=== PATIENT | female | born 1940 | race Caucasian/White ===

== ENCOUNTER 2019-12-22 11:55 | Outpatient (REF) | payer MEDICARE, SELFPAY ==
--- NOTE | 2019-12-22 | MM_ITS ---
EXAMINATION: MM SCREENING DIGITAL BREAST TOMOSYNTHESIS, BILATERAL CLINICAL INFORMATION: Screening. Asymptomatic. The lifetime risk of breast cancer based on the Tyrer-Cuzick Model is under 2%. COMPARISON: Mammography: 06/26/2018, 06/25/2017 TECHNIQUE: Digital breast tomosynthesis is performed in both the craniocaudal and mediolateral oblique views along with computer-aided detection (CAD). Synthesized 2D images are generated from the tomosynthesis. Additional right MLO view is provided. FINDINGS: There are scattered areas of fibroglandular density (ACR BI-RADS breast composition Category b). There is no developing density or interval mass or architectural abnormality. Parenchymal pattern is similar to prior studies. Again, there are numerous bilateral scattered punctate round calcifications in each breast. Some vascular calcifications are also again seen. No significant changes from prior studies. IMPRESSION: No significant changes from prior studies. ASSESSMENT: BI-RADS 2: Benign RECOMMENDATION: Routine annual mammography screening. This patient's information was entered into a reminder system with a target due date for their next mammogram.
== END 2019-12-22 11:56 | disposition home or self-care (01) ==
LOC: HO.MAMMO 11:55
PROVIDERS: PCP Internal Medicine; Visit Provider Internal Medicine
DX: Z12.31 Encounter for screening mammogram for malignant neoplasm of breast (principal)
CPT/HCPCS: 77063; 77067

== ENCOUNTER 2020-05-04 14:29 | Outpatient (REF) | payer MEDICARE, SELFPAY ==
--- NOTE | ~2020-05-04 | XR_ITS ---
EXAMINATION: XR HAND, RIGHT CLINICAL INFORMATION: Palmar fascial fibromatosis. COMPARISON: 12/29/2017 TECHNIQUE: PA, lateral, and oblique views of the right hand. FINDINGS: No acute fracture or dislocation. 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 Mild spurring at multiple interphalangeal joints of the fingers. Scapholunate distance is maintained. Ulnar negative variance. Soft tissue swelling around the wrist. No erosions. Small chronic-appearing calcification along the radial aspect of the 3rd metacarpal head. XR/XR hand RT min 3V IMPRESSION: No acute osseous abnormality. Mild arthritic changes as detailed above.
== END 2020-05-04 14:30 | disposition home or self-care (01) ==
LOC: HO.XRAY 14:29
PROVIDERS: PCP Internal Medicine; Visit Provider Internal Medicine
DX: M72.0 Palmar fascial fibromatosis [Dupuytren] (principal)
CPT/HCPCS: 73130

== ENCOUNTER 2020-08-02 09:05 | Outpatient (REF) | payer MEDICARE, SELFPAY ==
[2020-08-02 10:16] LABS: Hematocrit 45.2 % (37-47); Hemoglobin 14.5 g/dl (12.0-16.0); Mean Corpuscular HGB Conc 32.1 g/dl (31.0-35.0); Mean Corpuscular Hemoglobin 29.8 pg (27.0-33.0); Mean Platelet Volume 10.5 fL (9.4-12.3); Platelet Count 159 X10*3/uL (160-400); Red Blood Count 4.86 X10*6/uL (4.20-5.50); Red Cell Distribution Width 14.4 % (11.0-16.0); White Blood Count 6.4 X10*3/uL (4.8-10.8)
[2020-08-02 10:27] LABS: Anion Gap 11 (12-20); Blood Urea Nitrogen 27 mg/dL (9-16); Calcium 9.5 mg/dL (8.4-10.2); Carbon Dioxide 30 mmol/L (22-29); Chloride 106 mmol/L (96-108); Estimated Glomerular Filt Rate 28; Iron 48 mcg/dL (30-160); Percent Iron Saturation 19 % (15-50); Potassium 3.9 mmol/L (3.3-5.1); Sodium 143 mmol/L (135-145); Total Iron Binding Capacity 255 mcg/dL (228-428); Unsaturated Iron Binding 207 ug/dL; Uric Acid 9.7 mg/dL (2.4-5.7)
[2020-08-02 10:42] LABS: Estimated Average Glucose 140 mg/dL; Hemoglobin A1c % 6.5 %
[2020-08-02 10:50] LABS: Vitamin D 25-OH Total 43.7 ng/mL (>30)
[2020-08-02 14:54] LABS: Creatinine Urine 137.74 mg/dL; Protein/Creatinine Ratio, Ur 0.44 (<0.2); Total Protein Urine Random 60 mg/dL (<12)
[2020-08-04 13:32] LABS: Calcium (PTHI) 9.8 mg/dL (8.6-10.4); PTHI 135 pg/mL (14-64)
== END 2020-08-02 09:06 | disposition home or self-care (01) ==
LOC: HO.LAB 09:05
PROVIDERS: PCP Internal Medicine; Visit Provider Internal Medicine Nephrology
DX: N18.32 Chronic kidney disease, stage 3b (principal)
CPT/HCPCS: 36415; 80051; 82306; 82310; 82565; 83036; 83540; 83970; 84156; 84520; 84550; 85027

== ENCOUNTER 2020-08-24 14:10 | Emergency (ER) | payer MEDICARE, SELFPAY ==
--- NOTE | ~2020-08-24 | XR_ITS ---
EXAMINATION: XR CHEST CLINICAL INFORMATION: Epigastric pain COMPARISON: None TECHNIQUE: 2 views of the chest were obtained. FINDINGS: The lungs are well-expanded and clear of acute process. The heart size and pulmonary vascularity is normal. There is mild spondylosis dorsal spine. No lytic process seen. XR/XR chest 2V IMPRESSION: Unremarkable chest exam.
--- NOTE | 2020-08-24 14:34 | ECG_ITS ---
Test Reason : BODY ACHES Blood Pressure : / mmHG Vent. Rate : 064 BPM Atrial Rate : 064 BPM P-R Int : 168 ms QRS Dur : 100 ms QT Int : 450 ms P-R-T Axes : 052 -44 073 degrees QTc Int : 464 ms Normal sinus rhythm Left axis deviation Abnormal ECG When compared with ECG of 07-SEP-2019 12:59, QT has lengthened Referred By: Monica De La Cruz Electronically Signed By:BATSHEVA SWEET
--- NOTE | 2020-08-24 14:34 | ED.GENADULT ---
HPI - General Adult General Stated complaint: Body aches, nausea, weakness Time Seen by Provider: 08/24/20 14:16 Related Data Allergies Allergy/AdvReac Type Severity Reaction Status Date / Time No Known Allergies Allergy Unknown Unverified 11/27/19 17:30 Course Course Course Narrative: -This is a rapid medical exam. Patient here with body aches, nausea, vomiting, epigastric pain x 1 week with gen weakness. Will need labs, EKG, CXR, UA. Deferred additional HPI, ROS and PE to primary provider.
[2020-08-24 14:36] VITALS: BP 127/77; PULSE 57; RESP 18; TEMP 36.6; O2SAT 93; BMI 49.5
--- NOTE | 2020-08-24 17:21 | ED.GENADULT ---
HPI - General Adult General Chief complaint: General Medical Stated complaint: Body aches, nausea, weakness Time Seen by Provider: 08/24/20 14:16 Source: patient and family Mode of arrival: wheelchair Limitations: language barrier History of Present Illness HPI narrative: 79-year-old female with past medical history of asthma, COPD, diabetes, hypertension, hyperlipidemia, edema, and chronic pain presents with several days of weakness, abdominal pain, nausea, and poor p.o. intake. 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 She has not report any falls, fevers, chills, chest pain or pressure, palpitations, shortness of breath, dysuria, hematuria, constipation wounds, or any other concerning symptoms. Related Data Allergies Allergy/AdvReac Type Severity Reaction Status Date / Time No Known Allergies Allergy Unknown Unverified 11/27/19 17:30 Review of Systems Review of Systems: Constitutional: No Fever, No Chills ENT/Mouth: No sore throat, No Rhinorrhea, No Swallowing Difficulty Eyes: No Eye Pain, No Swelling, No Redness Cardiovascular: No Chest Pain, positive SOB, No Orthopnea, positive Edema Respiratory: No Cough, No Sputum, No Wheezing, positive dyspnea Gastrointestinal: Positive Nausea, No Vomiting, No Diarrhea, positive abdominal Pain, No Hematochezia, No Melena Genitourinary: No Dysuria, No Urinary Frequency, No Hematuria Musculoskeletal: No joint pain, positive Myalgias Skin: No Skin Lesions, No rash Neuro: No Weakness, No Numbness, No Dizziness, No Headache Psych: No Anxiety/Panic, No Depression Heme/Lymph: No Bruising, No Lymphadenopathy Endocrine: No Polyuria, No Polydipsia Yes all other systems are reviewed and are negative [facility] Past Medical History Attestation statement: The following information was validated with the patient. Source: old records reviewed Social History Social History Advance Directives: No Advance Directives Information Provided: No Physical Exam Vital Signs: Vital Signs: Last Vital Signs Temp 98.2 F 08/24/20 20:45 Pulse 74 08/24/20 20:45 Resp 16 08/24/20 20:45 BP 174/68 H 08/24/20 20:45 Pulse Ox 89 L 08/24/20 20:45 Body Mass Index 49.5 Appearance: Alert. Oriented X3. No acute distress. Eyes: Pupils equal, round and reactive to light. EOMI ENT: Pharynx normal. Dry mucous membranes Neck: Normal inspection. Neck supple. CVS: Normal heart rate and rhythm. Pulses normal. Respiratory: No respiratory distress. Breath sounds normal. Abdomen: Soft and nontender. Skin: Skin warm and dry. Normal skin color. Normal skin turgor. Extremities: Bilateral lower pitting edema Neuro: No motor deficit. No sensory deficit. Course Course Course Narrative: 79-year-old female with past medical history of asthma, COPD, chronic pain, diabetes, hypertension, hyperlipidemia, and edema presents with GI complaints. Lab values indicate elevated H&H of 16.5/49.4 elevated BUN of 28, creatinine of 1.75 which both are average for her. H&H is indicated of of dehydration, will resuscitate with 1 L of fluid. No white count, COVID test negative, urinalysis negative, chest x-ray negative, EKG normal. Plan of care is to discharge home with follow-up with primary care physician, encourage fluids, and to return if symptoms persist. Patient patient family verbalized understanding of and agrees plan of care discharge home. Medical Decision Making Lab Data Result diagrams: 08/24/20 17:52 08/24/20 17:52 Labs: Lab Results 08/24/20 08/24/20 08/24/20 Range/Units 17:52 17:52 17:52 WBC 7.7 (4.8-10.8) X10*3/uL RBC 5.56 H (4.20-5.50) X10*6/uL Hgb 16.5 H (12.0-16.0) g/dl Hct 49.9 H (37-47) % MCV 89.7 (80-98) fL MCH 29.7 (27.0-33.0) pg MCHC 33.1 (31.0-35.0) g/dl RDW 14.0 (11.0-16.0) % Plt Count 138 L (160-400) X10*3/uL MPV 9.9 (9.4-12.3) fL Immature Gran % (Auto) 0.1 (0.0-0.4) % Neut % (Auto) 71.4 (45-73) % Lymph % (Auto) 20.8 (20-40) % [place] % (Auto) 6.1 (2-11) % Eos % (Auto) 1.2 (0-4) % Baso % (Auto) 0.4 (0-2) % Lymph # (Auto) 1.6 (1.2-4.9) X10*3/uL [place] # (Auto) 0.5 (0.1-1.2) X10*3/uL Eos # (Auto) 0.1 (0.0-0.4) X10*3/uL Baso # (Auto) 0.0 (0.0-0.2) X10*3/uL Abs Immat Gran (auto) 0.01 (0.00-0.03) X10*3/uL Absolute Neuts (auto) 5.5 (2.0-8.3) X10*3/uL Absolute Nucleated RBC 0.000 (0.0-0.012) X10*3/uL Nucleated RBC % (auto) 0.0 (0.0-0.2) /100WBC Sodium 143 (135-145) mmol/L Potassium 3.9 (3.3-5.1) mmol/L Chloride 102 (96-108) mmol/L Carbon Dioxide 30 H (22-29) mmol/L Anion Gap 15 (12-20) BUN 28 H (9-16) mg/dL Creatinine 1.75 H (0.5-1.4) mg/dL Estim Creat Clear Calc 29.2 Estimated GFR 28 Random Glucose 117 H (60-115) mg/dL Calcium 10.4 H D (8.4-10.2) mg/dL Total Bilirubin 1.3 H (0.0-1.0) mg/dL Direct Bilirubin 0.5 (0.0-0.5) mg/dL AST 17 (5-31) U/L ALT 12 (0-31) U/L Alkaline Phosphatase 103 (39-117) U/L Troponin I High Sens (<3.5-17.0) ng/L B-Natriuretic Peptide (<100) pg/mL Total Protein 7.6 (6.5-8.0) g/dL Albumin 4.4 (3.5-5.0) g/dL Urine Color Urine Appearance Urine pH (5.0-8.0) Ur Specific [place] (1.005-1.025) Urine Protein (NEG-TRACE) MG/DL Urine Glucose (UA) (NEG) MG/DL Urine Ketones (NEG) MG/DL Urine Blood (NEG) Urine Nitrite (NEG) Ur Leukocyte Esterase (NEG) COVID-19 (MIRNA) Negative (Negative) COVID-19 Clin Com See Note 08/24/20 08/24/20 08/24/20 Range/Units 17:52 17:52 18:56 WBC (4.8-10.8) X10*3/uL RBC (4.20-5.50) X10*6/uL Hgb (12.0-16.0) g/dl Hct (37-47) % MCV (80-98) fL MCH (27.0-33.0) pg MCHC (31.0-35.0) g/dl RDW (11.0-16.0) % Plt Count (160-400) X10*3/uL MPV (9.4-12.3) fL Immature Gran % (Auto) (0.0-0.4) % Neut % (Auto) (45-73) % Lymph % (Auto) (20-40) % [place] % (Auto) (2-11) % Eos % (Auto) (0-4) % Baso % (Auto) (0-2) % Lymph # (Auto) (1.2-4.9) X10*3/uL [place] # (Auto) (0.1-1.2) X10*3/uL Eos # (Auto) (0.0-0.4) X10*3/uL Baso # (Auto) (0.0-0.2) X10*3/uL Abs Immat Gran (auto) (0.00-0.03) X10*3/uL Absolute Neuts (auto) (2.0-8.3) X10*3/uL Absolute Nucleated RBC (0.0-0.012) X10*3/uL Nucleated RBC % (auto) (0.0-0.2) /100WBC Sodium (135-145) mmol/L Potassium (3.3-5.1) mmol/L Chloride (96-108) mmol/L Carbon Dioxide (22-29) mmol/L Anion Gap (12-20) BUN (9-16) mg/dL Creatinine (0.5-1.4) mg/dL Estim Creat Clear Calc Estimated GFR Random Glucose (60-115) mg/dL Calcium (8.4-10.2) mg/dL Total Bilirubin (0.0-1.0) mg/dL Direct Bilirubin (0.0-0.5) mg/dL AST (5-31) U/L ALT (0-31) U/L Alkaline Phosphatase (39-117) U/L Troponin I High Sens 3.8 (<3.5-17.0) ng/L B-Natriuretic Peptide 26 (<100) pg/mL Total Protein (6.5-8.0) g/dL Albumin (3.5-5.0) g/dL Urine Color YELLOW Urine Appearance CLEAR Urine pH 6.5 (5.0-8.0) Ur Specific [place] 1.010 (1.005-1.025) Urine Protein TRACE (NEG-TRACE) MG/DL Urine Glucose (UA) NEG (NEG) MG/DL Urine Ketones NEG (NEG) MG/DL Urine Blood NEG (NEG) Urine Nitrite NEG (NEG) Ur Leukocyte Esterase NEG (NEG) COVID-19 (MIRNA) (Negative) COVID-19 Clin Com Imaging Data Chest x-ray: Attestation: I personally reviewed and interpreted this imaging study as follows: Radiologist's impression: EXAMINATION: XR CHEST CLINICAL INFORMATION: Epigastric pain COMPARISON: None TECHNIQUE: 2 views of the chest were obtained. FINDINGS: The lungs are well-expanded and clear of acute process. The heart size and pulmonary vascularity is normal. There is mild spondylosis dorsal spine. No lytic process seen. XR/XR chest 2V IMPRESSION: Unremarkable chest exam ECG Data Attestation: I personally reviewed and interpreted this ECG as follows: Interpretation: Vent. Rate : 064 BPM Atrial Rate : 064 BPM P-R Int : 168 ms QRS Dur : 100 ms QT Int : 450 ms P-R-T Axes : 052 -44 073 degrees QTc Int : 464 ms Normal sinus rhythm Left axis deviation Abnormal ECG When compared with ECG of 07-SEP-2019 12:59, QT has lengthened 24-AUG-2020 16:11:08 Discharge Plan Discharge Clinical Impression: Acute dehydration Patient Disposition: Home, Self-Care Instructions: Dehydration (ED) Additional Instructions: you were evaluated for multiple complaints. Lab values indicated dehydration. Gave you 1 L of fluid. please increase the amount of fluids. Follow-up with primary care physician this week. Thank you for choosing this emergency department for evaluation. Please follow-up with primary care physician as needed. Return to the emergency department for any new, concerning, or worsening symptoms. Interventions: ED Discharge Assessment Last Done: 08/24/20 22:13 Discharge Date/Time: 08/24/20 22:13
[2020-08-24 18:00] LABS: MANUAL DIFF FLAG NO
[2020-08-24 18:02] LABS: Basophils Percent Auto 0.4 % (0-2); Eosinophils Absolute Auto 0.1 X10*3/uL (0.0-0.4); Eosinophils Percent Auto 1.2 % (0-4); Hematocrit 49.9 % (37-47); Hemoglobin 16.5 g/dl (12.0-16.0); Imm Gran Abs Auto 0.01 X10*3/uL (0.00-0.03); Imm Gran Pct Auto 0.1 % (0.0-0.4); Lymphocytes Absolute Auto 1.6 X10*3/uL (1.2-4.9); Lymphocytes Percent Auto 20.8 % (20-40); Mean Corpuscular HGB Conc 33.1 g/dl (31.0-35.0); Mean Corpuscular Hemoglobin 29.7 pg (27.0-33.0); Mean Corpuscular Volume 89.7 fL (80-98); Mean Platelet Volume 9.9 fL (9.4-12.3); Monocytes Absolute Auto 0.5 X10*3/uL (0.1-1.2); Monocytes Percent Auto 6.1 % (2-11); Neutrophils Absolute Auto 5.5 X10*3/uL (2.0-8.3); Neutrophils Percent Auto 71.4 % (45-73); Platelet Count 138 X10*3/uL (160-400); Red Blood Count 5.56 X10*6/uL (4.20-5.50); White Blood Count 7.7 X10*3/uL (4.8-10.8)
[2020-08-24 18:21] LABS: COVID-19 Test Negative (Negative); IDNOW Serial# 9DD0AD1C
[2020-08-24 18:31] LABS: Alanine Aminotransferase 12 U/L (0-31); Albumin Level 4.4 g/dL (3.5-5.0); Alkaline Phosphatase 103 U/L (39-117); Anion Gap 15 (12-20); Aspartate Amino Transferase 17 U/L (5-31); Bilirubin Direct 0.5 mg/dL (0.0-0.5); Bilirubin Total 1.3 mg/dL (0.0-1.0); Blood Urea Nitrogen 28 mg/dL (9-16); Calcium 10.4 mg/dL (8.4-10.2); Carbon Dioxide 30 mmol/L (22-29); Chloride 102 mmol/L (96-108); Creatinine Clr Calc Pharmacy 29.2; Estimated Glomerular Filt Rate 28; Glucose Random 117 mg/dL (60-115); Potassium 3.9 mmol/L (3.3-5.1); Sodium 143 mmol/L (135-145); Total Protein 7.6 g/dL (6.5-8.0)
[2020-08-24 18:35] LABS: B Type Natriuretic Peptide 26 pg/mL (<100); Troponin-I High Sensitivity 3.8 ng/L (<3.5-17.0)
[2020-08-24 19:13] LABS: Glucose Urine UA NEG (NEG); Leukocyte Esterase Urine NEG (NEG); Nitrite Urine NEG (NEG); PH 6.5 (5.0-8.0); Urine Blood NEG (NEG); Urine Ketones NEG (NEG); Urine Protein TRACE MG/DL (NEG-TRACE)
[2020-08-24 19:16] LABS: Appearance Urine CLEAR; Color Urine YELLOW
[2020-08-24] MEDS: 0.9 % Sodium Chloride 1,000 ML 999 ML IVCONT (20:21)
[2020-08-24 20:45] VITALS: BP 174/68; PULSE 74; RESP 16; TEMP 36.8; O2SAT 89
== END 2020-08-24 22:13 | disposition home or self-care (01) ==
PROVIDERS: Nurse Practitioner Family; Emergency Provider Emergency Medicine; PCP Internal Medicine
DX: E86.0 Dehydration (principal); E11.9 Type 2 diabetes mellitus without complications; I10 Essential (primary) hypertension; J44.9 Chronic obstructive pulmonary disease, unspecified; Z20.822 Contact with and (suspected) exposure to COVID-19
CPT/HCPCS: 36415; 51701; 71046; 80048; 80076; 81003; 83880; 84484; 85025; 87635; 93005; 96360; 99284

== ENCOUNTER 2020-08-27 14:59 | Emergency (ER) | payer MEDICARE, SELFPAY ==
--- NOTE | ~2020-08-27 | US_ITS ---
EXAMINATION: US ABDOMEN LIMITED CLINICAL INFORMATION: Abdominal pain.. COMPARISON: None TECHNIQUE: Real-time imaging of the right upper quadrant abdominal viscera.: Doppler exam used. FINDINGS: PANCREAS: Pancreatic head and body are visualized are normal. The tail is obscured by bowel gas. LIVER: Normal. The liver is normal in size. The liver contour is normal. Parenchymal echogenicity is normal. No focal hepatic lesion. There is no intrahepatic biliary duct dilatation seen. GALLBLADDER: Multiple gallstones within the gallbladder. No gallbladder wall thickening or pericholecystic fluid. Positive ultrasound Guerra's sign. COMMON BILE DUCT: Normal in caliber measuring 0.4 cm in diameter. RIGHT KIDNEY: Normal. No hydronephrosis. No renal calculi or suspicious focal parenchymal lesions. There is a 1.9 cm and a 1.5 cm anechoic cyst at the upper pole of left kidney. No follow-up imaging is recommended for simple renal cyst. The kidney measures 9.9 cm in maximum dimension. FREE FLUID: None. US/US abdomen limited IMPRESSION: Cholelithiasis. No acute change of gallbladder wall or bile duct dilatation. Positive ultrasound Guerra's sign.
[2020-08-27 15:54] VITALS: BP 140/64; PULSE 62; RESP 18; TEMP 36.4; O2SAT 94; BMI 40.6
--- NOTE | 2020-08-27 17:34 | ED.ABDPAIN ---
HPI - Abdominal Pain General Chief Complaint: Abdominal Pain Stated Complaint: abd pain Time Seen by Provider: 08/27/20 17:31 Source: patient Mode of arrival: wheelchair Limitations: language barrier History of Present Illness HPI narrative: Patient was seen here on 08/24 complaining of body aches bilateral arm pain for last 2 months since she got the vaccine shot also complaining epigastric pain nausea with poor sleep denies any depression or anxiety normal bowel movements pain in abdomen get worse when she eats or drinks something patient does have gallstones in past MD elicited complaint: abdominal pain Pertinent past history: none Related Data Allergies Allergy/AdvReac Type Severity Reaction Status Date / Time No Known Allergies Allergy Unknown Unverified 11/27/19 17:30 Review of Systems Review of Systems Constitutional : No Weight loss, No Fever, No Chills ENT/Mouth : No sore throat, No Rhinorrhea Eyes: No Eye Pain, No Swelling Cardiovascular : No Chest Pain, no palpitations Respiratory : No Cough, No Sputum, no shortness of breath Gastrointestinal : + Nausea, No Vomiting, No Diarrhea, +abdominal Pain, no black stools Genitourinary : No Dysuria, No Urinary Frequency Musculoskeletal : No joint pain, No Myalgias, No Joint Swelling Skin : No Skin Lesions, No rash Neuro : + Weakness, No Numbness, No Dizziness, No Headache Psych : No Anxiety/Panic, No Depression Heme/Lymph: No Bruising, No Lymphadenopathy Endocrine : No Polyuria, No Polydipsia All other systems reviewed and are negative Physical Exam Vital Signs: Vital Signs: Last Vital Signs Temp 97.6 F 08/27/20 15:54 Pulse 65 08/27/20 18:46 Resp 18 08/27/20 18:46 BP 123/64 08/27/20 18:46 Pulse Ox 95 08/27/20 18:46 Body Mass Index 40.6 Appearance: Alert. Oriented X3. No acute distress. Eyes: PERRLA, No Nystagmus ENT: Pharynx normal. Oral Mucosa moist Neck: Normal inspection. Neck supple. CVS: Normal heart rate and rhythm. Pulses normal. Respiratory: No respiratory distress. Equal air entry bilateral, no wheezing/rales/rhonchi Abdomen: Soft mild epigastric tenderness. Bowel sounds are present, no mass palpable, no CVA tenderness Skin: Skin warm and dry. Normal skin color. Normal skin turgor. Extremities: No lower extremity edema. No calf tenderness Neuro: Oriented X 3. No motor deficit. No sensory deficit.No cerebellar signs , cranial nerves II-XII intact MDM - Abdominal Pain MDM Narrative Medical decision making narrative: Patient has chronic renal disease with gallstones with multiple complaints feeling better after IV fluids. Ultrasound showed gallstone no signs of cholecystitis Lab Data Attestation: I reviewed the patient's lab results. Result diagrams: 08/27/20 18:26 08/27/20 18:26 Labs: Lab Results 08/27/20 08/27/20 08/27/20 Range/Units 18:26 18:26 20:17 WBC 8.3 (4.8-10.8) X10*3/uL RBC 5.56 H (4.20-5.50) X10*6/uL Hgb 16.3 H (12.0-16.0) g/dl Hct 48.6 H (37-47) % MCV 87.4 (80-98) fL MCH 29.3 (27.0-33.0) pg MCHC 33.5 (31.0-35.0) g/dl RDW 13.8 (11.0-16.0) % Plt Count 156 L (160-400) X10*3/uL MPV 10.5 (9.4-12.3) fL Immature Gran % (Auto) 0.2 (0.0-0.4) % Neut % (Auto) 67.9 (45-73) % Lymph % (Auto) 23.0 (20-40) % [place] % (Auto) 6.8 (2-11) % Eos % (Auto) 1.5 (0-4) % Baso % (Auto) 0.6 (0-2) % Lymph # (Auto) 1.9 (1.2-4.9) X10*3/uL [place] # (Auto) 0.6 (0.1-1.2) X10*3/uL Eos # (Auto) 0.1 (0.0-0.4) X10*3/uL Baso # (Auto) 0.1 (0.0-0.2) X10*3/uL Abs Immat Gran (auto) 0.02 (0.00-0.03) X10*3/uL Absolute Neuts (auto) 5.6 (2.0-8.3) X10*3/uL Absolute Nucleated RBC 0.000 (0.0-0.012) X10*3/uL Nucleated RBC % (auto) 0.0 (0.0-0.2) /100WBC Sodium 138 (135-145) mmol/L Potassium 3.3 (3.3-5.1) mmol/L Chloride 97 (96-108) mmol/L Carbon Dioxide 27 (22-29) mmol/L Anion Gap 17 (12-20) BUN 28 H (9-16) mg/dL Creatinine 1.91 H (0.5-1.4) mg/dL Estim Creat Clear Calc 28.6 Estimated GFR 25 Random Glucose 126 H (60-115) mg/dL Calcium 10.3 H (8.4-10.2) mg/dL Total Bilirubin 1.3 H (0.0-1.0) mg/dL AST 14 (5-31) U/L ALT 10 (0-31) U/L Alkaline Phosphatase 107 (39-117) U/L Total Protein 7.6 (6.5-8.0) g/dL Albumin 4.4 (3.5-5.0) g/dL Urine Color YELLOW Urine Appearance CLEAR Urine pH 5.5 (5.0-8.0) Ur Specific [place] 1.015 (1.005-1.025) Urine Protein NEG (NEG-TRACE) MG/DL Urine Glucose (UA) NEG (NEG) MG/DL Urine Ketones NEG (NEG) MG/DL Urine Blood NEG (NEG) Urine Nitrite NEG (NEG) Ur Leukocyte Esterase NEG (NEG) Discharge Plan Discharge Clinical Impression: Asymptomatic gallstones, Chronic kidney failure Patient Disposition: Home, Self-Care Instructions: Gallstones (ED), Chronic Kidney Disease (ED) Additional Instructions: Drink plenty of fluids Follow with PCP Interventions: ED Discharge Assessment Last Done: 08/27/20 22:26 Discharge Date/Time: 08/27/20 22:27 Print Language: Macedonian [facility] Social History Social History Advance Directives: No Advance Directives Information Provided: No
[2020-08-27] MEDS: Omeprazole 40 MG CAPSULE.DR PO (18:09)
[2020-08-27] MEDS: traMADoL HCL 50 MG TABLET PO (18:09)
[2020-08-27] MEDS: Magnesium Hydrox/Alum Hydrox 30 ML ORAL.SUSP PO (18:09)
[2020-08-27 18:34] LABS: MANUAL DIFF FLAG NO
[2020-08-27 18:46] VITALS: BP 123/64; PULSE 65; RESP 18; O2SAT 95
[2020-08-27 18:50] LABS: Basophils Absolute Auto 0.1 X10*3/uL (0.0-0.2); Basophils Percent Auto 0.6 % (0-2); Eosinophils Absolute Auto 0.1 X10*3/uL (0.0-0.4); Eosinophils Percent Auto 1.5 % (0-4); Hematocrit 48.6 % (37-47); Hemoglobin 16.3 g/dl (12.0-16.0); Imm Gran Abs Auto 0.02 X10*3/uL (0.00-0.03); Imm Gran Pct Auto 0.2 % (0.0-0.4); Lymphocytes Absolute Auto 1.9 X10*3/uL (1.2-4.9); Mean Corpuscular HGB Conc 33.5 g/dl (31.0-35.0); Mean Corpuscular Hemoglobin 29.3 pg (27.0-33.0); Mean Corpuscular Volume 87.4 fL (80-98); Mean Platelet Volume 10.5 fL (9.4-12.3); Monocytes Absolute Auto 0.6 X10*3/uL (0.1-1.2); Monocytes Percent Auto 6.8 % (2-11); Neutrophils Absolute Auto 5.6 X10*3/uL (2.0-8.3); Neutrophils Percent Auto 67.9 % (45-73); Platelet Count 156 X10*3/uL (160-400); Red Blood Count 5.56 X10*6/uL (4.20-5.50); Red Cell Distribution Width 13.8 % (11.0-16.0); White Blood Count 8.3 X10*3/uL (4.8-10.8)
[2020-08-27 19:09] LABS: Alanine Aminotransferase 10 U/L (0-31); Albumin Level 4.4 g/dL (3.5-5.0); Alkaline Phosphatase 107 U/L (39-117); Anion Gap 17 (12-20); Aspartate Amino Transferase 14 U/L (5-31); Bilirubin Total 1.3 mg/dL (0.0-1.0); Blood Urea Nitrogen 28 mg/dL (9-16); Calcium 10.3 mg/dL (8.4-10.2); Carbon Dioxide 27 mmol/L (22-29); Chloride 97 mmol/L (96-108); Creatinine Clr Calc Pharmacy 28.6; Estimated Glomerular Filt Rate 25; Glucose Random 126 mg/dL (60-115); Potassium 3.3 mmol/L (3.3-5.1); Sodium 138 mmol/L (135-145); Total Protein 7.6 g/dL (6.5-8.0)
[2020-08-27 20:31] LABS: Glucose Urine UA NEG (NEG); Leukocyte Esterase Urine NEG (NEG); Nitrite Urine NEG (NEG); PH 5.5 (5.0-8.0); Specific Gravity - Urine 1.015 (1.005-1.025); Urine Blood NEG (NEG); Urine Ketones NEG (NEG); Urine Protein NEG (NEG-TRACE)
[2020-08-27 20:33] LABS: Appearance Urine CLEAR; Color Urine YELLOW
[2020-08-27] MEDS: 0.9 % Sodium Chloride 1,000 ML 999 ML IVCONT (20:36)
== END 2020-08-27 22:27 | disposition home or self-care (01) ==
PROVIDERS: Emergency Provider Internal Medicine; PCP Internal Medicine
DX: K80.20 Calculus of gallbladder without cholecystitis without obstruction (principal); N18.9 Chronic kidney disease, unspecified
CPT/HCPCS: 36415; 76705; 80053; 81003; 85025; 96360; 99284

== ENCOUNTER 2020-10-13 13:42 | Outpatient (REF) | payer MEDICARE, SELFPAY ==
--- NOTE | ~2020-10-13 | US_ITS ---
EXAMINATION: RIGHT UPPER EXTREMITY VENOUS ULTRASOUND CLINICAL INFORMATION: Pain COMPARISON: None TECHNIQUE: Grayscale and color imaging of the veins of the right upper extremity FINDINGS: Right internal jugular, subclavian, axillary, basilic and brachial veins are patent. The cephalic vein is patent. There is mild wall thickening and limited compression of a short segment of the cephalic vein questionable for changes of old superficial thrombophlebitis. US/US venous duplex UE RT IMPRESSION: No evidence of DVT. Mild wall thickening and decreased compression of the cephalic vein questionable for changes from old thrombus. The cephalic vein is patent. There is no evidence of acute superficial thrombophlebitis. EXAMINATION: Right shoulder x-ray CLINICAL INFORMATION: Pain COMPARISON: Previous chest x-ray August 2020 TECHNIQUE: 4 views of the right shoulder FINDINGS: Bone alignment is normal. No fracture or dislocation is seen. There is arthritis at the acromioclavicular and glenohumeral joints with joint space narrowing and osteophyte formation. The soft tissues are normal. There is a 0.6 x 2 cm density in the right upper lobe that appears unchanged. There is question of a fullness of the right pulmonary hilum. IMPRESSION: Arthritis. 0.6 x 2 cm abnormal parenchymal density in the right upper lung unchanged from previous chest x-ray and question fullness of the right pulmonary hilum. Findings could be better evaluated with chest CT scan if clinically indicated.
== END 2020-10-13 13:43 | disposition home or self-care (01) ==
LOC: HO.US 13:42
PROVIDERS: PCP Internal Medicine; Visit Provider Emergency Medicine
DX: M79.601 Pain in right arm (principal)
CPT/HCPCS: 73030; 93971

== ENCOUNTER → 2020-11-12 09:43 | Outpatient (BNVA) | payer MEDICARE, SELFPAY | PROVIDERS: PCP Internal Medicine; Visit Provider Physician Assistant | DX: M12.811 Other specific arthropathies, not elsewhere classified, right shoulder (principal) | CPT/HCPCS: 20610; 99202; J1020 ==

== ENCOUNTER 2020-11-25 08:14 | Outpatient (REF) | payer MEDICARE, SELFPAY ==
--- NOTE | ~2020-11-25 | XR_ITS ---
EXAMINATION: XR BOTH KNEES AP STANDING XR RIGHT KNEE, 2 VIEWS XR LEFT KNEE, 2 VIEWS CLINICAL INFORMATION: Right and left knee pain. COMPARISON: Right and left knee radiographs dated 09/17/2018. TECHNIQUE: Standing AP view of both knees and lateral and sunrise views of the right and left knee. FINDINGS: Right knee: Severe lateral compartment joint space narrowing with subchondral sclerosis and bony remodeling as well as subchondral cystic change. Medial and patellofemoral compartment joint space narrowing with marginal osteophytes. No fracture or dislocation. No significant joint effusion. Atherosclerotic calcifications. Left knee: Severe medial compartment joint space narrowing with subchondral sclerosis and mild bony remodeling. Tricompartmental marginal osteophytes. No fracture or dislocation. No significant joint effusion. Atherosclerotic calcifications. XR/XR knee standing BI IMPRESSION: Right knee: Tricompartmental osteoarthritis, most severe within the lateral compartment. Findings are slightly progressed. Left knee: Tricompartmental osteoarthritis, most severe within the medial compartment. Findings are slightly progressed.
--- NOTE | ~2020-11-25 | XR_ITS ---
EXAMINATION: XR BOTH KNEES AP STANDING XR RIGHT KNEE, 2 VIEWS XR LEFT KNEE, 2 VIEWS CLINICAL INFORMATION: Right and left knee pain. COMPARISON: Right and left knee radiographs dated 09/17/2018. TECHNIQUE: Standing AP view of both knees and lateral and sunrise views of the right and left knee. FINDINGS: Right knee: Severe lateral compartment joint space narrowing with subchondral sclerosis and bony remodeling as well as subchondral cystic change. Medial and patellofemoral compartment joint space narrowing with marginal osteophytes. No fracture or dislocation. No significant joint effusion. Atherosclerotic calcifications. Left knee: Severe medial compartment joint space narrowing with subchondral sclerosis and mild bony remodeling. Tricompartmental marginal osteophytes. No fracture or dislocation. No significant joint effusion. Atherosclerotic calcifications. XR/XR knee LT 2V IMPRESSION: Right knee: Tricompartmental osteoarthritis, most severe within the lateral compartment. Findings are slightly progressed. Left knee: Tricompartmental osteoarthritis, most severe within the medial compartment. Findings are slightly progressed.
--- NOTE | ~2020-11-25 | XR_ITS ---
EXAMINATION: XR BOTH KNEES AP STANDING XR RIGHT KNEE, 2 VIEWS XR LEFT KNEE, 2 VIEWS CLINICAL INFORMATION: Right and left knee pain. COMPARISON: Right and left knee radiographs dated 09/17/2018. TECHNIQUE: Standing AP view of both knees and lateral and sunrise views of the right and left knee. FINDINGS: Right knee: Severe lateral compartment joint space narrowing with subchondral sclerosis and bony remodeling as well as subchondral cystic change. Medial and patellofemoral compartment joint space narrowing with marginal osteophytes. No fracture or dislocation. No significant joint effusion. Atherosclerotic calcifications. Left knee: Severe medial compartment joint space narrowing with subchondral sclerosis and mild bony remodeling. Tricompartmental marginal osteophytes. No fracture or dislocation. No significant joint effusion. Atherosclerotic calcifications. XR/XR knee RT 2V IMPRESSION: Right knee: Tricompartmental osteoarthritis, most severe within the lateral compartment. Findings are slightly progressed. Left knee: Tricompartmental osteoarthritis, most severe within the medial compartment. Findings are slightly progressed.
== END 2020-11-25 08:15 | disposition home or self-care (01) ==
LOC: HO.HOSX 08:14
PROVIDERS: Visit Provider Physician Assistant
DX: M17.0 Bilateral primary osteoarthritis of knee (principal)
CPT/HCPCS: 20610; 73560; 73565; 99212; J1020

== ENCOUNTER → 2020-12-09 08:36 | Outpatient (BNVA) | payer MEDICARE, SELFPAY | PROVIDERS: PCP Internal Medicine; Visit Provider Physician Assistant | DX: M17.12 Unilateral primary osteoarthritis, left knee (principal) | CPT/HCPCS: 20610; 99212; J1020 ==

== ENCOUNTER 2020-12-29 10:44 | Outpatient (REF) | payer MEDICARE, SELFPAY ==
--- NOTE | ~2020-12-29 | MM_ITS ---
EXAMINATION: MM SCREENING DIGITAL BREAST TOMOSYNTHESIS, BILATERAL CLINICAL INFORMATION: Screening. Asymptomatic. The lifetime risk of breast cancer based on the Tyrer-Cuzick Model is 2%. COMPARISON: Mammography: 12/22/2019, 06/26/2018, 06/25/2017 TECHNIQUE: Digital breast tomosynthesis is performed in both the craniocaudal and mediolateral oblique views along with computer-aided detection (CAD). Synthesized 2D images are generated from the tomosynthesis. FINDINGS: There are scattered areas of fibroglandular density (ACR BI-RADS breast composition Category b). There are no significant masses, abnormal calcifications, or other abnormalities. There is no developing density or interval mass or architectural abnormality. Bilateral numerous scattered round punctate, mildly coarse benign calcifications, and vascular calcifications are again seen. The axilla and skin contours are unremarkable. No significant changes. MM/MM tomosynthesis screening BI IMPRESSION: No mammographic evidence of malignancy. ASSESSMENT: BI-RADS 2: Benign RECOMMENDATION: Routine annual mammography screening. This patient's information was entered into a reminder system with a target due date for their next mammogram.
== END 2020-12-29 10:45 | disposition home or self-care (01) ==
LOC: HO.MAMMO 10:44
PROVIDERS: Visit Provider Internal Medicine
DX: Z12.31 Encounter for screening mammogram for malignant neoplasm of breast (principal)
CPT/HCPCS: 77063; 77067

== ENCOUNTER 2021-01-21 09:52 | Outpatient (REF) | payer MEDICARE, SELFPAY ==
[2021-01-21 10:20] LABS: MANUAL DIFF FLAG NO
[2021-01-21 10:55] LABS: Basophils Percent Auto 0.6 % (0-2); Eosinophils Absolute Auto 0.2 X10*3/uL (0.0-0.4); Eosinophils Percent Auto 2.6 % (0-4); Hematocrit 42.9 % (37.0-47.0); Imm Gran Abs Auto 0.01 X10*3/uL (0.00-0.03); Imm Gran Pct Auto 0.1 % (0.0-0.4); Lymphocytes Absolute Auto 1.4 X10*3/uL (1.2-4.9); Lymphocytes Percent Auto 20.5 % (20-40); Mean Corpuscular HGB Conc 32.6 g/dl (31.0-35.0); Mean Corpuscular Hemoglobin 29.7 pg (27.0-33.0); Mean Corpuscular Volume 90.9 fL (80.0-98.0); Mean Platelet Volume 10.7 fL (9.4-12.3); Monocytes Absolute Auto 0.5 X10*3/uL (0.1-1.2); Monocytes Percent Auto 7.8 % (2-11); Neutrophils Absolute Auto 4.7 x10*3/uL (2.0-8.3); Neutrophils Percent Auto 68.4 % (45-73); Platelet Count 135 X10*3/uL (160-400); Red Blood Count 4.72 X10*6/uL (4.20-5.50); Red Cell Distribution Width 14.3 % (11.0-16.0); White Blood Count 6.9 X10*3/uL (4.8-10.8)
[2021-01-21 11:14] LABS: Estimated Average Glucose 134 mg/dL; Hemoglobin A1c % 6.3 %
[2021-01-21 11:24] LABS: Anion Gap 12 (12-20); Blood Urea Nitrogen 29 mg/dL (9-16); Calcium 9.6 mg/dL (8.4-10.2); Carbon Dioxide 31 mmol/L (22-29); Chloride 105 mmol/L (96-108); Estimated Glomerular Filt Rate 33; Iron 57 mcg/dL (30-160); Percent Iron Saturation 25 % (15-50); Sodium 144 mmol/L (135-145); Total Iron Binding Capacity 228 mcg/dL (228-428); Unsaturated Iron Binding 171 ug/dL
[2021-01-21 12:12] LABS: Creatinine Urine 98.61 mg/dL; Microalbum/Creatinine Ratio Ur 139.9 ug/mg cr; Total Protein Urine Random 31 mg/dL (<12)
[2021-01-24 12:01] LABS: Calcium (PTHI) 9.7 mg/dL (8.6-10.4); PTHI 145 pg/mL (14-64)
== END 2021-01-21 09:53 | disposition home or self-care (01) ==
LOC: HO.LAB 09:52
PROVIDERS: PCP Internal Medicine; Visit Provider Internal Medicine Nephrology
DX: N18.32 Chronic kidney disease, stage 3b (principal)
CPT/HCPCS: 36415; 80051; 82043; 82306; 82310; 82565; 83036; 83540; 83970; 84156; 84520; 85025

== ENCOUNTER 2021-01-27 11:01 | Outpatient (REF) | payer MEDICARE, SELFPAY ==
--- NOTE | ~2021-01-27 | MR_ITS ---
EXAMINATION: MR KNEE WITHOUT CONTRAST, RIGHT CLINICAL INFORMATION: Primary osteoarthritis of the left knee. COMPARISON: None TECHNIQUE: MRI of the knee without contrast was performed using routine sequences on a high-field scanner. FINDINGS: MENISCI: Medial Meniscus: There is free edge fraying at the lateral meniscus. Degenerative inner margin tear is suspected at the posterior horn, likely radial in orientation, sparing the peripheral two-thirds of the meniscal cross-section. Lateral Meniscus: There is extensive complex degenerative tearing of the lateral meniscus with extrusion of the body, a longitudinal tear of the posterior horn, and maceration of the anterior horn and body. LIGAMENTS: Cruciate: Intact Collateral: Intact EXTENSOR MECHANISM: Intact ARTICULAR CARTILAGE/BONE: Patellofemoral Compartment: There is [id number] nonuniform chondral thinning in the patella with foci of full-thickness chondral fissuring at the median ridge and medial facet as well as a small focus of subchondral cystic change at the medial facet. Moderate size marginal osteophytes. Additional mild/moderate articular cartilage loss is also present at the trochlea with full-thickness chondral fissuring at the medial trochlear facet and median ridge. Medial Compartment: There is high-grade articular cartilage loss at the anterior weightbearing surface of the medial femoral condyle over an area measuring 2.5 x 2.3 cm with central osteophytes and articular cortical irregularity. There is more mild nonuniform chondral thinning posterior to this. Mild nonuniform chondral thinning is present at the medial tibial plateau with full-thickness chondral fissures. Moderate size marginal osteophytes. Lateral Compartment: There is high-grade articular cartilage loss at the lateral femoral condyle and lateral tibial plateau weightbearing surfaces with articular cortical remodeling, subchondral sclerosis, and subchondral edema. Large marginal osteophytes. JOINT FLUID AND BURSAE: Small joint effusion. Trace Richards's cyst. MR/MR knee RT wo con IMPRESSION: 1. Severe lateral compartment osteoarthritis with degenerative maceration of the lateral meniscus, most notably at the extruded meniscal body. 2. Mild to moderate medial and patellofemoral compartment osteophytes. Degenerative inner margin tear at the posterior horn of the medial meniscus. 3. Small joint effusion and trace Richards's cyst.
== END 2021-01-27 11:02 | disposition home or self-care (01) ==
LOC: HO.MRI 11:01
PROVIDERS: Visit Provider Internal Medicine
DX: M16.11 Unilateral primary osteoarthritis, right hip (principal); M17.0 Bilateral primary osteoarthritis of knee
CPT/HCPCS: 73721

== ENCOUNTER 2021-02-17 13:55 | Emergency (ER) | payer MEDICARE, SELFPAY ==
--- NOTE | ~2021-02-17 | XR_ITS ---
EXAMINATION: XR CHEST CLINICAL INFORMATION: Cough. COMPARISON: Chest x-ray 08/24/2020 TECHNIQUE: Frontal view of the chest was obtained. FINDINGS: Lungs are clear. No pulmonary vascular congestion. There is no pleural effusion. The heart size is normal. The cardiac and mediastinal contours are normal. There are calcifications of the thoracic aorta. There are multilevel degenerative changes of dorsal spine. Degenerative change of glenohumeral joints bilateral. XR/XR chest 1V IMPRESSION: Unremarkable examination.
[2021-02-17 15:16] VITALS: BP 129/71; PULSE 75; RESP 16; TEMP 36.9; O2SAT 99; BMI 42.7
[2021-02-17 15:34] LABS: MANUAL DIFF FLAG NO
[2021-02-17 15:35] LABS: Basophils Percent Auto 0.3 % (0-2); Eosinophils Absolute Auto 0.1 X10*3/uL (0.0-0.4); Hematocrit 46.9 % (37.0-47.0); Hemoglobin 15.5 g/dl (12.0-16.0); Imm Gran Abs Auto 0.02 X10*3/uL (0.00-0.03); Imm Gran Pct Auto 0.2 % (0.0-0.4); Lymphocytes Absolute Auto 1.6 X10*3/uL (1.2-4.9); Lymphocytes Percent Auto 15.9 % (20-40); Mean Corpuscular Hemoglobin 29.3 pg (27.0-33.0); Mean Corpuscular Volume 88.7 fL (80.0-98.0); Mean Platelet Volume 10.3 fL (9.4-12.3); Monocytes Absolute Auto 0.9 X10*3/uL (0.1-1.2); Monocytes Percent Auto 8.4 % (2-11); Neutrophils Absolute Auto 7.7 x10*3/uL (2.0-8.3); Neutrophils Percent Auto 74.2 % (45-73); Platelet Count 171 X10*3/uL (160-400); Red Blood Count 5.29 X10*6/uL (4.20-5.50); White Blood Count 10.3 X10*3/uL (4.8-10.8)
[2021-02-17 15:50] LABS: Anion Gap 14 (12-20); Blood Urea Nitrogen 42 mg/dL (9-16); Calcium 10.5 mg/dL (8.4-10.2); Carbon Dioxide 35 mmol/L (22-29); Chloride 97 mmol/L (96-108); Creatinine Clr Calc Pharmacy 31.4; Estimated Glomerular Filt Rate 28; Glucose Random 132 mg/dL (60-115); Potassium 3.7 mmol/L (3.3-5.1); Sodium 142 mmol/L (135-145)
--- NOTE | 2021-02-17 19:35 | ED_ITS ---
HPI - General Adult General Chief complaint: General Medical Stated complaint: BODY ACHES Time Seen by Provider: 02/17/21 19:35 Source: patient and family Limitations: no limitations History of Present Illness HPI narrative: Patient complaining for few days of bodyache, cough, urinary frequency subjective fever no chills no significant shortness of breath. Patient been vaccinated against COVID no nausea no vomiting or diarrhea complaining of diffuse abdominal discomfort off and on Related Data Home Medications Medication Instructions Recorded Confirmed atorvastatin 20 mg tablet 20 mg PO DAILY 11/12/20 calcium carbonate [Antacid Calcium] PO 11/12/20 fluticasone propionate 110 1 puff INHALATION BID 11/12/20 mcg/actuation HFA aerosol inhaler (Flovent HFA) furosemide 80 mg tablet (Lasix) 80 mg PO DAILY 11/12/20 metolazone 2.5 mg tablet 5 mg PO DAILY 11/12/20 metoprolol tartrate 50 mg tablet 50 mg PO DAILY 11/12/20 (Lopressor) montelukast 10 mg tablet 10 mg PO DAILY 11/12/20 (Singulair) nifedipine 60 mg tablet,extended 60 mg PO DAILY 11/12/20 release 24 hr ondansetron HCl 4 mg tablet 4 mg PO Q8H 11/12/20 (Zofran) oxycodone-acetaminophen [Percocet] PO 11/12/20 potassium chloride 10 mEq 10 meq PO DAILY 11/12/20 tablet,extended release (Klor-Con) pregabalin 100 mg capsule (Lyrica) 100 mg PO DAILY 11/12/20 Previous Rx's Medication Instructions Recorded cefuroxime axetil 250 mg tablet 250 mg PO BID 7 Days #14 tab 02/17/21 Allergies Allergy/AdvReac Type Severity Reaction Status Date / Time No Known Allergies Allergy Unknown Verified 12/09/20 09:03 Review of Systems Review of Systems: Yes all other systems are reviewed and are negative PMFSH Past Medical History Medical History Chronic kidney disease COPD (chronic obstructive pulmonary disease) Diabetes Iron deficiency Social History Social History Patient Tobacco Use Status: Never used Tobacco Use of substances other than those prescribed or required for medical reasons: Yes Advance Directives: No Advance Directives Information Provided: Yes 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al status: disabled 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 Oriented X3. No acute distress. ENT: Pharynx normal. Oral Mucosa moist Neck: Normal inspection. Neck supple. Diffuse upper back muscular tenderness CVS: Normal heart rate and rhythm. Pulses normal. Respiratory: No respiratory distress. Equal air entry bilateral, no wheezing/rales/rhonchi Abdomen: Soft mild suprapubic discomfort no rebound tenderness or guarding Bowel sounds are present, no mass palpable, no CVA tenderness Skin: Skin warm and dry. Normal skin color. Normal skin turgor. Extremities: No lower extremity edema. No calf tenderness Neuro: Oriented X 3. Medical Decision Making MDM Narrative Medical decision making narrative: Patient with mild UTI with chronic abdominal pain chronic back pain on oxycodone prescriptions at home COVID negative workup showed only mild UTI will discharge patient home on Ceftin Lab Data Lab results reviewed: Yes I reviewed the patient's lab results. Result diagrams: 02/17/21 15:29 02/17/21 15:29 Labs: Lab Results 02/17/21 02/17/21 02/17/21 Range/Units 15:29 15:29 19:51 WBC 10.3 (4.8-10.8) X10*3/uL RBC 5.29 (4.20-5.50) X10*6/uL Hgb 15.5 (12.0-16.0) g/dl Hct 46.9 (37.0-47.0) % MCV 88.7 (80.0-98.0) fL MCH 29.3 (27.0-33.0) pg MCHC 33.0 (31.0-35.0) g/dl RDW 14.0 (11.0-16.0) % Plt Count 171 D (160-400) X10*3/uL MPV 10.3 (9.4-12.3) fL Immature Gran % (Auto) 0.2 (0.0-0.4) % Neut % (Auto) 74.2 H (45-73) % Lymph % (Auto) 15.9 L (20-40) % [place] % (Auto) 8.4 (2-11) % Eos % (Auto) 1.0 (0-4) % Baso % (Auto) 0.3 (0-2) % Lymph # (Auto) 1.6 (1.2-4.9) X10*3/uL [place] # (Auto) 0.9 (0.1-1.2) X10*3/uL Eos # (Auto) 0.1 (0.0-0.4) X10*3/uL Baso # (Auto) 0.0 (0.0-0.2) X10*3/uL Abs Immat Gran (auto) 0.02 (0.00-0.03) X10*3/uL Absolute Neuts (auto) 7.7 (2.0-8.3) x10*3/uL Absolute Nucleated RBC 0.000 (0.0-0.012) X10*3/uL Nucleated RBC % (auto) 0.0 (0.0-0.2) /100WBC Sodium 142 (135-145) mmol/L Potassium 3.7 (3.3-5.1) mmol/L Chloride 97 (96-108) mmol/L Carbon Dioxide 35 H (22-29) mmol/L Anion Gap 14 (12-20) BUN 42 H (9-16) mg/dL Creatinine 1.76 H (0.5-1.4) mg/dL Estim Creat Clear Calc 31.4 Estimated GFR 28 Random Glucose 132 H (60-115) mg/dL Calcium 10.5 H D (8.4-10.2) mg/dL Urine Color Urine Appearance Urine pH (5.0-8.0) Ur Specific [place] (1.005-1.025) Urine Protein (NEG-TRACE) MG/DL Urine Glucose (UA) (NEG) MG/DL Urine Ketones (NEG) MG/DL Urine Blood (NEG) Urine Nitrite (NEG) Ur Leukocyte Esterase (NEG) Urine RBC (0) /HPF Urine WBC (0-4) /HPF Ur Squamous Epith Cells /LPF Urine Bacteria /LPF Influenza Type A (PCR) NEGATIVE (Negative) Influenza Type B (PCR) NEGATIVE (Negative) RSV RNA Qual (PCR) NEGATIVE (Negative) SARS-CoV-2 RNA (RT-PCR) NEGATIVE (Negative) 02/17/21 Range/Units 20:40 WBC (4.8-10.8) X10*3/uL RBC (4.20-5.50) X10*6/uL Hgb (12.0-16.0) g/dl Hct (37.0-47.0) % MCV (80.0-98.0) fL MCH (27.0-33.0) pg MCHC (31.0-35.0) g/dl RDW (11.0-16.0) % Plt Count (160-400) X10*3/uL MPV (9.4-12.3) fL Immature Gran % (Auto) (0.0-0.4) % Neut % (Auto) (45-73) % Lymph % (Auto) (20-40) % [place] % (Auto) (2-11) % Eos % (Auto) (0-4) % Baso % (Auto) (0-2) % Lymph # (Auto) (1.2-4.9) X10*3/uL [place] # (Auto) (0.1-1.2) X10*3/uL Eos # (Auto) (0.0-0.4) X10*3/uL Baso # (Auto) (0.0-0.2) X10*3/uL Abs Immat Gran (auto) (0.00-0.03) X10*3/uL Absolute Neuts (auto) (2.0-8.3) x10*3/uL Absolute Nucleated RBC (0.0-0.012) X10*3/uL Nucleated RBC % (auto) (0.0-0.2) /100WBC Sodium (135-145) mmol/L Potassium (3.3-5.1) mmol/L Chloride (96-108) mmol/L Carbon Dioxide (22-29) mmol/L Anion Gap (12-20) BUN (9-16) mg/dL Creatinine (0.5-1.4) mg/dL Estim Creat Clear Calc Estimated GFR Random Glucose (60-115) mg/dL Calcium (8.4-10.2) mg/dL Urine Color YELLOW Urine Appearance CLEAR Urine pH 5.5 (5.0-8.0) Ur Specific [place] 1.010 (1.005-1.025) Urine Protein NEG (NEG-TRACE) MG/DL Urine Glucose (UA) NEG (NEG) MG/DL Urine Ketones NEG (NEG) MG/DL Urine Blood TRACE (NEG) Urine Nitrite NEG (NEG) Ur Leukocyte Esterase 2+ H (NEG) Urine RBC 1-4 (0) /HPF Urine WBC 15-29 H (0-4) /HPF Ur Squamous Epith Cells 1+ /LPF Urine Bacteria 3+ /LPF Influenza Type A (PCR) (Negative) Influenza Type B (PCR) (Negative) RSV RNA Qual (PCR) (Negative) SARS-CoV-2 RNA (RT-PCR) (Negative) Discharge Plan Discharge Clinical Impression: UTI (urinary tract infection) Qualifiers: Urinary tract infection type: acute cystitis Hematuria presence: without he maturia Qualified Code(s): N30.00 - Acute cystitis without hematuria Patient Disposition: Home, Self-Care Instructions: Urinary Tract Infection in Older Adults (ED) Additional Instructions: Drink plenty of fluids Take antibiotic as prescribed Take pain medication as prescribed Follow-up with PCP Prescriptions: New cefuroxime axetil 250 mg tablet 250 mg PO BID 7 Days Qty: 14 RF: 0
[2021-02-17 20:32] LABS: Influenza A PCR NEGATIVE (Negative); Influenza B PCR NEGATIVE (Negative); Resp Syncy Virus RNA Qual PCR NEGATIVE (Negative); SARS COV2 PCR INHOUSE NEGATIVE (Negative)
[2021-02-17 20:45] LABS: Appearance Urine CLEAR; Color Urine YELLOW; Glucose Urine UA NEG (NEG); Leukocyte Esterase Urine 2+ (NEG); Nitrite Urine NEG (NEG); PH 5.5 (5.0-8.0); UACC Culture Trigger YES; Urine Blood TRACE (NEG); Urine Ketones NEG (NEG); Urine Protein NEG (NEG-TRACE)
[2021-02-17 20:52] LABS: UACC CULT YES
[2021-02-17 20:53] LABS: Bacteria Urine 3+ /LPF; Squamous Epithelial Cell Urine 1+ /LPF
[2021-02-17] MEDS: traMADoL HCL 50 MG TABLET PO (21:11)
--- NOTE | 2021-02-17 21:13 | PC.NURSE ---
Medicated pt per mar, Pt denies any sob or chest pain.
[2021-02-17] MEDS: oxyCODONE HCl Immed Release 5 MG TABLET PO (21:32)
[2021-02-17 21:33] VITALS: RESP 20
--- NOTE | 2021-02-17 21:34 | PC.NURSE ---
Reviewed discharge instructions and medications at discharge. pt verbalized understanding.
== END 2021-02-17 21:35 | disposition home or self-care (01) ==
PROVIDERS: Emergency Medicine; Emergency Provider Internal Medicine; PCP Internal Medicine
DX: N30.00 Acute cystitis without hematuria (principal); Z20.822 Contact with and (suspected) exposure to COVID-19; M79.10 Myalgia, unspecified site
CPT/HCPCS: 0241U; 36415; 71045; 80048; 81001; 85025; 87086; 87088; 87186; 99284

== ENCOUNTER 2021-04-13 12:36 | Emergency (ER) | payer MEDICARE, SELFPAY ==
[2021-04-13 12:47] VITALS: BP 144/56; PULSE 78; RESP 16; TEMP 36.9; O2SAT 97; BMI 42.7
[2021-04-13 13:52] LABS: MANUAL DIFF FLAG NO
[2021-04-13 13:53] LABS: Basophils Percent Auto 0.2 % (0-2); Eosinophils Absolute Auto 0.2 X10*3/uL (0.0-0.4); Hematocrit 41.8 % (37.0-47.0); Hemoglobin 13.7 g/dl (12.0-16.0); Imm Gran Abs Auto 0.02 X10*3/uL (0.00-0.03); Imm Gran Pct Auto 0.2 % (0.0-0.4); Lymphocytes Absolute Auto 1.2 X10*3/uL (1.2-4.9); Lymphocytes Percent Auto 13.2 % (20-40); Mean Corpuscular HGB Conc 32.8 g/dl (31.0-35.0); Mean Corpuscular Hemoglobin 29.6 pg (27.0-33.0); Mean Corpuscular Volume 90.3 fL (80.0-98.0); Mean Platelet Volume 10.4 fL (9.4-12.3); Monocytes Absolute Auto 0.5 X10*3/uL (0.1-1.2); Monocytes Percent Auto 5.8 % (2-11); Neutrophils Absolute Auto 7.2 x10*3/uL (2.0-8.3); Neutrophils Percent Auto 78.6 % (45-73); Platelet Count 165 X10*3/uL (160-400); Red Blood Count 4.63 X10*6/uL (4.20-5.50); Red Cell Distribution Width 14.3 % (11.0-16.0); White Blood Count 9.1 X10*3/uL (4.8-10.8)
[2021-04-13 14:12] LABS: Alanine Aminotransferase 12 U/L (0-31); Albumin Level 3.7 g/dL (3.5-5.0); Alkaline Phosphatase 91 U/L (39-117); Anion Gap 13 (12-20); Aspartate Amino Transferase 11 U/L (5-31); Bilirubin Total 0.7 mg/dL (0.0-1.0); Blood Urea Nitrogen 39 mg/dL (9-16); Calcium 9.8 mg/dL (8.4-10.2); Carbon Dioxide 29 mmol/L (22-29); Chloride 103 mmol/L (96-108); Creatinine Clr Calc Pharmacy 31.2; Estimated Glomerular Filt Rate 27; Glucose Random 316 mg/dL (60-115); Potassium 3.9 mmol/L (3.3-5.1); Sodium 141 mmol/L (135-145); Total Protein 6.9 g/dL (6.5-8.0)
--- NOTE | 2021-04-13 16:27 | ED_ITS ---
HPI - General Adult General Chief complaint: Skin/Abscess/Foreign Body Stated complaint: leg infection Time Seen by Provider: 04/13/21 16:26 Source: patient Mode of arrival: ambulatory History of Present Illness HPI narrative: 80-year-old senegalese speaking female with past medical history of asthma, COPD on home O2 PRN, diabetes, hypertension, hyperlipidemia, edema, and chronic pain presents with left big toe pain, erythema, and swelling x4 days. Reports symptoms began after patient tried to lift toenail/fix ingrown toenail. Denies fever, chills, numbness/tingling, drainage from area Onset (ago): day(s) Related Data Home Medications Medication Instructions Recorded Confirmed atorvastatin 20 mg tablet 20 mg PO DAILY 11/12/20 calcium carbonate [Antacid PO 11/12/20 Calcium] fluticasone propionate 110 1 puff INHALATION BID 11/12/20 mcg/actuation HFA aerosol inhaler (Flovent HFA) furosemide 80 mg tablet (Lasix) 80 mg PO DAILY 11/12/20 metolazone 2.5 mg tablet 5 mg PO DAILY 11/12/20 metoprolol tartrate 50 mg tablet 50 mg PO DAILY 11/12/20 (Lopressor) montelukast 10 mg tablet 10 mg PO DAILY 11/12/20 (Singulair) nifedipine 60 mg tablet,extended 60 mg PO DAILY 11/12/20 release 24 hr ondansetron HCl 4 mg tablet 4 mg PO Q8H 11/12/20 (Zofran) oxycodone-acetaminophen [Percocet] PO 11/12/20 potassium chloride 10 mEq 10 meq PO DAILY 11/12/20 tablet,extended release (Klor-Con) pregabalin 100 mg capsule (Lyrica) 100 mg PO DAILY 11/12/20 Previous Rx's Medication Instructions Recorded cefuroxime axetil 250 mg tablet 250 mg PO BID 7 Days #14 tab 02/17/21 cephalexin 500 mg capsule 500 mg PO QID 7 Days #28 cap 04/13/21 doxycycline hyclate 100 mg tablet 100 mg PO BID 7 Days #14 tab 04/13/21 hydrocodone 5 mg-acetaminophen 325 1 tab PO Q8H PRN 3 Days #5 tab 04/13/21 mg tablet Allergies Allergy/AdvReac Type Severity Reaction Status Date / Time No Known Allergies Allergy Unknown Verified 12/09/20 09:03 Review of Systems Verdana 4l Review of Systems: Verdana 4d Verdana 4d Constitutional: No Fever, No Chills, No Fatigue, No Malaise ENT/Mouth:No Ear Pain, No Nasal Congestion, No Sinus Pain, No Hoarseness, No sore throat Eyes: No Eye Pain, No Discharge Cardiovascular: No Chest Pain, No SOB, No Edema, No PalpitationsPalpitations Respiratory: No Cough, No Dyspnea Gastrointestinal: No Nausea, No Vomiting, No Diarrhea, No Constipation, No Abdominal pain Genitourinary: No irregular bleeding, No Dysuria, No Hematuria, No Flank Pain Musculoskeletal: + joint pain, No Myalgias, + Joint Swelling Skin: + Skin Lesions, No rash Neuro: No Weakness, No Numbness, No Paresthesias Yes all other systems are reviewed and are negative [facility] Past Medical History Attestation statement: The following information was validated with the patient. 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 Physical Exam Verdana 4l Vital Signs: Verdana 4d Verdana 4d Vital Signs: Verdana 4d Verdana 4Bd Last Vital Signs Verdana 4d Drum Sander New 4d Drum Sander New 4d Temp 98.5 F 04/13/21 17:57 Drum Sander New 4d Pulse 76 04/13/21 17:56 Drum Sander New 4d Resp 16 04/13/21 17:56 BP 135/64 04/13/21 17:56 Pulse Ox 93 04/13/21 17:56 BMI result Body Mass Index 42.7 Const: General: cooperative, healthy appearing and no acute distress Orientation/consciousness: patient oriented x3 Limitations: no limitations HENMT: Head: Yes normal to inspection Ears: hearing grossly normal bilaterally General nose exam: Normal external nose present Face and sinus: Yes normal facial exam Eyes: General: appearance normal, both eyes and all related structures EOM: EOMs intact bilaterally Neck: Neck: Yes normal visual inspection Resp: Effort & Inspection: normal respiratory effort and no respiratory distress Auscultation: clear to auscultation bilaterally Cardio: Rate: regular rate Heart sounds: S1 normal heart sound present and S2 normal heart sound present Peripheral pulses: dorsalis pedis present Skin: Rashes: no rashes Wounds: no wounds Neuro: General: patient oriented x3 Gait exam (Neuro): Normal gait present Extrem: Other: Left great toe with noted swelling, erythema, +paronychia with tenderness to palpation, mild warmth, + fluctuance. No induration. No streaking. Course Course Course Narrative: -no leukocytosis. Renal function at baseline. 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 She was given 1st dose of Doxycycline and Keflex in the ED Procedures Abscess I/D Site: foot Side (if applicable): left Local Anesthetic: lidocaine 1% and other anesthetic (Digital block) Amount of anesthesia used (mL): 4.5 Technique: incised with blade Sent for culture/gram staining?: No Irrigation: No Packing used?: none Medical Decision Making MDM Narrative Medical decision making narrative: 80-year-old senegalese speaking female with past medical history of asthma, COPD on home O2 PRN, diabetes, hypertension, hyperlipidemia, edema, and chronic pain presents with left big toe pain, erythema, and swelling x4 days. On exam vital signs stable, and 80/nontoxic-appearing, physical exam as above consistent with paronychia with overlying cellulitis. Low concern for sepsis, osteo, gout, or septic joint/arthritis Plan: Labs, I&D Lab Data Result diagrams: 04/13/21 13:47 04/13/21 13:47 Labs: Lab Results 04/13/21 04/13/21 04/13/21 Range/Units 13:47 13:47 13:47 WBC 9.1 (4.8-10.8) X10*3/uL RBC 4.63 (4.20-5.50) X10*6/uL Hgb 13.7 (12.0-16.0) g/dl Hct 41.8 (37.0-47.0) % MCV 90.3 (80.0-98.0) fL MCH 29.6 (27.0-33.0) pg MCHC 32.8 (31.0-35.0) g/dl RDW 14.3 (11.0-16.0) % Plt Count 165 (160-400) X10*3/uL MPV 10.4 (9.4-12.3) fL Immature Gran % (Auto) 0.2 (0.0-0.4) % Neut % (Auto) 78.6 H (45-73) % Lymph % (Auto) 13.2 L (20-40) % [place] % (Auto) 5.8 (2-11) % Eos % (Auto) 2.0 (0-4) % Baso % (Auto) 0.2 (0-2) % Lymph # (Auto) 1.2 (1.2-4.9) X10*3/uL [place] # (Auto) 0.5 (0.1-1.2) X10*3/uL Eos # (Auto) 0.2 (0.0-0.4) X10*3/uL Baso # (Auto) 0.0 (0.0-0.2) X10*3/uL Abs Immat Gran (auto) 0.02 (0.00-0.03) X10*3/uL Absolute Neuts (auto) 7.2 (2.0-8.3) x10*3/uL Absolute Nucleated RBC 0.000 (0.0-0.012) X10*3/uL Nucleated RBC % (auto) 0.0 (0.0-0.2) /100WBC ESR 22 H (0-20) MM/HR Sodium 141 (135-145) mmol/L Potassium 3.9 (3.3-5.1) mmol/L Chloride 103 (96-108) mmol/L Carbon Dioxide 29 (22-29) mmol/L Anion Gap 13 (12-20) BUN 39 H (9-16) mg/dL Creatinine 1.77 H (0.5-1.4) mg/dL Estim Creat Clear Calc 31.2 Estimated GFR 27 POC Glucose (60-115) mg/dL Random Glucose 316 H (60-115) mg/dL Calcium 9.8 D (8.4-10.2) mg/dL Total Bilirubin 0.7 (0.0-1.0) mg/dL AST 11 (5-31) U/L ALT 12 (0-31) U/L Alkaline Phosphatase 91 (39-117) U/L C-Reactive Protein 1.78 H (< or = 0.50) mg/dL Total Protein 6.9 (6.5-8.0) g/dL Albumin 3.7 (3.5-5.0) g/dL 04/13/21 Range/Units 17:06 WBC (4.8-10.8) X10*3/uL RBC (4.20-5.50) X10*6/uL Hgb (12.0-16.0) g/dl Hct (37.0-47.0) % MCV (80.0-98.0) fL MCH (27.0-33.0) pg MCHC (31.0-35.0) g/dl RDW (11.0-16.0) % Plt Count (160-400) X10*3/uL MPV (9.4-12.3) fL Immature Gran % (Auto) (0.0-0.4) % Neut % (Auto) (45-73) % Lymph % (Auto) (20-40) % [place] % (Auto) (2-11) % Eos % (Auto) (0-4) % Baso % (Auto) (0-2) % Lymph # (Auto) (1.2-4.9) X10*3/uL [place] # (Auto) (0.1-1.2) X10*3/uL Eos # (Auto) (0.0-0.4) X10*3/uL Baso # (Auto) (0.0-0.2) X10*3/uL Abs Immat Gran (auto) (0.00-0.03) X10*3/uL Absolute Neuts (auto) (2.0-8.3) x10*3/uL Absolute Nucleated RBC (0.0-0.012) X10*3/uL Nucleated RBC % (auto) (0.0-0.2) /100WBC ESR (0-20) MM/HR Sodium (135-145) mmol/L Potassium (3.3-5.1) mmol/L Chloride (96-108) mmol/L Carbon Dioxide (22-29) mmol/L Anion Gap (12-20) BUN (9-16) mg/dL Creatinine (0.5-1.4) mg/dL Estim Creat Clear Calc Estimated GFR POC Glucose 144 H (60-115) mg/dL Random Glucose (60-115) mg/dL Calcium (8.4-10.2) mg/dL Total Bilirubin (0.0-1.0) mg/dL AST (5-31) U/L ALT (0-31) U/L Alkaline Phosphatase (39-117) U/L C-Reactive Protein (< or = 0.50) mg/dL Total Protein (6.5-8.0) g/dL Albumin (3.5-5.0) g/dL Discharge Plan Discharge Clinical Impression: Acute paronychia of toe, Cellulitis Patient Disposition: Home, Self-Care Instructions: Paronychia (ED), Cellulitis (ED) Additional Instructions: Your abscess was drained today in the emergency department. You also have overlying cellulitis. Keflex and doxycycline are antibiotics please take as prescribed. [place] is no be pain medication, take only when pain is severe for the next 3 days. Take Tylenol and Motrin at home as needed for pain. Be aware [place] 5 Tylenol next in do not exceed 4 g of Tylenol in 1 day. Practice warm soaks of her foot which will help draw out infection If infection worsens, toe becomes more red/swollen, you develop fever or continue drainage please return to the emergency department. you should be re- evaluated in 2 days [place] absceso fue drenado hoy en el departamento de emergencias. Tambi?n tiene celulitis suprayacente. Keflex y doxiciclina son antibi?ticos, t?melos seg?n lo prescrito. Prospect no es un medicamento para el dolor, t?ga solo cuando el dolor sea intenso christian los pr?ximos 3 d?as. [place] Tylenol y Motrin en casa seg?n sea necesario para el dolor. Tenga cuidado [place] 5 Tylenol pr?ximo en no exceder los 4 g de Tylenol en 1 d?a. Practique ba?os tibios de cowan pie que ayudar?n a eliminar la infecci?n. Si la infecci?n empeora, el dedo del pie se pone m?s elaine/hinchado, tiene fiebre o contin?a el drenaje, regrese al departamento de emergencias. debe ser reevaluado en 2 d?as Prescriptions: New cephalexin 500 mg capsule 500 mg PO QID 7 Days Qty: 28 0RF doxycycline hyclate 100 mg tablet 100 mg PO BID 7 Days Qty: 14 0RF hydrocodone-acetaminophen 5-325 mg tablet 1 tab PO Q8H PRN (Reason: pain, severe) 3 Days Qty: 5 0RF No Action cefuroxime axetil 250 mg tablet 250 mg PO BID 7 Days Qty: 14 0RF Referrals: Cecilia Hitchcock MD [Primary Care Provider] - 2 days Interventions: ED Discharge Assessment Last Done: 04/13/21 18:09 Discharge Date/Time: 04/13/21 18:10 Print Language: Kinyarwanda
[2021-04-13 16:56] LABS: C Reactive Protein 1.78 mg/dL (< or = 0.50)
[2021-04-13 17:04] VITALS: BP 139/57; PULSE 69; RESP 16; O2SAT 91
[2021-04-13 17:15] LABS: Glucose, Whole Blood 144 mg/dL (60-115)
[2021-04-13 17:37] LABS: Erythrocyte Sedimentation Rate 22 MM/HR (0-20)
[2021-04-13 17:56] VITALS: BP 135/64; PULSE 76; RESP 16; O2SAT 93
[2021-04-13] MEDS: cephALEXin 500 MG CAPSULE PO (17:56)
[2021-04-13 17:57] VITALS: TEMP 36.9
== END 2021-04-13 18:10 | disposition home or self-care (01) ==
PROVIDERS: Physician Assistant; Emergency Provider Emergency Medicine; PCP Internal Medicine
DX: L03.032 Cellulitis of left toe (principal); J44.9 Chronic obstructive pulmonary disease, unspecified; Z79.899 Other long term (current) drug therapy; Z99.81 Dependence on supplemental oxygen
CPT/HCPCS: 10060; 36415; 80053; 82947; 85025; 85652; 86140; 99284

== ENCOUNTER 2021-04-21 12:34 | Outpatient (REF) | payer MEDICARE, SELFPAY ==
--- NOTE | ~2021-04-21 | XR_ITS ---
EXAMINATION: XR FOOT, LEFT CLINICAL INFORMATION: Cellulitis of left toe. Ingrowing nail. COMPARISON: None TECHNIQUE: AP, lateral, and oblique views of the left foot. FINDINGS: There are large subchondral expansile lesions seen along either side of PIP joint great toe. This may represent severe degenerative osteoarthritic changes with moderate soft tissue swelling. Differential diagnosis includes gout or inflammatory arthritis. No fracture is seen. XR/XR foot LT min 3V IMPRESSION: Expansile cystic lesions along either side of PIP joint 1st digit with moderate soft tissue swelling, likely degenerative acute arthritis. Differential diagnosis includes gout or inflammatory arthritis. Osteomyelitis considered less likely.
== END 2021-04-21 12:35 | disposition home or self-care (01) ==
LOC: HO.XRAY 12:34
PROVIDERS: PCP Internal Medicine; Visit Provider Internal Medicine
DX: L03.032 Cellulitis of left toe (principal); L60.0 Ingrowing nail
CPT/HCPCS: 73630

== ENCOUNTER 2021-08-05 13:58 | Emergency (ER) | payer MEDICARE, SELFPAY ==
--- NOTE | ~2021-08-05 | XR_ITS ---
EXAMINATION: XR ELBOW, LEFT CLINICAL INFORMATION: Pain, swelling COMPARISON: None TECHNIQUE: AP, lateral, and oblique views of the left elbow. FINDINGS: Articular alignment across the elbow appears anatomic. There is moderate to severe joint space narrowing with associated spurring of the distal radius and proximal ulna. No acute fracture is seen. No appreciable effusion. Dorsal soft tissue swelling is noted. XR/XR elbow LT 2V IMPRESSION: Moderate to severe degenerative change and soft tissue swelling.
[2021-08-05 15:32] VITALS: BP 147/123; PULSE 61; RESP 16; TEMP 36.4; O2SAT 94; BMI 40.6
[2021-08-05 21:04] LABS: MANUAL DIFF FLAG NO
[2021-08-05 21:09] LABS: Basophils Percent Auto 0.3 % (0-2); Eosinophils Absolute Auto 0.3 X10*3/uL (0.0-0.4); Eosinophils Percent Auto 3.2 % (0-4); Hematocrit 42.5 % (37.0-47.0); Hemoglobin 13.7 g/dl (12.0-16.0); Imm Gran Abs Auto 0.02 X10*3/uL (0.00-0.03); Imm Gran Pct Auto 0.3 % (0.0-0.4); Lymphocytes Absolute Auto 1.5 X10*3/uL (1.2-4.9); Mean Corpuscular HGB Conc 32.2 g/dl (31.0-35.0); Mean Corpuscular Hemoglobin 28.8 pg (27.0-33.0); Mean Corpuscular Volume 89.5 fL (80.0-98.0); Mean Platelet Volume 10.1 fL (9.4-12.3); Monocytes Absolute Auto 0.5 X10*3/uL (0.1-1.2); Monocytes Percent Auto 6.4 % (2-11); Neutrophils Absolute Auto 5.6 x10*3/uL (2.0-8.3); Neutrophils Percent Auto 70.8 % (45-73); Platelet Count 178 X10*3/uL (160-400); Red Blood Count 4.75 X10*6/uL (4.20-5.50); Red Cell Distribution Width 14.1 % (11.0-16.0); White Blood Count 7.9 X10*3/uL (4.8-10.8)
[2021-08-05 21:19] LABS: Anion Gap 14 (12-20); Blood Urea Nitrogen 52 mg/dL (9-16); Calcium 9.8 mg/dL (8.4-10.2); Carbon Dioxide 29 mmol/L (22-29); Chloride 98 mmol/L (96-108); Creatinine Clr Calc Pharmacy 30.9; Estimated Glomerular Filt Rate 28; Glucose Random 173 mg/dL (60-115); Potassium 3.3 mmol/L (3.3-5.1); Sodium 138 mmol/L (135-145)
--- NOTE | 2021-08-05 21:55 | ED_ITS ---
HPI - General Adult General Chief complaint: General Medical Stated complaint: L elbow swollen Time Seen by Provider: 08/05/21 21:51 Source: patient and family History of Present Illness HPI narrative: 80-year-old female with history of diabetes, CHF, hypertension presents with worsening left elbow pain that she denies any recent trauma/falls and reports that the elbow has just become progressively more painful, warm, swollen. She denies any fevers or chills. Related Data Home Medications Medication Instructions Recorded Confirmed atorvastatin 20 mg tablet 20 mg PO DAILY 11/12/20 calcium carbonate [Antacid Calcium] PO 11/12/20 fluticasone propionate 110 1 puff INHALATION BID 11/12/20 mcg/actuation HFA aerosol inhaler (Flovent HFA) furosemide 80 mg tablet (Lasix) 80 mg PO DAILY 11/12/20 metolazone 2.5 mg tablet 5 mg PO DAILY 11/12/20 metoprolol tartrate 50 mg tablet 50 mg PO DAILY 11/12/20 (Lopressor) montelukast 10 mg tablet 10 mg PO DAILY 11/12/20 (Singulair) nifedipine 60 mg tablet,extended 60 mg PO DAILY 11/12/20 release 24 hr ondansetron HCl 4 mg tablet 4 mg PO Q8H 11/12/20 (Zofran) oxycodone-acetaminophen [Percocet] PO 11/12/20 potassium chloride 10 mEq 10 meq PO DAILY 11/12/20 tablet,extended release (Klor-Con) pregabalin 100 mg capsule (Lyrica) 100 mg PO DAILY 11/12/20 Previous Rx's Medication Instructions Recorded cefuroxime axetil 250 mg tablet 250 mg PO BID 7 Days #14 tab 02/17/21 cephalexin 500 mg capsule 500 mg PO QID 7 Days #28 cap 04/13/21 doxycycline hyclate 100 mg tablet 100 mg PO BID 7 Days #14 tab 04/13/21 hydrocodone 5 mg-acetaminophen 325 1 tab PO Q8H PRN 3 Days #5 tab 04/13/21 mg tablet cephalexin 500 mg capsule 500 mg PO Q12H 7 Days #14 cap 08/05/21 doxycycline hyclate 100 mg tablet 100 mg PO BID 7 Days #14 tab 08/05/21 Allergies Allergy/AdvReac Type Severity Reaction Status Date / Time No Known Allergies Allergy Unknown Verified 08/05/21 15:32 Review of Systems Review of Systems: Pertinent positives and negatives as stated in HPI and 10 point review of systems is otherwise negative. [facility] Past Medical History Source: nursing notes reviewed 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 Physical Exam ED Vital Signs: Vital Signs - 24 hr 08/05/21 15:32 Temperature 97.6 F Pulse Rate 61 Respiratory Rate 16 Blood Pressure 147/123 H Pulse Oximetry 94 BMI result Body Mass Index 40.6 VITAL SIGNS: Reviewed. GENERAL: Well developed, well nourished, in no acute distress. HEAD: Normocephalic/atraumatic EYES: PERRLA, EOMI EARS: Ext canals without abnormality OROPHARYNX: no oral lesions noted, posterior pharynx clear LUNGS: Normal breath sounds. No adventitious sounds or accessory muscle use. SpO2<94> on 2 L nasal cannula CARDIOVASCULAR: Regular rate and rhythm without noted murmurs, no JVD or lower extremity edema. ABDOMEN: Soft, non-tender, non-distended with bowel sounds MUSCULOSKELETAL: No tenderness, deformities, or effusions noted on gross inspection. EXTREMITIES: No cyanosis, clubbing or edema; LEFT ELBOW: Swollen, warm, obvious fluctuance no bony abnormalities noted SKIN: Inspection of the skin reveals no rashes NEUROLOGIC: Alert and oriented x 4. Course Course Course Narrative: 80-year-old female with history and clinical presentation consistent with abscess at left elbow, as she is diabetic she received initial antibiotics here in the emergency room and a successful incision and drainage was completed for likely infected bursitis with copious amounts of purulence material, patient handled procedure well and mild compression dressing was placed afterwards and she was discharged in stable condition after receiving combination analgesics and instructed to complete the entire course of antibiotics and follow-up with her primary care provider on Sunday morning. This information was also conveyed to patient's son who is at bedside. Procedures Abscess I/D Site: upper extremity Side (if applicable): left Local Anesthetic: lidocaine 1% Amount of anesthesia used (mL): 2 Technique: incised with blade Amount of fluid expressed (mL): 75 Sent for culture/gram staining?: No Irrigation: Yes Packing used?: none Medical Decision Making Lab Data Result diagrams: 08/05/21 21:00 08/05/21 21:00 Labs: Lab Results 08/05/21 08/05/21 Range/Units 21:00 21:00 WBC 7.9 (4.8-10.8) X10*3/uL RBC 4.75 (4.20-5.50) X10*6/uL Hgb 13.7 (12.0-16.0) g/dl Hct 42.5 (37.0-47.0) % MCV 89.5 (80.0-98.0) fL MCH 28.8 (27.0-33.0) pg MCHC 32.2 (31.0-35.0) g/dl RDW 14.1 (11.0-16.0) % Plt Count 178 (160-400) X10*3/uL MPV 10.1 (9.4-12.3) fL Immature Gran % (Auto) 0.3 (0.0-0.4) % Neut % (Auto) 70.8 (45-73) % Lymph % (Auto) 19.0 L (20-40) % [place] % (Auto) 6.4 (2-11) % Eos % (Auto) 3.2 (0-4) % Baso % (Auto) 0.3 (0-2) % Lymph # (Auto) 1.5 (1.2-4.9) X10*3/uL [place] # (Auto) 0.5 (0.1-1.2) X10*3/uL Eos # (Auto) 0.3 (0.0-0.4) X10*3/uL Baso # (Auto) 0.0 (0.0-0.2) X10*3/uL Abs Immat Gran (auto) 0.02 (0.00-0.03) X10*3/uL Absolute Neuts (auto) 5.6 (2.0-8.3) x10*3/uL Absolute Nucleated RBC 0.000 (0.0-0.012) X10*3/uL Nucleated RBC % (auto) 0.0 (0.0-0.2) /100WBC Sodium 138 (135-145) mmol/L Potassium 3.3 (3.3-5.1) mmol/L Chloride 98 (96-108) mmol/L Carbon Dioxide 29 (22-29) mmol/L Anion Gap 14 (12-20) BUN 52 H (9-16) mg/dL Creatinine 1.74 H (0.5-1.4) mg/dL Estim Creat Clear Calc 30.9 Estimated GFR 28 Random Glucose 173 H (60-115) mg/dL Calcium 9.8 (8.4-10.2) mg/dL Discharge Plan Discharge Clinical Impression: Bursitis due to bacterial infection, Abscess, Encounter for incision and drainage procedure Patient Disposition: Home, Self-Care Instructions: Elbow Bursitis (ED), Abscess (ED), Abscess Follow-up (ED), Abscess Incision and Drainage (DC), Incision and Drainage (ED) Additional Instructions: 1. Reanudar todos los medicamentos caseros seg?n lo prescrito. 2. Recomendar Tylenol/ibuprofeno de venta jadiel seg?n sea necesario para controlar el dolor. 3. Complete todo el ciclo de antibi?ticos seg?n lo indicado. 4. Puede usar el vendaje de compresi?n para ayudar a?n m?s a controlar el dolor. 5. Realice un seguimiento con el proveedor de atenci?n primaria el annemarie por la ma?cecilia para programar gil reevaluaci?n adicional para el manejo ambulatorio. Regrese a la mykel de emergencias si los s?ntomas empeoran. Prescriptions: New cephalexin 500 mg capsule 500 mg PO Q12H 7 Days Qty: 14 0RF doxycycline hyclate 100 mg tablet 100 mg PO BID 7 Days Qty: 14 0RF No Action cefuroxime axetil 250 mg tablet 250 mg PO BID 7 Days Qty: 14 0RF cephalexin 500 mg capsule 500 mg PO QID 7 Days Qty: 28 0RF doxycycline hyclate 100 mg tablet 100 mg PO BID 7 Days Qty: 14 0RF hydrocodone-acetaminophen 5-325 mg tablet 1 tab PO Q8H PRN (Reason: pain, severe) 3 Days Qty: 5 0RF Referrals: Cecilia Hitchcock MD [Primary Care Provider] - Print Language: Samoan
[2021-08-05] MEDS: cephALEXin 500 MG CAPSULE PO (22:37)
[2021-08-05] MEDS: Lidocaine HCl 2 % 20 ML VIAL 5 ML SUBCUT (22:47)
[2021-08-05] MEDS: Ibuprofen 400 MG TABLET PO (22:58)
[2021-08-05] MEDS: Acetaminophen 325 MG TABLET 975 MG PO (22:58)
== END 2021-08-06 00:10 | disposition home or self-care (01) ==
PROVIDERS: Emergency Provider Student in an Organized Health Care Education/Training Program; PCP Internal Medicine
DX: M71.022 Abscess of bursa, left elbow (principal); M25.522 Pain in left elbow; I11.0 Hypertensive heart disease with heart failure; I50.9 Heart failure, unspecified; E11.9 Type 2 diabetes mellitus without complications; Z79.02 Long term (current) use of antithrombotics/antiplatelets; Z79.899 Other long term (current) drug therapy
CPT/HCPCS: 23931; 36415; 73070; 80048; 85025; 99282; 99284

== ENCOUNTER 2021-09-24 12:24 | Emergency (ER) | payer MEDICARE, SELFPAY ==
[2021-09-24 13:16] VITALS: BP 120/68; PULSE 79; RESP 20; TEMP 36.6; O2SAT 95; BMI 40.9
[2021-09-24 15:00] LABS: Basophils Percent Auto 0.3 % (0-2); Eosinophils Absolute Auto 0.1 X10*3/uL (0.0-0.4); Imm Gran Abs Auto 0.02 X10*3/uL (0.00-0.03); Imm Gran Pct Auto 0.2 % (0.0-0.4); Lymphocytes Absolute Auto 1.5 X10*3/uL (1.2-4.9); Lymphocytes Percent Auto 16.5 % (20-40); MANUAL DIFF FLAG NO; Mean Corpuscular HGB Conc 33.3 g/dl (31.0-35.0); Mean Corpuscular Hemoglobin 28.6 pg (27.0-33.0); Mean Corpuscular Volume 85.7 fL (80.0-98.0); Mean Platelet Volume 10.1 fL (9.4-12.3); Monocytes Absolute Auto 0.6 X10*3/uL (0.1-1.2); Monocytes Percent Auto 6.4 % (2-11); Neutrophils Absolute Auto 6.7 x10*3/uL (2.0-8.3); Neutrophils Percent Auto 75.6 % (45-73); Platelet Count 205 X10*3/uL (160-400); Red Blood Count 5.25 X10*6/uL (4.20-5.50); Red Cell Distribution Width 14.2 % (11.0-16.0); White Blood Count 8.9 X10*3/uL (4.8-10.8)
[2021-09-24 15:19] LABS: COVID-19 Test Negative (Negative); IDNOW Serial# 16C4AD1C; Influenza A Negative (Negative); Influenza B2 Negative (Negative)
[2021-09-24 15:21] LABS: Anion Gap 17 (12-20); Blood Urea Nitrogen 36 mg/dL (9-16); Calcium 10.2 mg/dL (8.4-10.2); Carbon Dioxide 30 mmol/L (22-29); Chloride 96 mmol/L (96-108); Creatinine Clr Calc Pharmacy 29.4; Estimated Glomerular Filt Rate 27; Glucose Random 126 mg/dL (60-115); Potassium 3.6 mmol/L (3.3-5.1); Sodium 139 mmol/L (135-145)
== END 2021-09-24 23:37 | disposition left against medical advice (07) ==
PROVIDERS: Emergency Provider Emergency Medicine; PCP Internal Medicine
DX: R42 Dizziness and giddiness (principal); R11.0 Nausea; M79.10 Myalgia, unspecified site; Z20.822 Contact with and (suspected) exposure to COVID-19; E11.22 Type 2 diabetes mellitus with diabetic chronic kidney disease; N18.9 Chronic kidney disease, unspecified
CPT/HCPCS: 80048; 85025; 87502; 87635; 99281; 99283

== ENCOUNTER 2021-11-02 10:52 | Outpatient (REF) | payer MEDICARE, SELFPAY ==
--- NOTE | ~2021-11-02 | XR_ITS ---
EXAMINATION: XR SHOULDER, RIGHT CLINICAL INFORMATION: Pain COMPARISON: Previous shoulder x-rays most recent October 2020 and chest x-ray February 2021 TECHNIQUE: Three views of the right shoulder. FINDINGS: Bone alignment is normal. No fracture or dislocation is seen. The bones are osteopenic. There is arthritis at the glenohumeral and acromioclavicular joints. Soft tissues are unremarkable. There is question of fullness of the right pulmonary hilum and right upper lobe nodule. This is similar to previous exams. XR/XR shoulder RT min 2V IMPRESSION: Arthritis.
--- NOTE | ~2021-11-02 | US_ITS ---
EXAMINATION: US VENOUS WITH DOPPLER UPPER EXTREMITY, RIGHT CLINICAL INFORMATION: Pain and swelling COMPARISON: Previous exam October 2020 TECHNIQUE: Ultrasound of the upper extremity is performed using compression sonography and color and pulse Doppler flow with assessment of augmentation of flow. There is also imaging and Doppler assessment of the jugular and subclavian veins. Spectral analysis with color-flow imaging is performed. FINDINGS: Respiratory variation, normal compression, and augmented flow are noted throughout the upper extremity including right internal jugular, subclavian, axillary, brachial, basilic and cephalic veins and radial and ulnar veins in the forearm. There is no evidence of DVT. US/US venous duplex UE RT IMPRESSION: No DVT demonstrated in the right upper extremity
== END 2021-11-02 10:53 | disposition home or self-care (01) ==
LOC: HO.US 10:52
PROVIDERS: PCP Internal Medicine; Visit Provider Emergency Medicine
DX: M79.601 Pain in right arm (principal); M25.511 Pain in right shoulder
CPT/HCPCS: 73030; 93971

== ENCOUNTER 2021-11-23 16:07 | Outpatient (REF) | payer OTHER, SELFPAY ==
--- NOTE | ~2021-11-23 | XR_ITS ---
EXAMINATION: XR hand wrist RT CLINICAL INFORMATION: Reason for Exam M06.9 - Rheumatoid arthritis, unspecified COMPARISON: None. TECHNIQUE: Four views of the hand and wrist XR/XR hand wrist RT FINDINGS/IMPRESSION: * No acute fracture or dislocation. * Mild degenerative changes of the distal interphalangeal joints with minimal degenerative spurring. No cortical erosions to favor rheumatoid arthritis. * No soft tissue abnormality.
--- NOTE | ~2021-11-23 | XR_ITS ---
EXAMINATION: XR hand wrist LT CLINICAL INFORMATION: Reason for Exam M06.9 - Rheumatoid arthritis, unspecified COMPARISON: None. TECHNIQUE: AP, lateral, and oblique views of the left hand and wrist XR/XR hand wrist LT FINDINGS/IMPRESSION: * No acute fracture or dislocation. * Advanced degenerative changes of the first carpal metacarpal joint with complete loss of joint space. No appreciable cortical erosions to favor rheumatoid arthritis. * No soft tissue abnormality.
[2021-11-23 16:36] LABS: MANUAL DIFF FLAG NO
[2021-11-23 16:56] LABS: Basophils Percent Auto 0.6 % (0-2); Eosinophils Absolute Auto 0.2 X10*3/uL (0.0-0.4); Eosinophils Percent Auto 2.9 % (0-4); Hematocrit 42.5 % (37.0-47.0); Hemoglobin 13.9 g/dl (12.0-16.0); Imm Gran Abs Auto 0.02 X10*3/uL (0.00-0.03); Imm Gran Pct Auto 0.3 % (0.0-0.4); Lymphocytes Absolute Auto 1.4 X10*3/uL (1.2-4.9); Lymphocytes Percent Auto 21.7 % (20-40); Mean Corpuscular HGB Conc 32.7 g/dl (31.0-35.0); Mean Corpuscular Hemoglobin 29.5 pg (27.0-33.0); Mean Corpuscular Volume 90.2 fL (80.0-98.0); Mean Platelet Volume 10.9 fL (9.4-12.3); Monocytes Absolute Auto 0.5 X10*3/uL (0.1-1.2); Monocytes Percent Auto 7.5 % (2-11); Neutrophils Absolute Auto 4.4 x10*3/uL (2.0-8.3); Platelet Count 141 X10*3/uL (160-400); Red Blood Count 4.71 X10*6/uL (4.20-5.50); Red Cell Distribution Width 14.7 % (11.0-16.0); White Blood Count 6.5 X10*3/uL (4.8-10.8)
[2021-11-23 17:20] LABS: Alanine Aminotransferase 11 U/L (0-31); Alkaline Phosphatase 85 U/L (39-117); Anion Gap 16 (12-20); Aspartate Amino Transferase 13 U/L (5-31); Bilirubin Total 0.6 mg/dL (0.0-1.0); Blood Urea Nitrogen 38 mg/dL (9-16); C Reactive Protein 0.92 mg/dL (< or = 0.50); Carbon Dioxide 30 mmol/L (22-29); Chloride 104 mmol/L (96-108); Estimated Glomerular Filt Rate 30; Glucose Random 95 mg/dL (60-115); Potassium 3.5 mmol/L (3.3-5.1); Rheumatoid Factor < 15.0 IU/mL (<15.0); Sodium 146 mmol/L (135-145); Total Protein 7.2 g/dL (6.5-8.0); Uric Acid 10.9 mg/dL (2.4-5.7)
[2021-11-23 17:38] LABS: Erythrocyte Sedimentation Rate 14 MM/HR (0-20)
[2021-11-24 05:01] LABS: HBc Num1 4.03 S/CO (0.00-0.79); HIV AB/AG Nonreactive (Nonreactive); HIV Num 1 0.06 S/CO (0.00-0.99); Hepatitis B Surface Antigen Negative (Negative); ~Hepatitis B Surface Antibody REACTIVE (Nonreactive); ~Hepatitis C Antibody Nonreactive (Nonreactive)
[2021-11-24 05:39] LABS: HBc Num2 3.86 S/CO
[2021-11-24 05:40] LABS: HBc Num3 3.98 S/CO; Hepatitis B Core Antibody Reactive (Nonreactive)
[2021-11-25 07:38] LABS: ~Hepatitis A Antibody IgM Nonreactive (Nonreactive)
[2021-11-25 13:41] LABS: TS Negative Control Passed; TS Panel A 0; TS Panel B 0; TS Positive Control Passed; TSpotTB Negative (Negative)
[2021-11-25 14:52] LABS: IgA 279 mg/dL (70-320); IgG 1343 mg/dL (600-1540); IgM 82 mg/dL (50-300)
[2021-11-25 17:46] LABS: Cyclic Citrullinated Peptide <16 UNITS
[2021-11-25 21:02] LABS: Prot Elec - Albumin 3.8 g/dL (3.8-4.8); Prot Elec - Alpha1 0.4 g/dL (0.2-0.3); Prot Elec - Alpha2 0.8 g/dL (0.5-0.9); Prot Elec - Beta 1 0.4 g/dL (0.4-0.6); Prot Elec - Beta 2 0.4 g/dL (0.2-0.5); Prot Elec - Gamma 1.2 g/dL (0.8-1.7)
[2021-11-26 14:47] LABS: Anti Nuclear Antibody Screen NEGATIVE (NEGATIVE)
[2021-11-28 16:12] LABS: Vitamin D 25-OH, D2 <4 ng/mL; Vitamin D 25-OH, D3 47 ng/mL; Vitamin D 25-OH, Total 47 ng/mL (30-100)
== END 2021-11-23 16:08 | disposition home or self-care (01) ==
LOC: HO.XRAY 16:07
PROVIDERS: PCP Internal Medicine; Visit Provider Student in an Organized Health Care Education/Training Program
DX: Z13.21 Encounter for screening for nutritional disorder (principal); Z11.4 Encounter for screening for human immunodeficiency virus [HIV]; Z11.1 Encounter for screening for respiratory tuberculosis; Z11.7 Encounter for testing for latent tuberculosis infection; Z11.59 Encounter for screening for other viral diseases; M25.542 Pain in joints of left hand; M25.541 Pain in joints of right hand; M17.0 Bilateral primary osteoarthritis of knee; M06.9 Rheumatoid arthritis, unspecified
CPT/HCPCS: 36415; 73110; 73130; 80053; 82306; 82784; 84165; 84550; 85025; 85652; 86038; 86039; 86140; 86200; 86334; 86431; 86481; 86704; 86706; 86709; 86803; 87340; 87389; 99202

== ENCOUNTER → 2021-11-30 12:16 | Outpatient (BNVA) | payer OTHER, SELFPAY | PROVIDERS: PCP Internal Medicine; Visit Provider Physician Assistant | DX: M12.811 Other specific arthropathies, not elsewhere classified, right shoulder (principal) | CPT/HCPCS: 99212; J1020 ==

== ENCOUNTER → 2021-12-09 09:21 | Outpatient (BNVA) | payer OTHER, SELFPAY | PROVIDERS: PCP Internal Medicine; Visit Provider Physician Assistant | DX: M12.811 Other specific arthropathies, not elsewhere classified, right shoulder (principal) | CPT/HCPCS: 20610; 99212; J1020 ==

== ENCOUNTER → 2021-12-14 11:10 | Outpatient (BNVA) | payer OTHER, SELFPAY | PROVIDERS: PCP Internal Medicine; Visit Provider Student in an Organized Health Care Education/Training Program | DX: M1A.39X1 Chronic gout due to renal impairment, multiple sites, with tophus (tophi) (principal); M17.0 Bilateral primary osteoarthritis of knee; Z13.820 Encounter for screening for osteoporosis | CPT/HCPCS: 99212 ==

== ENCOUNTER 2022-01-05 11:39 | Outpatient (REF) | payer OTHER, SELFPAY ==
--- NOTE | ~2022-01-05 | MM_ITS ---
EXAMINATION: BONE DENSITOMETRY CLINICAL INDICATION: Osteoporosis. COMPARISON: Previous BD dated 02/27/2018 and baseline BD dated 01/15/2007. TECHNIQUE: Using a [employer] DXA System (software version: 13.1) manufactured by [employer], dual-energy x-ray absorptiometry was performed of the lumbar spine and left hip. The images are of good technical quality. Summary results are attached. FINDINGS: AP SPINE L1-L4: There are multilevel degenerative changes lumbar spine which may cause overestimation of the lumbar bone mineral density. Current: BMD 1.543 g/cm2, Z-score 3.7, T-score 3.0, normal, 3.3% increase from previous, 34.4% increase from baseline (<5% change is not significant). Prior: BMD 1.493 g/cm2. Baseline: BMD 1.148 g/cm2. LEFT FEMUR, NECK: Current: BMD 0.763 g/cm2, Z-score -0.4, T-score -2.0, osteopenia. Prior: BMD 0.719 g/cm2. Baseline: BMD 0.784 g/cm2. LEFT FEMUR, TOTAL: Current: BMD 0.992 g/cm2, Z-score 1.2, T-score -0.1, normal, 0.4% decrease from previous, 7.8% decrease from baseline (<5% change is not significant). Prior: BMD 0.996 g/cm2. Baseline: BMD 1.076 g/cm2. IDENTIFIED RISK FACTORS: Menopause. HISTORY OF FRACTURE: None listed. MEDICATIONS: Calcium, vitamin D. MM/XR DEXA axial skeleton IMPRESSION: 1. DIAGNOSIS: Osteopenia based on the lowest T-score value of -2.0 in the femoral neck applying World Health Organization criteria. 2. 10-YEAR FRACTURE RISK PREDICTION, FRAX: Major osteoporotic fracture (clinical spine, forearm, hip or shoulder) 8.4%. Hip fracture 2.4%. 3. Treatment Recommendations: NOF guidelines recommend consideration for treatment in postmenopausal women and men age 50 and older presenting with the following: -A hip or vertebral (clinical or morphometric) fracture. -T-score less than or equal to -2.5 at the femoral neck or spine after appropriate evaluation to exclude secondary causes. -Low bone mass at the hip or spine and a 10-year fracture probability by FRAX of greater than or equal to 3% for hip fracture or greater than or equal to 20% for major osteoporotic fracture based on the [place] adapted WHO algorithm. 4. Other Recommendations: All treatment decisions require clinical judgment and consideration of individual patient factors, including patient preferences, comorbidities, previous drug use, risk factors not captured in the FRAX model (e.g. frailty, falls, vitamin D deficiency, increased bone turnover, interval significant decline in bone density) and possible under or overestimation of fracture risk by FRAX. Additional medical evaluation for secondary cause of low bone mineral density may be appropriate. FUTURE SCAN RECOMMENDATION: People with diagnosed cases of osteoporosis or at high risk for fracture should have regular bone mineral density tests. For patients eligible for Medicare, routine testing is allowed once every 2 years. The testing frequency can be increased to one year for patients who have rapidly progressing disease, those who are receiving or discontinuing medical therapy to restore bone mass, or have additional risk factors.
== END 2022-01-05 11:40 | disposition home or self-care (01) ==
LOC: HO.MAMMO 11:39
PROVIDERS: Visit Provider Student in an Organized Health Care Education/Training Program
DX: Z13.820 Encounter for screening for osteoporosis (principal); M81.8 Other osteoporosis without current pathological fracture; Z78.0 Asymptomatic menopausal state
CPT/HCPCS: 77080

== ENCOUNTER 2022-01-13 09:14 | Outpatient (REF) | payer OTHER, SELFPAY ==
[2022-01-13 09:50] LABS: MANUAL DIFF FLAG NO
[2022-01-13 10:32] LABS: Basophils Percent Auto 0.5 % (0-2); Eosinophils Absolute Auto 0.1 X10*3/uL (0.0-0.4); Eosinophils Percent Auto 1.6 % (0-4); Hematocrit 42.2 % (37.0-47.0); Hemoglobin 13.7 g/dl (12.0-16.0); Imm Gran Abs Auto 0.02 X10*3/uL (0.00-0.03); Imm Gran Pct Auto 0.2 % (0.0-0.4); Lymphocytes Absolute Auto 1.8 X10*3/uL (1.2-4.9); Lymphocytes Percent Auto 21.2 % (20-40); Mean Corpuscular HGB Conc 32.5 g/dl (31.0-35.0); Mean Corpuscular Hemoglobin 29.5 pg (27.0-33.0); Mean Corpuscular Volume 90.9 fL (80.0-98.0); Mean Platelet Volume 10.9 fL (9.4-12.3); Monocytes Absolute Auto 0.6 X10*3/uL (0.1-1.2); Monocytes Percent Auto 7.4 % (2-11); Neutrophils Absolute Auto 5.7 x10*3/uL (2.0-8.3); Neutrophils Percent Auto 69.1 % (45-73); Platelet Count 154 X10*3/uL (160-400); Red Blood Count 4.64 X10*6/uL (4.20-5.50); Red Cell Distribution Width 14.8 % (11.0-16.0); White Blood Count 8.3 X10*3/uL (4.8-10.8)
[2022-01-13 10:40] LABS: Appearance Urine Clear; Color Urine Yellow; Glucose Urine UA Negative (Negative); Leukocyte Esterase Urine Small (1+) (Negative); Nitrite Urine Negative (Negative); UMIC TRIGGER UA YES; Urine Blood Negative (Negative); Urine Ketones Negative (Negative); Urine Protein Negative (Neg-Trace)
[2022-01-13 10:44] LABS: Estimated Average Glucose 128 mg/dL; Hemoglobin A1c % 6.1 %
[2022-01-13 10:47] LABS: Bacteria Urine 4+ (None Seen); Hyaline Casts Urine 0-2 /LPF (0-2); RBC Urine 0-2 /HPF (0-2); Squamous Epithelial Cell Urine 0-2 /HPF (0-2)
[2022-01-13 10:47] LABS: Estimated Average Glucose 128 mg/dL; Hemoglobin A1c % 6.1 %
[2022-01-13 11:11] LABS: Erythrocyte Sedimentation Rate 8 MM/HR (0-20)
[2022-01-13 11:20] LABS: Alanine Aminotransferase 10 U/L (0-31); Alkaline Phosphatase 73 U/L (39-117); Anion Gap 17 (12-20); Aspartate Amino Transferase 11 U/L (5-31); Bilirubin Total 0.9 mg/dL (0.0-1.0); Blood Urea Nitrogen 52 mg/dL (9-16); C Reactive Protein 0.52 mg/dL (< or = 0.50); Calcium 9.8 mg/dL (8.4-10.2); Carbon Dioxide 30 mmol/L (22-29); Chloride 100 mmol/L (96-108); Cholesterol 138 mg/dL; Estimated Glomerular Filt Rate 26; Glucose Random 98 mg/dL (60-115); HDL Cholesterol 47 mg/dL; LDL Cholesterol Calculated 72 mg/dl; Potassium 3.3 mmol/L (3.3-5.1); Sodium 144 mmol/L (135-145); Total Protein 6.6 g/dL (6.5-8.0); Triglycerides 95 mg/dL; Uric Acid 10.8 mg/dL (2.4-5.7)
[2022-01-13 11:24] LABS: Alanine Aminotransferase 11 U/L (0-31); Alkaline Phosphatase 73 U/L (39-117); Aspartate Amino Transferase 11 U/L (5-31); Bilirubin Direct 0.3 mg/dL (0.0-0.5); Bilirubin Total 0.8 mg/dL (0.0-1.0); Iron 70 mcg/dL (30-160); Percent Iron Saturation 28 % (15-50); Total Iron Binding Capacity 248 mcg/dL (228-428); Total Protein 6.7 g/dL (6.5-8.0); Unsaturated Iron Binding 178 ug/dL
[2022-01-13 11:26] LABS: Protein/Creatinine Ratio, Ur 0.17 (<0.2); Total Protein Urine Random 10 mg/dL (<12)
[2022-01-13 11:34] LABS: Vitamin D 25-OH Total 40.3 ng/mL (>30)
[2022-01-16 12:42] LABS: Calcium (PTHI) 9.6 mg/dL (8.6-10.4); PTHI 147 pg/mL (16-77)
== END 2022-01-13 09:15 | disposition home or self-care (01) ==
LOC: HO.LAB 09:14
PROVIDERS: Absent Provider Student in an Organized Health Care Education/Training Program; PCP Internal Medicine; Visit Provider Physician Assistant
DX: M10.9 Gout, unspecified (principal); E88.81 Metabolic syndrome and other insulin resistance; N18.32 Chronic kidney disease, stage 3b
CPT/HCPCS: 36415; 80053; 80061; 80076; 81001; 82248; 82306; 83036; 83540; 83970; 84156; 84550; 85025; 85652; 86140

== ENCOUNTER → 2022-01-25 10:59 | Outpatient (BNVA) | payer OTHER, SELFPAY | PROVIDERS: PCP Internal Medicine; Visit Provider Student in an Organized Health Care Education/Training Program | DX: Z13.820 Encounter for screening for osteoporosis (principal); M1A.39X1 Chronic gout due to renal impairment, multiple sites, with tophus (tophi); M17.0 Bilateral primary osteoarthritis of knee | CPT/HCPCS: 99212 ==

== ENCOUNTER 2022-01-28 08:18 | Outpatient (REF) | payer OTHER, SELFPAY ==
--- NOTE | ~2022-01-28 | MM_ITS ---
EXAMINATION: MM SCREENING DIGITAL BREAST TOMOSYNTHESIS, BILATERAL CLINICAL INFORMATION: Screening. Asymptomatic. Family history breast cancer, daughter. COMPARISON: Mammography: 12/29/2020, 12/22/2019, 06/26/2018 TECHNIQUE: Digital breast tomosynthesis is performed in both the craniocaudal and mediolateral oblique views along with computer-aided detection (CAD). Synthesized 2D images are generated from the tomosynthesis. FINDINGS: There are scattered areas of fibroglandular density (ACR BI-RADS breast composition Category b). Fibronodular parenchymal pattern is similar to prior studies. No developing density or interval mass or architectural abnormality. Again, there are scattered bilateral brainstem small and mildly coarse calcifications and vascular calcifications. No abnormal calcifications. The axilla and skin contours are unremarkable. No significant changes from prior studies. MM/MM tomosynthesis screening BI IMPRESSION: No mammographic evidence of malignancy. ASSESSMENT: BI-RADS 2: Benign RECOMMENDATION: Routine annual mammography screening. This patient's information was entered into a reminder system with a target due date for their next mammogram.
== END 2022-01-28 08:19 | disposition home or self-care (01) ==
LOC: HO.MAMMO 08:18
PROVIDERS: PCP Internal Medicine; Visit Provider Internal Medicine
DX: Z12.31 Encounter for screening mammogram for malignant neoplasm of breast (principal)
CPT/HCPCS: 77063; 77067

== ENCOUNTER 2022-03-24 09:51 | Outpatient (REF) | payer OTHER, SELFPAY ==
[2022-03-24 10:04] LABS: MANUAL DIFF FLAG NO
[2022-03-24 10:22] LABS: Basophils Percent Auto 0.4 % (0-2); Eosinophils Absolute Auto 0.2 X10*3/uL (0.0-0.4); Eosinophils Percent Auto 2.4 % (0-4); Hematocrit 42.4 % (37.0-47.0); Hemoglobin 13.4 g/dl (12.0-16.0); Imm Gran Abs Auto 0.02 X10*3/uL (0.00-0.03); Imm Gran Pct Auto 0.3 % (0.0-0.4); Lymphocytes Absolute Auto 1.1 X10*3/uL (1.2-4.9); Lymphocytes Percent Auto 14.5 % (20-40); Mean Corpuscular HGB Conc 31.6 g/dl (31.0-35.0); Mean Corpuscular Hemoglobin 29.8 pg (27.0-33.0); Mean Corpuscular Volume 94.4 fL (80.0-98.0); Mean Platelet Volume 10.2 fL (9.4-12.3); Monocytes Absolute Auto 0.5 X10*3/uL (0.1-1.2); Monocytes Percent Auto 6.5 % (2-11); Neutrophils Absolute Auto 5.6 x10*3/uL (2.0-8.3); Neutrophils Percent Auto 75.9 % (45-73); Platelet Count 164 X10*3/uL (160-400); Red Blood Count 4.49 X10*6/uL (4.20-5.50); White Blood Count 7.4 X10*3/uL (4.8-10.8)
[2022-03-24 11:03] LABS: Alanine Aminotransferase 12 U/L (0-31); Alkaline Phosphatase 81 U/L (39-117); Anion Gap 10 (12-20); Aspartate Amino Transferase 11 U/L (5-31); Bilirubin Total 0.7 mg/dL (0.0-1.0); Blood Urea Nitrogen 28 mg/dL (9-16); Calcium 9.6 mg/dL (8.4-10.2); Carbon Dioxide 29 mmol/L (22-29); Chloride 108 mmol/L (96-108); Estimated Glomerular Filt Rate 28; Glucose Random 89 mg/dL (60-115); Sodium 143 mmol/L (135-145); Total Protein 6.6 g/dL (6.5-8.0); Uric Acid 5.7 mg/dL (2.4-5.7)
== END 2022-03-24 09:52 | disposition home or self-care (01) ==
LOC: HO.LAB 09:51
PROVIDERS: PCP Internal Medicine; Visit Provider Student in an Organized Health Care Education/Training Program
DX: M10.9 Gout, unspecified (principal)
CPT/HCPCS: 36415; 80053; 84550; 85025

== ENCOUNTER 2022-06-22 18:20 | Inpatient (IN) | payer OTHER, SELFPAY ==
--- NOTE | ~2022-06-22 | CT_ITS ---
CT HEAD WITHOUT IV CONTRAST CT CERVICAL SPINE WITHOUT IV CONTRAST INDICATION: Fall. Altered mental status. COMPARISON: None available. TECHNIQUE: Multidetector CT acquisitions of the head and cervical spine were obtained without IV contrast. Multiplanar reformats were acquired and utilized for image interpretation. This CT examination was performed using dose optimization techniques as appropriate, variously including the following: *Automated exposure control *Adjustment of mA and/or kV according to patient size (this includes techniques or standardized protocols for targeted exams where dose is matched to indication/reason for exam; i.e. extremities or head) *Use of iterative reconstruction technique FINDINGS: HEAD: There is high-density streak artifact within the right posterior fossa. There is no intracranial hemorrhage, hydrocephalus, extra-axial surface collection, midline shift, or other herniation pattern. [place] to white matter differentiation is diffusely maintained without evidence of an evolved acute territorial infarct. The basilar cisterns are preserved. No significant soft tissue abnormality. No acute osseous abnormality. The paranasal sinuses and the mastoid air cells are well aerated. CERVICAL SPINE: Straightening of the cervical lordosis. Large bulky multilevel endplate osteophytes in keeping with diffuse idiopathic skeletal hyperostosis. No definite acute fractures are identified however assessment is limited by the degree of motion. Hypertrophic degenerative changes involving the atlantodental interval and the right atlantoaxial articulation. There is centrilobular emphysema throughout the imaged lungs. There is atherosclerotic calcification involving the carotid bifurcations bilaterally. CT/CT cervical spine wo IV con IMPRESSION: - No acute intracranial findings. - No definite acute fractures within the cervical spine however assessment is partially nondiagnostic due to significant motion artifact. There is advanced multilevel cervical spondylosis and there is diffuse idiopathic skeletal hyperostosis throughout the cervical spine. If there is high clinical suspicion for cervical spine injury, consider a repeat study as clinically indicated.
--- NOTE | ~2022-06-22 | XR_ITS ---
EXAMINATION: XR CHEST CLINICAL INFORMATION: Multiple falls COMPARISON: Chest radiograph 02/17/2021 TECHNIQUE: Frontal view of the chest was obtained. FINDINGS: Heart size upper limits of normal. There are some chronic reticulonodular densities seen in the lungs, unchanged from prior. No infiltrates, effusions or lung masses are seen. Appearances are unchanged when compared to 08/24/2020 study. Degenerative changes are again noted in both shoulders. XR/XR chest 1V IMPRESSION: No acute intrathoracic disease.
--- NOTE | 2022-06-22 18:27 | ECG_ITS ---
Test Reason : SOB Blood Pressure : / mmHG Vent. Rate : 061 BPM Atrial Rate : 061 BPM P-R Int : 190 ms QRS Dur : 106 ms QT Int : 454 ms P-R-T Axes : 052 -25 071 degrees QTc Int : 457 ms Normal sinus rhythm Minimal voltage criteria for LVH, may be normal variant ( Jin product ) Borderline ECG When compared with ECG of 24-AUG-2020 16:11, No significant change was found Referred By: Silva Smiley Electronically Signed By:CUCO GARCÍA MD
--- NOTE | 2022-06-22 18:29 | ED.GENADULT ---
HPI - General Adult General Chief complaint: Fall Stated complaint: fall Time Seen by Provider: 06/22/22 18:26 Source: EMS Mode of arrival: EMS Limitations: altered mental status History of Present Illness HPI narrative: Patient comes to the emergency room via EMS. 911 was called because the patient has been altered for 1 week. According to EMS, the patient's son reported that the patient is by herself. Patient has been nonverbal and drowsy for 1 week. Sometimes she wakes up and frequently she has found on the floor multiple times per day. Patient is too altered to give any information. According to EMS, patient is alert and oriented x4 at baseline, last time seen well was over a week ago Related Data Home Medications Medication Instructions Recorded Confirmed atorvastatin 20 mg tablet 20 mg PO DAILY 11/12/20 06/22/22 furosemide 80 mg tablet (Lasix) 80 mg PO DAILY 11/12/20 06/22/22 metolazone 2.5 mg tablet 5 mg PO DAILY 11/12/20 06/22/22 metoprolol tartrate 50 mg tablet 50 mg PO DAILY 11/12/20 06/22/22 (Lopressor) pregabalin 100 mg capsule (Lyrica) 100 mg PO DAILY 11/12/20 06/22/22 acetaminophen 500 mg tablet 500 mg PO Q12H PRN Pain 11/23/21 06/22/22 cholecalciferol (vitamin D3) 25 25 mcg PO DAILY 11/23/21 06/22/22 mcg (1,000 unit) capsule (Vitamin D3) docusate sodium 100 mg capsule 100 mg PO BID 11/23/21 06/22/22 ferrous sulfate 324 mg (65 mg 324 mg PO DAILY 11/23/21 06/22/22 iron) tablet,delayed release oxycodone-acetaminophen 10 mg-325 1 tab PO Q12H PRN Pain 11/23/21 06/22/22 mg tablet Previous Rx's Medication Instructions Recorded prednisone 5 mg tablet 5 mg PO DAILY #60 tabs 01/25/22 allopurinol 100 mg tablet 150 mg PO DAILY #45 tabs 05/30/22 Allergies Allergy/AdvReac Type Severity Reaction Status Date / Time No Known Allergies Allergy Unknown Verified 01/25/22 11:11 Review of Systems Review of Systems: Yes Unobtainable due to mental condition PMFSH Past Medical History Medical History Arthritis of both knees Bilateral primary osteoarthritis of knee Chronic kidney disease COPD (chronic obstructive pulmonary disease) Diabetes Gout Iron deficiency Osteoarthritis of left knee Surgical History Hx of tubal ligation Family History Family History Other Arthritis Social History Social History Household Members: None Alcohol intake: current Alcohol intake frequency: does not drink Patient Tobacco Use Status: Former Tobacco user Advance Directives: No Advance Directives Information Provided: No 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al status: disabled 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 Physical Exam ED Vital Signs: Vital Signs - 24 hr 06/22/22 18:36 06/22/22 18:53 06/22/22 19:28 Temperature 98.2 F Pulse Rate 69 67 Respiratory Rate 20 9 L 18 Blood Pressure 95/51 L 113/65 Pulse Oximetry 91 L Oxygen Delivery Method Nasal Cannula Nasal Cannula Oxygen Flow Rate 4 BMI result Body Mass Index 41.1 Const Other: Appearance: Responsive to painful stimuli only Eyes: Pinpoint pupils bilaterally, round and reactive to light. ENT: Pharynx normal. Neck: Normal inspection. Neck supple. No lymph nodes noted. No crepitus CVS: Normal heart rate and rhythm. Pulses normal. Normal S1 and S2 Respiratory: No respiratory distress. Breath sounds normal. No Wheezing. No rales Abdomen: Soft and nontender. No rigidity. No distention. Skin: Skin warm and dry. Normal skin color. Normal skin turgor. Extremities: No lower extremity edema. No Lacerations. No Rash Neuro: Unable to participate in cranial nerve assessment Psych: Minimally responsive Course Course Course Narrative: -given EMS story that patient has had frequent falls, patient was sent to the CT scan immediately to rule out intracranial bleed. Patient is not on blood thinners. When patient was being switched from the EMS stretcher to the CT scanner, patient woke up, started moaning and groaning. Patient not verbal. -patient's son is at bedside. Patient reports that 3 days ago called 3 times, today she fell twice. According to the son, yesterday patient was verbal at baseline. This morning she seemed a bit different but noticed approximately 4 hours ago that the patient's was sleeping too much without a clear reason. Medications Administered Discontinued Medications Generic Name Dose Route Start Last Admin Trade Name Ade PRN Reason Stop Dose Admin Sodium Chloride 1,000 mls @ 999 mls/hr 06/22/22 18:27 06/22/22 18:50 Ns IVCONT 06/22/22 19:27 999 mls/hr .Q1H1M ONE Administration Medical Decision Making Medical Decision Making [facility] Narrative: -given EMS story that patient has had frequent falls, patient was sent to the CT scan immediately to rule out intracranial bleed.? Patient is not on blood thinners.? When patient was being switched from the EMS stretcher to the CT scanner, patient woke up, started moaning and groaning.? Patient not verbal. -patient's son is at bedside.? Patient reports that 3 days ago called 3 times, today she fell twice.? According to the son, yesterday patient was verbal at baseline.? This morning she seemed a bit different but noticed approximately 4 hours ago that the patient's was sleeping too much without a clear reason. -here in the emergency room, patient has been sleeping most of the time, occasionally wakes up, alert and oriented and cause back to sleep.? It was noted the patient's pCO2 is 69, patient was started on BiPAP.? However, this seems to be fairly chronic, bicarb is significantly elevated to.? Patient is not in any respiratory distress -patient has acute kidney injury, patient's baseline creatinine is approximately 1.7, today is 3.88, likely from several days of not eating drinking secondary to altered mental status -patient's white blood cell count within normal limits, sepsis not suspected, no episodes of hypotension.? Patient given 1 dose of ceftriaxone for UTI -discussed the patient with Dr. Mason, pt being admitted -in patient's vitals, it says that patient is saturating 91% on 4 L.? However, patient is saturating in the mid 90s on room air Differential Diagnosis Differential Diagnoses: The differential diagnosis associated with the presentation includes (Hypercapnia, UTI, CVA, encephalopathy) Admission/Observation Consideration of admission/observation: Escalation of care including admission/observation considered Consult Healthcare Provider Management of the patient was discussed with: Hospitalist Lab Data [facility] Lab Attestation statement: I reviewed the patient's lab results. 06/22/22 18:43 06/22/22 18:43 Labs: Lab Results 06/22/22 06/22/22 06/22/22 Range/Units 18:43 18:43 18:43 WBC 9.1 (4.8-10.8) X10*3/uL RBC 4.91 (4.20-5.50) X10*6/uL Hgb 14.3 (12.0-16.0) g/dl Hct 46.1 (37.0-47.0) % MCV 93.9 (80.0-98.0) fL MCH 29.1 (27.0-33.0) pg MCHC 31.0 (31.0-35.0) g/dl RDW 15.9 (11.0-16.0) % Plt Count 148 L (160-400) X10*3/uL MPV 11.8 (9.4-12.3) fL Immature Gran % (Auto) 0.4 (0.0-0.4) % Neut % (Auto) 78.0 H (45-73) % Lymph % (Auto) 14.0 L (20-40) % [place] % (Auto) 5.7 (2-11) % Eos % (Auto) 1.6 (0-4) % Baso % (Auto) 0.3 (0-2) % Lymph # (Auto) 1.3 (1.2-4.9) X10*3/uL [place] # (Auto) 0.5 (0.1-1.2) X10*3/uL Eos # (Auto) 0.2 (0.0-0.4) X10*3/uL Baso # (Auto) 0.0 (0.0-0.2) X10*3/uL Abs Immat Gran (auto) 0.04 H (0.00-0.03) X10*3/uL Absolute Neuts (auto) 7.1 (2.0-8.3) x10*3/uL Absolute Nucleated RBC 0.000 (0.0-0.012) X10*3/uL Nucleated RBC % (auto) 0.0 (0.0-0.2) /100WBC PT (10.0-13.1) SEC INR (0.9-1.1) VBG pH (7.32-7.43) VBG pCO2 mmHg VBG pO2 mmHg VBG HCO3 (22-26) mmol/L VBG O2 Saturation % VBG Base Excess mmol/L Sodium 142 (135-145) mmol/L Potassium 3.8 (3.3-5.1) mmol/L Chloride 90 L (96-108) mmol/L Carbon Dioxide 38 H (22-29) mmol/L Anion Gap 18 (12-20) BUN 133 H (9-16) mg/dL Creatinine 3.88 H (0.5-1.4) mg/dL Estim Creat Clear Calc 14.6 Estimated GFR 11 POC Glucose (60-115) mg/dL Random Glucose 300 H (60-115) mg/dL Lactic Acid 1.9 (0.5-2.0) mmol/L Calcium 10.0 (8.4-10.2) mg/dL Magnesium 2.7 H (1.6-2.6) mg/dL Total Bilirubin 1.1 H (0.0-1.0) mg/dL Direct Bilirubin 0.2 (0.0-0.5) mg/dL AST 23 (5-31) U/L ALT 14 (0-31) U/L Alkaline Phosphatase 78 (39-117) U/L Ammonia (13-55) umol/L Troponin I High Sens (<3.5-17.0) ng/L B-Natriuretic Peptide (<100) pg/mL Total Protein 6.7 (6.5-8.0) g/dL Albumin 3.9 (3.5-5.0) g/dL Lipase 32 (8-78) U/L TSH (0.32-4.0) uIU/mL Free T4 (0.71-1.85) ng/dL Ethyl Alcohol mg/dL 06/22/22 06/22/22 06/22/22 Range/Units 18:43 18:43 18:43 WBC (4.8-10.8) X10*3/uL RBC (4.20-5.50) X10*6/uL Hgb (12.0-16.0) g/dl Hct (37.0-47.0) % MCV (80.0-98.0) fL MCH (27.0-33.0) pg MCHC (31.0-35.0) g/dl RDW (11.0-16.0) % Plt Count (160-400) X10*3/uL MPV (9.4-12.3) fL Immature Gran % (Auto) (0.0-0.4) % Neut % (Auto) (45-73) % Lymph % (Auto) (20-40) % [place] % (Auto) (2-11) % Eos % (Auto) (0-4) % Baso % (Auto) (0-2) % Lymph # (Auto) (1.2-4.9) X10*3/uL [place] # (Auto) (0.1-1.2) X10*3/uL Eos # (Auto) (0.0-0.4) X10*3/uL Baso # (Auto) (0.0-0.2) X10*3/uL Abs Immat Gran (auto) (0.00-0.03) X10*3/uL Absolute Neuts (auto) (2.0-8.3) x10*3/uL Absolute Nucleated RBC (0.0-0.012) X10*3/uL Nucleated RBC % (auto) (0.0-0.2) /100WBC PT 12.7 (10.0-13.1) SEC INR 1.1 (0.9-1.1) VBG pH (7.32-7.43) VBG pCO2 mmHg VBG pO2 mmHg VBG HCO3 (22-26) mmol/L VBG O2 Saturation % VBG Base Excess mmol/L Sodium (135-145) mmol/L Potassium (3.3-5.1) mmol/L Chloride (96-108) mmol/L Carbon Dioxide (22-29) mmol/L Anion Gap (12-20) BUN (9-16) mg/dL Creatinine (0.5-1.4) mg/dL Estim Creat Clear Calc Estimated GFR POC Glucose (60-115) mg/dL Random Glucose (60-115) mg/dL Lactic Acid (0.5-2.0) mmol/L Calcium (8.4-10.2) mg/dL Magnesium (1.6-2.6) mg/dL Total Bilirubin (0.0-1.0) mg/dL Direct Bilirubin (0.0-0.5) mg/dL AST (5-31) U/L ALT (0-31) U/L Alkaline Phosphatase (39-117) U/L Ammonia 36 (13-55) umol/L Troponin I High Sens 12.3 (<3.5-17.0) ng/L B-Natriuretic Peptide (<100) pg/mL Total Protein (6.5-8.0) g/dL Albumin (3.5-5.0) g/dL Lipase (8-78) U/L TSH (0.32-4.0) uIU/mL Free T4 (0.71-1.85) ng/dL Ethyl Alcohol mg/dL 06/22/22 06/22/22 06/22/22 Range/Units 18:43 18:43 18:46 WBC (4.8-10.8) X10*3/uL RBC (4.20-5.50) X10*6/uL Hgb (12.0-16.0) g/dl Hct (37.0-47.0) % MCV (80.0-98.0) fL MCH (27.0-33.0) pg MCHC (31.0-35.0) g/dl RDW (11.0-16.0) % Plt Count (160-400) X10*3/uL MPV (9.4-12.3) fL Immature Gran % (Auto) (0.0-0.4) % Neut % (Auto) (45-73) % Lymph % (Auto) (20-40) % [place] % (Auto) (2-11) % Eos % (Auto) (0-4) % Baso % (Auto) (0-2) % Lymph # (Auto) (1.2-4.9) X10*3/uL [place] # (Auto) (0.1-1.2) X10*3/uL Eos # (Auto) (0.0-0.4) X10*3/uL Baso # (Auto) (0.0-0.2) X10*3/uL Abs Immat Gran (auto) (0.00-0.03) X10*3/uL Absolute Neuts (auto) (2.0-8.3) x10*3/uL Absolute Nucleated RBC (0.0-0.012) X10*3/uL Nucleated RBC % (auto) (0.0-0.2) /100WBC PT (10.0-13.1) SEC INR (0.9-1.1) VBG pH 7.44 H (7.32-7.43) VBG pCO2 69 mmHg VBG pO2 47 mmHg VBG HCO3 47 H (22-26) mmol/L VBG O2 Saturation 74.0 % VBG Base Excess 18.7 mmol/L Sodium (135-145) mmol/L Potassium (3.3-5.1) mmol/L Chloride (96-108) mmol/L Carbon Dioxide (22-29) mmol/L Anion Gap (12-20) BUN (9-16) mg/dL Creatinine (0.5-1.4) mg/dL Estim Creat Clear Calc Estimated GFR POC Glucose (60-115) mg/dL Random Glucose (60-115) mg/dL Lactic Acid (0.5-2.0) mmol/L Calcium (8.4-10.2) mg/dL Magnesium (1.6-2.6) mg/dL Total Bilirubin (0.0-1.0) mg/dL Direct Bilirubin (0.0-0.5) mg/dL AST (5-31) U/L ALT (0-31) U/L Alkaline Phosphatase (39-117) U/L Ammonia (13-55) umol/L Troponin I High Sens (<3.5-17.0) ng/L B-Natriuretic Peptide 62 (<100) pg/mL Total Protein (6.5-8.0) g/dL Albumin (3.5-5.0) g/dL Lipase (8-78) U/L TSH 4.18 H (0.32-4.0) uIU/mL Free T4 1.07 (0.71-1.85) ng/dL Ethyl Alcohol < 10 mg/dL 06/22/22 Range/Units 18:49 WBC (4.8-10.8) X10*3/uL RBC (4.20-5.50) X10*6/uL Hgb (12.0-16.0) g/dl Hct (37.0-47.0) % MCV (80.0-98.0) fL MCH (27.0-33.0) pg MCHC (31.0-35.0) g/dl RDW (11.0-16.0) % Plt Count (160-400) X10*3/uL MPV (9.4-12.3) fL Immature Gran % (Auto) (0.0-0.4) % Neut % (Auto) (45-73) % Lymph % (Auto) (20-40) % [place] % (Auto) (2-11) % Eos % (Auto) (0-4) % Baso % (Auto) (0-2) % Lymph # (Auto) (1.2-4.9) X10*3/uL [place] # (Auto) (0.1-1.2) X10*3/uL Eos # (Auto) (0.0-0.4) X10*3/uL Baso # (Auto) (0.0-0.2) X10*3/uL Abs Immat Gran (auto) (0.00-0.03) X10*3/uL Absolute Neuts (auto) (2.0-8.3) x10*3/uL Absolute Nucleated RBC (0.0-0.012) X10*3/uL Nucleated RBC % (auto) (0.0-0.2) /100WBC PT (10.0-13.1) SEC INR (0.9-1.1) VBG pH (7.32-7.43) VBG pCO2 mmHg VBG pO2 mmHg VBG HCO3 (22-26) mmol/L VBG O2 Saturation % VBG Base Excess mmol/L Sodium (135-145) mmol/L Potassium (3.3-5.1) mmol/L Chloride (96-108) mmol/L Carbon Dioxide (22-29) mmol/L Anion Gap (12-20) BUN (9-16) mg/dL Creatinine (0.5-1.4) mg/dL Estim Creat Clear Calc Estimated GFR POC Glucose 275 H (60-115) mg/dL Random Glucose (60-115) mg/dL Lactic Acid (0.5-2.0) mmol/L Calcium (8.4-10.2) mg/dL Magnesium (1.6-2.6) mg/dL Total Bilirubin (0.0-1.0) mg/dL Direct Bilirubin (0.0-0.5) mg/dL AST (5-31) U/L ALT (0-31) U/L Alkaline Phosphatase (39-117) U/L Ammonia (13-55) umol/L Troponin I High Sens (<3.5-17.0) ng/L B-Natriuretic Peptide (<100) pg/mL Total Protein (6.5-8.0) g/dL Albumin (3.5-5.0) g/dL Lipase (8-78) U/L TSH (0.32-4.0) uIU/mL Free T4 (0.71-1.85) ng/dL Ethyl Alcohol mg/dL Independent Interpretation I performed an independent interpretation of an: CT Scan (My interpretation head CT, no intracranial bleed) Radiology Impression Discussion of test interpretation with radiology: I have reviewed the radiologist's reading. Radiologist Impression: HEAD: There is high-density streak artifact within the right posterior fossa. There is no intracranial hemorrhage, hydrocephalus, extra-axial surface collection, midline shift, or other herniation pattern. [place] to white matter differentiation is diffusely maintained without evidence of an evolved acute territorial infarct. The basilar cisterns are preserved. No significant soft tissue abnormality. No acute osseous abnormality. The paranasal sinuses and the mastoid air cells are well aerated. CERVICAL SPINE: Straightening of the cervical lordosis. Large bulky multilevel endplate osteophytes in keeping with diffuse idiopathic skeletal hyperostosis. No definite acute fractures are identified however assessment is limited by the degree of motion. Hypertrophic degenerative changes involving the atlantodental interval and the right atlantoaxial articulation. There is centrilobular emphysema throughout the imaged lungs. There is atherosclerotic calcification involving the carotid bifurcations bilaterally. CT/CT head/brain wo IV con IMPRESSION: - No acute intracranial findings. ? - No definite acute fractures within the cervical spine however assessment is partially nondiagnostic due to significant motion artifact. There is advanced multilevel cervical spondylosis and there is diffuse idiopathic skeletal hyperostosis throughout the cervical spine. If there is high clinical suspicion for cervical spine injury, consider a repeat study as clinically indicated. Critical Care Time Critical Care Time Critical Care Time: Yes Total Critical Care Time: 75 Attestation: I have personally provided critical care time. Time includes review of lab data, radiology results, discussion with consultants, and monitoring for potential decompensation. Intervention performed as documented. Discharge Plan Discharge Clinical Impression: Encephalopathy, Acute UTI, Acute kidney injury superimposed on CKD Patient Disposition: Admitted As Inpatient Prescriptions: No Action allopurinol 100 mg tablet 150 mg PO DAILY Qty: 45 1RF furosemide [Lasix] 80 mg tablet 80 mg PO DAILY metolazone 2.5 mg tablet 5 mg PO DAILY atorvastatin 20 mg tablet 20 mg PO DAILY metoprolol tartrate [Lopressor] 50 mg tablet 50 mg PO DAILY pregabalin [Lyrica] 100 mg capsule 100 mg PO DAILY ferrous sulfate 324 mg (65 mg iron) tablet,delayed release (DR/EC) 324 mg PO DAILY oxycodone-acetaminophen 10-325 mg tablet 1 tab PO Q12H PRN (Reason: Pain) acetaminophen 500 mg tablet 500 mg PO Q12H PRN (Reason: Pain) cholecalciferol (vitamin D3) [Vitamin D3] 25 mcg (1,000 unit) capsule 25 mcg PO DAILY docusate sodium 100 mg capsule 100 mg PO BID prednisone 5 mg tablet 5 mg PO DAILY Qty: 60 1RF
[2022-06-22 18:36] VITALS: BP 103/82; BP 95/51; PULSE 69; RESP 20; TEMP 36.8; O2SAT 91; O2SAT 95; BMI 41.1
[2022-06-22 18:49] LABS: MANUAL DIFF FLAG NO
[2022-06-22] MEDS: 0.9 % Sodium Chloride 1,000 ML 999 ML IVCONT (18:50)
[2022-06-22 18:51] LABS: Venous Blood Gas Refer to POC result
[2022-06-22 18:52] LABS: VBG Base Excess 18.7 mmol/L; VBG HCO3 47 mmol/L (22-26); VBG pCO2 69 mmHg; VBG pH 7.44 (7.32-7.43); VBG pO2 47 mmHg
[2022-06-22 18:53] VITALS: BP 113/65; PULSE 67; RESP 9
[2022-06-22 18:55] LABS: Glucose, Whole Blood 275 mg/dL (60-115)
[2022-06-22 18:58] LABS: Basophils Percent Auto 0.3 % (0-2); Eosinophils Absolute Auto 0.2 X10*3/uL (0.0-0.4); Eosinophils Percent Auto 1.6 % (0-4); Hematocrit 46.1 % (37.0-47.0); Hemoglobin 14.3 g/dl (12.0-16.0); INTERNATIONAL NORM RATIO 1.1 (0.9-1.1); Imm Gran Abs Auto 0.04 X10*3/uL (0.00-0.03); Imm Gran Pct Auto 0.4 % (0.0-0.4); Lymphocytes Absolute Auto 1.3 X10*3/uL (1.2-4.9); Mean Corpuscular Hemoglobin 29.1 pg (27.0-33.0); Mean Corpuscular Volume 93.9 fL (80.0-98.0); Mean Platelet Volume 11.8 fL (9.4-12.3); Monocytes Absolute Auto 0.5 X10*3/uL (0.1-1.2); Monocytes Percent Auto 5.7 % (2-11); Neutrophils Absolute Auto 7.1 x10*3/uL (2.0-8.3); Platelet Count 148 X10*3/uL (160-400); Prothrombin Time 12.7 SEC (10.0-13.1); Red Blood Count 4.91 X10*6/uL (4.20-5.50); Red Cell Distribution Width 15.9 % (11.0-16.0); White Blood Count 9.1 X10*3/uL (4.8-10.8)
[2022-06-22 19:12] LABS: Lactic Acid 1.9 mmol/L (0.5-2.0)
[2022-06-22 19:15] LABS: Ammonia 36 umol/L (13-55)
[2022-06-22 19:18] LABS: Ethanol < 10 mg/dL
[2022-06-22 19:20] LABS: B Type Natriuretic Peptide 62 pg/mL (<100)
[2022-06-22 19:21] LABS: Alanine Aminotransferase 14 U/L (0-31); Albumin Level 3.9 g/dL (3.5-5.0); Alkaline Phosphatase 78 U/L (39-117); Anion Gap 18 (12-20); Aspartate Amino Transferase 23 U/L (5-31); Bilirubin Direct 0.2 mg/dL (0.0-0.5); Bilirubin Total 1.1 mg/dL (0.0-1.0); Carbon Dioxide 38 mmol/L (22-29); Chloride 90 mmol/L (96-108); Creatinine Clr Calc Pharmacy 14.6; Estimated Glomerular Filt Rate 11; Glucose Random 300 mg/dL (60-115); Lipase 32 U/L (8-78); Magnesium 2.7 mg/dL (1.6-2.6); Potassium 3.8 mmol/L (3.3-5.1); Sodium 142 mmol/L (135-145); Total Protein 6.7 g/dL (6.5-8.0)
[2022-06-22 19:22] LABS: Troponin-I High Sensitivity 12.3 ng/L (<3.5-17.0)
[2022-06-22 19:28] VITALS: PULSE 67; RESP 18; O2SAT 93
[2022-06-22 19:31] LABS: Blood Urea Nitrogen 133 mg/dL (9-16)
[2022-06-22 19:36] LABS: TSH reflex Free T4 4.18 uIU/mL (0.32-4.0)
--- NOTE | 2022-06-22 20:21 | PHA.MEDREC ---
Pharmacy Consult ? Medication Reconciliation Pharmacy has completed the medication reconciliation. Med rec completed by claim history. Patient's did not know any medications or what VNA patient uses. Aspirin 81, Montelukast 10 mg, nifedipine 60 mg and trazodone 50 mg have no been filled since December 2021 per claim history, therefore medicaitons were moved from list. Raquel Weller, PharmD
[2022-06-22 20:39] LABS: Free T4 (Free Thyroxine) 1.07 ng/dL (0.71-1.85)
--- NOTE | 2022-06-22 20:45 | P.HPHOSP_ITS ---
History of Present Illness Date of Service: 06/22/22 Attending physician on admission: Shilpa Mason Chief Complaint: Altered Mental Status Pt is a 81-year-old female with a PMH significant for?COPD, gout, CERD, CKD, HLD, and morbid obesity who presents to the ED with?altered mental status and frequent falls for the past 3-4 days. Pt is alert and oriented x2 at time of interview; HPI supplemented by granddaughter at beside and chart review. Pt lives alone with help from family, especially her son. Son notes that pt has been more lethargic has had multiple falls for the past 3-4 days. Pt states she fell twice earlier today after becoming lightheaded and dizzy. She admits she has not been eating or drinking well during this time but has been compliant with her medications. Denies any new medication changes. Has also been feeling fatigued the past few days and nauseous earlier today. Complains of left-sided heck and face pain. No chest pain or pressure or palpitaitons. Some SOB with exertion. No fever, chills, vomiting, diarrhea, or abdominal pain. No dysuria. In the ED patient [place]febrile[place] [id number], bradypnea, and satting at 91% O2 4 L of and nasal cannula. Pt was placed on BiPAP. Labs were significant for chloride of 90, carbon dioxide of 38, BUN 133, creatinine of 3.8, POC of 275. UA pending. Tox screen pending. CXR showed no acute intrathoracic disease. CT?of head from no acute intracranial pathology. CT of cervical spine found no definitive acute fractures. However assessment is limited due to motion artifact. CT of spine found danced multilevel cervical spondylolysis and diffuse idiopathic skeletal hyperostosis. EKG demonstrated normal sinus rhythm with no evidence of ST elevations or depressions. Pt was treated with IVF and ceftriaxone. Pt will be admitted to the hospital for further workup of acute encephalopathy in the setting of SUKHJINDER and COPD exacerbation. Review of Systems Review of Systems: Altered mental status Lethargy Lightheadedness, dizziness Frequent falls SOB Nausea Decreased p.o. intake of liquids and solids Denies dysuria No Chest pain/pressure, palpitations Denies fever, chills, vomiting, diarrhea, abdominal pain Yes all other systems are reviewed and are negative [facility] Medical History Arthritis of both knees Bilateral primary osteoarthritis of knee Chronic kidney disease COPD (chronic obstructive pulmonary disease) Diabetes Gout Iron deficiency Osteoarthritis of left knee Family History Other Arthritis Surgical History Hx of tubal ligation Social History Household Members: None Alcohol intake: current Alcohol intake frequency: does not drink Patient Tobacco Use Status: Former Tobacco user Advance Directives: No Advance Directives Information Provided: No 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al status: disabled 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 Meds Allergies Allergy/AdvReac Type Severity Reaction Status Date / Time No Known Allergies Allergy Unknown Verified 01/25/22 11:11 Active Medications: Current Medications Pharmacy Consult (Consult Rx Perform Med Rec) 1 each MISCELLANE ONCE PRN PRN Reason: Consult order Home Medications Medication Instructions Recorded Confirmed Last Taken Type atorvastatin 20 mg tablet 20 mg PO BEDTIME 11/12/20 06/22/22 Unknown History furosemide 80 mg tablet (Lasix) 80 mg PO BID 11/12/20 06/22/22 Unknown History metolazone 2.5 mg tablet 5 mg PO DAILY 11/12/20 06/22/22 Unknown History metoprolol tartrate 50 mg tablet 50 mg PO BID 11/12/20 06/22/22 Unknown History (Lopressor) pregabalin 100 mg capsule (Lyrica) 100 mg PO TID 11/12/20 06/22/22 Unknown History acetaminophen 500 mg tablet 500 mg PO Q12H PRN Pain 11/23/21 06/22/22 Unknown History cholecalciferol (vitamin D3) 25 25 mcg PO DAILY 11/23/21 06/22/22 Unknown History mcg (1,000 unit) capsule (Vitamin D3) docusate sodium 100 mg capsule 100 mg PO BID 11/23/21 06/22/22 Unknown History ferrous sulfate 324 mg (65 mg 324 mg PO DAILY 11/23/21 06/22/22 Unknown History iron) tablet,delayed release oxycodone-acetaminophen 10 mg-325 1 tab PO Q12H PRN Pain 11/23/21 06/22/22 Unknown History mg tablet Physical Exam Vital Signs and Narrative: Vital Signs: Last Vital Signs Temp 98.2 F 06/22/22 18:36 Pulse 67 06/22/22 18:53 Resp 18 06/22/22 19:28 BP 113/65 06/22/22 18:53 Pulse Ox 91 L 06/22/22 18:36 O2 Del Method Nasal Cannula 06/22/22 18:53 O2 Flow Rate 4 06/22/22 18:53 Oxygen Flow Rate 4 06/22/22 18:36 BMI result Body Mass Index 41.1 Constitutional: Alert, mildly confused, in no acute distress. Mental Status: Oriented to person and place only. Eyes: Pupils are equal, round, and reactive to light. Ear, Nose, and Throat: Oropharynx clear, mucous membranes dry. Ears and nose without deformities. Trachea midline. Respiratory: Expiratory wheezing throughout bilaterally. Cardiovascular: S1, S2 regular. No murmurs, rubs, or gallops. Gastrointestinal: Abdomen soft, non-tender, non-distended. Normal bowel sounds. Neurologic: Cranial nerves II-XII are grossly intact bilaterally. No focal neurological deficits. Moves all extremities spontaneously. Skin: Warm, dry. Extremities: Bilateral edema of lower extremities. Psychiatric: Pleasantly confused. Results Labs 06/22/22 18:43 06/22/22 18:43 Labs: Laboratory Results - last 24 hr 06/22/22 06/22/22 06/22/22 18:43 18:43 18:43 MCV 93.9 MCH 29.1 MCHC 31.0 RDW 15.9 Plt Count 148 L MPV 11.8 Immature Gran % (Auto) 0.4 Neut % (Auto) 78.0 H Lymph % (Auto) 14.0 L [place] % (Auto) 5.7 Eos % (Auto) 1.6 Baso % (Auto) 0.3 Lymph # (Auto) 1.3 [place] # (Auto) 0.5 Eos # (Auto) 0.2 Baso # (Auto) 0.0 Abs Immat Gran (auto) 0.04 H Absolute Neuts (auto) 7.1 Absolute Nucleated RBC 0.000 Nucleated RBC % (auto) 0.0 PT INR VBG pH VBG pCO2 VBG pO2 VBG HCO3 VBG O2 Saturation VBG Base Excess Anion Gap 18 Estim Creat Clear Calc 14.6 Estimated GFR 11 POC Glucose Random Glucose 300 H Lactic Acid 1.9 Calcium 10.0 Magnesium 2.7 H Total Bilirubin 1.1 H Direct Bilirubin 0.2 AST 23 ALT 14 Alkaline Phosphatase 78 Ammonia Troponin I High Sens B-Natriuretic Peptide Total Protein 6.7 Albumin 3.9 Lipase 32 TSH Free T4 Ethyl Alcohol 06/22/22 06/22/22 06/22/22 18:43 18:43 18:43 MCV MCH MCHC RDW Plt Count MPV Immature Gran % (Auto) Neut % (Auto) Lymph % (Auto) [place] % (Auto) Eos % (Auto) Baso % (Auto) Lymph # (Auto) [place] # (Auto) Eos # (Auto) Baso # (Auto) Abs Immat Gran (auto) Absolute Neuts (auto) Absolute Nucleated RBC Nucleated RBC % (auto) PT 12.7 INR 1.1 VBG pH VBG pCO2 VBG pO2 VBG HCO3 VBG O2 Saturation VBG Base Excess Anion Gap Estim Creat Clear Calc Estimated GFR POC Glucose Random Glucose Lactic Acid Calcium Magnesium Total Bilirubin Direct Bilirubin AST ALT Alkaline Phosphatase Ammonia 36 Troponin I High Sens 12.3 B-Natriuretic Peptide Total Protein Albumin Lipase TSH Free T4 Ethyl Alcohol 06/22/22 06/22/22 06/22/22 18:43 18:43 18:46 MCV MCH MCHC RDW Plt Count MPV Immature Gran % (Auto) Neut % (Auto) Lymph % (Auto) [place] % (Auto) Eos % (Auto) Baso % (Auto) Lymph # (Auto) [place] # (Auto) Eos # (Auto) Baso # (Auto) Abs Immat Gran (auto) Absolute Neuts (auto) Absolute Nucleated RBC Nucleated RBC % (auto) PT INR VBG pH 7.44 H VBG pCO2 69 VBG pO2 47 VBG HCO3 47 H VBG O2 Saturation 74.0 VBG Base Excess 18.7 Anion Gap Estim Creat Clear Calc Estimated GFR POC Glucose Random Glucose Lactic Acid Calcium Magnesium Total Bilirubin Direct Bilirubin AST ALT Alkaline Phosphatase Ammonia Troponin I High Sens B-Natriuretic Peptide 62 Total Protein Albumin Lipase TSH 4.18 H Free T4 1.07 Ethyl Alcohol < 10 06/22/22 18:49 MCV MCH MCHC RDW Plt Count MPV Immature Gran % (Auto) Neut % (Auto) Lymph % (Auto) [place] % (Auto) Eos % (Auto) Baso % (Auto) Lymph # (Auto) [place] # (Auto) Eos # (Auto) Baso # (Auto) Abs Immat Gran (auto) Absolute Neuts (auto) Absolute Nucleated RBC Nucleated RBC % (auto) PT INR VBG pH VBG pCO2 VBG pO2 VBG HCO3 VBG O2 Saturation VBG Base Excess Anion Gap Estim Creat Clear Calc Estimated GFR POC Glucose 275 H Random Glucose Lactic Acid Calcium Magnesium Total Bilirubin Direct Bilirubin AST ALT Alkaline Phosphatase Ammonia Troponin I High Sens B-Natriuretic Peptide Total Protein Albumin Lipase TSH Free T4 Ethyl Alcohol Imaging Radiologist's Impressions: Impressions Cervical Spine CT 06/22/22 18:58 IMPRESSION: - No acute intracranial findings. - No definite acute fractures within the cervical spine however assessment is partially nondiagnostic due to significant motion artifact. There is advanced multilevel cervical spondylosis and there is diffuse idiopathic skeletal hyperostosis throughout the cervical spine. If there is high clinical suspicion for cervical spine injury, consider a repeat study as clinically indicated. Head CT 06/22/22 18:58 IMPRESSION: - No acute intracranial findings. - No definite acute fractures within the cervical spine however assessment is partially nondiagnostic due to significant motion artifact. There is advanced multilevel cervical spondylosis and there is diffuse idiopathic skeletal hyperostosis throughout the cervical spine. If there is high clinical suspicion for cervical spine injury, consider a repeat study as clinically indicated. Chest X-Ray 06/22/22 19:10 IMPRESSION: No acute intrathoracic disease. Assessment and Plan (1) Encephalopathy: Status: Acute (2) Acute kidney injury superimposed on CKD: Status: Acute (3) COPD exacerbation: Status: Acute Plan Pt is a 81-year-old female with a PMH significant for?COPD, gout, CERD, CKD, HLD, and morbid obesity who presents to the ED with?altered mental status and frequent falls for the past 3-4 days. Patient be admitted to the hospital treatment for evaluation of acute encephalopathy in setting of SUKHJINDER and COPD exacerbation. Acute metabolic encephalopathy in the setting of SUKHJINDER on CKD Pt with altered mental status for the past 3-4 days, elevated BUN of 133 and creatinine of 3.88 (baseline 1.7) Likely secondary to decreased p.o. intake while continuing to take furosemide and metolazone Pt recevied IVF in ED Pt will get another liter of IVF Pt's mentation already improved since time of presentation; however if worsens or fails to return to baseline consider MRI Hold statin, furosemide, metolazone PT evaluation prior to discharge Follow BMP Question of UTI Treated empirically with Ceftriaxone for possible UTI d/t acute encephalopathy in the elderly Check UA and treat appropriately Acute respiratory failure in the setting of COPD exacerbation Pt arrived to the ED satting at 80% O2 on RA, placed on BiPAP and then eventually transitioned to NL Pt on supplemental O2 prn at home Patient hypercapnic with CO2 of 38, expiratory wheezing on exam Solu-medrol 40mg q12 Duonebs Titrate supplemental O2 to >90 Pulmonology consult Neck and facial pain Pt complaining primarily of left-sided neck and facial pain, possibly secondary to recent falls CT?of head from no acute intracranial pathology CT of cervical spine found no definitive acute fractures, but assessment limited due to motion artifact, did find multilevel cervical spondylolysis and diffuse idiopathic skeletal hyperostosis ROM of neck intact Re-evaluate tomorrow and consider repeat imaging if there is a high clinical suspicion for cervical spine injury Acetaminophen for pain Non-insulin dependent diabetes Pt apparently not on any home diabetic meds SSI Lower leg edema Pt with significant chronic lower leg edema Apparently at baseline Hold furosemide, metolazone d/t SUKHJINDER Gout continue allopurinol Full Code Attending:?Dr. Mason DVT Prophylaxis: Lovenox Pt will require a hospitalization of at least two nights for treatment of?acute encephalopathy in the setting of SUKHJINDER and COPD exacerbation. Time Spent With Patient Time: Total time managing care of this patient today ____ minutes. Quality Stroke Does the patient have a stroke diagnosis?: No VTE Prior VTE?: No VTE Risk Level:: Medical - moderate - high VTE Device Contraindication: Treatment Not Indicated VTE Drug Contraindication: N/A - Med Ordered
[2022-06-22] MEDS: Enoxaparin Sodium 30 MG/0.3 ML SYRINGE SUBCUT (21:20)
[2022-06-22] MEDS: cefTRIAXone sodium 1 GM in 0.9 % Sodium Chloride 50 ML IV (21:22)
[2022-06-22 21:24] LABS: Glucose, Whole Blood 246 mg/dL (60-115)
[2022-06-22] MEDS: Insulin Regular, Human 100 UNIT/ML 3 ML VIAL IVPUSH (21:24)
[2022-06-22 22:05] LABS: Venous Blood Gas Refer to POC result
[2022-06-22 22:07] LABS: VBG Base Excess 16.8 mmol/L; VBG HCO3 43 mmol/L (22-26); VBG pCO2 60 mmHg; VBG pH 7.46 (7.32-7.43); VBG pO2 72 mmHg
[2022-06-22 23:04] VITALS: BP 107/49; PULSE 59; RESP 16; TEMP 36.7; O2SAT 97
[2022-06-22] MEDS: Pregabalin 100 MG CAPSULE PO (23:07)
[2022-06-22] MEDS: methylPREDNISolone Sod Succ 40 MG/ML VIAL IVPUSH (23:07)
[2022-06-22 23:08] LABS: Color Urine Yellow; Glucose Urine UA Negative (Negative); Leukocyte Esterase Urine Trace (Negative); Nitrite Urine Negative (Negative); PH 5.5 (5.0-9.0); UMIC TRIGGER UACC YES; Urine Blood Trace (Negative); Urine Ketones Negative (Negative); Urine Protein Negative (Neg-Trace)
[2022-06-22] MEDS: 0.9 % Sodium Chloride Flush 3 ML SYRINGE IVFLUSH (23:08)
[2022-06-22 23:09] LABS: Appearance Urine Clear
[2022-06-22 23:10] LABS: Bacteria Urine 4+ (None Seen); Hyaline Casts Urine 0-2 /LPF (0-2); RBC Urine 0-2 /HPF (0-2); Squamous Epithelial Cell Urine 0-2 /HPF (0-2); UACC Culture Trigger YES
[2022-06-22 23:18] LABS: Amphetamine Screen Urine Not Detected (Not Detect); Barbiturates, Urine Not Detected (Not Detect); Benzodiazepines Screen Urine Not Detected (Not Detect); Cannabinoid Screen Urine Not Detected (Not Detect); Cocaine Screen Urine Not Detected (Not Detect); Opiate Screen Urine Not Detected (Not Detect); Phencyclidine Screen Urine Not Detected (Not Detect)
[2022-06-22 23:35] LABS: Fentanyl, urine Not Detected (Not Detect)
[2022-06-23] VITALS (10 sets, daily range): BP systolic 97–144; BP diastolic 44–81; PULSE 61–74; RESP 11–20; TEMP 36–36.8; O2SAT 90–97
[2022-06-23 06:08] LABS: MANUAL DIFF FLAG NO
[2022-06-23 06:12] LABS: Basophils Percent Auto 0.1 % (0-2); Eosinophils Percent Auto 0.1 % (0-4); Hematocrit 42.2 % (37.0-47.0); Hemoglobin 13.5 g/dl (12.0-16.0); Imm Gran Abs Auto 0.03 X10*3/uL (0.00-0.03); Imm Gran Pct Auto 0.4 % (0.0-0.4); Lymphocytes Absolute Auto 0.7 X10*3/uL (1.2-4.9); Lymphocytes Percent Auto 8.6 % (20-40); Mean Corpuscular Volume 93.8 fL (80.0-98.0); Mean Platelet Volume 11.8 fL (9.4-12.3); Monocytes Absolute Auto 0.1 X10*3/uL (0.1-1.2); Monocytes Percent Auto 1.6 % (2-11); Neutrophils Absolute Auto 7.1 x10*3/uL (2.0-8.3); Neutrophils Percent Auto 89.2 % (45-73); Platelet Count 126 X10*3/uL (160-400); Red Cell Distribution Width 15.6 % (11.0-16.0)
[2022-06-23 06:30] LABS: Anion Gap 15 (12-20); Calcium 9.3 mg/dL (8.4-10.2); Carbon Dioxide 36 mmol/L (22-29); Chloride 97 mmol/L (96-108); Creatinine Clr Calc Pharmacy 17.9; Estimated Glomerular Filt Rate 14; Glucose Random 251 mg/dL (60-115); Potassium 3.3 mmol/L (3.3-5.1); Sodium 145 mmol/L (135-145)
[2022-06-23 06:45] LABS: Blood Urea Nitrogen 127 mg/dL (9-16)
[2022-06-23 07:16] LABS: Glucose, Whole Blood 247 mg/dL (60-115)
--- NOTE | 2022-06-23 07:18 | HO.PM.IMPN ---
Subjective Subjective Date of Service: 06/23/22 Interval History: f/u on copd exacerbation, acute hypoxic res, ALEXANDER, UTI was on bipap but off now, no longer confused Physical Exam Vital Signs: Vital Signs: Last Vital Signs Temp 97.7 F 06/23/22 06:13 Pulse 66 06/23/22 06:13 Resp 16 06/23/22 06:13 BP 114/60 06/23/22 06:13 Pulse Ox 97 06/23/22 06:13 O2 Del Method Nasal Cannula 06/23/22 06:13 O2 Flow Rate 2 06/23/22 06:13 Oxygen Flow Rate 4 06/22/22 18:36 BMI result Body Mass Index 41.1 Const: Other: General: AO X 3, no acute distress Resp: CTA bilateral CVS: S1,S2,RRR GI: +BS, NT, no distention Skin: No rash Neuro: motor grossly intact Psych: appropriate affect Objective Data Active Medications Acetaminophen (Acetaminophen 325 Mg Tablet) 650 mg PO Q6H PRN PRN Reason: Pain, Mild (Pain Scale 1-3) Albuterol/Ipratropium (Albuterol/Iprat 2.5/0.5mg 3 Ml Ampul.Neb) 3 ml INHALE RQ4H PRN PRN Reason: Wheezing Albuterol/Ipratropium (Albuterol/Iprat 2.5/0.5mg 3 Ml Ampul.Neb) 3 ml INHALE RQ4H WHILE AWAKE [facility] Allopurinol (Allopurinol 100 Mg Tablet) 150 mg PO DAILY [facility] Docusate Sodium (Docusate Sodium 100 Mg Capsule) 100 mg PO BID [facility] Enoxaparin Sodium (Enoxaparin Sodium 30 Mg/0.3 Ml Syringe) 30 mg SUBCUT Q24H [facility] Last Admin: 06/22/22 21:20 Dose: 30 mg Documented By: DENNIS Ferrous Sulfate (Ferrous Sulfate 324 Mg Tablet.Dr) 324 mg PO DAILY [facility] Glucose (Glucose Gel 15 Gm Gel..Gram.) 15 gm PO Q15M PRN; Protocol PRN Reason: per Hypoglycemia Standing Ord. Dextrose (D10) 250 mls @ 750 mls/hr IV Q15M PRN; Protocol PRN Reason: per Hypoglycemia Standing Ord. Insulin Human Lispro (Insulin Lispro 100 Unit/Ml 3 Ml Vial) 0 unit SUBCUT QIDACHS [facility]; Protocol Melatonin (Melatonin 3 Mg Tablet) 6 mg PO BEDTIME PRN PRN Reason: Insomnia Methylprednisolone Sodium Succinate (Methylprednisolone Sod Succ 40 Mg/Ml Vial) 40 mg IVPUSH Q12H [facility] Last Admin: 06/22/22 23:07 Dose: 40 mg Documented By: LINO Metoprolol Tartrate (Metoprolol Tartrate 50 Mg Tablet) 50 mg PO BID [facility]; Protocol Last Admin: 06/22/22 23:08 Dose: Not Given Documented By: LINO Non-Admin Reason: Decreased Blood Pressure Ondansetron HCl (Ondansetron Hcl 4 Mg/2 Ml Vial) 4 mg IVPUSH Q8H PRN PRN Reason: Nausea and Vomiting Oxycodone HCl (Oxycodone Hcl Immed Release 5 Mg Tablet) 10 mg PO Q12H PRN PRN Reason: Pain, Severe (Pain Scale 7-10) Pharmacy Consult (Consult Rx Perform Med Rec) 1 each MISCELLANE ONCE PRN PRN Reason: Consult order Pregabalin (Pregabalin 100 Mg Capsule) 100 mg PO TID [facility] Last Admin: 06/22/22 23:07 Dose: 100 mg Documented By: LINO Sodium Chloride (0.9 % Sodium Chloride Flush 3 Ml Syringe) 3 ml IVFLUSH QSHIFT [facility] Last Admin: 06/22/22 23:08 Dose: 3 ml Documented By: LINO Vitamin D (Cholecalciferol (Vitamin D3) 25 Mcg Tablet) 25 mcg PO DAILY [facility] Labs 06/23/22 05:55 06/23/22 05:55 Labs: Laboratory Results - last 24 hr 06/22/22 06/22/22 06/22/22 18:43 18:43 18:43 MCV 93.9 MCH 29.1 MCHC 31.0 RDW 15.9 Plt Count 148 L MPV 11.8 Immature Gran % (Auto) 0.4 Neut % (Auto) 78.0 H Lymph % (Auto) 14.0 L [place] % (Auto) 5.7 Eos % (Auto) 1.6 Baso % (Auto) 0.3 Lymph # (Auto) 1.3 [place] # (Auto) 0.5 Eos # (Auto) 0.2 Baso # (Auto) 0.0 Abs Immat Gran (auto) 0.04 H Absolute Neuts (auto) 7.1 Absolute Nucleated RBC 0.000 Nucleated RBC % (auto) 0.0 PT INR VBG pH VBG pCO2 VBG pO2 VBG HCO3 VBG O2 Saturation VBG Base Excess Anion Gap 18 Estim Creat Clear Calc 14.6 Estimated GFR 11 POC Glucose Random Glucose 300 H Lactic Acid 1.9 Calcium 10.0 Magnesium 2.7 H Total Bilirubin 1.1 H Direct Bilirubin 0.2 AST 23 ALT 14 Alkaline Phosphatase 78 Ammonia Troponin I High Sens B-Natriuretic Peptide Total Protein 6.7 Albumin 3.9 Lipase 32 TSH Free T4 Urine Color Urine Appearance Urine pH Ur Specific [place] Urine Protein Urine Glucose (UA) Urine Ketones Urine Blood Urine Nitrite Ur Leukocyte Esterase Urine RBC Urine WBC Ur Squamous Epith Cells Urine Bacteria Hyaline Casts Urine Opiates Screen Urine Fentanyl Screen Ur Barbiturates Screen Ur Phencyclidine Scrn Ur Amphetamines Screen U Benzodiazepines Scrn Urine Cocaine Screen U Marijuana (THC) Screen Ethyl Alcohol 06/22/22 06/22/22 06/22/22 18:43 18:43 18:43 MCV MCH MCHC RDW Plt Count MPV Immature Gran % (Auto) Neut % (Auto) Lymph % (Auto) [place] % (Auto) Eos % (Auto) Baso % (Auto) Lymph # (Auto) [place] # (Auto) Eos # (Auto) Baso # (Auto) Abs Immat Gran (auto) Absolute Neuts (auto) Absolute Nucleated RBC Nucleated RBC % (auto) PT 12.7 INR 1.1 VBG pH VBG pCO2 VBG pO2 VBG HCO3 VBG O2 Saturation VBG Base Excess Anion Gap Estim Creat Clear Calc Estimated GFR POC Glucose Random Glucose Lactic Acid Calcium Magnesium Total Bilirubin Direct Bilirubin AST ALT Alkaline Phosphatase Ammonia 36 Troponin I High Sens 12.3 B-Natriuretic Peptide Total Protein Albumin Lipase TSH Free T4 Urine Color Urine Appearance Urine pH Ur Specific [place] Urine Protein Urine Glucose (UA) Urine Ketones Urine Blood Urine Nitrite Ur Leukocyte Esterase Urine RBC Urine WBC Ur Squamous Epith Cells Urine Bacteria Hyaline Casts Urine Opiates Screen Urine Fentanyl Screen Ur Barbiturates Screen Ur Phencyclidine Scrn Ur Amphetamines Screen U Benzodiazepines Scrn Urine Cocaine Screen U Marijuana (THC) Screen Ethyl Alcohol 06/22/22 06/22/22 06/22/22 18:43 18:43 18:46 MCV MCH MCHC RDW Plt Count MPV Immature Gran % (Auto) Neut % (Auto) Lymph % (Auto) [place] % (Auto) Eos % (Auto) Baso % (Auto) Lymph # (Auto) [place] # (Auto) Eos # (Auto) Baso # (Auto) Abs Immat Gran (auto) Absolute Neuts (auto) Absolute Nucleated RBC Nucleated RBC % (auto) PT INR VBG pH 7.44 H VBG pCO2 69 VBG pO2 47 VBG HCO3 47 H VBG O2 Saturation 74.0 VBG Base Excess 18.7 Anion Gap Estim Creat Clear Calc Estimated GFR POC Glucose Random Glucose Lactic Acid Calcium Magnesium Total Bilirubin Direct Bilirubin AST ALT Alkaline Phosphatase Ammonia Troponin I High Sens B-Natriuretic Peptide 62 Total Protein Albumin Lipase TSH 4.18 H Free T4 1.07 Urine Color Urine Appearance Urine pH Ur Specific [place] Urine Protein Urine Glucose (UA) Urine Ketones Urine Blood Urine Nitrite Ur Leukocyte Esterase Urine RBC Urine WBC Ur Squamous Epith Cells Urine Bacteria Hyaline Casts Urine Opiates Screen Urine Fentanyl Screen Ur Barbiturates Screen Ur Phencyclidine Scrn Ur Amphetamines Screen U Benzodiazepines Scrn Urine Cocaine Screen U Marijuana (THC) Screen Ethyl Alcohol < 10 06/22/22 06/22/22 06/22/22 18:49 21:20 21:59 MCV MCH MCHC RDW Plt Count MPV Immature Gran % (Auto) Neut % (Auto) Lymph % (Auto) [place] % (Auto) Eos % (Auto) Baso % (Auto) Lymph # (Auto) [place] # (Auto) Eos # (Auto) Baso # (Auto) Abs Immat Gran (auto) Absolute Neuts (auto) Absolute Nucleated RBC Nucleated RBC % (auto) PT INR VBG pH 7.46 H VBG pCO2 60 VBG pO2 72 VBG HCO3 43 H VBG O2 Saturation 96.0 VBG Base Excess 16.8 Anion Gap Estim Creat Clear Calc Estimated GFR POC Glucose 275 H 246 H Random Glucose Lactic Acid Calcium Magnesium Total Bilirubin Direct Bilirubin AST ALT Alkaline Phosphatase Ammonia Troponin I High Sens B-Natriuretic Peptide Total Protein Albumin Lipase TSH Free T4 Urine Color Urine Appearance Urine pH Ur Specific [place] Urine Protein Urine Glucose (UA) Urine Ketones Urine Blood Urine Nitrite Ur Leukocyte Esterase Urine RBC Urine WBC Ur Squamous Epith Cells Urine Bacteria Hyaline Casts Urine Opiates Screen Urine Fentanyl Screen Ur Barbiturates Screen Ur Phencyclidine Scrn Ur Amphetamines Screen U Benzodiazepines Scrn Urine Cocaine Screen U Marijuana (THC) Screen Ethyl Alcohol 06/22/22 06/22/22 06/23/22 22:56 22:56 05:55 MCV 93.8 MCH 30.0 MCHC 32.0 RDW 15.6 Plt Count 126 L MPV 11.8 Immature Gran % (Auto) 0.4 Neut % (Auto) 89.2 H Lymph % (Auto) 8.6 L [place] % (Auto) 1.6 L Eos % (Auto) 0.1 Baso % (Auto) 0.1 Lymph # (Auto) 0.7 L [place] # (Auto) 0.1 Eos # (Auto) 0.0 Baso # (Auto) 0.0 Abs Immat Gran (auto) 0.03 Absolute Neuts (auto) 7.1 Absolute Nucleated RBC 0.000 Nucleated RBC % (auto) 0.0 PT INR VBG pH VBG pCO2 VBG pO2 VBG HCO3 VBG O2 Saturation VBG Base Excess Anion Gap Estim Creat Clear Calc Estimated GFR POC Glucose Random Glucose Lactic Acid Calcium Magnesium Total Bilirubin Direct Bilirubin AST ALT Alkaline Phosphatase Ammonia Troponin I High Sens B-Natriuretic Peptide Total Protein Albumin Lipase TSH Free T4 Urine Color Yellow Urine Appearance Clear Urine pH 5.5 Ur Specific [place] 1.010 Urine Protein Negative Urine Glucose (UA) Negative Urine Ketones Negative Urine Blood Trace H Urine Nitrite Negative Ur Leukocyte Esterase Trace H Urine RBC 0-2 Urine WBC 6-10 H Ur Squamous Epith Cells 0-2 Urine Bacteria 4+ Hyaline Casts 0-2 Urine Opiates Screen Not Detected Urine Fentanyl Screen Not Detected Ur Barbiturates Screen Not Detected Ur Phencyclidine Scrn Not Detected Ur Amphetamines Screen Not Detected U Benzodiazepines Scrn Not Detected Urine Cocaine Screen Not Detected U Marijuana (THC) Screen Not Detected Ethyl Alcohol 06/23/22 06/23/22 05:55 07:11 MCV MCH MCHC RDW Plt Count MPV Immature Gran % (Auto) Neut % (Auto) Lymph % (Auto) [place] % (Auto) Eos % (Auto) Baso % (Auto) Lymph # (Auto) [place] # (Auto) Eos # (Auto) Baso # (Auto) Abs Immat Gran (auto) Absolute Neuts (auto) Absolute Nucleated RBC Nucleated RBC % (auto) PT INR VBG pH VBG pCO2 VBG pO2 VBG HCO3 VBG O2 Saturation VBG Base Excess Anion Gap 15 Estim Creat Clear Calc 17.9 Estimated GFR 14 POC Glucose 247 H Random Glucose 251 H Lactic Acid Calcium 9.3 D Magnesium Total Bilirubin Direct Bilirubin AST ALT Alkaline Phosphatase Ammonia Troponin I High Sens B-Natriuretic Peptide Total Protein Albumin Lipase TSH Free T4 Urine Color Urine Appearance Urine pH Ur Specific [place] Urine Protein Urine Glucose (UA) Urine Ketones Urine Blood Urine Nitrite Ur Leukocyte Esterase Urine RBC Urine WBC Ur Squamous Epith Cells Urine Bacteria Hyaline Casts Urine Opiates Screen Urine Fentanyl Screen Ur Barbiturates Screen Ur Phencyclidine Scrn Ur Amphetamines Screen U Benzodiazepines Scrn Urine Cocaine Screen U Marijuana (THC) Screen Ethyl Alcohol Assessment and Plan (1) COPD exacerbation: Status: Acute Plan Pt is a 81-year-old female with a PMH significant for?COPD, gout, CERD, CKD, HLD, and morbid obesity who presents to the ED with?altered mental status and frequent falls for the past 3-4 days. Patient be admitted to the hospital treatment for evaluation of acute encephalopathy in setting of ALEXANDER and COPD exacerbation. Acute metabolic encephalopathy likely from hypoxia, uti, andrenal failure. Back to baseline now +UA, concern for UTI--Ceftriaxone started 06/22, dc if culture negative. ALEXANDER on CKD3, Creatine is better, IVF and follow Acute hypoxic respiratory failure in the setting of COPD exacerbation, required BiPAP, now better on nasal canula goal of O2 88 to 93 bronchodilators, cortisteroid Neck and facial pain likely from spondilosis--conservative management., APAP for pain Non-insulin dependent diabetes Pt apparently not on any home diabetic meds SSI Lower leg edema Pt with significant chronic lower leg edema Apparently at baseline Hold furosemide, metolazone d/t ALEXANDER Gout continue allopurinol Morbid obesity-weight loss advise to impact health condition Full Code Attending:?Dr. Mason DVT Prophylaxis: Lovenox nee for inpatient: Alexander needing IVF, severe copd with hypoxia treating with IV steroid. Time Spent With Patient Time: Total time managing care of this patient today ____ minutes. Quality Stroke Does the patient have a stroke diagnosis?: No VTE Prior VTE?: No VTE Risk Level:: Medical - moderate - high VTE Device Contraindication: Treatment Not Indicated VTE Drug Contraindication: N/A - Med Ordered
[2022-06-23] MEDS: Insulin Lispro 100 UNIT/ML 3 ML VIAL SUBCUT ×4 (07:32→20:37)
[2022-06-23] MEDS: 0.9 % Sodium Chloride Flush 3 ML SYRINGE IVFLUSH ×3 (07:34→20:12)
--- NOTE | 2022-06-23 07:36 | PC.NURSE ---
pt awake, alert and eating breakfast. Insulin given per sliding scale. Two IVs assessed to be patent. 600ml current urine output in canister. Pt on 2L O2 - sats 92%, resp effort normal. will cont to monitor
[2022-06-23] MEDS: Docusate Sodium 100 MG CAPSULE PO ×2 (08:32→20:12)
[2022-06-23] MEDS: Ferrous Sulfate 324 MG TABLET.DR PO (08:33)
[2022-06-23] MEDS: Cholecalciferol (Vitamin D3) 25 MCG TABLET PO (08:34)
[2022-06-23] MEDS: Pregabalin 100 MG CAPSULE PO ×3 (08:35→20:39)
--- NOTE | 2022-06-23 08:46 | PM.CNPUL ---
History of Present Illness History of Present Illness Consult date: 06/23/22 Chief complaint: altered mentation Narrative: This is an inpatient pulmonary consultation. The Pt is a 81-year-old female with a PMH significant for?COPD, gout, CERD, CKD, HLD, and morbid obesity who presents to the ED with?altered mental status and frequent falls for the past 3-4 days. Pt is alert and oriented x2 at time of interview; HPI supplemented by granddaughter at beside and chart review. Pt lives alone with help from family, especially her son. Son notes that pt has been more lethargic has had multiple falls for the past 3-4 days. Pt states she fell twice earlier today after becoming lightheaded and dizzy. She admits she has not been eating or drinking well during this time but has been compliant with her medications. Denies any new medication changes. Has also been feeling fatigued the past few days and nauseous earlier today. Complains of left-sided heck and face pain. No chest pain or pressure or palpitaitons. Some SOB with exertion. No fever, chills, vomiting, diarrhea, or abdominal pain. No dysuria. In the ED patient was [place]febrile[place] [id number], bradypnea, and satting at 91% O2 4 L of and nasal cannula. Pt was placed on BiPAP. Labs were significant for chloride of 90, carbon dioxide of 38, BUN 133, creatinine of 3.8, POC of 275. UA pending. Tox screen pending. CXR showed no acute intrathoracic disease. Pt will be admitted to the hospital for further workup of acute encephalopathy in the setting of SUKHJINDER and COPD exacerbation. Review of Systems Review of Systems: Altered mental status Lethargy Lightheadedness, dizziness Frequent falls SOB Nausea Decreased p.o. intake of liquids and solids Denies dysuria No Chest pain/pressure, palpitations Denies fever, chills, vomiting, diarrhea, abdominal pain Yes all other systems are reviewed and are negative PMFSH Past Medical History Medical History (Updated 06/23/22 @ 08:49 by Sae Bartholomew MD) Arthritis of both knees Bilateral primary osteoarthritis of knee Chronic hypercapnic respiratory failure Chronic kidney disease COPD (chronic obstructive pulmonary disease) Diabetes Gout Iron deficiency Osteoarthritis of left knee Family History Family History Other Arthritis Surgical History Surgical History Hx of tubal ligation Social History Social History Household Members: None Alcohol intake: current Alcohol intake frequency: does not drink Patient Tobacco Use Status: Former Tobacco user Advance Directives: Yes Advance Directives on File: Yes Advance Directives Date on File: 06/23/22 Nutrition Risks: No Nutritional Risk 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al status: disabled 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 Meds Allergies Allergy/AdvReac Type Severity Reaction Status Date / Time No Known Allergies Allergy Unknown Verified 01/25/22 11:11 Active Medications: Current Medications Acetaminophen (Acetaminophen 325 Mg Tablet) 650 mg PO Q6H PRN PRN Reason: Pain, Mild (Pain Scale 1-3) Albuterol/Ipratropium (Albuterol/Iprat 2.5/0.5mg 3 Ml Ampul.Neb) 3 ml INHALE RQ4H PRN PRN Reason: Wheezing Albuterol/Ipratropium (Albuterol/Iprat 2.5/0.5mg 3 Ml Ampul.Neb) 3 ml INHALE RQ4H WHILE AWAKE [facility] Allopurinol (Allopurinol 100 Mg Tablet) 150 mg PO DAILY [facility] Docusate Sodium (Docusate Sodium 100 Mg Capsule) 100 mg PO BID [facility] Last Admin: 06/23/22 08:32 Dose: 100 mg Enoxaparin Sodium (Enoxaparin Sodium 30 Mg/0.3 Ml Syringe) 30 mg SUBCUT Q24H [facility] Last Admin: 06/22/22 21:20 Dose: 30 mg Ferrous Sulfate (Ferrous Sulfate 324 Mg Tablet.Dr) 324 mg PO DAILY [facility] Last Admin: 06/23/22 08:33 Dose: 324 mg Glucose (Glucose Gel 15 Gm Gel..Gram.) 15 gm PO Q15M PRN; Protocol PRN Reason: per Hypoglycemia Standing Ord. Dextrose (D10) 250 mls @ 750 mls/hr IV Q15M PRN; Protocol PRN Reason: per Hypoglycemia Standing Ord. Insulin Human Lispro (Insulin Lispro 100 Unit/Ml 3 Ml Vial) 0 unit SUBCUT QIDACHS [facility]; Protocol Last Admin: 06/23/22 07:32 Dose: 4 unit Melatonin (Melatonin 3 Mg Tablet) 6 mg PO BEDTIME PRN PRN Reason: Insomnia Methylprednisolone Sodium Succinate (Methylprednisolone Sod Succ 40 Mg/Ml Vial) 40 mg IVPUSH Q12H [facility] Last Admin: 06/22/22 23:07 Dose: 40 mg Metoprolol Tartrate (Metoprolol Tartrate 50 Mg Tablet) 50 mg PO BID [facility]; Protocol Last Admin: 06/22/22 23:08 Dose: Not Given Ondansetron HCl (Ondansetron Hcl 4 Mg/2 Ml Vial) 4 mg IVPUSH Q8H PRN PRN Reason: Nausea and Vomiting Oxycodone HCl (Oxycodone Hcl Immed Release 5 Mg Tablet) 10 mg PO Q12H PRN PRN Reason: Pain, Severe (Pain Scale 7-10) Pharmacy Consult (Consult Rx Perform Med Rec) 1 each MISCELLANE ONCE PRN PRN Reason: Consult order Pregabalin (Pregabalin 100 Mg Capsule) 100 mg PO TID [facility] Last Admin: 06/23/22 08:35 Dose: 100 mg Sodium Chloride (0.9 % Sodium Chloride Flush 3 Ml Syringe) 3 ml IVFLUSH QSHIFT [facility] Last Admin: 06/23/22 07:34 Dose: 3 ml Vitamin D (Cholecalciferol (Vitamin D3) 25 Mcg Tablet) 25 mcg PO DAILY [facility] Last Admin: 06/23/22 08:34 Dose: 25 mcg Home Medications Medication Instructions Recorded Confirmed Last Taken Type atorvastatin 20 mg tablet 20 mg PO BEDTIME 11/12/20 06/22/22 Unknown History furosemide 80 mg tablet (Lasix) 80 mg PO BID 11/12/20 06/22/22 Unknown History metolazone 2.5 mg tablet 5 mg PO DAILY 11/12/20 06/22/22 Unknown History metoprolol tartrate 50 mg tablet 50 mg PO BID 11/12/20 06/22/22 Unknown History (Lopressor) pregabalin 100 mg capsule (Lyrica) 100 mg PO TID 11/12/20 06/22/22 Unknown History acetaminophen 500 mg tablet 500 mg PO Q12H PRN Pain 11/23/21 06/22/22 Unknown History cholecalciferol (vitamin D3) 25 25 mcg PO DAILY 11/23/21 06/22/22 Unknown History mcg (1,000 unit) capsule (Vitamin D3) docusate sodium 100 mg capsule 100 mg PO BID 11/23/21 06/22/22 Unknown History ferrous sulfate 324 mg (65 mg 324 mg PO DAILY 11/23/21 06/22/22 Unknown History iron) tablet,delayed release oxycodone-acetaminophen 10 mg-325 1 tab PO Q12H PRN Pain 11/23/21 06/22/22 Unknown History mg tablet Physical Exam Vital Signs: Vital Signs: Last Vital Signs Temp 98.2 F 06/23/22 07:55 Pulse 74 06/23/22 07:55 Resp 11 L 06/23/22 07:55 BP 111/54 L 06/23/22 07:55 Pulse Ox 93 06/23/22 07:55 O2 Del Method Room Air 06/23/22 07:55 O2 Flow Rate 2 06/23/22 07:55 Oxygen Flow Rate 4 06/22/22 18:36 BMI result Body Mass Index 41.1 Const: General: cooperative and no acute distress Nutritional Appearance: obese morbidly obese HEENT: Head: Yes normocephalic and Yes atraumatic Mouth: Normal oral and palatal mucosa present Resp: Effort & Inspection: normal respiratory effort and able to speak in complete sentences Auscultation: diminished lung sounds Cardio: Rate: regular rate Rhythm: regular rhythm Heart sounds: S1 normal heart sound present and S2 normal heart sound present GI: Inspection: No distended Palpation (GI): Soft to palpation and nontender Skin: General skin exam: no rashes or lesions noted Extrem: General: No clubbing, No cyanosis and Yes edema Results Laboratory Findings 06/23/22 05:55 06/23/22 05:55 ABG, PT/INR, D-dimer: PT/INR, D-dimer PT 12.7 SEC (10.0-13.1) 06/22/22 18:43 INR 1.1 (0.9-1.1) 06/22/22 18:43 Abnormal lab findings: Abnormal Labs 06/22/22 06/22/22 06/22/22 18:43 18:43 18:43 Plt Count 148 L Neut % (Auto) 78.0 H Lymph % (Auto) 14.0 L [place] % (Auto) Lymph # (Auto) Abs Immat Gran (auto) 0.04 H VBG pH VBG HCO3 Chloride 90 L Carbon Dioxide 38 H BUN 133 H Creatinine 3.88 H POC Glucose Random Glucose 300 H Magnesium 2.7 H Total Bilirubin 1.1 H TSH 4.18 H Urine Blood Ur Leukocyte Esterase Urine WBC 06/22/22 06/22/22 06/22/22 18:46 18:49 21:20 Plt Count Neut % (Auto) Lymph % (Auto) [place] % (Auto) Lymph # (Auto) Abs Immat Gran (auto) VBG pH 7.44 H VBG HCO3 47 H Chloride Carbon Dioxide BUN Creatinine POC Glucose 275 H 246 H Random Glucose Magnesium Total Bilirubin TSH Urine Blood Ur Leukocyte Esterase Urine WBC 06/22/22 06/22/22 06/23/22 21:59 22:56 05:55 Plt Count 126 L Neut % (Auto) 89.2 H Lymph % (Auto) 8.6 L [place] % (Auto) 1.6 L Lymph # (Auto) 0.7 L Abs Immat Gran (auto) VBG pH 7.46 H VBG HCO3 43 H Chloride Carbon Dioxide BUN Creatinine POC Glucose Random Glucose Magnesium Total Bilirubin TSH Urine Blood Trace H Ur Leukocyte Esterase Trace H Urine WBC 6-10 H 06/23/22 06/23/22 05:55 07:11 Plt Count Neut % (Auto) Lymph % (Auto) [place] % (Auto) Lymph # (Auto) Abs Immat Gran (auto) VBG pH VBG HCO3 Chloride Carbon Dioxide 36 H BUN 127 H Creatinine 3.16 H POC Glucose 247 H Random Glucose 251 H Magnesium Total Bilirubin TSH Urine Blood Ur Leukocyte Esterase Urine WBC Assessment and Plan (1) COPD exacerbation: Status: Acute (2) Chronic hypercapnic respiratory failure: Status: Acute (3) Encephalopathy: Status: Acute Plan Currently the patient is doing better on her baseline oxygen. She did have blood gases demonstrating a chronic hypercarbic respiratory state very similar to a few years back. I released that the patient is dehydrated and has a component of contraction alkalosis superimposed on the chronic hypercarbic respiratory failure. Recommendations: Continue oxygen supplementation to maintain a pulse ox between 92-96%. In view of her chronic respiratory failure given her additional supplementation could result in more hypoventilation. No need for noninvasive ventilation at this time. Will recommend an in-lab sleep study once the patient is discharged to further address any evidence of sleep apnea continue respiratory therapy, start Breo daily PT/OT/home safety eval Time Spent With Patient Time: Total time managing care of this patient today ____ minutes. Procedures Date of Service Date of Service: 06/23/22
--- NOTE | 2022-06-23 08:46 | MHC.EDTECH ---
Assisted patient with personal hygiene. Changed patients gown and linen. Emptied canister and replaced purewick. Ruthy Luz
[2022-06-23] MEDS: allopurinoL 100 MG TABLET 150 MG PO (09:10)
[2022-06-23] MEDS: Metoprolol Tartrate 50 MG TABLET PO ×2 (09:19→20:12)
--- NOTE | 2022-06-23 09:20 | PC.NURSE ---
Metoprolol given per MAR. Two pressures read 122/32 and 113/33. Provider aware and said to give as long as Systolic BP is above 100.
[2022-06-23] MEDS: methylPREDNISolone Sod Succ 40 MG/ML VIAL IVPUSH ×2 (10:24→21:33)
[2022-06-23] MEDS: Albuterol/Iprat 2.5/0.5MG 3 ML AMPUL.NEB INHALE ×3 (11:32→19:30)
[2022-06-23 13:15] LABS: Glucose, Whole Blood 276 mg/dL (60-115)
--- NOTE | 2022-06-23 14:21 | PC.NURSE ---
texted floor and called for report, waited on hold.
--- NOTE | 2022-06-23 14:33 | PC.NURSE ---
pt sleeping, wakes to verbal stimulus, cardiac rehab nurse intact nsr 70s, vss, pt medicated per order, insulin given per order-pt ate late, pure wick intact/patient/draining clear yellow urine, family at bedside conversing with patient, call diaz within reach, will continue to monitor.
--- NOTE | 2022-06-23 14:52 | PC.NURSE ---
Room ready at 1356, awaiting call. waited on hold for several minutes and could not get through
[2022-06-23 16:27] LABS: Glucose, Whole Blood 396 mg/dL (60-115)
[2022-06-23] MEDS: Enoxaparin Sodium 30 MG/0.3 ML SYRINGE SUBCUT (20:12)
[2022-06-23 20:23] LABS: Glucose, Whole Blood 383 mg/dL (60-115)
--- NOTE | 2022-06-23 21:41 | PC.NURSE ---
[id number] 10 units of insulin given per sliding scale notified no additional insulin ordered.
[2022-06-24] VITALS (9 sets, daily range): BP systolic 114–148; BP diastolic 56–79; PULSE 58–69; RESP 16–20; TEMP 36–36.9; O2SAT 90–94
[2022-06-24 06:55] LABS: Anion Gap 16 (12-20); Blood Urea Nitrogen 113 mg/dL (9-16); Calcium 9.6 mg/dL (8.4-10.2); Carbon Dioxide 36 mmol/L (22-29); Chloride 96 mmol/L (96-108); Creatinine Clr Calc Pharmacy 24.1; Estimated Glomerular Filt Rate 20; Glucose Random 322 mg/dL (60-115); Potassium 3.5 mmol/L (3.3-5.1); Sodium 144 mmol/L (135-145)
[2022-06-24 07:31] LABS: Glucose, Whole Blood 270 mg/dL (60-115)
[2022-06-24] MEDS: Albuterol/Iprat 2.5/0.5MG 3 ML AMPUL.NEB INHALE ×3 (07:40→15:34)
[2022-06-24] MEDS: 0.9 % Sodium Chloride Flush 3 ML SYRINGE IVFLUSH ×3 (08:12→20:20)
[2022-06-24] MEDS: Insulin Lispro 100 UNIT/ML 3 ML VIAL SUBCUT ×4 (08:12→20:19)
[2022-06-24] MEDS: Cholecalciferol (Vitamin D3) 25 MCG TABLET PO (08:13)
[2022-06-24] MEDS: methylPREDNISolone Sod Succ 40 MG/ML VIAL IVPUSH ×2 (08:13→23:03)
[2022-06-24] MEDS: Ferrous Sulfate 324 MG TABLET.DR PO (08:13)
[2022-06-24] MEDS: Metoprolol Tartrate 50 MG TABLET PO ×2 (08:13→20:19)
[2022-06-24] MEDS: allopurinoL 100 MG TABLET 150 MG PO (08:13)
[2022-06-24] MEDS: Pregabalin 100 MG CAPSULE PO ×3 (08:13→20:19)
[2022-06-24] MEDS: Docusate Sodium 100 MG CAPSULE PO ×2 (08:14→20:19)
--- NOTE | 2022-06-24 08:25 | P.PNIM_ITS ---
Subjective Subjective Date of Service: 06/24/22 Interval History: f/u on copd exacerbation, acute hypoxic res, SUKHJINDER, UTI Overall continue to improve, still on O2 Physical Exam Vital Signs: Vital Signs: Last Vital Signs Temp 97.3 F 06/24/22 07:44 Pulse 65 06/24/22 07:44 Resp 18 06/24/22 07:44 BP 144/79 H 06/24/22 07:44 Pulse Ox 92 06/24/22 07:44 O2 Del Method Nasal Cannula 06/24/22 07:44 O2 Flow Rate 2 06/24/22 07:44 Oxygen Flow Rate 4 06/22/22 18:36 BMI result Body Mass Index 41.1 Const: Other: General: AO X 3, no acute distress Resp: CTA bilateral CVS: S1,S2,RRR GI: +BS, NT, no distention Skin: No rash Neuro: motor grossly intact Psych: appropriate affect Objective Data Active Medications Acetaminophen (Acetaminophen 325 Mg Tablet) 650 mg PO Q6H PRN PRN Reason: Pain, Mild (Pain Scale 1-3) Albuterol/Ipratropium (Albuterol/Iprat 2.5/0.5mg 3 Ml Ampul.Neb) 3 ml INHALE RQ4H PRN PRN Reason: Wheezing Albuterol/Ipratropium (Albuterol/Iprat 2.5/0.5mg 3 Ml Ampul.Neb) 3 ml INHALE RQ4H WHILE AWAKE [facility] Last Admin: 06/24/22 07:40 Dose: 3 ml Documented By: NATASHA Allopurinol (Allopurinol 100 Mg Tablet) 150 mg PO DAILY [facility] Last Admin: 06/24/22 08:13 Dose: 150 mg Documented By: WASHINGTON Docusate Sodium (Docusate Sodium 100 Mg Capsule) 100 mg PO BID [facility] Last Admin: 06/24/22 08:14 Dose: 100 mg Documented By: WASHINGTON Enoxaparin Sodium (Enoxaparin Sodium 30 Mg/0.3 Ml Syringe) 30 mg SUBCUT Q24H [facility] Last Admin: 06/23/22 20:12 Dose: 30 mg Documented By: MELISSA Ferrous Sulfate (Ferrous Sulfate 324 Mg Tablet.) 324 mg PO DAILY [facility] Last Admin: 06/24/22 08:13 Dose: 324 mg Documented By: WASHINGTON Fluticasone/Vilanterol (Fluticasone/Vilanterol 100/25 Blst.W.Dev) 1 puff INHALE RDAILY [facility] Glucose (Glucose Gel 15 Gm Gel..Gram.) 15 gm PO Q15M PRN; Protocol PRN Reason: per Hypoglycemia Standing Ord. Dextrose (D10) 250 mls @ 750 mls/hr IV Q15M PRN; Protocol PRN Reason: per Hypoglycemia Standing Ord. Insulin Human Lispro (Insulin Lispro 100 Unit/Ml 3 Ml Vial) 0 unit SUBCUT QIDACHS [facility]; Protocol Last Admin: 06/24/22 08:12 Dose: 1 unit Documented By: WASHINGTON Melatonin (Melatonin 3 Mg Tablet) 6 mg PO BEDTIME PRN PRN Reason: Insomnia Methylprednisolone Sodium Succinate (Methylprednisolone Sod Succ 40 Mg/Ml Vial) 40 mg IVPUSH Q12H [facility] Last Admin: 06/24/22 08:13 Dose: 40 mg Documented By: WASHINGTON Metoprolol Tartrate (Metoprolol Tartrate 50 Mg Tablet) 50 mg PO BID [facility]; Protocol Last Admin: 06/24/22 08:13 Dose: 50 mg Documented By: WASHINGTON Ondansetron HCl (Ondansetron Hcl 4 Mg/2 Ml Vial) 4 mg IVPUSH Q8H PRN PRN Reason: Nausea and Vomiting Oxycodone HCl (Oxycodone Hcl Immed Release 5 Mg Tablet) 10 mg PO Q12H PRN PRN Reason: Pain, Severe (Pain Scale 7-10) Pharmacy Consult (Consult Rx Perform Med Rec) 1 each MISCELLANE ONCE PRN PRN Reason: Consult order Pregabalin (Pregabalin 100 Mg Capsule) 100 mg PO TID [facility] Last Admin: 06/24/22 08:13 Dose: 100 mg Documented By: WASHINGTON Sodium Chloride (0.9 % Sodium Chloride Flush 3 Ml Syringe) 3 ml IVFLUSH QSHIFT [facility] Last Admin: 06/24/22 08:12 Dose: 3 ml Documented By: WASHINGTON Vitamin D (Cholecalciferol (Vitamin D3) 25 Mcg Tablet) 25 mcg PO DAILY [facility] Last Admin: 06/24/22 08:13 Dose: 25 mcg Documented By: WASHINGTON Labs 06/23/22 05:55 06/24/22 06:19 Labs: Laboratory Results - last 24 hr 06/23/22 06/23/22 06/23/22 13:11 16:23 20:16 Anion Gap Estim Creat Clear Calc Estimated GFR POC Glucose 276 H 396 H* 383 H* Random Glucose Calcium 06/24/22 06/24/22 06:19 07:27 Anion Gap 16 Estim Creat Clear Calc 24.1 Estimated GFR 20 POC Glucose 270 H Random Glucose 322 H Calcium 9.6 Microbiology Microbiology Results: Microbiology 06/22/22 19:36 Blood Culture - Preliminary Blood - Venous No growth after 24 hours. 06/22/22 19:36 Blood Culture - Preliminary Blood - Venous No growth after 24 hours. 06/22/22 Unknown Urine Culture - Preliminary Urine Catheterized - Samaniego Catheter Culture in progress. Assessment and Plan (1) COPD exacerbation: Status: Acute Plan Pt is a 81-year-old female with a PMH significant for?COPD, gout, CERD, CKD, HLD, and morbid obesity who presents to the ED with?altered mental status and frequent falls for the past 3-4 days. Patient be admitted to the hospital treatment for evaluation of acute encephalopathy in setting of SUKHJINDER and COPD exacerbation. Acute metabolic encephalopathy likely from hypoxia, uti, andrenal failure. Back to baseline now +UA, concern for UTI--Ceftriaxone started 06/22, dc if culture negative. SUKHJINDER on CKD3, Creatine is better but not at baseline, IVF and follow Acute hypoxic respiratory failure in the setting of COPD exacerbation, required BiPAP, now better on nasal canula goal of O2 93 to 96 bronchodilators, cortisteroid Neck and facial pain likely from spondilosis--conservative management., APAP for pain Non-insulin dependent diabetes Pt apparently not on any home diabetic meds SSI Lower leg edema Pt with significant chronic lower leg edema Apparently at baseline Hold furosemide, metolazone d/t SUKHJINDER Gout continue allopurinol Morbid obesity-weight loss advise to impact health condition Full Code Attending:?Dr. Mason DVT Prophylaxis: Lovenox nee for inpatient: Sukhjinder needing IVF, severe copd with hypoxia treating with IV steroid. Time Spent With Patient Time: Total time managing care of this patient today ____ minutes. Quality Stroke Does the patient have a stroke diagnosis?: No VTE Prior VTE?: No VTE Risk Level:: Medical - moderate - high VTE Device Contraindication: Treatment Not Indicated VTE Drug Contraindication: N/A - Med Ordered
[2022-06-24 11:46] LABS: Glucose, Whole Blood 292 mg/dL (60-115)
--- NOTE | 2022-06-24 13:58 | MHC.CM.PN ---
CM MET WITH PTS SON AT BEDSIDE PT LIVES ALONE AND HAS A VISITING NURSE 1X/WEEK PTS SON UNABLE TO PROVIDE NAME OF AGENCY HE ALSO REPORTS PT HAS HOME O2 SHE HAS A HCP ON FILE SHE IS [facility] TUTTLE PCP: CARTER STEVENSON IMM DELIVERED CURRENT DC PLAN IS HOME WITH RESUMPTION OF [facility] SON TO TRANSPORT
[2022-06-24 16:54] LABS: Glucose, Whole Blood 267 mg/dL (60-115)
[2022-06-24 20:07] LABS: Glucose, Whole Blood 215 mg/dL (60-115)
[2022-06-24] MEDS: Enoxaparin Sodium 30 MG/0.3 ML SYRINGE SUBCUT (20:19)
[2022-06-25] VITALS (8 sets, daily range): BP systolic 133–165; BP diastolic 61–74; PULSE 63–78; RESP 15–20; TEMP 36.2–36.8; O2SAT 89–96
[2022-06-25 07:06] LABS: Anion Gap 15 (12-20); Blood Urea Nitrogen 98 mg/dL (9-16); Calcium 9.8 mg/dL (8.4-10.2); Carbon Dioxide 37 mmol/L (22-29); Chloride 96 mmol/L (96-108); Creatinine Clr Calc Pharmacy 27.5; Estimated Glomerular Filt Rate 23; Glucose Random 276 mg/dL (60-115); Potassium 3.7 mmol/L (3.3-5.1); Sodium 144 mmol/L (135-145)
[2022-06-25] MEDS: Albuterol/Iprat 2.5/0.5MG 3 ML AMPUL.NEB INHALE ×4 (07:24→19:55)
[2022-06-25] MEDS: Fluticasone/Vilanterol 100/25 BLST.W.DEV 1 PUFF INHALE (07:24)
[2022-06-25 07:39] LABS: Glucose, Whole Blood 293 mg/dL (60-115)
[2022-06-25] MEDS: Docusate Sodium 100 MG CAPSULE PO ×2 (07:48→21:09)
[2022-06-25] MEDS: Metoprolol Tartrate 50 MG TABLET PO ×2 (07:48→21:09)
[2022-06-25] MEDS: Insulin Lispro 100 UNIT/ML 3 ML VIAL SUBCUT ×5 (07:48→21:12)
[2022-06-25] MEDS: Pregabalin 100 MG CAPSULE PO ×3 (07:49→21:09)
[2022-06-25] MEDS: allopurinoL 100 MG TABLET 150 MG PO (07:49)
[2022-06-25] MEDS: Ferrous Sulfate 324 MG TABLET.DR PO (07:49)
[2022-06-25] MEDS: Cholecalciferol (Vitamin D3) 25 MCG TABLET PO (07:49)
[2022-06-25] MEDS: 0.9 % Sodium Chloride Flush 3 ML SYRINGE IVFLUSH ×2 (07:50→17:26)
[2022-06-25] MEDS: methylPREDNISolone Sod Succ 40 MG/ML VIAL IVPUSH (09:30)
--- NOTE | 2022-06-25 09:52 | P.PNIM_ITS ---
Subjective Subjective Date of Service: 06/25/22 Interval History: f/u on copd exacerbation, acute hypoxic res, SUKHJINDER, UTI Overall continue to improve, still hypoxic with present O2, althogh looks comfortable. Physical Exam Vital Signs: Vital Signs: Last Vital Signs Temp 97.2 F 06/25/22 07:24 Pulse 78 06/25/22 07:24 Resp 17 06/25/22 07:24 BP 165/74 H 06/25/22 07:24 Pulse Ox 89 L 06/25/22 07:24 O2 Del Method Nasal Cannula 06/25/22 07:24 O2 Flow Rate 2 06/25/22 07:24 Oxygen Flow Rate 4 06/22/22 18:36 BMI result Body Mass Index 41.1 Const: Other: General: AO X 3, no acute distress Resp: CTA bilateral CVS: S1,S2,RRR GI: +BS, NT, no distention Skin: No rash Neuro: motor grossly intact Psych: appropriate affect Objective Data Active Medications Acetaminophen (Acetaminophen 325 Mg Tablet) 650 mg PO Q6H PRN PRN Reason: Pain, Mild (Pain Scale 1-3) Albuterol/Ipratropium (Albuterol/Iprat 2.5/0.5mg 3 Ml Ampul.Neb) 3 ml INHALE RQ4H PRN PRN Reason: Wheezing Albuterol/Ipratropium (Albuterol/Iprat 2.5/0.5mg 3 Ml Ampul.Neb) 3 ml INHALE RQ4H WHILE AWAKE [facility] Last Admin: 06/25/22 07:24 Dose: 3 ml Documented By: NATASHA Allopurinol (Allopurinol 100 Mg Tablet) 150 mg PO DAILY [facility] Last Admin: 06/25/22 07:49 Dose: 150 mg Documented By: LITZY Docusate Sodium (Docusate Sodium 100 Mg Capsule) 100 mg PO BID [facility] Last Admin: 06/25/22 07:48 Dose: 100 mg Documented By: LITZY Enoxaparin Sodium (Enoxaparin Sodium 30 Mg/0.3 Ml Syringe) 30 mg SUBCUT Q24H [facility] Last Admin: 06/24/22 20:19 Dose: 30 mg Documented By: HUONG Ferrous Sulfate (Ferrous Sulfate 324 Mg Tablet.) 324 mg PO DAILY [facility] Last Admin: 06/25/22 07:49 Dose: 324 mg Documented By: LITZY Fluticasone/Vilanterol (Fluticasone/Vilanterol 100/25 Blst.W.Dev) 1 puff INHALE RDAILY [facility] Last Admin: 06/25/22 07:24 Dose: 1 puff Documented By: NATASHA Glucose (Glucose Gel 15 Gm Gel..Gram.) 15 gm PO Q15M PRN; Protocol PRN Reason: per Hypoglycemia Standing Ord. Dextrose (D10) 250 mls @ 750 mls/hr IV Q15M PRN; Protocol PRN Reason: per Hypoglycemia Standing Ord. Insulin Human Lispro (Insulin Lispro 100 Unit/Ml 3 Ml Vial) 0 unit SUBCUT QIDACHS [facility]; Protocol Last Admin: 06/25/22 07:48 Dose: 6 unit Documented By: LITZY Melatonin (Melatonin 3 Mg Tablet) 6 mg PO BEDTIME PRN PRN Reason: Insomnia Methylprednisolone Sodium Succinate (Methylprednisolone Sod Succ 40 Mg/Ml Vial) 40 mg IVPUSH Q12H [facility] Last Admin: 06/25/22 09:30 Dose: 40 mg Documented By: LITZY Metoprolol Tartrate (Metoprolol Tartrate 50 Mg Tablet) 50 mg PO BID [facility]; Protocol Last Admin: 06/25/22 07:48 Dose: 50 mg Documented By: LITZY Ondansetron HCl (Ondansetron Hcl 4 Mg/2 Ml Vial) 4 mg IVPUSH Q8H PRN PRN Reason: Nausea and Vomiting Oxycodone HCl (Oxycodone Hcl Immed Release 5 Mg Tablet) 10 mg PO Q12H PRN PRN Reason: Pain, Severe (Pain Scale 7-10) Pharmacy Consult (Consult Rx Perform Med Rec) 1 each MISCELLANE ONCE PRN PRN Reason: Consult order Pregabalin (Pregabalin 100 Mg Capsule) 100 mg PO TID [facility] Last Admin: 06/25/22 07:49 Dose: 100 mg Documented By: LITZY Sodium Chloride (0.9 % Sodium Chloride Flush 3 Ml Syringe) 3 ml IVFLUSH QSHIFT [facility] Last Admin: 06/25/22 07:50 Dose: 3 ml Documented By: LITZY Vitamin D (Cholecalciferol (Vitamin D3) 25 Mcg Tablet) 25 mcg PO DAILY [facility] Last Admin: 06/25/22 07:49 Dose: 25 mcg Documented By: LITZY Labs 06/23/22 05:55 06/25/22 06:27 Labs: Laboratory Results - last 24 hr 06/24/22 06/24/22 06/24/22 11:39 16:39 20:04 Anion Gap Estim Creat Clear Calc Estimated GFR POC Glucose 292 H 267 H 215 H Random Glucose Calcium 06/25/22 06/25/22 06:27 07:32 Anion Gap 15 Estim Creat Clear Calc 27.5 Estimated GFR 23 POC Glucose 293 H Random Glucose 276 H Calcium 9.8 Microbiology Microbiology Results: Microbiology 06/22/22 Unknown Urine Culture - Final Urine Catheterized - Samaniego Catheter Escherichia coli 06/22/22 19:36 Blood Culture - Preliminary Blood - Venous No growth after 48 hours. 06/22/22 19:36 Blood Culture - Preliminary Blood - Venous No growth after 48 hours. Assessment and Plan (1) COPD exacerbation: Status: Acute Plan Pt is a 81-year-old female with a PMH significant for?COPD, gout, CERD, CKD, HLD, and morbid obesity who presents to the ED with?altered mental status and frequent falls for the past 3-4 days. Patient be admitted to the hospital treatment for evaluation of acute encephalopathy in setting of SUKHJINDER and COPD exacerbation. Acute metabolic encephalopathy likely from hypoxia and UTI. Presently at baseline mental status Acute on chronic hypoxic respiratory failure in the setting of COPD exacerbation, required BiPA in ED. She is on O2 at home. Adjust O2 to O sat around 93 E.coli UTI--Ceftriaxone started 06/22, for 5 days dend 06/26 SUKHJINDER on CKD3, Creatine continues to improve at 2 today,baseline around 1.7 Neck and facial pain likely from spondilosis--conservative management., APAP for pain Non-insulin dependent diabetes Pt apparently not on any home diabetic meds SSI Lower leg edema Pt with significant chronic lower leg edema Apparently at baseline Hold furosemide, metolazone d/t SUKHJINDER Gout continue allopurinol Morbid obesity-weight loss advise to impact health condition Full Code Attending:?Dr. Mason DVT Prophylaxis: Lovenox nee for inpatient: Sukhjinder needing IVF, severe copd with hypoxia treating with IV steroid. Time Spent With Patient Time: Total time managing care of this patient today ____ minutes. Quality Stroke Does the patient have a stroke diagnosis?: No VTE Prior VTE?: No VTE Risk Level:: Medical - moderate - high VTE Device Contraindication: Treatment Not Indicated VTE Drug Contraindication: N/A - Med Ordered
[2022-06-25 11:44] LABS: Glucose, Whole Blood 401 mg/dL (60-115)
[2022-06-25 11:44] LABS: Glucose, Whole Blood 438 mg/dL (60-115)
--- NOTE | 2022-06-25 14:23 | P.CDIM_ITS ---
PROVIDER RESPONSE TEXT: To clarify, the appropriate diagnosis supported by the clinical indicators: Clinically undetermined: Diabetes Melitus QUERY TEXT: PHYSICIAN'S DOCUMENTATION REQUEST Date of Query: 06/23/2022 09:03 AM EDT Patient Name: Irlanda Jarquin Admit Date: 06/23/2022 Dear Marcus Mendiola, A review of the medical record indicates additional documentation may be needed. Please review below and update the documentation accordingly. Clinical Indicators: The following diagnoses or signs and symptoms were noted in the patient record: glucose on 06/22/22: 300, 275, 246 Per MD progress note 06/23/22: Non-insulin dependent diabetes Pt apparently not on any home diabetic meds SSI Based on the above, could you clarify the appropriate diagnosis, if significant, that supports the ab ove abnormalities and additional evaluation, monitoring, and/or treatment rendered: NIDDM with Hyperglycemia Clinically undetermined Other Labs indicate a diagnosis of (please specify) Other (explain) Clinically unable to determine (explain) Thank you, Suzette Zavala RN Use of terms such as suspected, likely, concern for, or probable (associated with a specific diagnosi s that is being evaluated, monitored, or treated as if it exists) are acceptable and can be coded in the inpatient se tting, when documented at the time of discharge. Please use your independent medical judgment in providing your response. THIS QUERY IS PART OF THE PERMANENT MEDICAL RECORD
[2022-06-25 17:00] LABS: Glucose, Whole Blood 462 mg/dL (60-115)
[2022-06-25 17:00] LABS: Glucose, Whole Blood 468 mg/dL (60-115)
[2022-06-25] MEDS: Insulin Regular, Human 100 UNIT/ML 3 ML VIAL 10 UNIT IVPUSH (17:26)
[2022-06-25] MEDS: oxyCODONE HCl Immed Release 5 MG TABLET 10 MG PO (17:32)
[2022-06-25 18:17] LABS: Magnesium 2.3 mg/dL (1.6-2.6); Potassium 4.2 mmol/L (3.3-5.1)
[2022-06-25 20:12] LABS: Glucose, Whole Blood 372 mg/dL (60-115)
--- NOTE | 2022-06-25 20:48 | ECG_ITS ---
Test Reason : T-wave elevation Blood Pressure : / mmHG Vent. Rate : 063 BPM Atrial Rate : 063 BPM P-R Int : 182 ms QRS Dur : 110 ms QT Int : 436 ms P-R-T Axes : 057 -21 065 degrees QTc Int : 446 ms Normal sinus rhythm Incomplete left bundle branch block Borderline ECG When compared with ECG of 22-JUN-2022 19:45, No significant changes seen Referred By: Marcus Srivastava Electronically Signed By:BATSHEVA SWEET
[2022-06-25] MEDS: Insulin Glargine,Hum.rec.anlog 100 UNIT/ML 10 ML VIAL 10 UNIT SUBCUT (21:09)
[2022-06-25] MEDS: Enoxaparin Sodium 30 MG/0.3 ML SYRINGE SUBCUT (22:07)
[2022-06-26] VITALS (11 sets, daily range): BP systolic 116–152; BP diastolic 56–70; PULSE 58–72; RESP 15–20; TEMP 36.3–37.1; O2SAT 90–98
[2022-06-26] MEDS: 0.9 % Sodium Chloride Flush 3 ML SYRINGE IVFLUSH ×3 (00:59→17:33)
--- NOTE | 2022-06-26 01:36 | PC.NURSE ---
Assumed care at 11 AM. Patient Italian speaking only, was communicated with in Ukrainian. Patient with POC very high: 400's for lunch and dinner; MD notified, new orders for 5 SQ lispro in addition to 10 SLiding scale for lunch, then 10 SQ insulin per sliding scale plus 10 IV regular insulin for dinner also 10 U lantus SQ starting at HS. MD to hold IV solumedrol; then POC 372 at bedtime, 10 U at sliding scale at that time. Patient compliant, pleasant. Patient ate well, 2 assist to stand and pivot, to wheelchair, to BR or commode. Uses 2 lPM oxygen. No respiratory distress. LS dim at bases. c/o right elbow pain, mild bruising. Patient given 10 mg PRN oxycodone per emar. Patient had peaked t-waves on telemetry, EKG and serum Mg and K checked per , WNL.
[2022-06-26] MEDS: Albuterol/Iprat 2.5/0.5MG 3 ML AMPUL.NEB INHALE ×4 (07:22→20:16)
[2022-06-26] MEDS: Fluticasone/Vilanterol 100/25 BLST.W.DEV 1 PUFF INHALE (07:23)
[2022-06-26 07:49] LABS: Glucose, Whole Blood 135 mg/dL (60-115)
[2022-06-26] MEDS: Cholecalciferol (Vitamin D3) 25 MCG TABLET PO (08:24)
[2022-06-26] MEDS: Ferrous Sulfate 324 MG TABLET.DR PO (08:24)
[2022-06-26] MEDS: Pregabalin 100 MG CAPSULE PO ×3 (08:24→21:36)
[2022-06-26] MEDS: Metoprolol Tartrate 50 MG TABLET PO ×2 (08:24→21:36)
[2022-06-26] MEDS: Docusate Sodium 100 MG CAPSULE PO ×2 (08:24→21:36)
[2022-06-26] MEDS: allopurinoL 100 MG TABLET 150 MG PO (08:25)
--- NOTE | 2022-06-26 09:46 | PM.DS ---
DS: Providers Provider Date of Service: 06/26/22 Date of admission: 06/22/22 21:03 Primary care physician: Cecilia Hitchcock MD Consults: 06/22/22 21:59 Consult to Pulmonology Routine Consulting Provider: [facility] Reason for consultation: COPD exacerbation initially on BiPAP, hypercapnia DS: Diagnosis Discharge Diagnosis (1) COPD exacerbation: Status: Acute DS: Summary Hospital Course Hospital Course: Chief Complaint: Altered Mental Status Pt is a 81-year-old female with a PMH significant for?COPD, gout, CERD, CKD, HLD, and morbid obesity who presents to the ED with?altered mental status and frequent falls for the past 3-4 days. Pt is alert and oriented x2 at time of interview; HPI supplemented by granddaughter at beside and chart review. Pt lives alone with help from family, especially her son. Son notes that pt has been more lethargic has had multiple falls for the past 3-4 days. Pt states she fell twice earlier today after becoming lightheaded and dizzy. She admits she has not been eating or drinking well during this time but has been compliant with her medications. Denies any new medication changes. Has also been feeling fatigued the past few days and nauseous earlier today. Complains of left-sided heck and face pain. No chest pain or pressure or palpitaitons. Some SOB with exertion. No fever, chills, vomiting, diarrhea, or abdominal pain. No dysuria. In the ED patient was [place]febrile[place] [id number], bradypnea, and satting at 91% O2 4 L of and nasal cannula. Pt was placed on BiPAP. Labs were significant for chloride of 90, carbon dioxide of 38, BUN 133, creatinine of 3.8, POC of 275. UA pending. Tox screen pending. CXR showed no acute intrathoracic disease. CT?of head from no acute intracranial pathology.? CT of cervical spine found no definitive acute fractures.? However assessment is limited due to motion artifact.? CT of spine found danced multilevel cervical spondylolysis and diffuse idiopathic skeletal hyperostosis. EKG demonstrated normal sinus rhythm with no evidence of ST elevations or depressions. Pt was treated with IVF and ceftriaxone. Pt will be admitted to the hospital for further workup of acute encephalopathy in the setting of SUKHJINDER and COPD exacerbation. Hospital course: Acute toxic metabolic encephalopathy likely from hypoxia and UTI. Back to baseline mental status after treatment of underlying issues Acute on chronic? hypoxic respiratory failure in the setting of COPD exacerbation, required BiPA in ED. She is on O2 at home. She is sating around 93 percent, she probably has hypoventilation syndrome as well E.coli? UTI--Ceftriaxone started 06/22,? for 5 days dended 06/26 SUKHJINDER on CKD3, Creatine continues to improve at 2 today,baseline around? 1.7 Neck and facial pain likely from spondilosis--conservative management., APAP for pain Non-insulin dependent diabetes Pt apparently not on any home diabetic meds SSI Lower leg edema Pt with significant chronic lower leg edema Apparently at baseline Hold furosemide, metolazone d/t SUKHJINDER Gout continue allopurinol Morbid obesity-weight loss advise to impact health condition Time Spent with Patient Time attestation: Total time managing care of this patient today ____ minutes. Discharge coordination time: Greater than 30 minutes Quality: Safe Use of Opioids Does Pt have an Active Cancer Diagnosis on the Problem List?: No Quality: Stroke Does the patient have a stroke diagnosis?: No Physical Exam Vital Signs: Vital Signs: Last Vital Signs Temp 97.3 F 06/26/22 07:19 Pulse 62 06/26/22 07:24 Resp 16 06/26/22 07:24 BP 134/57 L 06/26/22 07:19 Pulse Ox 93 06/26/22 07:19 O2 Del Method Nasal Cannula 06/26/22 07:19 O2 Flow Rate 2 06/26/22 07:19 Oxygen Flow Rate 4 06/22/22 18:36 BMI result Body Mass Index 41.1 DS: Data Data Completed and Pending Labs on day of discharge: Laboratory Results - last 24 hr 06/25/22 06/25/22 06/25/22 11:20 11:31 16:43 Potassium POC Glucose 401 H* 438 H* 462 H* Magnesium 06/25/22 06/25/22 06/25/22 16:45 17:46 20:08 Potassium 4.2 POC Glucose 468 H* 372 H* Magnesium 2.3 06/26/22 07:19 Potassium POC Glucose 135 H Magnesium Preliminary micro results at discharge 06/22/22 19:36 Blood Culture - Preliminary Blood - Venous No growth after 48 hours. 06/22/22 19:36 Blood Culture - Preliminary Blood - Venous No growth after 48 hours. Discharge Plan Discharge Anticipated Discharge Date/Time: 06/26/22 09:46 Patient Disposition: Home Health Service Discharge Diagnosis: COPD, Referrals: Cecilia Hitchcock MD [Primary Care Provider] - 1 Week Discharge Medications: New ipratropium-albuterol 0.5 mg-3 mg(2.5 mg base)/3 mL Solution For Nebulization 3 ml inhalation RQ4H PRN (Reason: Wheezing) Qty: 60 0RF ipratropium-albuterol 0.5 mg-3 mg(2.5 mg base)/3 mL Solution For Nebulization 3 ml inhalation RQ4H WHILE AWAKE Qty: 120 0RF prednisone 10 mg tablet 10 mg PO DAILY Qty: 3 0RF glipizide 5 mg Tablet 2.5 mg PO DAILY Qty: 30 0RF Continued allopurinol 100 mg tablet 150 mg PO DAILY Qty: 45 1RF furosemide [Lasix] 80 mg tablet 80 mg PO BID metolazone 2.5 mg tablet 5 mg PO DAILY atorvastatin 20 mg tablet 20 mg PO BEDTIME metoprolol tartrate [Lopressor] 50 mg tablet 50 mg PO BID pregabalin [Lyrica] 100 mg capsule 100 mg PO TID ferrous sulfate 324 mg (65 mg iron) tablet,delayed release (DR/EC) 324 mg PO DAILY oxycodone-acetaminophen 10-325 mg tablet 1 tab PO Q12H PRN (Reason: Pain) acetaminophen 500 mg tablet 500 mg PO Q12H PRN (Reason: Pain) cholecalciferol (vitamin D3) [Vitamin D3] 25 mcg (1,000 unit) capsule 25 mcg PO DAILY docusate sodium 100 mg capsule 100 mg PO BID Discontinued prednisone 5 mg tablet 5 mg PO DAILY Qty: 60 1RF Discharge Orders: Discharge Order (Routine); Ordered 06/27/22 Ordered By: Marcus Mendiola Diet: Advance to usual diet Activity on Discharge: As tolerated Stand Alone Forms: Patient Portal Discharge page Care Plan Goals: full recovery from copd Health Concerns: copd with chronic respriatory failure non insulin dependent diabetes Plan of Treatment: use inhalers as directed take prednisone as directed do not take metformin Assessment: as above
[2022-06-26 10:22] LABS: Estimated Average Glucose 171 mg/dL; Hemoglobin A1c % 7.6 %
[2022-06-26 10:30] LABS: Anion Gap 13 (12-20); Blood Urea Nitrogen 81 mg/dL (9-16); Calcium 9.7 mg/dL (8.4-10.2); Carbon Dioxide 40 mmol/L (22-29); Chloride 96 mmol/L (96-108); Creatinine Clr Calc Pharmacy 28.6; Estimated Glomerular Filt Rate 24; Glucose Random 240 mg/dL (60-115); Potassium 3.5 mmol/L (3.3-5.1); Sodium 145 mmol/L (135-145)
[2022-06-26 12:07] LABS: Glucose, Whole Blood 205 mg/dL (60-115)
[2022-06-26] MEDS: Insulin Lispro 100 UNIT/ML 3 ML VIAL SUBCUT ×3 (12:47→21:36)
[2022-06-26 17:22] LABS: Glucose, Whole Blood 201 mg/dL (60-115)
[2022-06-26] MEDS: Enoxaparin Sodium 30 MG/0.3 ML SYRINGE SUBCUT (21:37)
[2022-06-27 03:14] VITALS: BP 158/72; PULSE 63; RESP 20; TEMP 37; O2SAT 93
[2022-06-27 06:58] LABS: Glucose, Whole Blood 199 mg/dL (60-115)
--- NOTE | 2022-06-27 07:33 | PC.NURSE ---
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
[2022-06-27 07:35] LABS: Glucose, Whole Blood 170 mg/dL (60-115)
[2022-06-27 07:38] VITALS: BP 118/58; PULSE 67; RESP 20; TEMP 36.2; O2SAT 90
[2022-06-27] MEDS: Fluticasone/Vilanterol 100/25 BLST.W.DEV 1 PUFF INHALE (08:01)
[2022-06-27] MEDS: Albuterol/Iprat 2.5/0.5MG 3 ML AMPUL.NEB INHALE ×2 (08:02→15:55)
[2022-06-27 08:05] VITALS: PULSE 61; RESP 16
--- NOTE | 2022-06-27 10:12 | HO.PM.IMPN ---
Subjective Subjective Date of Service: 06/27/22 Interval History: f/u on copd exacerbation, acute hypoxic res, SUKHJINDER, UTI Overall continue to improve,O2 on low side but Physical Exam Vital Signs: Vital Signs: Last Vital Signs Temp 97.1 F 06/27/22 07:38 Pulse 61 06/27/22 08:05 Resp 16 06/27/22 08:05 BP 118/58 L 06/27/22 07:38 Pulse Ox 90 L 06/27/22 07:38 O2 Del Method Nasal Cannula 06/27/22 07:38 O2 Flow Rate 1.5 06/27/22 07:38 Oxygen Flow Rate 4 06/22/22 18:36 BMI result Body Mass Index 41.1 Const: Other: General: AO X 3, no acute distress Resp: CTA bilateral CVS: S1,S2,RRR GI: +BS, NT, no distention Skin: No rash Neuro: motor grossly intact Psych: appropriate affect Objective Data Active Medications Acetaminophen (Acetaminophen 325 Mg Tablet) 650 mg PO Q6H PRN PRN Reason: Pain, Mild (Pain Scale 1-3) Albuterol/Ipratropium (Albuterol/Iprat 2.5/0.5mg 3 Ml Ampul.Neb) 3 ml INHALE RQ4H PRN PRN Reason: Wheezing Albuterol/Ipratropium (Albuterol/Iprat 2.5/0.5mg 3 Ml Ampul.Neb) 3 ml INHALE RQ4H WHILE AWAKE [facility] Last Admin: 06/27/22 08:02 Dose: 3 ml Documented By: ALE Allopurinol (Allopurinol 100 Mg Tablet) 150 mg PO DAILY [facility] Last Admin: 06/26/22 08:25 Dose: 150 mg Documented By: BAILEY Docusate Sodium (Docusate Sodium 100 Mg Capsule) 100 mg PO BID [facility] Last Admin: 06/26/22 21:36 Dose: 100 mg Documented By: BRIGETTE Enoxaparin Sodium (Enoxaparin Sodium 30 Mg/0.3 Ml Syringe) 30 mg SUBCUT Q24H [facility] Last Admin: 06/26/22 21:37 Dose: 30 mg Documented By: BRIGETTE Ferrous Sulfate (Ferrous Sulfate 324 Mg Tablet.) 324 mg PO DAILY [facility] Last Admin: 06/26/22 08:24 Dose: 324 mg Documented By: BAILEY Fluticasone/Vilanterol (Fluticasone/Vilanterol 100/25 Blst.W.Dev) 1 puff INHALE RDAILY [facility] Last Admin: 06/27/22 08:01 Dose: 1 puff Documented By: ALE Glipizide (Glipizide 5 Mg Tablet) 2.5 mg PO DAILY [facility] Glucose (Glucose Gel 15 Gm Gel..Gram.) 15 gm PO Q15M PRN; Protocol PRN Reason: per Hypoglycemia Standing Ord. Dextrose (D10) 250 mls @ 750 mls/hr IV Q15M PRN; Protocol PRN Reason: per Hypoglycemia Standing Ord. Insulin Human Lispro (Insulin Lispro 100 Unit/Ml 3 Ml Vial) 0 unit SUBCUT QIDACHS [facility]; Protocol Last Admin: 06/26/22 21:36 Dose: 2 unit Documented By: BRIGETTE Melatonin (Melatonin 3 Mg Tablet) 6 mg PO BEDTIME PRN PRN Reason: Insomnia Metoprolol Tartrate (Metoprolol Tartrate 50 Mg Tablet) 50 mg PO BID [facility]; Protocol Last Admin: 06/26/22 21:36 Dose: 50 mg Documented By: BRIGETTE Ondansetron HCl (Ondansetron Hcl 4 Mg/2 Ml Vial) 4 mg IVPUSH Q8H PRN PRN Reason: Nausea and Vomiting Oxycodone HCl (Oxycodone Hcl Immed Release 5 Mg Tablet) 10 mg PO Q12H PRN PRN Reason: Pain, Severe (Pain Scale 7-10) Last Admin: 06/25/22 17:32 Dose: 10 mg Documented By: ARLEEN Pharmacy Consult (Consult Rx Perform Med Rec) 1 each MISCELLANE ONCE PRN PRN Reason: Consult order Pregabalin (Pregabalin 100 Mg Capsule) 100 mg PO TID [facility] Last Admin: 06/26/22 21:36 Dose: 100 mg Documented By: BRIGETTE Sodium Chloride (0.9 % Sodium Chloride Flush 3 Ml Syringe) 3 ml IVFLUSH QSHIFT [facility] Last Admin: 06/27/22 00:31 Dose: Not Given Documented By: LOTUS Non-Admin Reason: Patient Asleep Vitamin D (Cholecalciferol (Vitamin D3) 25 Mcg Tablet) 25 mcg PO DAILY [facility] Last Admin: 06/26/22 08:24 Dose: 25 mcg Documented By: BAILEY Labs 06/23/22 05:55 06/26/22 09:58 Labs: Laboratory Results - last 24 hr 06/26/22 06/26/22 06/26/22 09:55 09:58 12:01 Anion Gap 13 Estim Creat Clear Calc 28.6 Estimated GFR 24 POC Glucose 205 H Random Glucose 240 H Estimat Average Glucose 171 Hemoglobin A1c % 7.6 Calcium 9.7 06/26/22 06/26/22 06/27/22 17:01 21:21 07:24 Anion Gap Estim Creat Clear Calc Estimated GFR POC Glucose 201 H 199 H 170 H Random Glucose Estimat Average Glucose Hemoglobin A1c % Calcium Assessment and Plan (1) COPD exacerbation: Status: Acute Plan Pt is a 81-year-old female with a PMH significant for?COPD, gout, CERD, CKD, HLD, and morbid obesity who presents to the ED with?altered mental status and frequent falls for the past 3-4 days. Patient be admitted to the hospital treatment for evaluation of acute encephalopathy in setting of SUKHJINDER and COPD exacerbation. Acute metabolic encephalopathy likely from hypoxia and UTI. Presently at baseline mental status Acute on chronic hypoxic respiratory failure in the setting of COPD exacerbation, required BiPA in ED. She is on O2 at home. Adjust O2 to O sat around 93 E.coli UTI--Ceftriaxone started 06/22, for 5 days dend 06/26 SUKHJINDER on CKD3, Creatine continues to improve at 2 today,baseline around 1.7 Metabolic alkalosis--probably compensatory for chronic resp acidosis Mild hypokalemia--replace Neck and facial pain likely from spondilosis--conservative management., APAP for pain Non-insulin dependent diabetes Pt apparently not on any home diabetic meds SSI Lower leg edema Pt with significant chronic lower leg edema Apparently at baseline Hold furosemide, metolazone d/t SUKHJINDER Gout continue allopurinol Morbid obesity-weight loss advise to impact health condition Full Code Attending:?Dr. Mason DVT Prophylaxis: Lovenox nee for inpatient: Sukhjinder needing IVF, severe copd with hypoxia treating with IV steroid. Time Spent With Patient Time: Total time managing care of this patient today ____ minutes. Quality Stroke Does the patient have a stroke diagnosis?: No VTE Prior VTE?: No VTE Risk Level:: Medical - moderate - high VTE Device Contraindication: Treatment Not Indicated VTE Drug Contraindication: N/A - Med Ordered
[2022-06-27 10:55] LABS: Anion Gap 12 (12-20); Blood Urea Nitrogen 70 mg/dL (9-16); Calcium 9.3 mg/dL (8.4-10.2); Carbon Dioxide 38 mmol/L (22-29); Chloride 97 mmol/L (96-108); Creatinine Clr Calc Pharmacy 31.4; Estimated Glomerular Filt Rate 27; Glucose Random 250 mg/dL (60-115); Potassium 3.2 mmol/L (3.3-5.1); Sodium 144 mmol/L (135-145)
[2022-06-27 11:01] VITALS: BP 128/58; PULSE 65; RESP 20; TEMP 36.7; O2SAT 94
[2022-06-27] MEDS: Insulin Lispro 100 UNIT/ML 3 ML VIAL SUBCUT ×2 (11:06→12:40)
[2022-06-27] MEDS: glipiZIDE 5 MG TABLET 2.5 MG PO (11:06)
[2022-06-27] MEDS: allopurinoL 100 MG TABLET 150 MG PO (11:07)
[2022-06-27 11:08] LABS: Glucose, Whole Blood 222 mg/dL (60-115)
[2022-06-27] MEDS: Pregabalin 100 MG CAPSULE PO ×2 (11:08→17:49)
[2022-06-27] MEDS: Metoprolol Tartrate 50 MG TABLET PO (11:08)
[2022-06-27] MEDS: 0.9 % Sodium Chloride Flush 3 ML SYRINGE IVFLUSH (11:08)
[2022-06-27] MEDS: Ferrous Sulfate 324 MG TABLET.DR PO (11:09)
[2022-06-27] MEDS: Cholecalciferol (Vitamin D3) 25 MCG TABLET PO (11:09)
[2022-06-27] MEDS: Docusate Sodium 100 MG CAPSULE PO (11:13)
[2022-06-27] MEDS: Potassium Chloride Packet 20 MEQ PACKET PO (12:39)
--- NOTE | 2022-06-27 15:15 | W.MHC.F2F ---
Service Date Service Date: 06/27/22 Encounter Date of encounter: 06/27/22 Reasons for Services Signs and symptoms assessed: Biafay with minimal effort Homebound: Leaving the home is medically contraindicated at this time without the asist of a device and/or another person due th the listed conditions above and below. Reason homebound: unsteady gait / fall risk, fall risk related to blood pressure changes and shortness of breath with minimal effort Homebound supporting statement: Shortness of breath with minimal effort, requiring oxygen, wheelchair bound , poor vision and needs the asistance of another person Certification: Based on the above findings, I certify that this patient is confined to the home and needs intermittent longterm care, physical therapy and/or speech therapy, or continues to need occupational therapy. The patient is under my care, and I have initiated the establishment of the plan of care. The patient will be followed by a physician who will periodically review the plan of care. Time Spent With Patient Time: Total time managing care of this patient today ____ minutes.
--- NOTE | 2022-06-27 15:34 | MHC.CM.PN ---
CM met with Patient and her Son at bedside and addressed IMM with them (original has been given to them and a copy has been placed on the chart). CM called PCP/Dr. Cecilia Hitchcock office at [phone] and they indicated that Patient is active with [facility]. CM called [facility] and they indicated that Patient was not active but that the referral would be reviewed in [facility]. A broad VNA referral is underway to try to secure a VNA for Patient ( is aware). CM will follow.
--- NOTE | 2022-06-27 15:43 | MHC.CM.PN ---
The [place] agency for [facility] [facility] has closed. [facility] has informed MD that has not yet secured a VNA for Patient and MD's response is, The VNA can wait.
[2022-06-27 15:55] VITALS: PULSE 75; RESP 18; O2SAT 91
[2022-06-27 16:00] VITALS: BP 112/58; PULSE 72; RESP 15; TEMP 36.2; O2SAT 90
[2022-06-27 16:13] LABS: Glucose, Whole Blood 113 mg/dL (60-115)
--- NOTE | 2022-06-28 08:45 | MHC.CM.PN ---
[facility] accepted Patient; has been made aware.
== END 2022-06-27 18:15 | disposition home health service (06) | DRG 190 ==
LOC: HO.ED 21:06 → HO.EDOVER 21:32 → HO.IMC 06-23 13:56
PROVIDERS: Admitting Provider Student in an Organized Health Care Education/Training Program; Emergency Provider Emergency Medicine; PCP Internal Medicine; Visit Provider Internal Medicine
DX: J44.1 Chronic obstructive pulmonary disease with (acute) exacerbation (principal); G92.8 Other toxic encephalopathy; J96.21 Acute and chronic respiratory failure with hypoxia; N17.9 Acute kidney failure, unspecified; N39.0 Urinary tract infection, site not specified; Z68.41 Body mass index [BMI] 40.0-44.9, adult; E87.4 Mixed disorder of acid-base balance; E66.01 Morbid (severe) obesity due to excess calories; E11.22 Type 2 diabetes mellitus with diabetic chronic kidney disease; M10.9 Gout, unspecified; M47.812 Spondylosis without myelopathy or radiculopathy, cervical region; E78.5 Hyperlipidemia, unspecified; N18.30 Chronic kidney disease, stage 3 unspecified; B96.20 Unspecified Escherichia coli [E. coli] as the cause of diseases classified elsewhere; E11.65 Type 2 diabetes mellitus with hyperglycemia; Z87.891 Personal history of nicotine dependence; Z79.84 Long term (current) use of oral hypoglycemic drugs; Z79.899 Other long term (current) drug therapy
CPT/HCPCS: 36415; 70450; 71045; 72125; 80048; 80076; 80307; 81001; 82077; 82140; 82803; 82947; 83036; 83605; 83690; 83735; 83880; 84132; 84439; 84443; 84484; 85025; 85610; 87040; 87086; 87088; 87186; 93005; 94640; 99285; J0696; J1650; J2920

== ENCOUNTER 2022-07-20 11:43 | Outpatient (REF) | payer OTHER, SELFPAY ==
[2022-07-20 11:59] LABS: MANUAL DIFF FLAG NO
[2022-07-20 12:24] LABS: Appearance Urine Cloudy; Color Urine Yellow; Glucose Urine UA Negative (Negative); Leukocyte Esterase Urine Trace (Negative); Nitrite Urine Negative (Negative); UMIC TRIGGER UA YES; Urine Blood Negative (Negative); Urine Ketones Negative (Negative); Urine Protein Negative (Neg-Trace)
[2022-07-20 12:29] LABS: Bacteria Urine None Seen (None Seen); RBC Urine 0-2 /HPF (0-2); WBC Urine 0-5 /HPF (0-5)
[2022-07-20 12:36] LABS: Basophils Percent Auto 0.4 % (0-2); Eosinophils Absolute Auto 0.2 X10*3/uL (0.0-0.4); Eosinophils Percent Auto 1.9 % (0-4); Hemoglobin 15.5 g/dl (12.0-16.0); Imm Gran Abs Auto 0.03 X10*3/uL (0.00-0.03); Imm Gran Pct Auto 0.3 % (0.0-0.4); Lymphocytes Absolute Auto 1.9 X10*3/uL (1.2-4.9); Lymphocytes Percent Auto 20.3 % (20-40); Mean Corpuscular HGB Conc 31.6 g/dl (31.0-35.0); Mean Corpuscular Hemoglobin 29.6 pg (27.0-33.0); Mean Corpuscular Volume 93.5 fL (80.0-98.0); Mean Platelet Volume 12.1 fL (9.4-12.3); Monocytes Absolute Auto 0.6 X10*3/uL (0.1-1.2); Neutrophils Absolute Auto 6.7 x10*3/uL (2.0-8.3); Neutrophils Percent Auto 71.1 % (45-73); Platelet Count 117 X10*3/uL (160-400); Red Blood Count 5.24 X10*6/uL (4.20-5.50); Red Cell Distribution Width 15.3 % (11.0-16.0); White Blood Count 9.5 X10*3/uL (4.8-10.8)
[2022-07-20 13:14] LABS: Creatinine Urine 110.94 mg/dL; Protein/Creatinine Ratio, Ur 0.07 (<0.2); Total Protein Urine Random 8 mg/dL (<12)
[2022-07-20 13:51] LABS: Blood Urea Nitrogen 134 mg/dL (9-16)
[2022-07-20 13:55] LABS: Anion Gap 20 (12-20); Calcium 10.1 mg/dL (8.4-10.2); Carbon Dioxide 38 mmol/L (22-29); Chloride 87 mmol/L (96-108); Cholesterol 146 mg/dL; Estimated Glomerular Filt Rate 9; HDL Cholesterol 27 mg/dL; Iron 56 mcg/dL (30-160); LDL Cholesterol Calculated 66 mg/dl; Magnesium 2.4 mg/dL (1.6-2.6); Percent Iron Saturation 21 % (15-50); Potassium 2.6 mmol/L (3.3-5.1); Sodium 142 mmol/L (135-145); Total Iron Binding Capacity 266 mcg/dL (228-428); Triglycerides 267 mg/dL; Unsaturated Iron Binding 210 ug/dL; Uric Acid 13.6 mg/dL (2.4-5.7); Vitamin D 25-OH Total 52.7 ng/mL (>30)
== END 2022-07-20 11:44 | disposition home or self-care (01) ==
LOC: HO.LAB 11:43
PROVIDERS: Visit Provider Physician Assistant
DX: I12.9 Hypertensive chronic kidney disease with stage 1 through stage 4 chronic kidney disease, or unspecified chronic kidney disease (principal); E11.22 Type 2 diabetes mellitus with diabetic chronic kidney disease; N18.32 Chronic kidney disease, stage 3b; E66.9 Obesity, unspecified
CPT/HCPCS: 36415; 80051; 80061; 81001; 82306; 82310; 82565; 83540; 83735; 84156; 84520; 84550; 85025

== ENCOUNTER 2022-09-01 12:05 | Inpatient (IN) | payer OTHER, SELFPAY ==
--- NOTE | ~2022-09-01 | XR_ITS ---
EXAMINATION: XR CHEST CLINICAL INFORMATION: Question pneumonia COMPARISON: Previous chest x-ray most recent June 2022 TECHNIQUE: Frontal view of the chest was obtained. FINDINGS: The cardiac and mediastinal contours are stable. There is new or increased elevation of the right hemidiaphragm. There are coarse lung markings seen similar to previous exams. Differential would include airways disease, interstitial pulmonary edema and interstitial lung disease. Clinical correlation recommended. There is no pleural effusion or pneumothorax. There are degenerative changes of the spine. XR/XR chest 1V IMPRESSION: New or increased elevation of the right hemidiaphragm. Coarse lung markings similar to previous exams. Differential would include airways disease, interstitial pulmonary edema and interstitial lung disease. Clinical correlation recommended.
--- NOTE | ~2022-09-01 | US_ITS ---
EXAMINATION: US VENOUS WITH DOPPLER UPPER EXTREMITY, LEFT CLINICAL INFORMATION: Left arm swelling COMPARISON: None available. TECHNIQUE: Ultrasound of the upper extremity is performed using compression sonography and color and pulse Doppler flow with assessment of augmentation of flow. There is also imaging and Doppler assessment of the jugular and subclavian veins. Spectral analysis with color-flow imaging is performed. FINDINGS: Respiratory variation, normal compression, and augmented flow are noted throughout the upper extremity including the axillary, brachial, cubital, and radial and ulnar veins. There is normal flow in the internal jugular and subclavian veins. There is no visible deep or superficial thrombophlebitis. If the patient's symptoms progress, a followup ultrasound in 5 -7 days might be of value to exclude proximal propagation from a nonvisualized distal arm vein. There is infusion catheter in the left cephalic vein US/US venous duplex UE LT IMPRESSION: No DVT demonstrated in the left upper extremity with limitations of technique in the axillary region.
--- NOTE | 2022-09-01 12:07 | ECG_ITS ---
Test Reason : chestpain Blood Pressure : / mmHG Vent. Rate : 136 BPM Atrial Rate : 136 BPM P-R Int : 146 ms QRS Dur : 104 ms QT Int : 284 ms P-R-T Axes : 080 -50 095 degrees QTc Int : 427 ms Artifact in tracing Sinus tachycardia with occasional Premature ventricular complexes Left axis deviation Minimal voltage criteria for LVH, may be normal variant ( [place] product ) Abnormal ECG When compared with ECG of 25-JUN-2022 23:56, Vent. rate has increased BY 73 BPM Referred By: Generic ED Physician Electronically Signed By:BATSHEVA SWEET
[2022-09-01 12:11] VITALS: BP 149/96; PULSE 134; O2SAT 96
[2022-09-01 12:31] VITALS: BP 95/72; PULSE 132; RESP 18; TEMP 38.8; O2SAT 94; BMI 40.3
--- NOTE | 2022-09-01 12:46 | ED_ITS ---
HPI - Chest Pain General Chief Complaint: Chest Pain Stated Complaint: Chest pain, LFT arm pain Time Seen by Provider: 09/01/22 12:37 Source: patient and family Mode of arrival: EMS Limitations: altered mental status History of Present Illness HPI narrative: 81-year-old female presents with shortness of breath, chest pain, confusion. Symptoms started 3 days ago. Symptoms are constant getting progressively worse. She has been complaining of a nondescript chest pain. There is no clear relieving or exacerbating features. She has reportedly had no fevers or chills at home. She has had no cough or mucus production. There has been no nausea or vomiting. Reportedly her baseline mental status is normal without any significant confusion. Her mentation has been progressively getting worse. Side also notes that she has become increasingly tremulous. Symptoms are described as severe in nature. Related Data Home Medications Medication Instructions Recorded Confirmed atorvastatin 20 mg tablet 20 mg PO BEDTIME 11/12/20 06/22/22 furosemide 80 mg tablet (Lasix) 80 mg PO BID 11/12/20 06/22/22 metolazone 2.5 mg tablet 5 mg PO DAILY 11/12/20 06/22/22 metoprolol tartrate 50 mg tablet 50 mg PO BID 11/12/20 06/22/22 (Lopressor) pregabalin 100 mg capsule (Lyrica) 100 mg PO TID 11/12/20 06/22/22 acetaminophen 500 mg tablet 500 mg PO Q12H PRN Pain 11/23/21 06/22/22 cholecalciferol (vitamin D3) 25 25 mcg PO DAILY 11/23/21 06/22/22 mcg (1,000 unit) capsule (Vitamin D3) docusate sodium 100 mg capsule 100 mg PO BID 11/23/21 06/22/22 ferrous sulfate 324 mg (65 mg 324 mg PO DAILY 11/23/21 06/22/22 iron) tablet,delayed release oxycodone-acetaminophen 10 mg-325 1 tab PO Q12H PRN Pain 11/23/21 06/22/22 mg tablet Previous Rx's Medication Instructions Recorded allopurinol 100 mg tablet 150 mg PO DAILY #45 tabs 05/30/22 glipizide 5 mg tablet 2.5 mg PO DAILY #30 tabs 06/27/22 ipratropium 0.5 mg-albuterol 3 mg 3 ml inhalation RQ4H PRN Wheezing 06/27/22 (2.5 mg base)/3 mL nebulization #60 mL soln ipratropium 0.5 mg-albuterol 3 mg 3 ml inhalation RQ4H WHILE AWAKE 06/27/22 (2.5 mg base)/3 mL nebulization #120 mL soln prednisone 10 mg tablet 10 mg PO DAILY #3 tabs 06/27/22 Allergies Allergy/AdvReac Type Severity Reaction Status Date / Time No Known Allergies Allergy Unknown Verified 01/25/22 11:11 Review of Systems Review of Systems: CONSTITUTIONAL: Denies weight loss, fever and chills. HEENT: Denies changes in vision and hearing. RESPIRATORY: Denies SOB and cough. CV: Denies palpitations + CP. GI: Denies abdominal pain, nausea, vomiting and diarrhea. : Denies dysuria and urinary frequency. MSK: Denies myalgia and joint pain. SKIN: Denies rash and pruritus. NEUROLOGICAL: Denies headache and syncope. PSYCHIATRIC: Denies recent changes in mood. Denies anxiety and depression. All other ROS are negative unless in HPI PMFSH Past Medical History Medical History Arthritis of both knees Bilateral primary osteoarthritis of knee Chronic hypercapnic respiratory failure Chronic kidney disease COPD (chronic obstructive pulmonary disease) Diabetes Gout Iron deficiency Osteoarthritis of left knee Surgical History Hx of tubal ligation Family History Family History Other Arthritis Social History Social History Household Members: None Housing: Apartment Do you presently have visiting nurse or other home services: Yes Alcohol intake: never Patient Tobacco Use Status: Former Tobacco user Smoked in Last 30 Days: No Use of substances other than those prescribed or required for medical reasons: No Advance Directives: Yes Advance Directives on File: Yes Advance Directives Date on File: 06/23/22 service: No 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al status: retired and disabled 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 Physical Exam Vital Signs: Vital Signs: Last Vital Signs Temp 99.2 F 09/01/22 14:48 Pulse 111 H 09/01/22 14:48 Resp 14 09/01/22 14:48 BP 106/41 L 09/01/22 14:48 Pulse Ox 92 09/01/22 14:48 O2 Del Method Nasal Cannula 09/01/22 14:48 O2 Flow Rate 3 09/01/22 14:48 Oxygen Flow Rate 3 09/01/22 12:31 BMI result Body Mass Index 40.3 GEN: Well developed, no acute distress, alert HEENT: Normocephalic, atraumatic, normal external ears, nose appears normal, no oropharyngeal edema or exudates Eyes: Normal to appearance Neck: Supple, no lymphadenopathy Respiratory: Talks in complete sentences, no respiratory distress, clear to auscultation bilaterally Cardiovascular: Regular rate and rhythm, no murmurs rubs or gallops Abdomen: Soft, nontender, nondistended, no guarding, no rebound Back: No CVA tenderness Extremities: No clubbing cyanosis Neurologic: No focal neurologic deficits, cranial nerves 2-12 intact, strength is 5/5 bilaterally Skin: No rash Course Reevaluation(s) Reevaluation #1: Lab work has returned. She has multiple metabolic abnormalities. She has hypokalemia which we replaced with intravenous potassium, CKD which is stable, lactic acidosis for which he will receive an IV fluid bolus, hypoalbuminemia likely due to a CKD and or nutritional related issues, leukocytosis secondary to severe sepsis. She also has an elevated troponin. She is having chest pain although I doubt this represents acute coronary syndrome in a classic sense of an unstable plaque. I do suspect this is related to the severe sepsis. I will put the patient on heparin or Lovenox. Time: 14:16 Reevaluation #2: Patient has been admitted to the hospital. She he has become more stable hemodynamically. She has received an IV fluid bolus and antibiotics. She may be admitted to a monitored bed. I will be ordering a repeat troponin at this time. Time: 15:20 Medications Administered Generic Name Dose Route Start Last Admin Trade Name Freq PRN Reason Stop Dose Admin Potassium Chloride/Sodium Chloride 40 meq in 1,000 mls @ 250 mls/hr 09/01/22 14:30 09/01/22 15:13 Kcl 40 Meq In 0.9 % Sodium Chl IV 09/01/22 18:29 250 mls/hr .Q4H MARINO Administration Discontinued Medications Generic Name Dose Route Start Last Admin Trade Name Freq PRN Reason Stop Dose Admin Acetaminophen 975 mg 09/01/22 12:37 09/01/22 13:46 Acetaminophen 325 Mg Tablet PO 09/01/22 12:38 975 mg ONCE ONE Administration Sodium Chloride 1,000 mls @ 999 mls/hr 09/01/22 12:37 09/01/22 15:19 Ns IV 09/01/22 13:37 Infused .Q1H1M STA Infusion Sodium Chloride 3,297 mls @ 3,297 mls/hr 09/01/22 13:01 09/01/22 13:47 Ns 30 ml/kg infuse over 1 hr (3297 ml) 09/01/22 14:00 3,297 mls/hr IV Administration .Q1H STA Ceftriaxone Sodium 2 gm/ 50 mls @ 100 mls/hr 09/01/22 13:21 09/01/22 14:20 Sodium Chloride IV 09/01/22 13:50 Infused ONCE ONE Infusion Medical Decision Making Differential Diagnosis Differential Diagnoses: The differential diagnosis associated with the presentation includes (Sepsis, pneumonia, bronchitis, CHF, atypical chest pain) Severe sepsis Admission/Observation Consideration of admission/observation: Escalation of care including admission/observation considered Consult Healthcare Provider Management of the patient was discussed with: Hospitalist Lab Data MDM Lab Attestation statement: I reviewed the patient's lab results. 09/01/22 13:12 09/01/22 13:12 Labs: Lab Results 09/01/22 09/01/22 09/01/22 Range/Units 13:12 13:12 13:12 WBC 11.3 H (4.8-10.8) X10*3/uL RBC 5.36 (4.20-5.50) X10*6/uL Hgb 15.7 (12.0-16.0) g/dl Hct 48.9 H (37.0-47.0) % MCV 91.2 (80.0-98.0) fL MCH 29.3 (27.0-33.0) pg MCHC 32.1 (31.0-35.0) g/dl RDW 16.1 H (11.0-16.0) % Plt Count 94 L (160-400) X10*3/uL MPV 11.0 (9.4-12.3) fL Immature Gran % (Auto) 0.4 (0.0-0.4) % Neut % (Auto) 86.9 H (45-73) % Lymph % (Auto) 6.2 L (20-40) % Bleck[place] % (Auto) 5.9 (2-11) % Eos % (Auto) 0.3 (0-4) % Baso % (Auto) 0.3 (0-2) % Lymph # (Auto) 0.7 L (1.2-4.9) X10*3/uL [place] # (Auto) 0.7 (0.1-1.2) X10*3/uL Eos # (Auto) 0.0 (0.0-0.4) X10*3/uL Baso # (Auto) 0.0 (0.0-0.2) X10*3/uL Abs Immat Gran (auto) 0.04 H (0.00-0.03) X10*3/uL Absolute Neuts (auto) 9.8 H (2.0-8.3) x10*3/uL Absolute Nucleated RBC 0.000 (0.0-0.012) X10*3/uL Nucleated RBC % (auto) 0.0 (0.0-0.2) /100WBC PT 17.4 H (10.0-13.1) SEC INR 1.5 H (0.9-1.1) APTT 31.6 (26.0-36.4) SEC Sodium 140 (135-145) mmol/L Potassium 2.7 L (3.3-5.1) mmol/L Chloride 96 (96-108) mmol/L Carbon Dioxide 33 H (22-29) mmol/L Anion Gap 14 (12-20) BUN 47 H (9-16) mg/dL Creatinine 2.30 H (0.5-1.4) mg/dL Estim Creat Clear Calc 22.9 Estimated GFR 20 Random Glucose 176 H (60-115) mg/dL Lactic Acid (0.5-2.0) mmol/L Calcium 9.6 (8.4-10.2) mg/dL Total Bilirubin 2.1 H (0.0-1.0) mg/dL AST 23 (5-31) U/L ALT 6 (0-31) U/L Alkaline Phosphatase 56 (39-117) U/L Troponin I High Sens (<3.5-17.0) ng/L B-Natriuretic Peptide (<100) pg/mL Total Protein 6.0 L (6.5-8.0) g/dL Albumin 3.0 L (3.5-5.0) g/dL 09/01/22 09/01/22 09/01/22 Range/Units 13:12 13:12 13:12 WBC (4.8-10.8) X10*3/uL RBC (4.20-5.50) X10*6/uL Hgb (12.0-16.0) g/dl Hct (37.0-47.0) % MCV (80.0-98.0) fL MCH (27.0-33.0) pg MCHC (31.0-35.0) g/dl RDW (11.0-16.0) % Plt Count (160-400) X10*3/uL MPV (9.4-12.3) fL Immature Gran % (Auto) (0.0-0.4) % Neut % (Auto) (45-73) % Lymph % (Auto) (20-40) % Bleckley % (Auto) (2-11) % Eos % (Auto) (0-4) % Baso % (Auto) (0-2) % Lymph # (Auto) (1.2-4.9) X10*3/uL [place] # (Auto) (0.1-1.2) X10*3/uL Eos # (Auto) (0.0-0.4) X10*3/uL Baso # (Auto) (0.0-0.2) X10*3/uL Abs Immat Gran (auto) (0.00-0.03) X10*3/uL Absolute Neuts (auto) (2.0-8.3) x10*3/uL Absolute Nucleated RBC (0.0-0.012) X10*3/uL Nucleated RBC % (auto) (0.0-0.2) /100WBC PT (10.0-13.1) SEC INR (0.9-1.1) APTT (26.0-36.4) SEC Sodium (135-145) mmol/L Potassium (3.3-5.1) mmol/L Chloride (96-108) mmol/L Carbon Dioxide (22-29) mmol/L Anion Gap (12-20) BUN (9-16) mg/dL Creatinine (0.5-1.4) mg/dL Estim Creat Clear Calc Estimated GFR Random Glucose (60-115) mg/dL Lactic Acid 2.1 H* (0.5-2.0) mmol/L Calcium (8.4-10.2) mg/dL Total Bilirubin (0.0-1.0) mg/dL AST (5-31) U/L ALT (0-31) U/L Alkaline Phosphatase (39-117) U/L Troponin I High Sens 85.5 H* D (<3.5-17.0) ng/L B-Natriuretic Peptide 78 (<100) pg/mL Total Protein (6.5-8.0) g/dL Albumin (3.5-5.0) g/dL Independent Interpretation I performed an independent interpretation of an: EKG (Sinus tachycardia heart rate 136, frequent PVCs, no acute ST elevations depressions, QTC 4 in 27 milliseconds, left axis deviation) Radiology Impression Discussion of test interpretation with radiology: I have reviewed the radiologist's reading. Radiologist Impression: XR/XR chest 1V IMPRESSION: New or increased elevation of the right hemidiaphragm. Coarse lung markings similar to previous exams. Differential would include airways disease, interstitial pulmonary edema and interstitial lung disease. Clinical correlation recommended. ? Dictated By: Yasmeen Mendiola MD Signed By: <Electronically signed by Yasmeen Mendiola MD in OV> 09/01/22 1344 Independent Historian Clinical information obtained from an independent historian. History obtained from or confirmed by: Other (Son) Prescription Management I considered prescription management with: Antibiotic Chronic Conditions Patient?s care impacted by: Diabetes Critical Care Time Critical Care Time Critical Care Time: Yes Total Critical Care Time: 35 Attestation: Approximately 35 minutes of critical care time was spent with bedside assessment, conversation with family, medical management, re-evaluation, documentation, stabilization of blood pressure and management sepsis. Time was spent outside of any medical procedures. Discharge Plan Discharge Clinical Impression: Severe sepsis, Acute hypokalemia, CKD (chronic kidney disease), Acidosis, lactic, Hypoalbuminemia, Elevated troponin, Leukocytosis Patient Disposition: Admitted As Inpatient
[2022-09-01] MEDS: 0.9 % Sodium Chloride 1,000 ML 999 ML IV (13:13)
[2022-09-01 13:18] LABS: MANUAL DIFF FLAG NO
[2022-09-01 13:20] LABS: Basophils Percent Auto 0.3 % (0-2); Eosinophils Percent Auto 0.3 % (0-4); Hematocrit 48.9 % (37.0-47.0); Hemoglobin 15.7 g/dl (12.0-16.0); Imm Gran Abs Auto 0.04 X10*3/uL (0.00-0.03); Imm Gran Pct Auto 0.4 % (0.0-0.4); Lymphocytes Absolute Auto 0.7 X10*3/uL (1.2-4.9); Lymphocytes Percent Auto 6.2 % (20-40); Mean Corpuscular HGB Conc 32.1 g/dl (31.0-35.0); Mean Corpuscular Hemoglobin 29.3 pg (27.0-33.0); Mean Corpuscular Volume 91.2 fL (80.0-98.0); Monocytes Absolute Auto 0.7 X10*3/uL (0.1-1.2); Monocytes Percent Auto 5.9 % (2-11); Neutrophils Absolute Auto 9.8 x10*3/uL (2.0-8.3); Neutrophils Percent Auto 86.9 % (45-73); Red Blood Count 5.36 X10*6/uL (4.20-5.50); Red Cell Distribution Width 16.1 % (11.0-16.0); White Blood Count 11.3 X10*3/uL (4.8-10.8)
[2022-09-01 13:23] LABS: Platelet Count 94 X10*3/uL (160-400)
[2022-09-01 13:26] LABS: INTERNATIONAL NORM RATIO 1.5 (0.9-1.1); Prothrombin Time 17.4 SEC (10.0-13.1)
[2022-09-01 13:28] LABS: Partial Thromboplastin Time 31.6 SEC (26.0-36.4)
[2022-09-01] MEDS: cefTRIAXone sodium 2 GM in 0.9 % Sodium Chloride 50 ML IV (13:43)
[2022-09-01 13:46] LABS: Alanine Aminotransferase 6 U/L (0-31); Alkaline Phosphatase 56 U/L (39-117); Anion Gap 14 (12-20); Aspartate Amino Transferase 23 U/L (5-31); Bilirubin Total 2.1 mg/dL (0.0-1.0); Blood Urea Nitrogen 47 mg/dL (9-16); Calcium 9.6 mg/dL (8.4-10.2); Carbon Dioxide 33 mmol/L (22-29); Chloride 96 mmol/L (96-108); Creatinine Clr Calc Pharmacy 22.9; Estimated Glomerular Filt Rate 20; Glucose Random 176 mg/dL (60-115); Potassium 2.7 mmol/L (3.3-5.1); Sodium 140 mmol/L (135-145)
[2022-09-01] MEDS: Acetaminophen 325 MG TABLET 975 MG PO (13:46)
[2022-09-01 13:52] LABS: B Type Natriuretic Peptide 78 pg/mL (<100)
[2022-09-01 13:56] LABS: Lactic Acid 2.1 mmol/L (0.5-2.0)
[2022-09-01 14:06] LABS: Troponin-I High Sensitivity 85.5 ng/L (<3.5-17.0)
[2022-09-01 14:35] VITALS: PULSE 113
--- NOTE | 2022-09-01 14:45 | PC.NURSE ---
pt's fluids are going in slowly because pt rolly is in her r ac and pt has a somewhat diff time to keep her hand straight even though it is on a pillow.
[2022-09-01 14:48] VITALS: BP 106/41; PULSE 111; RESP 14; TEMP 37.3; O2SAT 92
--- NOTE | 2022-09-01 14:59 | PC.NURSE ---
dr. lezama (hosp) at bedside, pt/family aware of plan of care.
[2022-09-01] MEDS: KCl 40 mEq in 0.9 % Sodium Chl 40 MEQ/1,000 ML IV.SOLN 250 MEQ IV (15:13)
[2022-09-01 15:16] LABS: Reflex Lactate? Lactic Acid Added
--- NOTE | 2022-09-01 15:16 | PM.IMHP ---
History of Present Illness Date of Service: 09/01/22 Chief Complaint: chest pain this is an 81-year-old female with past medical history of COPD, diabetes, hypertension, chronic hypercapnic respiratory failure, legally blind, history of CKD stage4 presents the hospital with complaints of chest pain as well as confusion. History is obtained with the help of an group product manager and her son as well as her best friend at bedside. Patient is oriented to self, not to place or time. It is alert awake, answers questions but the coulee, making no sense, talking about things that are not relevant. Her son states that he noted her confusion to be increasing over the past 1 weak. But today she started complaining of midsternal chest pain that is radiating to the left arm. Patient herself unable to give me much history regarding this pain. He also noted that she has had black diarrhea for the past several days. Patient herself denies any fever, no chills, no shortness of breath, no abdominal pain nausea or vomiting, denies any urinary symptoms and no lower extremity edema. Her son reports that she has had decreased p.o. intake and therefore her urine output has decreased. On arrival to the ED patient was found to be febrile with a temp of 101.8 degrees, heart rate of 132, satting 94% on 3 L of oxygen Labs are significant for WBC count of 11.3, lactic acid of 2.1, potassium of 2.7, creatinine of 2.3 which is around her baseline, troponin of 85.5, BNP of 78 Chest x-ray showing new or increased elevation of the right hemidiaphragm, coarse lung markings similar to previous exam, differentials include airway disease, interstitial pulmonary edema and/or interstitial lung disease. Patient started on Lovenox full dose, as well as antibiotics and will be admitted for further management Review of Systems Review of Systems: although review of system completed he may not be completely reliable due to patient's encephalopathy Yes Unobtainable due to mental condition and Unobtainable due to mental status PENDING SALE TO [facility] Medical History Arthritis of both knees Bilateral primary osteoarthritis of knee Chronic hypercapnic respiratory failure Chronic kidney disease COPD (chronic obstructive pulmonary disease) Diabetes Gout Iron deficiency Osteoarthritis of left knee Family History Other Arthritis Surgical History Hx of tubal ligation Social History Household Members: None Housing: Apartment Do you presently have visiting nurse or other home services: Yes Alcohol intake: never Patient Tobacco Use Status: Former Tobacco user Smoked in Last 30 Days: No Use of substances other than those prescribed or required for medical reasons: No Advance Directives: Yes Advance Directives on File: Yes Advance Directives Date on File: 06/23/22 service: No 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al status: retired and disabled 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 Meds Allergies Allergy/AdvReac Type Severity Reaction Status Date / Time No Known Allergies Allergy Unknown Verified 01/25/22 11:11 Active Medications: Current Medications Potassium Chloride/Sodium Chloride (Kcl 40 Meq In 0.9 % Sodium Chl) 40 meq in 1,000 mls @ 250 mls/hr IV .Q4H MARINO Stop: 09/01/22 18:29 Last Admin: 09/01/22 15:13 Dose: 250 mls/hr Home Medications Medication Instructions Recorded Confirmed Last Taken Type atorvastatin 20 mg tablet 20 mg PO BEDTIME 11/12/20 06/22/22 Unknown History furosemide 80 mg tablet (Lasix) 80 mg PO BID 11/12/20 06/22/22 Unknown History metolazone 2.5 mg tablet 5 mg PO DAILY 11/12/20 06/22/22 Unknown History metoprolol tartrate 50 mg tablet 50 mg PO BID 11/12/20 06/22/22 Unknown History (Lopressor) pregabalin 100 mg capsule (Lyrica) 100 mg PO TID 11/12/20 06/22/22 Unknown History acetaminophen 500 mg tablet 500 mg PO Q12H PRN Pain 11/23/21 06/22/22 Unknown History cholecalciferol (vitamin D3) 25 25 mcg PO DAILY 11/23/21 06/22/22 Unknown History mcg (1,000 unit) capsule (Vitamin D3) docusate sodium 100 mg capsule 100 mg PO BID 11/23/21 06/22/22 Unknown History ferrous sulfate 324 mg (65 mg 324 mg PO DAILY 11/23/21 06/22/22 Unknown History iron) tablet,delayed release oxycodone-acetaminophen 10 mg-325 1 tab PO Q12H PRN Pain 11/23/21 06/22/22 Unknown History mg tablet Physical Exam Vital Signs and Narrative: Vital Signs: Last Vital Signs Temp 99.2 F 09/01/22 14:48 Pulse 111 H 09/01/22 14:48 Resp 14 09/01/22 14:48 BP 106/41 L 09/01/22 14:48 Pulse Ox 92 09/01/22 14:48 O2 Del Method Nasal Cannula 09/01/22 14:48 O2 Flow Rate 3 09/01/22 14:48 Oxygen Flow Rate 3 09/01/22 12:31 BMI result Body Mass Index 40.3 Const: Other: oriented to self, not place or time, awake alert answering questions but not appropriately General: cooperative and no acute distress Eyes: General: appearance normal, both eyes and all related structures Resp: Other: in no respiratory distress crackles bilaterally Effort & Inspection: normal respiratory effort Cardio: Rate: regular rate Rhythm: regular rhythm GI: Palpation (GI): Soft to palpation Auscultation: normal bowel sounds Skin: General skin exam: no rashes or lesions noted Neuro: Other: confused Extrem: General: Yes normal to inspection and Yes no pedal edema Results Labs 09/01/22 13:12 09/01/22 13:12 Labs: Laboratory Results - last 24 hr 09/01/22 09/01/22 09/01/22 13:12 13:12 13:12 MCV 91.2 MCH 29.3 MCHC 32.1 RDW 16.1 H Plt Count 94 L MPV 11.0 Immature Gran % (Auto) 0.4 Neut % (Auto) 86.9 H Lymph % (Auto) 6.2 L Major % (Auto) 5.9 Eos % (Auto) 0.3 Baso % (Auto) 0.3 Lymph # (Auto) 0.7 L Major # (Auto) 0.7 Eos # (Auto) 0.0 Baso # (Auto) 0.0 Abs Immat Gran (auto) 0.04 H Absolute Neuts (auto) 9.8 H Absolute Nucleated RBC 0.000 Nucleated RBC % (auto) 0.0 PT 17.4 H INR 1.5 H APTT 31.6 Anion Gap 14 Estim Creat Clear Calc 22.9 Estimated GFR 20 Random Glucose 176 H Lactic Acid Calcium 9.6 Total Bilirubin 2.1 H AST 23 ALT 6 Alkaline Phosphatase 56 Troponin I High Sens B-Natriuretic Peptide Total Protein 6.0 L Albumin 3.0 L 09/01/22 09/01/22 09/01/22 13:12 13:12 13:12 MCV MCH MCHC RDW Plt Count MPV Immature Gran % (Auto) Neut % (Auto) Lymph % (Auto) Major % (Auto) Eos % (Auto) Baso % (Auto) Lymph # (Auto) Major # (Auto) Eos # (Auto) Baso # (Auto) Abs Immat Gran (auto) Absolute Neuts (auto) Absolute Nucleated RBC Nucleated RBC % (auto) PT INR APTT Anion Gap Estim Creat Clear Calc Estimated GFR Random Glucose Lactic Acid 2.1 H* Calcium Total Bilirubin AST ALT Alkaline Phosphatase Troponin I High Sens 85.5 H* D B-Natriuretic Peptide 78 Total Protein Albumin Imaging Radiologist's Impressions: Impressions Chest X-Ray 09/01/22 12:46 IMPRESSION: New or increased elevation of the right hemidiaphragm. Coarse lung markings similar to previous exams. Differential would include airways disease, interstitial pulmonary edema and interstitial lung disease. Clinical correlation recommended. Assessment and Plan (1) Sepsis: Status: Acute (2) Acute hypokalemia: Status: Acute (3) CKD (chronic kidney disease): Status: Acute (4) Acidosis, lactic: Status: Acute (5) Elevated troponin: Status: Acute Plan 81-year-old female with past medical history of hypertension, diabetes, CKD who comes into the hospital with complaints of chest pain # chest pain - cardiac in nature - likely secondary to sepsis - patient started on full-dose Lovenox by ED- will continue - pending 2nd troponin - nonspecific ST T-wave changes on EKG - cardiology consulted - echocardiogram - will add aspirin # sepsis - unclear source - meets criteria with tachycardia, febrile, has leukocytosis, as well as lactic acidosis 2.1 - pneumonia versus UTI, UA collection pending - will treat with broad-spectrum IV antibiotics - follow cultures - pending urine # pneumonia? - chest x-ray showing new markings with differentials including infection - at this time will make NPO, will obtain swallowing eval - IV antibiotics as above - follow cultures # lactic acidosis - secondary to sepsis - IV fluids #Hypokalemia - repleted - follow bmp # CKD stage 4 - creatinine at baseline - follow BMP # Diabetes - hold oral antihyperglycemics - add low-dose sliding scale insulin - diabetic diet DVT prophylaxis: Lovenox Given patient's need for IV antibiotics as well as evaluation of NSTEMI patient will require minimum 2 nights inpatient hospital stay for further management and monitoring Time Spent With Patient Time: Total time managing care of this patient today ____ minutes. Quality Stroke Does the patient have a stroke diagnosis?: No VTE Prior VTE?: No VTE Risk Level:: Medical - moderate - high VTE Device Contraindication: Treatment Not Indicated VTE Drug Contraindication: N/A - Med Ordered
[2022-09-01] MEDS: Enoxaparin Sodium 120 MG/0.8 ML SYRINGE 105 MG SUBCUT (15:27)
--- NOTE | 2022-09-01 16:00 | CA_ITS ---
Transthoracic Echocardiogram Patient (Last, First, Middle): Irlanda Jarquin, Gender: Female Date of : 1940 Age: 81 Procedure Date: 09/01/2022 Procedure Type: Transthoracic Echocardiogram Location: ER Height: 165. cm Weight: 110. kg BSA: 2.15 m2 Heart Rate: 100 bpm BP: 92 / 44 mmHg Heel Builder: DAVID Referring MD: Jose Eduardo Sanchez MD Symptoms: NSTEMI Study Quality: Adequate/Contrast ECG Rhythm: Undetermined Conclusions: - The left ventricular systolic function is normal. The calculated ejection fraction is 66% by biplane method. - There is mild calcification of the aortic valve. - There is mild mitral annular calcification. Findings Procedure Information Contrast agent, definity, is being given per protocol without apparent complications. Left Ventricle Normal left ventricular cavity size. There is moderately increased left ventricular wall thickness. The left ventricular systolic function is normal. The calculated ejection fraction is 66% by biplane method. There is no evidence of regional wall motion abnormalities. Diastolic function is normal for age. Right Ventricle Mildly increased right ventricular cavity size. There is normal right ventricular systolic function. Atria Both atria are normal in size. Aortic Valve There is mild calcification of the aortic valve. There is no aortic valve stenosis. There is trace (trivial) aortic valve regurgitation. Mitral Valve There is mild mitral annular calcification. There is no mitral valve regurgitation. There is no mitral valve stenosis. Pulmonic Valve The pulmonic valve is likely normal. Tricuspid Valve There is trace tricuspid valve regurgitation. There is no evidence of pulmonary hypertension. Great Vessels The asc aorta is normal in size. Venous The inferior vena cava is normal in size and collapses less than 50% with inspiration. Pericardium/Pleural There is no evidence of pericardial effusion. Prior Study Comparison No significant change compared to prior study dated: 11/25/2019. Measurements 2D Linear Measurements IVSd: 1.67 0.6-0.9/0.6-1.0 cm LVIDd: 3.32 3.9-5.3/4.2-5.9 cm LVIDd Index: 1.54 2.4-3.2/2.2-3.1 cm/m2 LVIDs: 2.53 2.0-3.6 cm LVPWd: 1.72 0.7-1.1 cm LA Diam: 3.30 2.7-3.8/3.0-4.0 cm LAIDs Index: 1.53 1.5-2.3 cm/m2 LV Mass: 276.14 67-162/88-224 g LV Mass Index: 128.44 43-95/49-115 g/m2 LVOT Diam: 2.20 3.0+(-)1.3 cm 2D Systolic Function EF 4C: 65.70 >55% EF 2C: 65.20 >55% EF BiP: 66.00 >55% Mitral Valve MV Pk E: 0.61 MV PK A: 0.85 MV Decel Time: 281.00 E/A: 0.70 E'Lateral: 8.59 E'Medial: 5.33 E/E' Med: 11.50 E/E' Lat: 7.10 PHT: 82.00 MVA PHT: 2.68 Decel Barbour: 2.18 Aortic Valve AoV Pk Gumaro: 1.83 AoV Mn Gumaro: 1.24 AoV VTI: 0.27 AoV Pk Grad: 13.00 Aov Mn Grad: 7.00 KAR Cont.VTI: 2.77 LVOT LVOT Pk Gumaro: 1.12 LVOT Mn Gumaro: 0.87 LVOT VTI: 0.20 LVOT Pk Grad: 5.00 LVOT Mn Grad: 3.00 LVOT Diam: 2.20 LVOT Area: 3.80 Diastolic Function MV Pk E: 0.61 MV Pk A: 0.85 E/A: 0.70 E'Medial: 5.33 E/E' Med: 11.50 E' Laterial: 8.59 E/E' Lat: 7.10 Right Ventricle TAPSE (mm): 17.50 TVS' Gumaro: 13.80 Tricuspid Valve TR Pk Gumaro: 1.70 TR Pk Grad: 12.00 RA Press: 8.00 RVSP: 20.00 Great Vessels Aorta Sinus of Valsalva: 3.60 2.0-3.5 cm Ao Asc: 3.60 2.1-3.4 cm Pulmonary Valve PV Pk Gumaro: 1.18 Peak PV Grad: 6.00 Updated in Other Vendor System with Status of Final Parminder Jarvis MD electronically signed on 09/02/2022 9:18:43 AM with status of Final
--- NOTE | 2022-09-01 16:18 | PC.NURSE ---
ECHOGRAM IS BEING DONE AT BEDSIDE. PT FANTA WELL.
--- NOTE | 2022-09-01 16:23 | MHC.EDTECH ---
washed patient, placed a purewick. applied barrier cream to avoid breakdown
[2022-09-01 17:20] LABS: Hematocrit 43.5 % (37.0-47.0); Mean Corpuscular HGB Conc 32.2 g/dl (31.0-35.0); Mean Corpuscular Hemoglobin 29.3 pg (27.0-33.0); Mean Platelet Volume 11.3 fL (9.4-12.3); Red Blood Count 4.78 X10*6/uL (4.20-5.50); Red Cell Distribution Width 15.9 % (11.0-16.0)
[2022-09-01 17:39] LABS: ~Lactic Acid-LAB USE ONLY 1.1 mmol/L (0.5-2.0)
--- NOTE | 2022-09-01 17:40 | MHC.SL.SWA ---
Speech Pathologist Impression: Oral phase dysphagia Risk of Aspiration Due to: Edentulous status Dysphasia Diet Status: Start on NDD1/THIN Liquid Consistency and Strategies for Safe Swallow: Liquid Intake Recommendation: Thin Liquid Intake Strategies: Small Sips No Straws Solid Food Consistency: Dietary Recommendations: Pureed (NDD1) Additional Modifications to Solid Foods: Recommend UPGRADE from NPO, START on PUREED (NDD1) diet and THIN liquids. RN this date reporting pt took Tylenol without difficulty. Recommend pills WHOLE or CRUSHED in PUREE per pt's tolerance. Pt requires total 1:1 assistance with tray set up and feeding d/t visual impairment. Ensure aspiration precautions. [employer] SOLUTIONS CONSULTANT notified care team of recommendations (MD, RN, RD) via [employer] Message. Oral Medication Intake: Crushed with Puree Please contact the pharmacy regarding appropriate crushable or liquid drug formulations that are available whenever modified delivery is recommended. Compensatory Strategies and Precautions to be Taken for Safe Swallow: Sitting Upright (90 deg) No Straw Small Bites and Sips Rate of Ingestion Change Oral Check Avoid Specific Foods Supervision While Eating and Drinking for Safe Swallow: Total Assistance (1:1) Foods to Avoid: Mixed consistencies Swallowing Recommended Treatments: Compens. Strategy Educat. Recommendation for Speech: Inpatient Speech Therapy Roller Shop Supervisor Clinican/Clinical Fellow: No Supervisory Statement: I have reviewed and agree with the student/clinical fellow's documentation: N/A Speech Language Pathologist: Philomena Colon M.A., [facility]-[employer] SOLUTIONS CONSULTANT
[2022-09-01 17:42] LABS: Platelet Count 83 X10*3/uL (160-400)
[2022-09-01 17:44] VITALS: BP 102/61; PULSE 106; RESP 16; O2SAT 99
[2022-09-01 17:46] LABS: INTERNATIONAL NORM RATIO 1.7 (0.9-1.1); Prothrombin Time 19.8 SEC (10.0-13.1)
[2022-09-01 17:48] LABS: PTT Heparin Drip 38.6 SEC (53-77.9)
--- NOTE | 2022-09-01 17:54 | PHA.MEDREC ---
Pharmacy Consult ? Medication Reconciliation Pharmacy has completed the medication reconciliation. Utilized computer systems software engineer services. Spoke to patient's son and patient to confirm meds. Patient is poor historian, but patient's son was able to recognize and confirm most medications outside metolazone 2.5mg. Called patient's pharmacy who state that metolazone was cancelled by provider. Patient's son confirms patient is still on prednisone 5mg daily, although claim history shows 60 day supply from 06/02/22.
[2022-09-01 18:03] LABS: Appearance Urine Cloudy; Color Urine Dark Yellow; Glucose Urine UA Negative (Negative); Leukocyte Esterase Urine Negative (Negative); Nitrite Urine Negative (Negative); PH 5.5 (5.0-9.0); Specific Gravity - Urine 1.015 (1.005-1.025); Urine Blood Negative (Negative); Urine Ketones Negative (Negative); Urine Protein Trace mg/dL (Neg-Trace)
--- NOTE | 2022-09-01 18:13 | PC.NURSE ---
rn to rn given to nolvia. pt/family aware of plan of care.
[2022-09-01 18:18] LABS: Troponin-I High Sensitivity 99.4 ng/L (<3.5-17.0)
[2022-09-01] MEDS: Aspirin Enteric Coated 325 MG TABLET.DR PO (18:19)
[2022-09-01] MEDS: Potassium Chloride Packet 20 MEQ PACKET 40 MEQ PO (18:19)
[2022-09-01 19:57] VITALS: BP 106/50; PULSE 72; RESP 15; TEMP 36.1; O2SAT 94
[2022-09-01 20:13] LABS: Glucose, Whole Blood 134 mg/dL (60-115)
[2022-09-01 20:30] VITALS: BMI 40.3
[2022-09-01] MEDS: vancomycin/NS 2,000 MG/500 ML PLAST..BAG 250 MG IV (21:55)
--- NOTE | 2022-09-01 22:22 | PHA.PROG ---
Addendum entered by Kaylee Frost RPh 09/02/22 07:47: Renal function improved 09/02, increased dose 1000mg Q24H with predicted AUC 495mg/L, trough of 16.8mg/L. Keeping level to be drawn 09/03 @2099 Original Note: Admission Date/Time: September 01, 2022 16:15 Indication: SEPSIS Weight in k.9 kg Serum Creatinine - Last 168 Hours 09/01/22 13:12 Creatinine 2.30 H Estimated CrCl and GFR - Last 168 Hours 09/01/22 13:12 Estim Creat Clear Calc 22.9 Estimated GFR 20 Vancomycin Loading Dose: 2000 Current Vancomycin Dosing Regimen: 750 Q 24 Vancomycin Monitoring using AUC goal of 400 - 600 range with trough as surrogate marker: 475 Date and Time for next Vancomycin Level to be drawn: 09/03 @ 2099 Pharmacist Comments on Vancomycin Plan: Vancomycin dosing will take advantage of [employer] as a clinical decision support tool that uses Bayesian modeling to calculate individual patient's pharmacokinetic parameters and forecast the patient's drug concentration time course with the target goal AUC 24 range of 400 - 600 mg/L/hr.
[2022-09-02] VITALS (15 sets, daily range): BP systolic 81–128; BP diastolic 44–80; PULSE 90–101; RESP 14–20; TEMP 36.1–36.7; O2SAT 90–99
--- NOTE | 2022-09-02 | ECG_ITS ---
Test Reason : tachycardia Blood Pressure : / mmHG Vent. Rate : 112 BPM Atrial Rate : 112 BPM P-R Int : 152 ms QRS Dur : 104 ms QT Int : 370 ms P-R-T Axes : 000 -30 078 degrees QTc Int : 505 ms Sinus tachycardia with occasional Premature ventricular complexes and Fusion complexes Left axis deviation Septal infarct , age undetermined Abnormal ECG When compared with ECG of 01-SEP-2022 12:12, due to poor study quality in prior EKG, cannot compare Referred By: Vimal Mason Electronically Signed By:BATSHEVA SWEET
--- NOTE | 2022-09-02 01:59 | P.EN_ITS ---
Event Note Date of Service: 09/02/22 Event Note: Patient with tachycardia. As per medical office worker, patient with lower abdominal pain and inability to urinate. Bladder scanned with 833 cc. Initiating [place] Time Spent With Patient Time: Total time managing care of this patient today ____ minutes.
[2022-09-02] MEDS: Heparin Sodium,Porcine/1/2NS 25,000 UNIT/250 ML IV.SOLN 15.39 UNIT IVCONT (03:47)
[2022-09-02] MEDS: Lactated Ringers 1,000 ML 100 ML IVCONT (05:21)
[2022-09-02 06:18] LABS: PLT CLUMP 1
[2022-09-02 06:20] LABS: Hematocrit 42.6 % (37.0-47.0); Hemoglobin 13.4 g/dl (12.0-16.0); Mean Corpuscular HGB Conc 31.5 g/dl (31.0-35.0); Mean Corpuscular Hemoglobin 28.9 pg (27.0-33.0); Mean Corpuscular Volume 91.8 fL (80.0-98.0); Mean Platelet Volume 10.7 fL (9.4-12.3); Red Blood Count 4.64 X10*6/uL (4.20-5.50); Red Cell Distribution Width 15.9 % (11.0-16.0)
[2022-09-02 06:21] LABS: Platelet Count 78 X10*3/uL (160-400)
[2022-09-02 06:36] LABS: Alanine Aminotransferase 8 U/L (0-31); Albumin Level 2.5 g/dL (3.5-5.0); Alkaline Phosphatase 46 U/L (39-117); Anion Gap 13 (12-20); Aspartate Amino Transferase 25 U/L (5-31); Bilirubin Total 1.3 mg/dL (0.0-1.0); Blood Urea Nitrogen 44 mg/dL (9-16); Calcium 8.3 mg/dL (8.4-10.2); Carbon Dioxide 27 mmol/L (22-29); Chloride 107 mmol/L (96-108); Creatinine Clr Calc Pharmacy 31.1; Estimated Glomerular Filt Rate 29; Glucose Random 99 mg/dL (60-115); Potassium 3.2 mmol/L (3.3-5.1); Sodium 144 mmol/L (135-145); Total Protein 4.8 g/dL (6.5-8.0)
[2022-09-02 06:39] LABS: INTERNATIONAL NORM RATIO 1.6 (0.9-1.1); Prothrombin Time 19.2 SEC (10.0-13.1)
[2022-09-02 07:50] LABS: Glucose, Whole Blood 96 mg/dL (60-115)
[2022-09-02] MEDS: Aspirin Enteric Coated 81 MG TABLET.DR PO (08:41)
[2022-09-02] MEDS: Potassium Chloride Packet 20 MEQ PACKET 40 MEQ PO ×2 (08:41→12:35)
--- NOTE | 2022-09-02 08:58 | PC.NURSE ---
Pt arrived to unit and oriented to staff and room, She was very drowsy but easily rousable. per family and PCT pt's speech demonstrated confusion. Pt allowed to rest, IV fluids, abx running with pt having a hard time keeping A/C open. Heparin GTT started as noted. At approx midnight, pt suddenly became tachy ot 160's. RN immediately to room and historical interpreter called. Pt denied CP or SOB, MD aware and ECG taken showing some morphology changes. HR came back down to 110's then further to 90's with only intervention was for urinary retention. Strips/ECG stored. Pt reported pain like a shock at suprapubic area and stated she needed to use the BR. Pt was unable to go on mult attempts. Bladder scan for 833. aware and angeles cath ordered. She at first refused and attempted again to use the bed daley and then asked for more time. She sat approx 10-15 minutes. When removed from daley pt had bilateral blisters and 2 purple lines in the pathway of the edge of the bedpan. blisters cleansed then dressed wtih xeroform with allevyn over with pt repositioned off the area. She then allowed the angeles cath with #16 icelandic cath placed after thorough cleansing on first attempt. pt tolerated well and immediately drained large amount dark yellow urine with some sediment. Pt slept well remainder of the night with no further complaints.
--- NOTE | 2022-09-02 09:07 | MHC.CM.PN ---
Interview conducted w/son (& HCP) Michael. Pt lives w/son in 4th flr apt (w/elevator access). Pt has 2hrs/day SENIOR SOUS CHEF and owns a WC; previously did not ambulate at home. Michael drives her to the appts she needs to go to. Michael is requesting assistance in increasing in-home services. He indicates she has services through a company called [employer]. He was not able to clarify if the in-home services were [employer] S[employer]F only or [employer] and nursing/PT, etc. This CM requested he please bring in contact information for them so [facility] CM dept could coordinate care for safe D/C planning. D/C plan is home w/son via son VS SNF. CM to follow.
[2022-09-02 09:31] LABS: Troponin-I High Sensitivity 131.1 ng/L (<3.5-17.0)
[2022-09-02 09:54] LABS: PTT Heparin Drip 62.7 SEC (53-77.9)
--- NOTE | 2022-09-02 10:48 | P.PNIM_ITS ---
Subjective Subjective Date of Service: 09/02/22 Interval History: Patient seen and examined at bedside with the help of an scene and lighting design lecturer. She is more alert oriented to self and place. Reports pain in her left arm, left arm swollen. Reports no chest pain, shortness of breath, no abdominal pain nausea or vomiting, no diarrhea or constipation. Denies any urinary symptoms. Did have urinary retention overnight and [place] catheter was placed Physical Exam Vital Signs: Vital Signs: Last Vital Signs Temp 97.6 F 09/02/22 07:12 Pulse 98 09/02/22 07:12 Resp 18 09/02/22 07:12 BP 119/62 09/02/22 07:12 Pulse Ox 99 09/02/22 07:12 O2 Del Method Nasal Cannula 09/02/22 07:12 O2 Flow Rate 3 09/02/22 07:12 Oxygen Flow Rate 3 09/01/22 12:31 BMI result Body Mass Index 40.3 Const: Other: Alert oriented to self and place, answers questions appropriately Resp: Other: Normal respiratory rate and effort Cardio: Other: Regular rate and rhythm GI: Other: Abdomen is soft, nontender Extrem: Other: Left upper extremity swollen, tender to palpation No lower extremity edema Objective Data Active Medications Acetaminophen (Acetaminophen 325 Mg Tablet) 650 mg PO Q6H PRN PRN Reason: Pain, Mild (Pain Scale 1-3) Aspirin (Aspirin Enteric Coated 81 Mg Tablet.Dr) 81 mg PO DAILY MARINO Last Admin: 09/02/22 08:41 Dose: 81 mg Documented By: CAESAR Dextrose (Dextrose 50 % 25 Gm/50 Ml Syringe) 25 gm IVPUSH Q15M PRN; Protocol PRN Reason: per Hypoglycemia Standing Ord. Glucose (Glucose Gel 15 Gm Gel..Gram.) 15 gm PO Q15M PRN; Protocol PRN Reason: per Hypoglycemia Standing Ord. Heparin Sodium (Porcine) (Heparin Sodium,Porcine 5,000 Unit/Ml Vial) 4,400 unit 40 unit/kg (4400 unit) IVPUSH PROTOCOL BOLUS PRN; Protocol PRN Reason: 40 unit/kg - Heparin Protocol Heparin Sodium (Porcine) (Heparin Sodium,Porcine 5,000 Unit/Ml Vial) 8,800 unit 80 unit/kg (8800 unit) IVPUSH PROTOCOL BOLUS PRN; Protocol PRN Reason: 80 unit/kg - Heparin Protocol Lactated Ringer's (Lr) 1,000 mls @ 100 mls/hr IVCONT .Q10H [facility] Last Infusion: 09/02/22 09:37 Dose: 0 mls/hr Documented By: EDNA Ceftriaxone Sodium 1 gm/ (Sodium Chloride) 50 mls @ 100 mls/hr IV Q24H [facility] Heparin Sodium/Sodium Chloride (Heparin Sodium,Porcine/1/2ns) 25,000 unit in 250 mls @ 0 mls/hr IVCONT .Q0M [facility]; Protocol Last Titration: 09/02/22 10:03 Dose: 14 units/kg/hr, 15.39 mls/hr Documented By: EDNA Co-signed By: CAESAR Vancomycin HCl 1,000 mg/ (Sodium Chloride) 270 mls @ 270 mls/hr IV Q24H [facility] Insulin Human Lispro (Insulin Lispro 100 Unit/Ml 3 Ml Vial) 0 unit SUBCUT QIDACHS [facility]; Protocol Last Admin: 09/02/22 08:38 Dose: Not Given Documented By: CAESAR Non-Admin Reason: No Insulin Coverage Ondansetron HCl (Ondansetron Hcl 4 Mg/2 Ml Vial) 4 mg IVPUSH Q8H PRN PRN Reason: Nausea and Vomiting Pharmacy Consult (Consult Rx Vancomycin Dosing) 1 each MISCELLANE DAILY PRN PRN Reason: Consult order Potassium Chloride (Potassium Chloride Packet 20 Meq Packet) 40 meq PO Q4H [facility] Stop: 09/02/22 11:46 Last Admin: 09/02/22 08:41 Dose: 40 meq Documented By: CAESAR Sodium Chloride (0.9 % Sodium Chloride Flush 3 Ml Syringe) 3 ml IVFLUSH QSHIFT [facility] Last Admin: 09/02/22 08:38 Dose: Not Given Documented By: CAESAR Non-Admin Reason: IV Running Labs 09/02/22 06:01 09/02/22 06:01 Labs: Laboratory Results - last 24 hr 09/01/22 09/01/22 09/01/22 13:12 13:12 13:12 MCV 91.2 MCH 29.3 MCHC 32.1 RDW 16.1 H Plt Count 94 L MPV 11.0 Immature Gran % (Auto) 0.4 Neut % (Auto) 86.9 H Lymph % (Auto) 6.2 L [place] % (Auto) 5.9 Eos % (Auto) 0.3 Baso % (Auto) 0.3 Lymph # (Auto) 0.7 L [place] # (Auto) 0.7 Eos # (Auto) 0.0 Baso # (Auto) 0.0 Abs Immat Gran (auto) 0.04 H Absolute Neuts (auto) 9.8 H Absolute Nucleated RBC 0.000 Nucleated RBC % (auto) 0.0 PT 17.4 H INR 1.5 H APTT 31.6 aPTT Heparin Protocol Anion Gap 14 Estim Creat Clear Calc 22.9 Estimated GFR 20 POC Glucose Random Glucose 176 H Lactic Acid Lactic Acid F/U @ 2Hr Calcium 9.6 Total Bilirubin 2.1 H AST 23 ALT 6 Alkaline Phosphatase 56 Troponin I High Sens B-Natriuretic Peptide Total Protein 6.0 L Albumin 3.0 L Urine Color Urine Appearance Urine pH Ur Specific [place] Urine Protein Urine Glucose (UA) Urine Ketones Urine Blood Urine Nitrite Ur Leukocyte Esterase 09/01/22 09/01/22 09/01/22 13:12 13:12 13:12 MCV MCH MCHC RDW Plt Count MPV Immature Gran % (Auto) Neut % (Auto) Lymph % (Auto) [place] % (Auto) Eos % (Auto) Baso % (Auto) Lymph # (Auto) [place] # (Auto) Eos # (Auto) Baso # (Auto) Abs Immat Gran (auto) Absolute Neuts (auto) Absolute Nucleated RBC Nucleated RBC % (auto) PT INR APTT aPTT Heparin Protocol Anion Gap Estim Creat Clear Calc Estimated GFR POC Glucose Random Glucose Lactic Acid 2.1 H* Lactic Acid F/U @ 2Hr Calcium Total Bilirubin AST ALT Alkaline Phosphatase Troponin I High Sens 85.5 H* D B-Natriuretic Peptide 78 Total Protein Albumin Urine Color Urine Appearance Urine pH Ur Specific [place] Urine Protein Urine Glucose (UA) Urine Ketones Urine Blood Urine Nitrite Ur Leukocyte Esterase 09/01/22 09/01/22 09/01/22 17:13 17:13 17:13 MCV 91.0 MCH 29.3 MCHC 32.2 RDW 15.9 Plt Count 83 L MPV 11.3 Immature Gran % (Auto) Neut % (Auto) Lymph % (Auto) [place] % (Auto) Eos % (Auto) Baso % (Auto) Lymph # (Auto) [place] # (Auto) Eos # (Auto) Baso # (Auto) Abs Immat Gran (auto) Absolute Neuts (auto) Absolute Nucleated RBC 0.000 Nucleated RBC % (auto) 0.0 PT INR APTT aPTT Heparin Protocol Anion Gap Estim Creat Clear Calc Estimated GFR POC Glucose Random Glucose Lactic Acid Lactic Acid F/U @ 2Hr 1.1 Calcium Total Bilirubin AST ALT Alkaline Phosphatase Troponin I High Sens 99.4 H* B-Natriuretic Peptide Total Protein Albumin Urine Color Urine Appearance Urine pH Ur Specific [place] Urine Protein Urine Glucose (UA) Urine Ketones Urine Blood Urine Nitrite Ur Leukocyte Esterase 09/01/22 09/01/22 09/01/22 17:13 17:55 20:04 MCV MCH MCHC RDW Plt Count MPV Immature Gran % (Auto) Neut % (Auto) Lymph % (Auto) [place] % (Auto) Eos % (Auto) Baso % (Auto) Lymph # (Auto) [place] # (Auto) Eos # (Auto) Baso # (Auto) Abs Immat Gran (auto) Absolute Neuts (auto) Absolute Nucleated RBC Nucleated RBC % (auto) PT 19.8 H INR 1.7 H APTT aPTT Heparin Protocol 38.6 L Anion Gap Estim Creat Clear Calc Estimated GFR POC Glucose 134 H Random Glucose Lactic Acid Lactic Acid F/U @ 2Hr Calcium Total Bilirubin AST ALT Alkaline Phosphatase Troponin I High Sens B-Natriuretic Peptide Total Protein Albumin Urine Color Dark Yellow Urine Appearance Cloudy Urine pH 5.5 Ur Specific [place] 1.015 Urine Protein Trace Urine Glucose (UA) Negative Urine Ketones Negative Urine Blood Negative Urine Nitrite Negative Ur Leukocyte Esterase Negative 09/02/22 09/02/22 09/02/22 06:01 06:01 06:01 MCV 91.8 MCH 28.9 MCHC 31.5 RDW 15.9 Plt Count 78 L MPV 10.7 Immature Gran % (Auto) Neut % (Auto) Lymph % (Auto) [place] % (Auto) Eos % (Auto) Baso % (Auto) Lymph # (Auto) [place] # (Auto) Eos # (Auto) Baso # (Auto) Abs Immat Gran (auto) Absolute Neuts (auto) Absolute Nucleated RBC 0.000 Nucleated RBC % (auto) 0.0 PT 19.2 H INR 1.6 H APTT aPTT Heparin Protocol Anion Gap 13 Estim Creat Clear Calc 31.1 Estimated GFR 29 POC Glucose Random Glucose 99 Lactic Acid Lactic Acid F/U @ 2Hr Calcium 8.3 L D Total Bilirubin 1.3 H AST 25 ALT 8 Alkaline Phosphatase 46 Troponin I High Sens B-Natriuretic Peptide Total Protein 4.8 L Albumin 2.5 L Urine Color Urine Appearance Urine pH Ur Specific [place] Urine Protein Urine Glucose (UA) Urine Ketones Urine Blood Urine Nitrite Ur Leukocyte Esterase 09/02/22 09/02/22 09/02/22 07:10 08:33 09:39 MCV MCH MCHC RDW Plt Count MPV Immature Gran % (Auto) Neut % (Auto) Lymph % (Auto) [place] % (Auto) Eos % (Auto) Baso % (Auto) Lymph # (Auto) [place] # (Auto) Eos # (Auto) Baso # (Auto) Abs Immat Gran (auto) Absolute Neuts (auto) Absolute Nucleated RBC Nucleated RBC % (auto) PT INR APTT aPTT Heparin Protocol 62.7 D Anion Gap Estim Creat Clear Calc Estimated GFR POC Glucose 96 Random Glucose Lactic Acid Lactic Acid F/U @ 2Hr Calcium Total Bilirubin AST ALT Alkaline Phosphatase Troponin I High Sens 131.1 H* B-Natriuretic Peptide Total Protein Albumin Urine Color Urine Appearance Urine pH Ur Specific [place] Urine Protein Urine Glucose (UA) Urine Ketones Urine Blood Urine Nitrite Ur Leukocyte Esterase Assessment and Plan (1) Elevated troponin: Status: Acute (2) Sepsis: Status: Acute (3) Acidosis, lactic: Status: Acute (4) Acute hypokalemia: Status: Acute (5) Chest pain: Status: Acute Plan 81-year-old female with past medical history of hypertension, diabetes, CKD who comes into the hospital with complaints of chest pain # chest pain - cardiac in nature - troponin elevated - given full dose of lovenox. started on heparin - nonspecific ST T-wave changes on EKG - cardiology consulted - echocardiogram - cont asa, will add metoprolol # sepsis - source likely PNA , aspiration likely - chest xray showing new markings - Found to have dsyphagia on speech eval - diet modified - continue abx- switched to Unasyn day1 - dc vanco - follow cultures # pneumonia? - chest x-ray showing new markings with differentials including infection - aspiration likely - cover for aspiration pna - follow cultures - monitor resp status # lactic acidosis - resolved #Hypokalemia - repleted # CKD stage 4 - creatinine at baseline - follow BMP # Diabetes - hold oral antihyperglycemics - add low-dose sliding scale insulin - diabetic diet DVT prophylaxis: Lovenox Given patient's need for IV antibiotics as well as evaluation of NSTEMI patient will require minimum 2 nights inpatient hospital stay for further management and monitoring Time Spent With Patient Time: Total time managing care of this patient today ____ minutes. Quality Stroke Does the patient have a stroke diagnosis?: No VTE Prior VTE?: No VTE Risk Level:: Medical - moderate - high VTE Device Contraindication: Treatment Not Indicated VTE Drug Contraindication: N/A - Med Ordered
--- NOTE | 2022-09-02 11:12 | P.CONCA_ITS ---
History of Present Illness History of Present Illness Date of Service: 09/02/22 Chief complaint: Sepsis, NSTEMI Narrative: This is a cardiology consultation regarding elevated troponins. Patient has many comorbidities including COPD, diabetes, hypertension, chronic respiratory failure, legally blind, CKD. Per H and P, patient came mainly for chest pain and confusion. I discussed with using lang interpreter. At this time, her main complaint is that her body is swollen up in her hands and legs. When I questioned her specifically about chest pain, she is denying. However, H&P states that she had some chest pain radiating to left arm. Per H and P, also had diarrhea. After admission, troponins were checked and they were found to be slightly elevated. She is treated for diagnosis of sepsis/NSTEMI. She denies any prior cardiac history. Review of Systems Review of Systems: Yes all other systems are reviewed and are negative Constitutional: Constitutional: Reports as per HPI and Reports no additional constitutional complaints Eyes: Eyes: Reports as per HPI and Denies no additional eye complaints ENT: Denies system reviewed and no additional complaints, except as documented and Reports as per HPI Cardiovascular: Cardiovascular: Reports as per HPI, Reports no additional cardiovascular complaints, Denies acrocyanosis, Denies cool extremities, Reports chest pain, Reports leg edema, Denies lightheadedness, Denies palpitations and Denies dyspnea Respiratory: Respiratory: Reports as per HPI, Denies no additional respiratory complaints and Denies dyspnea Gastrointestinal: Gastrointestinal: Reports as per HPI and Denies no additional gastrointestinal complaints Genitourinary: Genitourinary: Reports as per HPI Musculoskeletal: Musculoskeletal: Reports no additional musculoskeletal complaints and Reports as per HPI Integumentary/Breasts: Skin/Breast: Reports system reviewed and no additional complaints, except as docu Neurologic: Reports system reviewed and no additional complaints, except as documented and Reports as per HPI Psychiatric: Psychiatric: Reports no additional psychiatric complaints and Reports as per HPI Endocrine: Endocrine: Reports no additional endocrine complaints, Reports as per HPI and Denies palpitations Hematologic/Lymphatic: Hematologic/Lymphatic: Reports no additional hematologic/lymphatic complaints and Reports as per HPI Allergic/Immunologic: Allergic/Immunologic: Reports no additional allergic/immunologic complaints and Reports as per HPI [facility] Past Medical History Medical History Arthritis of both knees Bilateral primary osteoarthritis of knee Chronic hypercapnic respiratory failure Chronic kidney disease COPD (chronic obstructive pulmonary disease) Diabetes Gout Iron deficiency Osteoarthritis of left knee Family History Family History Other Arthritis Surgical History Surgical History Hx of tubal ligation Social History Social History Household Members: None Housing: Apartment 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 Glucose (Glucose Gel 15 Gm Gel..Gram.) 15 gm PO Q15M PRN; Protocol PRN Reason: per Hypoglycemia Standing Ord. Heparin Sodium (Porcine) (Heparin Sodium,Porcine 5,000 Unit/Ml Vial) 4,400 unit 40 unit/kg (4400 unit) IVPUSH PROTOCOL BOLUS PRN; Protocol PRN Reason: 40 unit/kg - Heparin Protocol Heparin Sodium (Porcine) (Heparin Sodium,Porcine 5,000 Unit/Ml Vial) 8,800 unit 80 unit/kg (8800 unit) IVPUSH PROTOCOL BOLUS PRN; Protocol PRN Reason: 80 unit/kg - Heparin Protocol Lactated Ringer's (Lr) 1,000 mls @ 100 mls/hr IVCONT .Q10H [facility] Last Infusion: 09/02/22 09:37 Dose: 0 mls/hr Ceftriaxone Sodium 1 gm/ (Sodium Chloride) 50 mls @ 100 mls/hr IV Q24H MARINO Heparin Sodium/Sodium Chloride (Heparin Sodium,Porcine/1/2ns) 25,000 unit in 250 mls @ 0 mls/hr IVCONT .Q0M [facility]; Protocol Last Titration: 09/02/22 10:03 Dose: 14 units/kg/hr, 15.39 mls/hr Vancomycin HCl 1,000 mg/ (Sodium Chloride) 270 mls @ 270 mls/hr IV Q24H [facility] Insulin Human Lispro (Insulin Lispro 100 Unit/Ml 3 Ml Vial) 0 unit SUBCUT QIDACHS [facility]; Protocol Last Admin: 09/02/22 08:38 Dose: Not Given Metoprolol Tartrate (Metoprolol Tartrate 12.5 Mg Halftab) 12.5 mg PO BID [facility]; Protocol Ondansetron HCl (Ondansetron Hcl 4 Mg/2 Ml Vial) 4 mg IVPUSH Q8H PRN PRN Reason: Nausea and Vomiting Pharmacy Consult (Consult Rx Vancomycin Dosing) 1 each MISCELLANE DAILY PRN PRN Reason: Consult order Potassium Chloride (Potassium Chloride Packet 20 Meq Packet) 40 meq PO Q4H [facility] Stop: 09/02/22 11:46 Last Admin: 09/02/22 08:41 Dose: 40 meq Sodium Chloride (0.9 % Sodium Chloride Flush 3 Ml Syringe) 3 ml IVFLUSH QSHIFT [facility] Last Admin: 09/02/22 08:38 Dose: Not Given Home Medications Medication Instructions Recorded Confirmed Last Taken Type atorvastatin 20 mg tablet 20 mg PO BEDTIME 11/12/20 09/01/2223 History furosemide 80 mg tablet (Lasix) 80 mg PO BID 11/12/20 09/01/22 08/31/22 History metoprolol tartrate 50 mg tablet 50 mg PO BID 11/12/20 09/01/22 08/31/22 History (Lopressor) pregabalin 100 mg capsule (Lyrica) 100 mg PO TID 11/12/20 09/01/22 08/31/22 History acetaminophen 500 mg tablet 500 mg PO Q12H PRN Pain 11/23/21 09/01/22 Unknown History cholecalciferol (vitamin D3) 25 25 mcg PO DAILY 11/23/21 09/01/22 08/31/22 History mcg (1,000 unit) capsule (Vitamin D3) docusate sodium 100 mg capsule 100 mg PO BID 11/23/21 09/01/22 08/31/22 History ferrous sulfate 324 mg (65 mg 324 mg PO DAILY 11/23/21 09/01/22 08/31/22 History iron) tablet,delayed release oxycodone-acetaminophen 10 mg-325 1 tab PO Q12H PRN Pain 11/23/21 09/01/22 Unknown History mg tablet montelukast 10 mg tablet 10 mg PO BEDTIME 09/01/22 09/01/22 08/31/22 History potassium chloride 20 mEq 20 meq PO BID 09/01/22 09/01/22 08/31/22 History tablet,extended release(part/cryst) (Klor-Con M) prednisone 5 mg tablet 5 mg PO DAILY 09/01/22 09/01/22 08/31/22 History Physical Exam Vital Signs: Vital Signs: Last Vital Signs Temp 97.6 F 09/02/22 07:12 Pulse 98 09/02/22 07:12 Resp 18 09/02/22 07:12 BP 119/62 09/02/22 07:12 Pulse Ox 99 09/02/22 07:12 O2 Del Method Nasal Cannula 09/02/22 07:12 O2 Flow Rate 3 09/02/22 07:12 Oxygen Flow Rate 3 09/01/22 12:31 BMI result Body Mass Index 40.3 Const: General: comfortable and no acute distress Orientation/consciousness: patient oriented x3 HEENT: Other: Unremarkable Head: Yes normal to inspection Neck: Neck: Yes normal visual inspection Chest: Chest palpation & inspection: normal inspection of the chest Resp: Auscultation: clear to auscultation bilaterally Cardio: Palpation: normal PMI Heart sounds: S1 normal heart sound present, S2 normal heart sound present, no gallops, no murmurs and no rubs GI: Palpation (GI): Soft to palpation Back/Spine/Pelvis: Other: unremarkable Skin: General skin exam: no rashes or lesions noted Neuro: General: patient oriented x3 Extrem: General: Yes normal to inspection Psych: Mental Status: mental status grossly normal Objective Labs and Meds 09/02/22 06:01 09/02/22 06:01 Lab results: Laboratory Results - last 24 hr 09/01/22 09/01/22 09/01/22 13:12 13:12 13:12 WBC 11.3 H RBC 5.36 Hgb 15.7 Hct 48.9 H MCV 91.2 MCH 29.3 MCHC 32.1 RDW 16.1 H Plt Count 94 L MPV 11.0 Immature Gran % (Auto) 0.4 Neut % (Auto) 86.9 H Lymph % (Auto) 6.[address] [facility] % (Auto) 5.9 Eos % (Auto) 0.3 Baso % (Auto) 0.3 Lymph # (Auto) 0.[address] [facility] # (Auto) 0.7 Eos # (Auto) 0.0 Baso # (Auto) 0.0 Abs Immat Gran (auto) 0.04 H Absolute Neuts (auto) 9.8 H Absolute Nucleated RBC 0.000 Nucleated RBC % (auto) 0.0 PT 17.4 H INR 1.5 H APTT 31.6 aPTT Heparin Protocol Sodium 140 Potassium 2.7 L Chloride 96 Carbon Dioxide 33 H Anion Gap 14 BUN 47 H Creatinine 2.30 H Estim Creat Clear Calc 22.9 Estimated GFR 20 POC Glucose Random Glucose 176 H Lactic Acid Lactic Acid F/U @ 2Hr Calcium 9.6 Total Bilirubin 2.1 H AST 23 ALT 6 Alkaline Phosphatase 56 Troponin I High Sens B-Natriuretic Peptide Total Protein 6.0 L Albumin 3.0 L Urine Color Urine Appearance Urine pH Ur Specific Jerome Urine Protein Urine Glucose (UA) Urine Ketones Urine Blood Urine Nitrite Ur Leukocyte Esterase 09/01/22 09/01/22 09/01/22 13:12 13:12 13:12 WBC RBC Hgb Hct MCV MCH MCHC RDW Plt Count MPV Immature Gran % (Auto) Neut % (Auto) Lymph % (Auto) [facility] % (Auto) Eos % (Auto) Baso % (Auto) Lymph # (Auto) [facility] # (Auto) Eos # (Auto) Baso # (Auto) Abs Immat Gran (auto) Absolute Neuts (auto) Absolute Nucleated RBC Nucleated RBC % (auto) PT INR APTT aPTT Heparin Protocol Sodium Potassium Chloride Carbon Dioxide Anion Gap BUN Creatinine Estim Creat Clear Calc Estimated GFR POC Glucose Random Glucose Lactic Acid 2.1 H* Lactic Acid F/U @ 2Hr Calcium Total Bilirubin AST ALT Alkaline Phosphatase Troponin I High Sens 85.5 H* D B-Natriuretic Peptide 78 Total Protein Albumin Urine Color Urine Appearance Urine pH Ur Specific Jerome Urine Protein Urine Glucose (UA) Urine Ketones Urine Blood Urine Nitrite Ur Leukocyte Esterase 09/01/22 09/01/22 09/01/22 17:13 17:13 17:13 WBC 12.0 H RBC 4.78 Hgb 14.0 Hct 43.5 MCV 91.0 MCH 29.3 MCHC 32.2 RDW 15.9 Plt Count 83 L MPV 11.3 Immature Gran % (Auto) Neut % (Auto) Lymph % (Auto) [facility] % (Auto) Eos % (Auto) Baso % (Auto) Lymph # (Auto) [facility] # (Auto) Eos # (Auto) Baso # (Auto) Abs Immat Gran (auto) Absolute Neuts (auto) Absolute Nucleated RBC 0.000 Nucleated RBC % (auto) 0.0 PT INR APTT aPTT Heparin Protocol Sodium Potassium Chloride Carbon Dioxide Anion Gap BUN Creatinine Estim Creat Clear Calc Estimated GFR POC Glucose Random Glucose Lactic Acid Lactic Acid F/U @ 2Hr 1.1 Calcium Total Bilirubin AST ALT Alkaline Phosphatase Troponin I High Sens 99.4 H* B-Natriuretic Peptide Total Protein Albumin Urine Color Urine Appearance Urine pH Ur Specific Jerome Urine Protein Urine Glucose (UA) Urine Ketones Urine Blood Urine Nitrite Ur Leukocyte Esterase 09/01/22 09/01/22 09/01/22 17:13 17:55 20:04 WBC RBC Hgb Hct MCV MCH MCHC RDW Plt Count MPV Immature Gran % (Auto) Neut % (Auto) Lymph % (Auto) [facility] % (Auto) Eos % (Auto) Baso % (Auto) Lymph # (Auto) [facility] # (Auto) Eos # (Auto) Baso # (Auto) Abs Immat Gran (auto) Absolute Neuts (auto) Absolute Nucleated RBC Nucleated RBC % (auto) PT 19.8 H INR 1.7 H APTT aPTT Heparin Protocol 38.6 L Sodium Potassium Chloride Carbon Dioxide Anion Gap BUN Creatinine Estim Creat Clear Calc Estimated GFR POC Glucose 134 H Random Glucose Lactic Acid Lactic Acid F/U @ 2Hr Calcium Total Bilirubin AST ALT Alkaline Phosphatase Troponin I High Sens B-Natriuretic Peptide Total Protein Albumin Urine Color Dark Yellow Urine Appearance Cloudy Urine pH 5.5 Ur Specific Jerome 1.015 Urine Protein Trace Urine Glucose (UA) Negative Urine Ketones Negative Urine Blood Negative Urine Nitrite Negative Ur Leukocyte Esterase Negative 09/02/22 09/02/22 09/02/22 06:01 06:01 06:01 WBC 8.0 RBC 4.64 Hgb 13.4 Hct 42.6 MCV 91.8 MCH 28.9 MCHC 31.5 RDW 15.9 Plt Count 78 L MPV 10.7 Immature Gran % (Auto) Neut % (Auto) Lymph % (Auto) [facility] % (Auto) Eos % (Auto) Baso % (Auto) Lymph # (Auto) [facility] # (Auto) Eos # (Auto) Baso # (Auto) Abs Immat Gran (auto) Absolute Neuts (auto) Absolute Nucleated RBC 0.000 Nucleated RBC % (auto) 0.0 PT 19.2 H INR 1.6 H APTT aPTT Heparin Protocol Sodium 144 Potassium 3.2 L Chloride 107 Carbon Dioxide 27 Anion Gap 13 BUN 44 H Creatinine 1.69 H Estim Creat Clear Calc 31.1 Estimated GFR 29 POC Glucose Random Glucose 99 Lactic Acid Lactic Acid F/U @ 2Hr Calcium 8.3 L D Total Bilirubin 1.3 H AST 25 ALT 8 Alkaline Phosphatase 46 Troponin I High Sens B-Natriuretic Peptide Total Protein 4.8 L Albumin 2.5 L Urine Color Urine Appearance Urine pH Ur Specific Jerome Urine Protein Urine Glucose (UA) Urine Ketones Urine Blood Urine Nitrite Ur Leukocyte Esterase 09/02/22 09/02/22 09/02/22 07:10 08:33 09:39 WBC RBC Hgb Hct MCV MCH MCHC RDW Plt Count MPV Immature Gran % (Auto) Neut % (Auto) Lymph % (Auto) [facility] % (Auto) Eos % (Auto) Baso % (Auto) Lymph # (Auto) [facility] # (Auto) Eos # (Auto) Baso # (Auto) Abs Immat Gran (auto) Absolute Neuts (auto) Absolute Nucleated RBC Nucleated RBC % (auto) PT INR APTT aPTT Heparin Protocol 62.7 D Sodium Potassium Chloride Carbon Dioxide Anion Gap BUN Creatinine Estim Creat Clear Calc Estimated GFR POC Glucose 96 Random Glucose Lactic Acid Lactic Acid F/U @ 2Hr Calcium Total Bilirubin AST ALT Alkaline Phosphatase Troponin I High Sens 131.1 H* B-Natriuretic Peptide Total Protein Albumin Urine Color Urine Appearance Urine pH Ur Specific Jerome Urine Protein Urine Glucose (UA) Urine Ketones Urine Blood Urine Nitrite Ur Leukocyte Esterase ECG Interpretation: EKG shows sinus tachycardia at 01:12/Min; cannot exclude old anterolateral infarct but could be from body habitus. Leftward axis. In the EKG prior to that, complexes seem to have a higher amplitude in the anterolateral leads. Imaging Radiologist's impression: Impressions Chest X-Ray 09/01/22 12:46 IMPRESSION: New or increased elevation of the right hemidiaphragm. Coarse lung markings similar to previous exams. Differential would include airways disease, interstitial pulmonary edema and interstitial lung disease. Clinical correlation recommended. Assessment and Plan (1) NSTEMI (non-ST elevated myocardial infarction): Status: Acute Plan Echocardiogram with LVEF of 66%. No clear wall motion abnormalities. No significant valvular issues. High sensitivity troponins are 85 followed by 99 and 131. Overall, suspected demand related NSTEMI. Less likely primary event. Considering her age, frailty, comorbidities, renal function, recommend conservative care only. Especially as she does not have any clear chest pain at this time. IV heparin 48 hours; aspirin, beta-blockers and statins. Time Spent With Patient Time: Total time managing care of this patient today ____ minutes. Procedures Date of Service Date of Service: 09/02/22
[2022-09-02 11:37] LABS: Glucose, Whole Blood 117 mg/dL (60-115)
[2022-09-02] MEDS: Metoprolol Tartrate 12.5 MG HALFTAB PO (12:35)
[2022-09-02] MEDS: Ampicillin Sodium/Sulbactam Na 3 GM in 0.9 % Sodium Chloride 100 ML IV (13:16)
--- NOTE | 2022-09-02 15:00 | PC.NURSE ---
on assessment, pt has L arm swollen, cool to touch. MD notified. ultrasound of left arm was negative for clot. IV fluid then paused. pt is hard stick to get an IV. MD aware and ok to hold on to the fluid.
[2022-09-02] MEDS: Acetaminophen 325 MG TABLET 650 MG PO (15:46)
[2022-09-02 16:20] LABS: Glucose, Whole Blood 93 mg/dL (60-115)
[2022-09-02 16:58] LABS: PTT Heparin Drip 44.9 SEC (53-77.9)
[2022-09-02] MEDS: Heparin Sodium,Porcine 5,000 UNIT/ML VIAL 4400 UNIT IVPUSH (17:46)
[2022-09-02] MEDS: traMADoL HCL 50 MG TABLET PO (18:10)
[2022-09-02 19:34] LABS: Glucose, Whole Blood 119 mg/dL (60-115)
[2022-09-02] MEDS: 0.9 % Sodium Chloride 1,000 ML 999 ML IV (19:52)
[2022-09-02] MEDS: Heparin Sodium,Porcine/1/2NS 25,000 UNIT/250 ML IV.SOLN 17.58 UNIT IVCONT (22:29)
[2022-09-03] VITALS (9 sets, daily range): BP systolic 100–176; BP diastolic 58–112; PULSE 94–143; RESP 14–26; TEMP 36.2–36.9; O2SAT 94–98
--- NOTE | 2022-09-03 | ECG_ITS ---
Test Reason : tachycardia Blood Pressure : / mmHG Vent. Rate : 144 BPM Atrial Rate : 144 BPM P-R Int : 142 ms QRS Dur : 102 ms QT Int : 254 ms P-R-T Axes : 054 -47 124 degrees QTc Int : 393 ms Sinus tachycardia Left axis deviation Anterior infarct (cited on or before 02-SEP-2022) T wave abnormality, consider lateral ischemia Abnormal ECG When compared with ECG of 02-SEP-2022 01:01, Premature ventricular complexes are no longer Present Questionable change in initial forces of Anteroseptal leads Referred By: Vimal Mason Electronically Signed By:BATSHEVA SWEET
[2022-09-03 00:10] LABS: PTT Heparin Drip 87.6 SEC (53-77.9)
[2022-09-03] MEDS: Ampicillin Sodium/Sulbactam Na 3 GM in 0.9 % Sodium Chloride 100 ML IV ×2 (03:40→13:04)
[2022-09-03 07:21] LABS: Creatinine Clr Calc Pharmacy 37.2; Estimated Glomerular Filt Rate 36
--- NOTE | 2022-09-03 07:38 | PC.NURSE ---
pt hypotensive at start of shift to low 80's. she was responsive to trendelenburg. MD Mason aware. NS bolus given with + effect. Pt had an episode when almost done with bolus with feeling hot she was very anxious and bp at that time 170's then back down to 140's approx 10 minutes later. bp's remainder of the night low 100-110's. Pt stated the airy feeling was gone from her head.
[2022-09-03 07:47] LABS: Glucose, Whole Blood 105 mg/dL (60-115)
[2022-09-03 08:37] LABS: PTT Heparin Drip 82.5 SEC (53-77.9)
[2022-09-03] MEDS: Metoprolol Tartrate 12.5 MG HALFTAB PO ×2 (08:51→20:47)
[2022-09-03] MEDS: Aspirin Enteric Coated 81 MG TABLET.DR PO (08:51)
[2022-09-03 11:40] LABS: Glucose, Whole Blood 106 mg/dL (60-115)
--- NOTE | 2022-09-03 13:36 | HO.PM.IMPN ---
Subjective Subjective Date of Service: 09/03/22 Interval History: Seen and evaluated this morning Feels comfortable , on 2L O2 No chest pain No other overnight events Review of Systems Review of Systems: Yes all other systems are reviewed and are negative Physical Exam Vital Signs: Vital Signs: Last Vital Signs Temp 97.5 F 09/03/22 11:17 Pulse 97 09/03/22 11:17 Resp 18 09/03/22 11:17 BP 122/66 09/03/22 11:17 Pulse Ox 98 09/03/22 11:17 O2 Del Method Nasal Cannula 09/03/22 11:17 O2 Flow Rate 3 09/03/22 11:17 Oxygen Flow Rate 3 09/01/22 12:31 BMI result Body Mass Index 40.3 Const: Other: Constitutional : Awake, interactive, not in distress Neck : Normal inspection, Supple Cardiovascular : RRR, no JVP, no lower extremity edema Respiratory : fair bilateral air entry, rt basal fine crackles, wheezes or rhonchi, on 2L O2 Gastrointestinal: soft, lax, Normal bowel sounds, Non tender Skin : Warm, Dry Neurological : Alert & oriented to self and place , No focal deficit Objective Data Active Medications Acetaminophen (Acetaminophen 325 Mg Tablet) 650 mg PO Q6H PRN PRN Reason: Pain, Mild (Pain Scale 1-3) Last Admin: 09/02/22 15:46 Dose: 650 mg Documented By: EDNA Aspirin (Aspirin Enteric Coated 81 Mg Tablet.) 81 mg PO DAILY MARINO Last Admin: 09/03/22 08:51 Dose: 81 mg Documented By: EDNA Dextrose (Dextrose 50 % 25 Gm/50 Ml Syringe) 25 gm IVPUSH Q15M PRN; Protocol PRN Reason: per Hypoglycemia Standing Ord. Glucose (Glucose Gel 15 Gm Gel..Gram.) 15 gm PO Q15M PRN; Protocol PRN Reason: per Hypoglycemia Standing Ord. Heparin Sodium (Porcine) (Heparin Sodium,Porcine 5,000 Unit/Ml Vial) 4,400 unit 40 unit/kg (4400 unit) IVPUSH PROTOCOL BOLUS PRN; Protocol PRN Reason: 40 unit/kg - Heparin Protocol Stop: 09/04/22 03:29 Last Admin: 09/02/22 17:46 Dose: 4,400 unit Documented By: EDNA Heparin Sodium (Porcine) (Heparin Sodium,Porcine 5,000 Unit/Ml Vial) 8,800 unit 80 unit/kg (8800 unit) IVPUSH PROTOCOL BOLUS PRN; Protocol PRN Reason: 80 unit/kg - Heparin Protocol Stop: 09/04/22 03:29 Heparin Sodium/Sodium Chloride (Heparin Sodium,Porcine/1/2ns) 25,000 unit in 250 mls @ 0 mls/hr IVCONT .Q0M [facility]; Protocol Stop: 09/04/22 03:29 Last Titration: 09/03/22 08:45 Dose: 12 units/kg/hr, 13.19 mls/hr Documented By: EDNA Co-signed By: CAESAR Ampicillin Sodium/Sulbactam (Sodium 3 gm/ Sodium Chloride) 100 mls @ 200 mls/hr IV Q12H [facility] Last Admin: 09/03/22 13:04 Dose: 200 mls/hr Documented By: EDNA Insulin Human Lispro (Insulin Lispro 100 Unit/Ml 3 Ml Vial) 0 unit SUBCUT QIDACHS [facility]; Protocol Last Admin: 09/03/22 11:58 Dose: Not Given Documented By: EDNA Non-Admin Reason: No Insulin Coverage Metoprolol Tartrate (Metoprolol Tartrate 12.5 Mg Halftab) 12.5 mg PO BID [facility]; Protocol Last Admin: 09/03/22 08:51 Dose: 12.5 mg Documented By: EDNA Ondansetron HCl (Ondansetron Hcl 4 Mg/2 Ml Vial) 4 mg IVPUSH Q8H PRN PRN Reason: Nausea and Vomiting Sodium Chloride (0.9 % Sodium Chloride Flush 3 Ml Syringe) 3 ml IVFLUSH QSHIFT [facility] Last Admin: 09/03/22 08:37 Dose: Not Given Documented By: EDNA Non-Admin Reason: IV Running Labs 09/02/22 06:01 09/03/22 07:01 Labs: Laboratory Results - last 24 hr 09/02/22 09/02/22 09/02/22 11:40 16:10 16:32 aPTT Heparin Protocol Cancelled 44.9 L D Estim Creat Clear Calc Estimated GFR POC Glucose 93 09/02/22 09/02/22 09/03/22 19:22 23:43 07:01 aPTT Heparin Protocol 87.6 H D Estim Creat Clear Calc 37.2 Estimated GFR 36 POC Glucose 119 H 09/03/22 09/03/22 09/03/22 07:01 07:16 11:19 aPTT Heparin Protocol 82.5 H Estim Creat Clear Calc Estimated GFR POC Glucose 105 106 Microbiology Microbiology Results: Microbiology 09/01/22 13:33 Blood Culture - Preliminary Blood - Venous No growth after 24 hours. 09/01/22 13:12 Blood Culture - Preliminary Blood - Venous No growth after 24 hours. Assessment and Plan (1) NSTEMI (non-ST elevated myocardial infarction): Status: Acute (2) Sepsis: Status: Acute (3) Pneumonia: Status: Acute Plan 81-year-old female with past medical history of hypertension, diabetes, CKD who comes into the hospital with complaints of chest pain # NSTEMI demand mediated from Spesis Continue Heparin drip ECHO done Continue ASA, statin and Metoprolol Cards input, no intervention, medical management only # sepsis 2/2 Pneumonia aspiration likely dc vanco continue abx ; switched to Unasyn day2 follow cultures # Swallowing problem modified diet [employer] eval # lactic acidosis resolved #Hypokalemia repleted # CKD stage 4 creatinine at baseline follow BMP # Diabetes hold oral antihyperglycemics add low-dose sliding scale insulin diabetic diet DVT prophylaxis: Lovenox Given patient's need for IV antibiotics as well as evaluation of NSTEMI patient will require overnight inpatient hospital stay for further management and monitoring Time Spent With Patient Time: Total time managing care of this patient today ____ minutes. Quality Stroke Does the patient have a stroke diagnosis?: No VTE Prior VTE?: No VTE Risk Level:: Medical - moderate - high VTE Device Contraindication: Treatment Not Indicated VTE Drug Contraindication: N/A - Med Ordered
[2022-09-03 15:09] LABS: PTT Heparin Drip 56.8 SEC (53-77.9)
[2022-09-03] MEDS: Heparin Sodium,Porcine/1/2NS 25,000 UNIT/250 ML IV.SOLN 13.19 UNIT IVCONT (15:15)
[2022-09-03 16:15] LABS: Glucose, Whole Blood 121 mg/dL (60-115)
[2022-09-03 19:54] LABS: Glucose, Whole Blood 134 mg/dL (60-115)
[2022-09-03] MEDS: Metoprolol Tartrate 5 MG/5 ML VIAL IVPUSH (21:09)
[2022-09-03] MEDS: LORazepam 2 MG/ML VIAL 1 MG IVPUSH (21:10)
[2022-09-03] MEDS: Morphine Sulfate 2 MG/ML CARTRIDGE IVPUSH (21:10)
[2022-09-03 21:28] LABS: PTT Heparin Drip 70.5 SEC (53-77.9)
[2022-09-03 21:35] LABS: Vancomycin Random 8.4 mcg/mL (15-20)
--- NOTE | 2022-09-04 00:38 | PC.NURSE ---
Pt noted to be in SVT (HR low 200s) while being cleaned in bed. Pt was short of breath, anxious, diaphoretic, BP 176/112, HR 200. Dr Mason called - order for EKG, 5mg IV lopressor, 2mg IV morphine, 1mg IV ativan. Results of EKG sent to Dr Mason via [facility]. Pt responded positively to meds administered - HR down in the 130/140s shortly after IV metoprolol administered and pt work of breath improved and resting in bed with her eyes closed. At 0030 the patient's HR is 110-120s, BP 100/69, RR 20, sats 94% on 3L NC.
[2022-09-04] MEDS: Ampicillin Sodium/Sulbactam Na 3 GM in 0.9 % Sodium Chloride 100 ML IV ×2 (01:02→12:08)
[2022-09-04] MEDS: 0.9 % Sodium Chloride Flush 3 ML SYRINGE IVFLUSH (01:03)
[2022-09-04 03:34] VITALS: BP 115/57; PULSE 95; RESP 20; TEMP 36.4; O2SAT 96
[2022-09-04 07:08] LABS: Hematocrit 44.6 % (37.0-47.0); Hemoglobin 13.9 g/dl (12.0-16.0); Mean Corpuscular HGB Conc 31.2 g/dl (31.0-35.0); Mean Corpuscular Volume 92.9 fL (80.0-98.0); Mean Platelet Volume 11.9 fL (9.4-12.3); Platelet Count 122 X10*3/uL (160-400); Red Cell Distribution Width 16.2 % (11.0-16.0); White Blood Count 8.1 X10*3/uL (4.8-10.8)
[2022-09-04 07:16] LABS: Glucose, Whole Blood 117 mg/dL (60-115)
[2022-09-04 07:24] VITALS: BP 122/73; PULSE 99; RESP 16; TEMP 36.6; O2SAT 100
[2022-09-04 08:37] LABS: Anion Gap 13 (12-20); Blood Urea Nitrogen 28 mg/dL (9-16); Calcium 9.3 mg/dL (8.4-10.2); Carbon Dioxide 27 mmol/L (22-29); Chloride 107 mmol/L (96-108); Creatinine Clr Calc Pharmacy 34.3; Estimated Glomerular Filt Rate 32; Glucose Random 120 mg/dL (60-115); Potassium 3.7 mmol/L (3.3-5.1); Sodium 143 mmol/L (135-145)
[2022-09-04] MEDS: Aspirin Enteric Coated 81 MG TABLET.DR PO (09:00)
[2022-09-04] MEDS: Metoprolol Tartrate 12.5 MG HALFTAB PO (09:01)
[2022-09-04 11:40] LABS: Glucose, Whole Blood 117 mg/dL (60-115)
--- NOTE | 2022-09-04 11:53 | P.DS_ITS ---
DS: Providers Provider Date of Service: 09/04/22 Date of admission: 09/01/22 16:15 Primary care physician: Cecilia Hitchcock MD Consults: 09/01/22 15:15 Consult to Cardiology Routine Consulting Provider: [facility] [place] Cardiovascular Services Reason for consultation: NSTEMI Has provider been notified: No DS: Diagnosis Discharge Diagnosis (1) NSTEMI (non-ST elevated myocardial infarction): Status: Acute (2) Sepsis: Status: Acute (3) Pneumonia: Status: Acute (4) Chest pain: Status: Acute (5) Acute hypokalemia: Status: Acute (6) Swallowing problem: Status: Acute DS: Summary Hospital Course Hospital Course: Admission note HPI ?this is an 81-year-old female with past medical history of COPD, diabetes, hypertension, chronic hypercapnic respiratory failure, legally blind, history of CKD stage4? presents the hospital with complaints of chest pain as well as confusion.? History is obtained with the help of an house servant and her son as well as her best friend at bedside.? Patient is oriented to self, not to place or time.? It is alert awake, answers questions but the coulee, making no sense, talking about things that are not relevant.? Her son states that he noted her confusion to be increasing over the past 1 weak.? But today she started complaining of midsternal chest pain that is radiating to the left arm.? Patient herself unable to give me much history regarding this pain.? He also noted that she has had black diarrhea for the past several days.? Patient herself denies any fever, no chills, no shortness of breath, no abdominal pain nausea or vomiting, denies any urinary symptoms and no lower extremity edema.? Her son reports that she has had decreased p.o. intake? and therefore her urine output has decreased. On arrival to the ED patient was found to be febrile with a temp of 101.8 degrees, heart rate of 132, satting 94% on 3 L of oxygen Labs are significant for WBC count of 11.3, lactic acid of 2.1, potassium of 2.7, creatinine of 2.3 which is around her baseline, troponin of 85.5, BNP of 78 Chest x-ray showing new or increased elevation of the right hemidiaphragm, coarse lung markings similar to previous exam, differentials include airway disease, interstitial pulmonary edema and/or interstitial lung disease.? Patient started on Lovenox full dose, as well as antibiotics and will be admitted for further management Hospital course The patient was treated for presumed NSTEMI which was believed to be demand mediated from Spesis. finished 48 hours of Heparin drip along with Aspirin and Atorvastatin. Echo done showing EF66% with no WMA. Seeb by Peer Support Specialist who recommended no intervention, medical management only given her age and frailty. She was mainly admitted for treatment of sepsis from Pneumonia which is aspiration likely. Treated with IV Unasyn as blood cultures came back negative, sepsis resolved and she was weaned down on her O2 supplement to her home baseline of 2L. Evaluated for Swallowing problem. Speech therapist recommended a modified diet of pureed with thin liquids. To be followed at home by [facility]. She developed urine retention early on admission. Samaniego was placed. Removed prior to discharge and patient was able to pass urine afterward. Aspirin as prescribed Increase Atorvastatin as prescribed Continue Metoprolol Continue Antibiotic for 1 more week To follow with cardiology as outpatient. Please call dr Jarvis office for a follow up Time Spent with Patient Time attestation: Total time managing care of this patient today ____ minutes. Discharge coordination time: Greater than 30 minutes Quality: Safe Use of Opioids Does Pt have an Active Cancer Diagnosis on the Problem List?: No Quality: Stroke Does the patient have a stroke diagnosis?: No Physical Exam Vital Signs: Vital Signs: Last Vital Signs Temp 97.8 F 09/04/22 07:24 Pulse 99 09/04/22 07:24 Resp 16 09/04/22 07:24 BP 122/73 09/04/22 07:24 Pulse Ox 100 09/04/22 07:24 O2 Del Method Nasal Cannula 09/04/22 07:24 O2 Flow Rate 3 09/04/22 07:24 Oxygen Flow Rate 3 09/01/22 12:31 BMI result Body Mass Index 40.3 Const: Other: Constitutional : Awake, interactive, not in distress Neck : Normal inspection, Supple Cardiovascular : RRR, no JVP, no lower extremity edema Respiratory : fair bilateral air entry, rt basal fine crackles, wheezes or rhonchi, on 2L O2 Gastrointestinal: soft, lax, Normal bowel sounds, Non tender Skin : Warm, Dry Neurological : Alert & oriented to self and place , No focal deficit DS: Data Data Completed and Pending Labs on day of discharge: Laboratory Results - last 24 hr 09/03/22 09/03/22 09/03/22 14:35 16:08 19:44 WBC RBC Hgb Hct MCV MCH MCHC RDW Plt Count MPV Absolute Nucleated RBC Nucleated RBC % (auto) aPTT Heparin Protocol 56.8 D Sodium Potassium Chloride Carbon Dioxide Anion Gap BUN Creatinine Estim Creat Clear Calc Estimated GFR POC Glucose 121 H 134 H Random Glucose Calcium Random Vancomycin 09/03/22 09/03/22 09/04/22 21:10 21:10 06:14 WBC 8.1 RBC 4.80 Hgb 13.9 Hct 44.6 MCV 92.9 MCH 29.0 MCHC 31.2 RDW 16.2 H Plt Count 122 L D MPV 11.9 Absolute Nucleated RBC 0.000 Nucleated RBC % (auto) 0.0 aPTT Heparin Protocol 70.5 D Sodium Potassium Chloride Carbon Dioxide Anion Gap BUN Creatinine Estim Creat Clear Calc Estimated GFR POC Glucose Random Glucose Calcium Random Vancomycin 8.4 L 09/04/22 09/04/22 09/04/22 06:14 06:14 07:03 WBC RBC Hgb Hct MCV MCH MCHC RDW Plt Count MPV Absolute Nucleated RBC Nucleated RBC % (auto) aPTT Heparin Protocol 67.0 Sodium 143 Potassium 3.7 Chloride 107 Carbon Dioxide 27 Anion Gap 13 BUN 28 H Creatinine 1.53 H Estim Creat Clear Calc 34.3 Estimated GFR 32 POC Glucose 117 H Random Glucose 120 H Calcium 9.3 D Random Vancomycin 09/04/22 11:33 WBC RBC Hgb Hct MCV MCH MCHC RDW Plt Count MPV Absolute Nucleated RBC Nucleated RBC % (auto) aPTT Heparin Protocol Sodium Potassium Chloride Carbon Dioxide Anion Gap BUN Creatinine Estim Creat Clear Calc Estimated GFR POC Glucose 117 H Random Glucose Calcium Random Vancomycin Preliminary micro results at discharge 09/01/22 13:33 Blood Culture - Preliminary Blood - Venous No growth after 48 hours. 09/01/22 13:12 Blood Culture - Preliminary Blood - Venous No growth after 48 hours. Imaging Chest x-ray: Radiologist's impression: ITS Impressions Chest X-Ray 09/01/22 12:46 IMPRESSION: New or increased elevation of the right hemidiaphragm. Coarse lung markings similar to previous exams. Differential would include airways disease, interstitial pulmonary edema and interstitial lung disease. Clinical correlation recommended. Venous Duplex 09/02/22 11:44 IMPRESSION: No DVT demonstrated in the left upper extremity with limitations of technique in the axillary region. Discharge Plan Discharge Anticipated Discharge Date/Time: 09/04/22 11:37 Patient Disposition: Home Health Service Discharge Diagnosis: Pneumonia Heart attack Referrals: Marshla JOEL [Outside] - 1 Week Cecilia Hitchcock MD [Primary Care Provider] - 1 Week Discharge Medications: New aspirin 81 mg Tablet,Delayed Release (Dr/Ec) 81 mg PO DAILY Qty: 90 0RF atorvastatin 40 mg tablet 40 mg PO BEDTIME Qty: 90 0RF amoxicillin-pot clavulanate 400-57 mg/5 mL suspension for reconstitution 10 ml PO BID 7 Days Qty: 140 0RF Continued allopurinol 100 mg tablet 150 mg PO DAILY Qty: 45 1RF prednisone 5 mg tablet 5 mg PO DAILY montelukast 10 mg tablet 10 mg PO BEDTIME potassium chloride [Klor-Con M20] 20 mEq tablet,ER particles/crystals 20 meq PO BID ipratropium-albuterol 0.5 mg-3 mg(2.5 mg base)/3 mL Solution For Nebulization 3 ml inhalation RQ4H PRN (Reason: Wheezing) Qty: 60 0RF glipizide 5 mg Tablet 2.5 mg PO DAILY Qty: 30 0RF furosemide [Lasix] 80 mg tablet 80 mg PO BID metoprolol tartrate [Lopressor] 50 mg tablet 50 mg PO BID pregabalin [Lyrica] 100 mg capsule 100 mg PO TID ferrous sulfate 324 mg (65 mg iron) tablet,delayed release (DR/EC) 324 mg PO DAILY oxycodone-acetaminophen 10-325 mg tablet 1 tab PO Q12H PRN (Reason: Pain) acetaminophen 500 mg tablet 500 mg PO Q12H PRN (Reason: Pain) cholecalciferol (vitamin D3) [Vitamin D3] 25 mcg (1,000 unit) capsule 25 mcg PO DAILY docusate sodium 100 mg capsule 100 mg PO BID Discontinued atorvastatin 20 mg tablet 20 mg PO BEDTIME Discharge Orders: Discharge Order (Routine); Ordered 09/04/22 Ordered By: Primitivo Delarosa Diet: Modifiet diet Activity on Discharge: As tolerated Stand Alone Forms: Patient Portal Discharge page Care Plan Goals: Read below Health Concerns: Read below Plan of Treatment: Read below Assessment: You were admitted for evaluation of chest tightness and breathing difficulties. Found to have an evidence of lung infection treated with IV antibiotics with good response. Your heart enzymes were elevated. Seen by svp group director who recommended treatment as heart attack with blood thinners, Aspirin and cholesterol medications. Had difficulties swallowing. evaluated by swallowing team who recommended modified diet. Aspirin as prescribed Increase Atorvastatin as prescribed Continue Metoprolol Continue Antibiotic for 1 more week To follow with cardiology as outpatient. Please call dr Jarvis office for a follow up Discharge Date/Time: 09/04/22 14:56
[2022-09-04 11:57] VITALS: BP 113/58; PULSE 88; RESP 20; TEMP 36.6; O2SAT 98
[2022-09-04] MEDS: Atorvastatin Calcium 40 MG TABLET PO (12:08)
[2022-09-04] MEDS: Metoprolol Tartrate 25 MG TABLET PO (12:08)
--- NOTE | 2022-09-04 12:35 | MHC.CM.PN ---
Patient has been medically cleared for dc to home today with new VNA. A referral was made to NA, who has been made aware of today's dc. Patient will dc to home today at 2P,, via [facility]. lAST imm ADDRESSED ON 09/02/2022.
--- NOTE | 2022-09-04 14:02 | MHC.SLORD ---
Speech Language Pathology Order Status: Pt sleeping soundly when DISTILLERY LABORER arrived, accompanied by visitors. No PO trials given. Per RN, pt tolerated her pills whole with water. Pt is edentulous and it is unknown whether she has dentures. Pt is on a pureed diet (NDD1) and thin liquids. She is legally blind and requires 1:1 assist.
--- NOTE | 2022-09-04 14:47 | W.MHC.F2F ---
Service Date Service Date: 09/04/22 Encounter Date of encounter: 09/04/22 Reasons for Services Signs and symptoms assessed: New medications Swallowing problem Reason for nursing home: medication treatment and teach disease management Reason for physical therapy: home safety and mobility Reason for speech therapy: swallowing impairment Homebound: Leaving the home is medically contraindicated at this time without the asist of a device and/or another person due th the listed conditions above and below. Reason homebound: bedbound/chairbound Certification: Based on the above findings, I certify that this patient is confined to the home and needs intermittent nursing home care, physical therapy and/or speech therapy, or continues to need occupational therapy. The patient is under my care, and I have initiated the establishment of the plan of care. The patient will be followed by a physician who will periodically review the plan of care. Time Spent With Patient Time: Total time managing care of this patient today ____ minutes.
--- NOTE | 2022-09-04 14:55 | PC.NURSE ---
pt being d/c'ed. IV's removed. pt bladder scanned, found 53ml. paperwork given to family. report given to EMS staff
== END 2022-09-04 14:56 | disposition home health service (06) | DRG 871 ==
LOC: HO.ED 14:17 → HO.EDOVER 16:30 → HO.IMC 17:12
PROVIDERS: Physician Assistant; Admitting Provider Internal Medicine; Emergency Provider Emergency Medicine; PCP Internal Medicine; Visit Provider Student in an Organized Health Care Education/Training Program
DX: A41.9 Sepsis, unspecified organism (principal); I21.A1 Myocardial infarction type 2; J69.0 Pneumonitis due to inhalation of food and vomit; N18.4 Chronic kidney disease, stage 4 (severe); E87.20 Acidosis, unspecified; I12.9 Hypertensive chronic kidney disease with stage 1 through stage 4 chronic kidney disease, or unspecified chronic kidney disease; E87.6 Hypokalemia; E11.22 Type 2 diabetes mellitus with diabetic chronic kidney disease; J44.9 Chronic obstructive pulmonary disease, unspecified; R33.9 Retention of urine, unspecified; E88.09 Other disorders of plasma-protein metabolism, not elsewhere classified; H54.8 Legal blindness, as defined in USA; R65.20 Severe sepsis without septic shock; R13.10 Dysphagia, unspecified; Z87.891 Personal history of nicotine dependence; Z79.83 Long term (current) use of bisphosphonates; Z79.84 Long term (current) use of oral hypoglycemic drugs; Z79.52 Long term (current) use of systemic steroids; Z79.899 Other long term (current) drug therapy
CPT/HCPCS: 36415; 71045; 80048; 80053; 80202; 81003; 82565; 82947; 83605; 83880; 84484; 85025; 85027; 85610; 85730; 87040; 92610; 92950; 93005; 93306; 93971; 99285; C1758; J0295; J0696; J1643; J1650; J2060; J2270; J3370; Q9957

== ENCOUNTER 2022-09-09 14:15 | Inpatient (IN) | payer OTHER, SELFPAY ==
[2022-09-09 14:25] VITALS: BP 137/77; BP 140/80; PULSE 109; PULSE 112; RESP 16; O2SAT 94; O2SAT 96; BMI 38.3
[2022-09-09 15:01] VITALS: BP 122/61; PULSE 108; RESP 26; TEMP 37.4; O2SAT 95
[2022-09-09 16:00] VITALS: BP 146/80; PULSE 100; RESP 14; TEMP 37.2; O2SAT 97
--- NOTE | 2022-09-09 16:36 | PC.NURSE ---
per daughter pt previously discharged from [facility] ED. Today she retuned reports of not eating for 1 week, blood in sputum and stool. Bilateral upper and lower extremity edema. 20 g IV in R AC by STEWART Darden.
--- NOTE | 2022-09-09 16:54 | ED.GENADULT ---
HPI - General Adult General Chief complaint: GI Bleed Stated complaint: coughing blood, bloody stools, ble swelling Time Seen by Provider: 09/09/22 16:37 Source: patient, family (Daughter), EMS and manager utilization Mode of arrival: EMS Limitations: no limitations History of Present Illness HPI narrative: 81-year-old female speaking came in by ambulance complaining of generalized weakness, decreased p.o. intake, dark stool diarrhea. Patient had recent hospitalization for chest pain workup, non STEMI, pneumonia sepsis, acute hypokalemia. Patient was discharged home on Augmentin. Patient is not on anticoagulation. Related Data Home Medications Medication Instructions Recorded Confirmed furosemide 80 mg tablet (Lasix) 80 mg PO BID 11/12/20 09/01/22 metoprolol tartrate 50 mg tablet 50 mg PO BID 11/12/20 09/01/22 (Lopressor) pregabalin 100 mg capsule (Lyrica) 100 mg PO TID 11/12/20 09/01/22 acetaminophen 500 mg tablet 500 mg PO Q12H PRN Pain 11/23/21 09/01/22 cholecalciferol (vitamin D3) 25 25 mcg PO DAILY 11/23/21 09/01/22 mcg (1,000 unit) capsule (Vitamin D3) docusate sodium 100 mg capsule 100 mg PO BID 11/23/21 09/01/22 ferrous sulfate 324 mg (65 mg 324 mg PO DAILY 11/23/21 09/01/22 iron) tablet,delayed release oxycodone-acetaminophen 10 mg-325 1 tab PO Q12H PRN Pain 11/23/21 09/01/22 mg tablet montelukast 10 mg tablet 10 mg PO BEDTIME 09/01/22 09/01/22 potassium chloride 20 mEq 20 meq PO BID 09/01/22 09/01/22 tablet,extended release(part/cryst) (Klor-Con M) prednisone 5 mg tablet 5 mg PO DAILY 09/01/22 09/01/22 Previous Rx's Medication Instructions Recorded allopurinol 100 mg tablet 150 mg PO DAILY #45 tabs 05/30/22 glipizide 5 mg tablet 2.5 mg PO DAILY #30 tabs 06/27/22 ipratropium 0.5 mg-albuterol 3 mg 3 ml inhalation RQ4H PRN Wheezing 06/27/22 (2.5 mg base)/3 mL nebulization #60 mL soln amoxicillin 400 mg-potassium 10 ml PO BID 7 days #140 mL 09/04/22 clavulanate 57 mg/5 mL oral suspension aspirin 81 mg tablet,delayed 81 mg PO DAILY #90 tabs 09/04/22 release atorvastatin 40 mg tablet 40 mg PO BEDTIME #90 tabs 09/04/22 Allergies Allergy/AdvReac Type Severity Reaction Status Date / Time No Known Allergies Allergy Unknown Verified 09/09/22 14:40 Review of Systems Review of Systems: All other systems are reviewed and are negative Constitutional: Reports as per HPI and Reports no additional constitutional complaints Eyes: Reports as per HPI and Reports no additional eye complaints Reports system reviewed and no additional complaints, except as documented Cardiovascular: Reports as per HPI and Reports no additional cardiovascular complaints Respiratory: Reports as per HPI and Reports no additional respiratory complaints Gastrointestinal: Reports as per HPI and Reports no additional gastrointestinal complaints Genitourinary: Reports no additional female genitourinary complaints Musculoskeletal: Reports no additional musculoskeletal complaints Skin/Breast: Reports system reviewed and no additional complaints, except as docu Psychiatric: Reports no additional psychiatric complaints Endocrine: Reports no additional endocrine complaints Hematologic/Lymphatic: Reports no additional hematologic/lymphatic complaints Allergic/Immunologic: Reports no additional allergic/immunologic complaints Reports system reviewed and no additional complaints, except as documented and Reports Abnormal speech present [facility] Past Medical History Medical History Arthritis of both knees Bilateral primary osteoarthritis of knee Chronic hypercapnic respiratory failure Chronic kidney disease COPD (chronic obstructive pulmonary disease) Diabetes Gout Iron deficiency Osteoarthritis of left knee Surgical History Hx of tubal ligation Family History Family History Other Arthritis Social History Social History Household Members: None Housing: Apartment Do you presently have visiting nurse or other home services: Yes (envelope maker) Alcohol intake: never Patient Tobacco Use Status: Former Tobacco user Tobacco use type: Cigarette Second Hand Smoke Exposure: No Advance Directives: Yes Advance Directives on File: Yes Advance Directives Date on File: 06/23/22 service: No 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al status: retired and disabled 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 Blood pressure normal. Heart rate normal. Respiration rate normal. Temperature normal. Oxygen saturation normal. Appearance: Alert. Oriented X3. No acute distress. Head: Normal external exam. Normocephalic. Atraumatic. No Martinez signs noted. No raccoon eyes noted Eyes: PERRLA. EOMI. Conjunctiva and sclera normal. Eyelids normal. ENT: TM's Normal. Pharynx normal. Uvula midline. Moist mucous membranes. No trismus noted. No drooling noted. No muffled voice noted. Neck: Normal inspection. Neck supple. FROM. No adenopathy. Thyroid Normal. No meningeal signs. No neck mass noted. CVS: Normal heart rate and rhythm. Heart sound normal. No murmurs noted. Pulses normal throughout. Respiratory: No respiratory distress. Painless inspiration. Breath sounds normal. No wheezes/rales/rhonchi noted. Chest nontender. No accessory muscle usage noted or decreased air movement noted. Abdomen: Soft and nontender. Bowel sounds normal in all 4 quadrants. No distention noted. No organomegaly noted. No visible injury noted. Rectal exam: No external hemorrhoids visualized, no palpable internal hemorrhoid, black watery mucus guaiac-positive Back: No CVA tenderness. Full range of motion noted. Skin: Skin warm and dry. Normal skin color. Normal skin turgor. No rashes/lesions/lacerations noted. Extremities: No lower extremity edema. Extremities exhibit normal range of motion. Extremities nontender. Neuro: Oriented X 3. Cranial nerve exam: II-XII are grossly intact No motor deficit. No sensory deficit. Reflexes normal. Course Course Course Narrative: 81-year-old female came in with generalized weakness and diarrhea, exam is revealing black watery diarrhea, no abdominal pain, or tenderness. Admit for melena workup and serial CBC, replete potassium. Medications Administered Discontinued Medications Generic Name Dose Route Start Last Admin Trade Name Freq PRN Reason Stop Dose Admin Potassium Chloride 10 meq in 100 mls @ 100 mls/hr 09/09/22 16:53 09/09/22 18:23 Potassium Chloride/H20 IV 09/09/22 17:52 Infused ONCE ONE Infusion Potassium Chloride 40 meq 09/09/22 16:53 09/09/22 17:00 Potassium Chloride Packet 20 Meq Packet PO 09/09/22 16:54 40 meq ONCE ONE Administration Medical Decision Making Differential Diagnosis Differential Diagnoses: The differential diagnosis associated with the presentation includes (Dehydration, electrolyte abnormality, severe anemia, GI bleed.) Admission/Observation Consideration of admission/observation: Escalation of care including admission/observation considered Consult Healthcare Provider Management of the patient was discussed with: Hospitalist (Dr. Sanchez) Lab Data MDM Lab Attestation statement: I reviewed the patient's lab results. 09/09/22 15:12 09/09/22 15:12 Labs: Lab Results 09/09/22 09/09/22 09/09/22 Range/Units 15:12 15:12 15:12 WBC 10.9 H (4.8-10.8) X10*3/uL RBC 5.26 (4.20-5.50) X10*6/uL Hgb 15.3 (12.0-16.0) g/dl Hct 47.8 H (37.0-47.0) % MCV 90.9 (80.0-98.0) fL MCH 29.1 (27.0-33.0) pg MCHC 32.0 (31.0-35.0) g/dl RDW 16.7 H (11.0-16.0) % Plt Count 185 D (160-400) X10*3/uL MPV 10.8 (9.4-12.3) fL Immature Gran % (Auto) 1.0 H (0.0-0.4) % Neut % (Auto) 85.6 H (45-73) % Lymph % (Auto) 6.4 L (20-40) % [place]ham % (Auto) 5.8 (2-11) % Eos % (Auto) 0.6 (0-4) % Baso % (Auto) 0.6 (0-2) % Lymph # (Auto) 0.7 L (1.2-4.9) X10*3/uL [place] # (Auto) 0.6 (0.1-1.2) X10*3/uL Eos # (Auto) 0.1 (0.0-0.4) X10*3/uL Baso # (Auto) 0.1 (0.0-0.2) X10*3/uL Abs Immat Gran (auto) 0.11 H (0.00-0.03) X10*3/uL Absolute Neuts (auto) 9.3 H (2.0-8.3) x10*3/uL Absolute Nucleated RBC 0.000 (0.0-0.012) X10*3/uL Nucleated RBC % (auto) 0.0 (0.0-0.2) /100WBC PT 15.7 H (10.0-13.1) SEC INR 1.4 H (0.9-1.1) APTT 30.0 (26.0-36.4) SEC Sodium 144 (135-145) mmol/L Potassium 3.1 L (3.3-5.1) mmol/L Chloride 107 (96-108) mmol/L Carbon Dioxide 24 (22-29) mmol/L Anion Gap 16 (12-20) BUN 21 H (9-16) mg/dL Creatinine 1.47 H (0.5-1.4) mg/dL Estim Creat Clear Calc 34.7 Estimated GFR 34 Random Glucose 133 H (60-115) mg/dL Calcium 10.1 D (8.4-10.2) mg/dL Magnesium 1.8 (1.6-2.6) mg/dL Total Bilirubin 1.8 H (0.0-1.0) mg/dL AST 20 (5-31) U/L ALT 17 (0-31) U/L Alkaline Phosphatase 75 (39-117) U/L Total Protein 5.9 L (6.5-8.0) g/dL Albumin 3.1 L (3.5-5.0) g/dL Stool Occult Blood (NEGATIVE) COVID-19 ([facility]) (Negative) COVID-19 Clin Com 09/09/22 09/09/22 Range/Units 17:04 17:32 WBC (4.8-10.8) X10*3/uL RBC (4.20-5.50) X10*6/uL Hgb (12.0-16.0) g/dl Hct (37.0-47.0) % MCV (80.0-98.0) fL MCH (27.0-33.0) pg MCHC (31.0-35.0) g/dl RDW (11.0-16.0) % Plt Count (160-400) X10*3/uL MPV (9.4-12.3) fL Immature Gran % (Auto) (0.0-0.4) % Neut % (Auto) (45-73) % Lymph % (Auto) (20-40) % Windham % (Auto) (2-11) % Eos % (Auto) (0-4) % Baso % (Auto) (0-2) % Lymph # (Auto) (1.2-4.9) X10*3/uL [place]ham # (Auto) (0.1-1.2) X10*3/uL Eos # (Auto) (0.0-0.4) X10*3/uL Baso # (Auto) (0.0-0.2) X10*3/uL Abs Immat Gran (auto) (0.00-0.03) X10*3/uL Absolute Neuts (auto) (2.0-8.3) x10*3/uL Absolute Nucleated RBC (0.0-0.012) X10*3/uL Nucleated RBC % (auto) (0.0-0.2) /100WBC PT (10.0-13.1) SEC INR (0.9-1.1) APTT (26.0-36.4) SEC Sodium (135-145) mmol/L Potassium (3.3-5.1) mmol/L Chloride (96-108) mmol/L Carbon Dioxide (22-29) mmol/L Anion Gap (12-20) BUN (9-16) mg/dL Creatinine (0.5-1.4) mg/dL Estim Creat Clear Calc Estimated GFR Random Glucose (60-115) mg/dL Calcium (8.4-10.2) mg/dL Magnesium (1.6-2.6) mg/dL Total Bilirubin (0.0-1.0) mg/dL AST (5-31) U/L ALT (0-31) U/L Alkaline Phosphatase (39-117) U/L Total Protein (6.5-8.0) g/dL Albumin (3.5-5.0) g/dL Stool Occult Blood POSITIVE (NEGATIVE) COVID-19 ([facility]) Negative (Negative) COVID-19 Clin Com See Note Independent Interpretation I performed an independent interpretation of an: EKG (Sinus tachycardia at 01:11, left axis deviation, normal intervals.) and Plain X-Ray (Chest: No acute intrathoracic pathology.) Radiology Impression Discussion of test interpretation with radiology: I have reviewed the radiologist's reading. Discharge Plan Discharge Clinical Impression: Melena, Chronic hypokalemia Patient Disposition: Admitted As Inpatient
[2022-09-09] MEDS: Potassium Chloride/H20 10 MEQ/100 ML PIGGYBACK 100 MEQ IV (17:00)
[2022-09-09] MEDS: Potassium Chloride Packet 20 MEQ PACKET 40 MEQ PO (17:00)
--- NOTE | 2022-09-09 17:19 | PC.NURSE ---
iv fluids started, meds given, pt resting, daughter at bedside.
[2022-09-09 19:08] VITALS: BP 124/78; PULSE 107; RESP 18; TEMP 36.6; O2SAT 95
--- NOTE | 2022-09-09 20:58 | PM.IMHP ---
History of Present Illness Date of Service: 09/09/22 Attending physician on admission: Jose Eduardo Sanchez Chief Complaint: weakness, brbpr 81-year-old female with past medical history of COPD/ILD, diabetes, hypertension, chronic hypoxemic hypercapnic respiratory failure, legally blind, history of CKD stage4, recent NSTEMI? presents the hospital with her two daughters complaining of decreased PO intake, generalized weakness, and dark stool/diarrhea. She was admitted from 09/01- with NSTEMI and pneumonia. She was treated conservatively with IV heparin but was not discharged on AC. She has not been taking her pills including ASA but has been taking the amoxicillin liquid that she was discharged on. She states the anorexia was present during her hospitalization and has not improved but the multiple episodes of watery diarrhea daily are new. Her daughters note bright red blood per rectum as well as dark black appealing stool. She denies any fevers, chills, abdominal pain, nausea, vomiting. She has been experiencing ongoing orthopnea and her daughters have noted increased work of breathing. She continues with cough with occassional blood tinged sputum. There has been edema in hands and legs that has increasing. She did have echocardiogram performed in 09/01 which showed preserved LV systolic function with EF 60-65% and normal diastolic function. On arrival, patient has been tachycardic ranging 100-140 with EKG showing sinus rhythm and no ST or depressions. She is afebrile but tachypneic to 26. She is on 2 L supplemental O2 at baseline and is maintaining oximetry are 95%. Creatinine baseline at 1.47, BUN 21. Has a hypokalemia of 3.1, electrolytes otherwise within normal limits. Stool occult blood is positive . Chest x-ray shows scattered medium and coarse pulmonary reticular opacities throughout the lungs possibly representing chronic parenchymal interstitial disease and there is also a small right pleural effusion but no focal pulmonary consolidation. In the ED has been given 40 mEq potassium chloride orally and 10 mEq IV potassium. Review of Systems Review of Systems: General: No fevers, malaise, unintentional weight loss. + generalized weakness HEENT: No blurred vision, diplopia. No sore throat, nasal congestion, rhinorrhea, sinus pain, ear pain Cardiovascular: No chest pain, palpitations, or leg edema Respiratory: +orthopnea, +increased WOB, +cough. No wheezing GI: +anorexia, +diarrhea, + melena, + hematochezia. No abdominal pain, nausea, vomiting, constipation : No dysuria, hematuria, increased urinary frequency, decreased urinary output MSK: No myalgia, back pain Neuro: No headaches, weakness, paresthesias Skin: No rashes or lesions [facility] Medical History Arthritis of both knees Bilateral primary osteoarthritis of knee Chronic hypercapnic respiratory failure Chronic kidney disease COPD (chronic obstructive pulmonary disease) Diabetes Gout Iron deficiency NSTEMI (non-ST elevated myocardial infarction) Osteoarthritis of left knee Family History Other Arthritis Surgical History Hx of tubal ligation Social History Household Members: None Housing: Apartment Do you presently have 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) Alcohol intake: never Patient Tobacco Use Status: Former Tobacco user Tobacco use type: Cigarette Second Hand Smoke Exposure: No Advance Directives: Yes Advance Directives on File: Yes Advance Directives Date on File: 06/23/22 service: No 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al status: retired and disabled 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 Meds Allergies Allergy/AdvReac Type Severity Reaction Status Date / Time No Known Allergies Allergy Unknown Verified 09/09/22 14:40 Home Medications Medication Instructions Recorded Confirmed Last Taken Type furosemide 80 mg tablet (Lasix) 80 mg PO BID 11/12/20 09/01/22 08/31/22 History metoprolol tartrate 50 mg tablet 50 mg PO BID 11/12/20 09/01/22 08/31/22 History (Lopressor) pregabalin 100 mg capsule (Lyrica) 100 mg PO TID 11/12/20 09/01/22 08/31/22 History acetaminophen 500 mg tablet 500 mg PO Q12H PRN Pain 11/23/21 09/01/22 Unknown History cholecalciferol (vitamin D3) 25 25 mcg PO DAILY 11/23/21 09/01/22 08/31/22 History mcg (1,000 unit) capsule (Vitamin D3) docusate sodium 100 mg capsule 100 mg PO BID 11/23/21 09/01/22 08/31/22 History ferrous sulfate 324 mg (65 mg 324 mg PO DAILY 11/23/21 09/01/22 08/31/22 History iron) tablet,delayed release oxycodone-acetaminophen 10 mg-325 1 tab PO Q12H PRN Pain 11/23/21 09/01/22 Unknown History mg tablet montelukast 10 mg tablet 10 mg PO BEDTIME 09/01/22 09/01/22 08/31/22 History potassium chloride 20 mEq 20 meq PO BID 09/01/22 09/01/22 08/31/22 History tablet,extended release(part/cryst) (Klor-Con M) prednisone 5 mg tablet 5 mg PO DAILY 09/01/22 09/01/22 08/31/22 History Physical Exam Vital Signs and Narrative: Vital Signs: Last Vital Signs Temp 97.9 F 09/09/22 19:08 Pulse 107 H 09/09/22 19:08 Resp 18 09/09/22 19:08 BP 124/78 09/09/22 19:08 Pulse Ox 95 09/09/22 19:08 O2 Del Method Nasal Cannula 09/09/22 19:08 O2 Flow Rate 2 09/09/22 19:08 Oxygen Flow Rate 2 09/09/22 14:25 BMI result Body Mass Index 38.3 Constitutional - Awake and Alert, No apparent distress Eyes - PERRLA, EOMI Cardiovascular - S1S2, RRR, 2+edema BLE and hands Respiratory - Normal lung expansion, Normal respiratory effort, No respiratory distress on 2L supplemental O2, crackle RLL Gastrointestinal - NT / ND; +BS; No rebound or guarding Extremities - no calf tenderness bilaterally, ble swelling Skin - Warm/Dry Neurological - Alert & oriented x3 Psychological - Appropriate affect Results Labs 09/09/22 15:12 09/09/22 15:12 Labs: Laboratory Results - last 24 hr 09/09/22 09/09/22 09/09/22 15:12 15:12 15:12 MCV 90.9 MCH 29.1 MCHC 32.0 RDW 16.7 H Plt Count 185 D MPV 10.8 Immature Gran % (Auto) 1.0 H Neut % (Auto) 85.6 H Lymph % (Auto) 6.4 L [place] % (Auto) 5.8 Eos % (Auto) 0.6 Baso % (Auto) 0.6 Lymph # (Auto) 0.7 L [place] # (Auto) 0.6 Eos # (Auto) 0.1 Baso # (Auto) 0.1 Abs Immat Gran (auto) 0.11 H Absolute Neuts (auto) 9.3 H Absolute Nucleated RBC 0.000 Nucleated RBC % (auto) 0.0 PT 15.7 H INR 1.4 H APTT 30.0 Anion Gap 16 Estim Creat Clear Calc 34.7 Estimated GFR 34 Random Glucose 133 H Calcium 10.1 D Magnesium 1.8 Total Bilirubin 1.8 H AST 20 ALT 17 Alkaline Phosphatase 75 Total Protein 5.9 L Albumin 3.1 L Stool Occult Blood COVID-19 ([facility]) COVID-19 Clin Com 09/09/22 09/09/22 17:04 17:32 MCV MCH MCHC RDW Plt Count MPV Immature Gran % (Auto) Neut % (Auto) Lymph % (Auto) [place] % (Auto) Eos % (Auto) Baso % (Auto) Lymph # (Auto) [place] # (Auto) Eos # (Auto) Baso # (Auto) Abs Immat Gran (auto) Absolute Neuts (auto) Absolute Nucleated RBC Nucleated RBC % (auto) PT INR APTT Anion Gap Estim Creat Clear Calc Estimated GFR Random Glucose Calcium Magnesium Total Bilirubin AST ALT Alkaline Phosphatase Total Protein Albumin Stool Occult Blood POSITIVE COVID-19 ([facility]) Negative COVID-19 Clin Com See Note Assessment and Plan (1) New onset of congestive heart failure: Status: Acute (2) Leg edema: Status: Acute (3) Diarrhea: Status: Acute Plan 81-year-old female with past medical history of COPD/ILD, diabetes, hypertension, chronic hypoxemic hypercapnic respiratory failure, legally blind, history of CKD stage4, recent NSTEMI?admitted for new onset CHF with possible GI bleed and acute diarrhea. #New onset CHF -BNP/trop pending. CXR with new right sided pleural effusion -Clinically volume overloaded with orthopnea -Recent NSTEMI 09/01- conservative management -Echo 09/01 with normal LV systolic fx and diastolic fx for age. Will repeat CXR -Lasix 80mg BID -Advance to cardiac diet (pureed per [employer]NROB[employer] TENDER) -Strict I&O -Daily weights -Appreciate cardiology input #Acute diarrhea with heme positive stool -GI panel and C diff ordered. Was recently treated with antibiotics for pneumonia -H/H stable, no anemia -follow CBC, BMP # acute hypokalemia -likely secondary to GI losses -repleted in ED -continue p.o. KCl repletion -follow BMP #Hemoptysis -DDimer ordered but unlikely to be diagnostic given history ckd and morbid obesity. Differential to include possible VTE given tachycardia, sob, leg edema. -Will check b/l venous duplex, VQ scan. Unable to obtain CTA chest given renal function -H/H currently stable, but will repeat CBC now and give empiric dose therapeutic Lovenox if able and continue as indicated if above studies are positive # NSTEMI- likely demand -09/01 treated conservatively with IV heparin, asa, statin #Recent pneumonia -completed 7 days abx. cxr without consolidation. dc abx #CKD stage IV -renal function baseline DVT prophylaxis- SCPs Med rec pending DNR/DNI per daughter's Patient requires inpatient stay of at least 2 midnights for management of suspected new onset CHF and close monitoring pain positive stool requiring IV diuresis, cardiac monitoring, and electrolyte repletion Time Spent With Patient Time: Total time managing care of this patient today ____ minutes. Quality Stroke Does the patient have a stroke diagnosis?: No VTE Prior VTE?: No VTE Risk Level:: Medical - moderate - high VTE Device Contraindication: Treatment Not Indicated VTE Drug Contraindication: N/A - Med Ordered
[2022-09-09 22:09] VITALS: BP 118/68; PULSE 102; RESP 24; TEMP 36.4; O2SAT 97
--- NOTE | 2022-09-09 22:37 | PC.NURSE ---
Report to Tyler WILLIAM on [facility] [place].
[2022-09-09] MEDS: 0.9 % Sodium Chloride Flush 3 ML SYRINGE IVFLUSH (23:30)
[2022-09-09 23:42] VITALS: BP 106/54; PULSE 105; RESP 20; TEMP 36.6; O2SAT 95
--- NOTE | 2022-09-09 23:56 | PC.NURSE ---
open pressure injury to right buttock noted when admitted to [facility]. foam dressing applied and patient repositioned.
[2022-09-10] VITALS (7 sets, daily range): BP systolic 108–156; BP diastolic 55–79; PULSE 81–101; RESP 18–20; TEMP 36.2–37; O2SAT 95–99; BMI 42.2
--- NOTE | 2022-09-10 07:39 | PHA.MEDREC ---
Pharmacy Consult ? Medication Reconciliation Pharmacy has completed the medication reconciliation. Patient recently discharged on 09/04/22 with no changes to medications outside of hospital discharge changes. Utilized discharge packet.
[2022-09-10] MEDS: 0.9 % Sodium Chloride Flush 3 ML SYRINGE IVFLUSH (08:18)
--- NOTE | 2022-09-10 09:32 | MHC.CM.PN ---
Addendum entered by Lisa Mullen RN 09/10/22 10:48: PT HAS [facility] PER RECORDS. Addendum entered by Lisa Mullen RN 09/10/22 10:45: PER PT PERMISSION CM CONTACTED PT'S SON TO CONFIRM INFO PROVIDED BY PT, MARITZA SPEAKS A LITTLE KAZAKH SO PHONE TRIAL JUDGE USED, MARITZA REPORTS PT DOES LIVE ALONE BUT HE AND HIS SISTER TAKE TURNS STAYING W/PT, MARITZA IS UNSURE OF NAME OF VNA THAT PROVIDES SENIOR CARE FOR PT HOWEVER BELIEVES VNA GOES 3 X WK, CM WILL SEND BLANKET REFERRAL TO FIND PT'S VNA. Original Note: IMM 09/10/22 DELIVERED TO BEDSIDE HOWEVER GDECLINED TO SIGN, PT VERBALIZES UNDERTANSING. CM MET W/PT VIA SWING SAW OPERATOR, PT REPORTS SHE LIVES IN APT ALONE, PT REPORTS SHE HAS DIABETIC SUPPLIES AND EITHER SH OR VNA WILL CHECK HER BS, IS IN A W/C AND CANNOT WALK HOWEVER WILL STAND AND PIVOT TO TOILET AND BED, PT REPORTS SHE HAS A VNA THAT COMES 1-2 TIMES A WEEK AND HER DTR IS HER GRINDING MILL OPERATOR BUT DOESN'T HAVE A SET SCHEDULE. PT VERIFIES PCP IS DR MCDONNELL, HCP ON FILE COPY AND VERIFIED AND MODERNAX2. PT'S GOAL FOR D/C IS HOME W/RESUMP OF SERVICES
--- NOTE | 2022-09-10 11:57 | PM.CNCAR ---
History of Present Illness History of Present Illness Date of Service: 09/10/22 Requesting physician: Kate Sahu Chief complaint: ?CHF, DVT Narrative: 81-year-old female with multiple medical issues who is presenting with poor p.o. intake and weakness. She was noticed to have edema on her arms and legs as well as pleural effusions. Her BNP has gone up significantly and is more than 2500. She is saying she has been short of breath for months. She has background of COPD and interstitial lung disease. She had lower extremity ultrasound which is showing a right lower extremity deep vein thrombosis. She has been started on heparin drip. She has occult blood positive and background of GI blood loss. Her hemoglobin is stable. She is denying any chest discomfort in particular no sharp chest pains. She had V/Q scan and a CT chest which are currently pending. She is on supplemental oxygen. She is saying she is feeling little better. She has been experiencing some issues with swelling food and tablets. [facility] Past Medical History Medical History Arthritis of both knees Bilateral primary osteoarthritis of knee Chronic hypercapnic respiratory failure Chronic kidney disease COPD (chronic obstructive pulmonary disease) Diabetes Gout Iron deficiency NSTEMI (non-ST elevated myocardial infarction) Osteoarthritis of left knee Family History Family History Other Arthritis Surgical History Surgical History Hx of tubal ligation Social History Social History Household Members: Family Housing: Apartment Do you presently have visiting nurse or other home services: Yes Alcohol intake: never Patient Tobacco Use Status: Former Tobacco user Tobacco use type: Cigarette Second Hand Smoke Exposure: No Currently Displaying Signs/Symptoms of Drug Intoxication Withdrawal: No Have you been hit, kicked, punched, or otherwise hurt by someone within the past year? 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 Docusate Sodium (Docusate Sodium 100 Mg Capsule) 100 mg PO DAILY PRN PRN Reason: Constipation Furosemide (Furosemide 100 Mg/10 Ml Vial) 80 mg IVPUSH BID@0900,1800 [facility]; Protocol Last Admin: 09/10/22 08:19 Dose: 80 mg Glucose (Glucose Gel 15 Gm Gel..Gram.) 15 gm PO Q15M PRN; Protocol PRN Reason: per Hypoglycemia Standing Ord. Heparin Sodium (Porcine) (Heparin Sodium,Porcine 5,000 Unit/Ml Vial) 4,600 unit 40 unit/kg (4600 unit) IVPUSH PROTOCOL BOLUS PRN; Protocol PRN Reason: 40 unit/kg - Heparin Protocol Heparin Sodium (Porcine) (Heparin Sodium,Porcine 5,000 Unit/Ml Vial) 9,200 unit 80 unit/kg (9200 unit) IVPUSH PROTOCOL BOLUS PRN; Protocol PRN Reason: 80 unit/kg - Heparin Protocol Heparin Sodium/Sodium Chloride (Heparin Sodium,Porcine/1/2ns) 25,000 unit in 250 mls @ 0 mls/hr IVCONT .Q0M [facility]; Protocol Insulin Human Lispro (Insulin Lispro 100 Unit/Ml 3 Ml Vial) 0 unit SUBCUT QIDACHS [facility]; Protocol Last Admin: 09/10/22 11:31 Dose: Not Given Ondansetron HCl (Ondansetron Hcl 4 Mg/2 Ml Vial) 4 mg IVPUSH Q8H PRN PRN Reason: Nausea and Vomiting Pantoprazole Sodium (Pantoprazole Sodium 40 Mg/10 Ml Vial) 40 mg IVPUSH BID@0630,1630 [facility] Last Admin: 09/10/22 05:34 Dose: 40 mg Pharmacy Consult (Consult Rx Perform Med Rec) 1 each MISCELLANE ONCE PRN PRN Reason: Consult order Sodium Chloride (0.9 % Sodium Chloride Flush 3 Ml Syringe) 3 [facility] Last Admin: 09/10/22 08:18 Dose: 3 ml Home Medications Medication Instructions Recorded Confirmed Last Taken Type furosemide 80 mg tablet (Lasix) 80 mg PO BID 11/12/20 09/10/22 08/31/22 History metoprolol tartrate 50 mg tablet 50 mg PO BID 11/12/20 09/10/22 08/31/22 History (Lopressor) pregabalin 100 mg capsule (Lyrica) 100 mg PO TID 11/12/20 09/10/22 08/31/22 History acetaminophen 500 mg tablet 500 mg PO Q12H PRN Pain 11/23/21 09/10/22 Unknown History cholecalciferol (vitamin D3) 25 25 mcg PO DAILY 11/23/21 09/10/22 08/31/22 History mcg (1,000 unit) capsule (Vitamin D3) docusate sodium 100 mg capsule 100 mg PO BID 11/23/21 09/10/22 08/31/22 History ferrous sulfate 324 mg (65 mg 324 mg PO DAILY 11/23/21 09/10/22 08/31/22 History iron) tablet,delayed release oxycodone-acetaminophen 10 mg-325 1 tab PO Q12H PRN Pain 11/23/21 09/10/22 Unknown History mg tablet montelukast 10 mg tablet 10 mg PO BEDTIME 09/01/22 09/10/22 08/31/22 History potassium chloride 20 mEq 20 meq PO BID 09/01/22 09/10/22 08/31/22 History tablet,extended release(part/cryst) (Klor-Con M) prednisone 5 mg tablet 5 mg PO DAILY 09/01/22 09/10/22 08/31/22 History Physical Exam Vital Signs: Vital Signs: Last Vital Signs Temp 98.4 F 09/10/22 11:44 Pulse 96 09/10/22 11:44 Resp 20 09/10/22 11:44 BP 134/74 09/10/22 11:44 Pulse Ox 98 09/10/22 11:44 O2 Del Method Nasal Cannula 09/10/22 11:44 O2 Flow Rate 3 09/10/22 11:44 Oxygen Flow Rate 2 09/09/22 14:25 BMI result Body Mass Index 42.2 GENERAL APPEARANCE: Ill-appearing, edema over the hands and lower extremities. Frail. On supplemental oxygen. NECK: no carotid bruit, mild jugular venous distention. SKIN: no suspicious lesions, warm and dry. HEART: no murmurs, regular rate and rhythm. Left parasternal heave. LUNGS: Fine crackles at bases. ABDOMEN: soft, nontender. EXTREMITIES: + edema. PERIPHERAL PULSES: equal. NEUROLOGIC: No gross deficits, AAO X 3 Objective Labs and Meds 09/10/22 08:41 09/10/22 08:37 Lab results: Laboratory Results - last 24 hr 09/09/22 09/09/22 09/09/22 15:12 15:12 15:12 WBC 10.9 H RBC 5.26 Hgb 15.3 Hct 47.8 H MCV 90.9 MCH 29.1 MCHC 32.0 RDW 16.7 H Plt Count 185 D MPV 10.8 Immature Gran % (Auto) 1.0 H Neut % (Auto) 85.6 H Lymph % (Auto) 6.4 L [place] % (Auto) 5.8 Eos % (Auto) 0.6 Baso % (Auto) 0.6 Lymph # (Auto) 0.7 L [place] # (Auto) 0.6 Eos # (Auto) 0.1 Baso # (Auto) 0.1 Abs Immat Gran (auto) 0.11 H Absolute Neuts (auto) 9.3 H Absolute Nucleated RBC 0.000 Nucleated RBC % (auto) 0.0 PT 15.7 H INR 1.4 H APTT 30.0 D-Dimer High Sensitivty Sodium 144 Potassium 3.1 L Chloride 107 Carbon Dioxide 24 Anion Gap 16 BUN 21 H Creatinine 1.47 H Estim Creat Clear Calc 34.7 Estimated GFR 34 POC Glucose Random Glucose 133 H Calcium 10.1 D Magnesium 1.8 Total Bilirubin 1.8 H AST 20 ALT 17 Alkaline Phosphatase 75 Troponin I High Sens B-Natriuretic Peptide Total Protein 5.9 L Albumin 3.1 L Stool Occult Blood COVID-19 ([facility]) COVID-19 Clin Com 09/09/22 09/09/22 09/09/22 17:04 17:32 21:25 WBC RBC Hgb Hct MCV MCH MCHC RDW Plt Count MPV Immature Gran % (Auto) Neut % (Auto) Lymph % (Auto) [place] % (Auto) Eos % (Auto) Baso % (Auto) Lymph # (Auto) [place] # (Auto) Eos # (Auto) Baso # (Auto) Abs Immat Gran (auto) Absolute Neuts (auto) Absolute Nucleated RBC Nucleated RBC % (auto) PT INR APTT D-Dimer High Sensitivty Sodium Potassium Chloride Carbon Dioxide Anion Gap BUN Creatinine Estim Creat Clear Calc Estimated GFR POC Glucose Random Glucose Calcium Magnesium Total Bilirubin AST ALT Alkaline Phosphatase Troponin I High Sens 61.3 H* D B-Natriuretic Peptide Total Protein Albumin Stool Occult Blood POSITIVE COVID-19 ([facility]) Negative COVID-19 [employer] Com See Note 09/09/22 09/09/22 09/09/22 21:25 22:06 22:06 WBC 10.7 RBC 4.62 Hgb 13.6 Hct 43.8 MCV 94.8 MCH 29.4 MCHC 31.1 RDW 16.5 H Plt Count 167 MPV 11.0 Immature Gran % (Auto) 0.8 H Neut % (Auto) 83.2 H Lymph % (Auto) 6.9 L [place] % (Auto) 7.5 Eos % (Auto) 0.9 Baso % (Auto) 0.7 Lymph # (Auto) 0.7 L [place] # (Auto) 0.8 Eos # (Auto) 0.1 Baso # (Auto) 0.1 Abs Immat Gran (auto) 0.09 H Absolute Neuts (auto) 8.9 H Absolute Nucleated RBC 0.000 Nucleated RBC % (auto) 0.0 PT INR APTT D-Dimer High Sensitivty 2934 Sodium Potassium Chloride Carbon Dioxide Anion Gap BUN Creatinine Estim Creat Clear Calc Estimated GFR POC Glucose Random Glucose Calcium Magnesium Total Bilirubin AST ALT Alkaline Phosphatase Troponin I High Sens B-Natriuretic Peptide 2577 H Total Protein Albumin Stool Occult Blood COVID-19 ([facility]) COVID-19 [employer] Com 09/10/22 09/10/22 09/10/22 07:43 08:37 08:41 WBC RBC Hgb 14.4 Hct 45.4 MCV MCH MCHC RDW Plt Count MPV Immature Gran % (Auto) Neut % (Auto) Lymph % (Auto) [place] % (Auto) Eos % (Auto) Baso % (Auto) Lymph # (Auto) [place] # (Auto) Eos # (Auto) Baso # (Auto) Abs Immat Gran (auto) Absolute Neuts (auto) Absolute Nucleated RBC Nucleated RBC % (auto) PT INR APTT D-Dimer High Sensitivty Sodium 144 Potassium 3.9 D Chloride 106 Carbon Dioxide 28 Anion Gap 14 BUN 19 H Creatinine 1.41 H Estim Creat Clear Calc 36.2 Estimated GFR 36 POC Glucose 125 H Random Glucose 138 H Calcium 10.0 Magnesium Total Bilirubin AST ALT Alkaline Phosphatase Troponin I High Sens B-Natriuretic Peptide Total Protein Albumin Stool Occult Blood COVID-19 ([facility]) COVID-19 Clin Com 09/10/22 11:15 WBC RBC Hgb Hct MCV MCH MCHC RDW Plt Count MPV Immature Gran % (Auto) Neut % (Auto) Lymph % (Auto) [place] % (Auto) Eos % (Auto) Baso % (Auto) Lymph # (Auto) [place] # (Auto) Eos # (Auto) Baso # (Auto) Abs Immat Gran (auto) Absolute Neuts (auto) Absolute Nucleated RBC Nucleated RBC % (auto) PT INR APTT D-Dimer High Sensitivty Sodium Potassium Chloride Carbon Dioxide Anion Gap BUN Creatinine Estim Creat Clear Calc Estimated GFR POC Glucose 130 H Random Glucose Calcium Magnesium Total Bilirubin AST ALT Alkaline Phosphatase Troponin I High Sens B-Natriuretic Peptide Total Protein Albumin Stool Occult Blood COVID-19 ([facility]) COVID-19 Clin Com Imaging Radiologist's impression: Impressions Chest X-Ray 09/09/22 20:10 IMPRESSION: 1. Scattered medium and coarse pulmonary reticular opacities throughout the lungs. Findings may represent chronic parenchymal interstitial disease. 2. Possible small right pleural effusion. 3. No focal pulmonary consolidation. Venous Duplex 09/10/22 08:45 IMPRESSION: Acute deep venous thrombosis of the right lower extremity with occlusive thrombus seen within the common femoral vein with extension into the proximal greater saphenous vein. No acute DVT demonstrated in the left lower extremity. This critical result was discussed with Dr. Sahu at 9:15 AM on September 10, 2022 and it was ascertained that the content and urgency of the report was understood at the time of direct communication. Assessment and Plan (1) Leg edema: Status: Acute (2) Venous thromboembolism: Status: Acute Plan 81-year-old female with multiple medical issues who is presenting with poor p.o. intake and weakness and has been noticed to have right lower extremity extensive DVT. She has an elevated BNP and it was felt that she may have heart failure. Examining her she has mild JVD and fine crackles at bases which are likely due to underlying interstitial lung disease. She has extensive DVT in the right lower extremity and has a significantly elevated BNP level. My suspicion is that she may have had pulmonary embolism. She had V/Q scan and we will review that. Agree with anticoagulation. She can have a limited echocardiogram tomorrow to assess RV function regardless she will be on anticoagulation given DVT at this point. I think she has edema and anasarca currently because she is malnourished. She has some swelling issues and would benefit from speech input. Gentle diuresis can be tried but I think most of her symptoms are not linked with congestive heart failure right now. Thank you for allowing me to participate in the care of your patient. Please feel free to contact me if you have any questions. Time Spent With Patient Time: Total time managing care of this patient today ____ minutes. Procedures Date of Service Date of Service: 09/10/22
--- NOTE | 2022-09-10 12:16 | PM.HEMONCCN ---
Subjective - Subjective Patient: new to practice Consult date: 09/10/22 Primary Care Provider: Cecilia Hitchcock MD HPI - Consult Narrative Reason for consult: DVT Narrative: Irlanda Jarquin is a 81 year old female found today to have an occlusive DVT of the right common fevoral and saphenous veins by ultrasound. She has a history of possible hematochezia of a small amount and black water diarrhea. jSjeff has a history of iron deficiency and is on oral iron which she says she has been taking. Review of Systems - Constitutional Reports anorexia, Reports weakness - Eyes Reports other - ENT Reports system reviewed and no additional complaints, except as documented - Cardiovascular Reports excessive sweating, Reports fast heart rate, Reports lightheadedness - Respiratory Reports dyspnea - Gastrointestinal Reports bright, red blood in stools - Genitourinary Reports other - Musculoskeletal Reports muscle weakness PMFSH Medical History: Medical History (Last Reviewed 09/09/22 @ 21:31 by ABHAY Boyd) Arthritis of both knees Bilateral primary osteoarthritis of knee Chronic hypercapnic respiratory failure Chronic kidney disease COPD (chronic obstructive pulmonary disease) Diabetes Gout Iron deficiency NSTEMI (non-ST elevated myocardial infarction) Osteoarthritis of left knee Family History: Family History (Last Reviewed 09/09/22 @ 21:31 by ABHAY Boyd) Other Arthritis Surgical History: Surgical History (Last Reviewed 09/09/22 @ 21:31 by ABHAY Boyd) Hx of tubal ligation Social History: Social History (Last Reviewed 09/09/22 @ 21:31 by ABHAY Boyd) Living Situation History: Household Members: Family Housing: Apartment Do you presently have visiting nurse or other home services: Yes Alcohol History Details: 1. How often do you have a drink containing alcohol?: a. Never AUDIT-C Alcohol total score: 0 Currently Displaying Signs/Symptoms of Alcohol Withdrawal: No Tobacco History: Patient Tobacco Use Status: Former Tobacco user Tobacco use type: Cigarette Second Hand Smoke Exposure: No Substance Use History: Currently Displaying Signs/Symptoms of Drug Intoxication Withdrawal: No Domestic Abuse History: Have you been hit, kicked, punched, or otherwise hurt by someone within the past year? 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 Docusate Sodium (Docusate Sodium 100 Mg Capsule) 100 mg PO DAILY PRN PRN Reason: Constipation Furosemide (Furosemide 100 Mg/10 Ml Vial) 80 mg IVPUSH BID@0900,1800 PENDING S[facility] TO [facility]; Protocol Last Admin: 09/10/22 08:19 Dose: 80 mg Glucose (Glucose Gel 15 Gm Gel..Gram.) 15 gm PO Q15M PRN; Protocol PRN Reason: per Hypoglycemia Standing Ord. Heparin Sodium (Porcine) (Heparin Sodium,Porcine 5,000 Unit/Ml Vial) 4,600 unit 40 unit/kg (4600 unit) IVPUSH PROTOCOL BOLUS PRN; Protocol PRN Reason: 40 unit/kg - Heparin Protocol Heparin Sodium (Porcine) (Heparin Sodium,Porcine 5,000 Unit/Ml Vial) 9,200 unit 80 unit/kg (9200 unit) IVPUSH PROTOCOL BOLUS PRN; Protocol PRN Reason: 80 unit/kg - Heparin Protocol Heparin Sodium/Sodium Chloride (Heparin Sodium,Porcine/1/2ns) 25,000 unit in 250 mls @ 0 mls/hr IVCONT .Q0M [facility]; Protocol Insulin Human Lispro (Insulin Lispro 100 Unit/Ml 3 Ml Vial) 0 unit SUBCUT QIDACHS [facility]; Protocol Last Admin: 09/10/22 11:31 Dose: Not Given Ondansetron HCl (Ondansetron Hcl 4 Mg/2 Ml Vial) 4 mg IVPUSH Q8H PRN PRN Reason: Nausea and Vomiting Pantoprazole Sodium (Pantoprazole Sodium 40 Mg/10 Ml Vial) 40 mg IVPUSH BID@0630,1630 [facility] Last Admin: 09/10/22 05:34 Dose: 40 mg Pharmacy Consult (Consult Rx Perform Med Rec) 1 each MISCELLANE ONCE PRN PRN Reason: Consult order Sodium Chloride (0.9 % Sodium Chloride Flush 3 Ml Syringe) [facility] Last Admin: 09/10/22 08:18 Dose: 3 ml Home Medications Medication Instructions Recorded Confirmed Type furosemide 80 mg tablet (Lasix) 80 mg PO BID 11/12/20 09/10/22 History metoprolol tartrate 50 mg tablet 50 mg PO BID 11/12/20 09/10/22 History (Lopressor) pregabalin 100 mg capsule (Lyrica) 100 mg PO TID 11/12/20 09/10/22 History acetaminophen 500 mg tablet 500 mg PO Q12H PRN Pain 11/23/21 09/10/22 History cholecalciferol (vitamin D3) 25 25 mcg PO DAILY 11/23/21 09/10/22 History mcg (1,000 unit) capsule (Vitamin D3) docusate sodium 100 mg capsule 100 mg PO BID 11/23/21 09/10/22 History ferrous sulfate 324 mg (65 mg 324 mg PO DAILY 11/23/21 09/10/22 History iron) tablet,delayed release oxycodone-acetaminophen 10 mg-325 1 tab PO Q12H PRN Pain 11/23/21 09/10/22 History mg tablet montelukast 10 mg tablet 10 mg PO BEDTIME 09/01/22 09/10/22 History potassium chloride 20 mEq 20 meq PO BID 09/01/22 09/10/22 History tablet,extended release(part/cryst) (Klor-Con M) prednisone 5 mg tablet 5 mg PO DAILY 09/01/22 09/10/22 History Allergies Allergy/AdvReac Type Severity Reaction Status Date / Time No Known Allergies Allergy Unknown Verified 09/09/22 14:40 Physical Exam Vital signs: Vital Signs Temp 98.4 F 09/10/22 11:44 Pulse 96 09/10/22 11:44 Resp 20 09/10/22 11:44 BP 134/74 09/10/22 11:44 Pulse Ox 98 09/10/22 11:44 O2 Del Method Nasal Cannula 09/10/22 11:44 O2 Flow Rate 3 09/10/22 11:44 Intake & Output 0709/10/22 09/10/22 18:59 06:59 18:59 Intake Total 100 / 100 Balance 100 / 100 Intake: Intake, IV Amount 100 / 100 Potassium Chloride/H20 10 meq 100 / 100 In 100 ml @ 100 mls/hr IV ONCE ONE Rx#:[id number] Other: Number of Incontinent Voids 2 Urine purewick Urine Color Yellow Weight 104.355 kg 115.1 kg [place] Weight in Grams 141994 Weight 115.1 kg - Constitutional Present: no acute distress - Routine HEENT Exam Head: Present: atraumatic, normal inspection, normocephalic - Routine Neck Exam Present: supple - Routine Respiratory Exam Present: decreased breath sounds - Routine Cardiovascular Exam Cardiovascular: Present: RRR, S1, S2 - Routine Abdominal Exam Present: nontender - Routine Extremities Exam Present: nontender Comments: nupur right thigh Hem/Onc Consult Result - Labs CBC & Chem 7: 09/10/22 08:41 09/10/22 08:37 Labs: Short CBC 09/09/22 09/09/22 09/10/22 Range/Units 15:12 22:06 08:41 WBC 10.9 H 10.7 (4.8-10.8) X10*3/uL Hgb 15.3 13.6 14.4 (12.0-16.0) g/dl Hct 47.8 H 43.8 45.4 (37.0-47.0) % Plt Count 185 D 167 (160-400) X10*3/uL BMP 09/09/22 09/10/22 15:12 08:37 Sodium 144 144 Potassium 3.1 L 3.9 D Chloride 107 106 Carbon Dioxide 24 28 BUN 21 H 19 H Creatinine 1.47 H 1.41 H Calcium 10.1 D 10.0 Liver Function 09/09/22 Range/Units 15:12 Total Bilirubin 1.8 H (0.0-1.0) mg/dL AST 20 (5-31) U/L ALT 17 (0-31) U/L Alkaline Phosphatase 75 (39-117) U/L Albumin 3.1 L (3.5-5.0) g/dL Assessment and Plan Patient Active problem list reviewed?: Yes (1) Venous thromboembolism Start date: 09/10/22 Status: Acute Assessment and plan: The recommedation is to begin IV heparin and observe carefull for bleeding. Have GI consult and evaluate for GI bleeding. If serious bleeding develops stop the heparin and insert an IVC filter device, then aggressively treat the source of the bleeding. Strongly recommend hematology consultion tomorrow. Will follow. - Time Spent With Patient Time Spent with Patient (in minutes): 30
--- NOTE | 2022-09-10 12:23 | HO.PM.IMPN ---
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 Physical Exam Vital Signs: Vital Signs: Last Vital Signs Temp 98.4 F 09/10/22 11:44 Pulse 96 09/10/22 11:44 Resp 20 09/10/22 11:44 BP 134/74 09/10/22 11:44 Pulse Ox 98 09/10/22 11:44 O2 Del Method Nasal Cannula 09/10/22 11:44 O2 Flow Rate 3 09/10/22 11:44 Oxygen Flow Rate 2 09/09/22 14:25 BMI result Body Mass Index 42.2 Appearance: Alert.? Oriented X3.?yi speaking female, cvs: rrr, [id number]. res: clear to auscultation ,no rhonchii or wheezing abd: no rebound or guarding ,nt, bs present. ext pulses present , no cyanosis. neuro: axo3 , nonfocal. Objective Data Active Medications Acetaminophen (Acetaminophen 325 Mg Tablet) 650 mg PO Q6H PRN PRN Reason: Pain, Mild (Pain Scale 1-3) Dextrose (Dextrose 50 % 25 Gm/50 Ml Syringe) 25 gm IVPUSH Q15M PRN; Protocol PRN Reason: per Hypoglycemia Standing Ord. Docusate Sodium (Docusate Sodium 100 Mg Capsule) 100 mg PO DAILY PRN PRN Reason: Constipation Furosemide (Furosemide 100 Mg/10 Ml Vial) 80 mg IVPUSH BID@0900,1800 [facility]; Protocol Last Admin: 09/10/22 08:19 Dose: 80 mg Documented By: AMAN Glucose (Glucose Gel 15 Gm Gel..Gram.) 15 gm PO Q15M PRN; Protocol PRN Reason: per Hypoglycemia Standing Ord. Heparin Sodium (Porcine) (Heparin Sodium,Porcine 5,000 Unit/Ml Vial) 4,600 unit 40 unit/kg (4600 unit) IVPUSH PROTOCOL BOLUS PRN; Protocol PRN Reason: 40 unit/kg - Heparin Protocol Heparin Sodium (Porcine) (Heparin Sodium,Porcine 5,000 Unit/Ml Vial) 9,200 unit 80 unit/kg (9200 unit) IVPUSH PROTOCOL BOLUS PRN; Protocol PRN Reason: 80 unit/kg - Heparin Protocol Heparin Sodium/Sodium Chloride (Heparin Sodium,Porcine/1/2ns) 25,000 unit in 250 mls @ 0 mls/hr IVCONT .Q0M [facility]; Protocol Insulin Human Lispro (Insulin Lispro 100 Unit/Ml 3 Ml Vial) 0 unit SUBCUT QIDACHS [facility]; Protocol Last Admin: 09/10/22 11:31 Dose: Not Given Documented By: AMAN Non-Admin Reason: No Insulin Coverage Ondansetron HCl (Ondansetron Hcl 4 Mg/2 Ml Vial) 4 mg IVPUSH Q8H PRN PRN Reason: Nausea and Vomiting Pantoprazole Sodium (Pantoprazole Sodium 40 Mg/10 Ml Vial) 40 mg IVPUSH BID@0630,1630 [facility] Last Admin: 09/10/22 05:34 Dose: 40 mg Documented By: DIANA Pharmacy Consult (Consult Rx Perform Med Rec) 1 each MISCELLANE ONCE PRN PRN Reason: Consult order Sodium Chloride (0.9 % Sodium Chloride Flush 3 Ml Syringe) 3 ml IVFLUSH QSHIFT [facility] Last Admin: 09/10/22 08:18 Dose: 3 ml Documented By: AMAN Labs 09/10/22 08:41 09/10/22 08:37 Labs: Laboratory Results - last 24 hr 09/09/22 09/09/22 09/09/22 15:12 15:12 15:12 MCV 90.9 MCH 29.1 MCHC 32.0 RDW 16.7 H Plt Count 185 D MPV 10.8 Immature Gran % (Auto) 1.0 H Neut % (Auto) 85.6 H Lymph % (Auto) 6.4 L [place] % (Auto) 5.8 Eos % (Auto) 0.6 Baso % (Auto) 0.6 Lymph # (Auto) 0.7 L [place] # (Auto) 0.6 Eos # (Auto) 0.1 Baso # (Auto) 0.1 Abs Immat Gran (auto) 0.11 H Absolute Neuts (auto) 9.3 H Absolute Nucleated RBC 0.000 Nucleated RBC % (auto) 0.0 PT 15.7 H INR 1.4 H APTT 30.0 D-Dimer High Sensitivty Anion Gap 16 Estim Creat Clear Calc 34.7 Estimated GFR 34 POC Glucose Random Glucose 133 H Calcium 10.1 D Magnesium 1.8 Total Bilirubin 1.8 H AST 20 ALT 17 Alkaline Phosphatase 75 Troponin I High Sens B-Natriuretic Peptide Total Protein 5.9 L Albumin 3.1 L Stool Occult Blood COVID-19 ([facility]) COVID-19 Clin Com 09/09/22 09/09/22 09/09/22 17:04 17:32 21:25 MCV MCH MCHC RDW Plt Count MPV Immature Gran % (Auto) Neut % (Auto) Lymph % (Auto) [place] % (Auto) Eos % (Auto) Baso % (Auto) Lymph # (Auto) [place] # (Auto) Eos # (Auto) Baso # (Auto) Abs Immat Gran (auto) Absolute Neuts (auto) Absolute Nucleated RBC Nucleated RBC % (auto) PT INR APTT D-Dimer High Sensitivty Anion Gap Estim Creat Clear Calc Estimated GFR POC Glucose Random Glucose Calcium Magnesium Total Bilirubin AST ALT Alkaline Phosphatase Troponin I High Sens 61.3 H* D B-Natriuretic Peptide Total Protein Albumin Stool Occult Blood POSITIVE COVID-19 ([facility]) Negative COVID-19 Clin Com See Note 09/09/22 09/09/22 09/09/22 21:25 22:06 22:06 MCV 94.8 MCH 29.4 MCHC 31.1 RDW 16.5 H Plt Count 167 MPV 11.0 Immature Gran % (Auto) 0.8 H Neut % (Auto) 83.2 H Lymph % (Auto) 6.9 L [place] % (Auto) 7.5 Eos % (Auto) 0.9 Baso % (Auto) 0.7 Lymph # (Auto) 0.7 L [place] # (Auto) 0.8 Eos # (Auto) 0.1 Baso # (Auto) 0.1 Abs Immat Gran (auto) 0.09 H Absolute Neuts (auto) 8.9 H Absolute Nucleated RBC 0.000 Nucleated RBC % (auto) 0.0 PT INR APTT D-Dimer High Sensitivty 2934 Anion Gap Estim Creat Clear Calc Estimated GFR POC Glucose Random Glucose Calcium Magnesium Total Bilirubin AST ALT Alkaline Phosphatase Troponin I High Sens B-Natriuretic Peptide 2577 H Total Protein Albumin Stool Occult Blood COVID-19 ([facility]) COVID-19 Clin Com 09/10/22 09/10/22 09/10/22 07:43 08:37 11:15 MCV MCH MCHC RDW Plt Count MPV Immature Gran % (Auto) Neut % (Auto) Lymph % (Auto) [place] % (Auto) Eos % (Auto) Baso % (Auto) Lymph # (Auto) [place] # (Auto) Eos # (Auto) Baso # (Auto) Abs Immat Gran (auto) Absolute Neuts (auto) Absolute Nucleated RBC Nucleated RBC % (auto) PT INR APTT D-Dimer High Sensitivty Anion Gap 14 Estim Creat Clear Calc 36.2 Estimated GFR 36 POC Glucose 125 H 130 H Random Glucose 138 H Calcium 10.0 Magnesium Total Bilirubin AST ALT Alkaline Phosphatase Troponin I High Sens B-Natriuretic Peptide Total Protein Albumin Stool Occult Blood COVID-19 ([facility]) COVID-19 Clin Com Assessment and Plan (1) Venous thromboembolism: Status: Acute Plan 81-year-old female with past medical history of COPD/ILD, diabetes, hypertension, chronic hypoxemic hypercapnic respiratory failure, legally blind, history of CKD stage4, recent NSTEMI?admitted for new onset CHF with possible GI bleed and acute diarrhea. New onset CHF-?unlcear etiology CXR with new right sided pleural effusion trops trend down from previous value elevated bnp. -Recent NSTEMI 09/01- conservative management -Echo 09/01 with normal LV systolic fx and diastolic fx for age. -Strict I&O,Daily weights,Appreciate cardiology input seen by cardiology- edema thought to be due to malnutrion , bnp elevated ,ddimer eleavted -?suspicion of pulm embolism. added v/q scan ,also plain ct chest Added limited echo. d/w pulm-added IV heparin, PT PTT monitoring, if patient started bleeding-may need to consider for vascular evaluation for consider filter . Tachycardia-patient episode of heart rate around 170s after coming back from v/q scan and chest CT- currently says the shortness of breath is better, denies any chest pain or palpitations. EKG looks similar to before. Discuss with Cardiology currently monitor heart rate, in addition patient was started on Tylenol scheduled, in lidocaine patch for leg pain, also capsaicin cream. added asa,type and screen If patient has more episodes of tachycardia or SVT we will check back with cardiology. Acute diarrhea with heme positive stool as per the patient's son-patient had question of black stool but no gross bleeding, patient is also on iron. -GI panel and C diff ordered.? Was recently treated with antibiotics for pneumonia -H/H stable, no anemia -follow CBC, BMP Discussed with GI-? Unclear if any significant bleed because H&H is stable and patient is on iron which can cause black stools also. Continue IV heparin. acute hypokalemia-likely secondary to GI losses repleted and resolved. follow BMP Hemoptysis: son says she did not have hemoptysis. continue to moniter while on heparindrip. recent NSTEMI- trops trending down than before . -09/01 treated conservatively with IV heparin, asa, statin Recent pneumonia-completed 7 days abx. cxr without consolidation. dc abx CKD stage IV-renal function baseline. DM : hold dm meds fs with low sliding scale coverage . hx Swallowing problem modified diet-please see last admission ACTING MANAGER eval. DVT prophylaxis- SCPs DNR/DNI ongoing hospitilsation needs:dvt /possible pulm embolism -need Iv heparin ,also? Gi bleed: positive stool requiring IV diuresis, cardiac monitoring Above was discussed with the patient's son in detail length-they understand above management and in agreement with above plan. Time Spent With Patient Time: Total time managing care of this patient today ____ minutes. Quality Stroke Does the patient have a stroke diagnosis?: No VTE Prior VTE?: No VTE Risk Level:: Medical - moderate - high VTE Device Contraindication: Treatment Not Indicated VTE Drug Contraindication: N/A - Med Ordered
[2022-09-10] MEDS: Acetaminophen 325 MG TABLET 975 MG PO ×2 (14:13→22:48)
[2022-09-10] MEDS: Lidocaine 4 % Patch ADH..PATCH 1 PATCH TRANSDERMA (14:16)
[2022-09-10] MEDS: Capsaicin 0.025% Cream 60 GM TUBE 1 APPL TOPICAL ×2 (18:07→22:51)
[2022-09-10] MEDS: traZODone HCL 25 MG HALFTAB 12.5 MG PO (22:51)
[2022-09-11 03:34] VITALS: BP 121/60; PULSE 94; RESP 20; TEMP 36.5; O2SAT 95
--- NOTE | 2022-09-11 05:41 | PM.GICN ---
History of Present Illness Data of Consult Service Date: 09/11/22 Requesting physician: Kate Sahu Primary Care Provider: Cecilia Hitchcock MD HPI Reason for consult: ?GI bleed 81-year-old female with past medical history of COPD/ILD, diabetes, hypertension, chronic hypoxemic hypercapnic respiratory failure, legally blind, history of CKD stage4, recent NSTEMI? who I am seeing for possible GI bleeding Patient was unsure as to why she was in the hospital but does admit she was initially SOB but now feels back to her baseline. Per discussion with Dr Sahu and review if chart there was concern about whether she was having melena and rectal bleeding. Apparently there was not agreement amongst the family about this and the patient herself is blind so cannot comment. Since admission her HGB has been stable around the 14 g/dl puneet. She denies any fevers, chills, abdominal pain, nausea, vomiting. Appetite has been fair. She has been experiencing ongoing orthopnea and her daughters have noted increased work of breathing. She as had cough with occassional blood tinged sputum per family reports by Dr Sahu. She also has had increased leg edema. She was admitted from 09/01- with NSTEMI and pneumonia. She had doppler revealing a right sided DVT of CFV and CT and vQ with filling defects suspicious for PTE as well as consolidation and possible lung mass. Review of Systems Review of Systems: Constitutional : No Weight loss, No Fever, No Chills ENT/Mouth : No sore throat, No Rhinorrhea Eyes: No Swelling, No Redness Cardiovascular : No Chest Pain, + SOB, + Edema Respiratory : +Cough, No Sputum, No Wheezing Gastrointestinal : see HPI Genitourinary : NO Dysuria, No Urinary Frequency, No Hematuria, No Urgency Musculoskeletal : No joint pain, No Myalgias, No Joint Swelling Skin : No Skin Lesions, No rash Neuro : + Weakness, No Numbness, No Dizziness, No Headache Psych : No Anxiety/Panic, No Depression Heme/Lymph: No Bruising, No Lymphadenopathy Endocrine : No Polyuria, No Polydipsia All other systems reviewed and are negative. [facility] Past Medical History Medical History Arthritis of both knees Bilateral primary osteoarthritis of knee Chronic hypercapnic respiratory failure Chronic kidney disease COPD (chronic obstructive pulmonary disease) Diabetes Gout Iron deficiency NSTEMI (non-ST elevated myocardial infarction) Osteoarthritis of left knee Family History Family History Other Arthritis Surgical History Surgical History Hx of tubal ligation Social History Social History Household Members: Family Housing: Apartment Do you presently have visiting nurse or other home services: Yes Alcohol intake: never Patient Tobacco Use Status: Former Tobacco user Tobacco use type: Cigarette Second Hand Smoke Exposure: No Currently Displaying Signs/Symptoms of Drug Intoxication Withdrawal: No Have you been hit, kicked, punched, or otherwise hurt by someone within the past year? 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 Docusate Sodium (Docusate Sodium 100 Mg Capsule) 100 mg PO DAILY PRN PRN Reason: Constipation Furosemide (Furosemide 20 Mg/2 Ml Vial) 20 mg IVPUSH Q12H MARINO; Protocol Last Admin: 09/11/22 04:38 Dose: 20 mg Glucose (Glucose Gel 15 Gm Gel..Gram.) 15 gm PO Q15M PRN; Protocol PRN Reason: per Hypoglycemia Standing Ord. Heparin Sodium (Porcine) (Heparin Sodium,Porcine 5,000 Unit/Ml Vial) 4,600 unit 40 unit/kg (4600 unit) IVPUSH PROTOCOL BOLUS PRN; Protocol PRN Reason: 40 unit/kg - Heparin Protocol Last Admin: 09/10/22 18:07 Dose: 4,600 unit Heparin Sodium (Porcine) (Heparin Sodium,Porcine 5,000 Unit/Ml Vial) 9,200 unit 80 unit/kg (9200 unit) IVPUSH PROTOCOL BOLUS PRN; Protocol PRN Reason: 80 unit/kg - Heparin Protocol Heparin Sodium/Sodium Chloride (Heparin Sodium,Porcine/1/2ns) 25,000 unit in 250 mls @ 0 mls/hr IVCONT .Q0M MARINO; Protocol Last Titration: 09/10/22 23:01 Dose: 10.9 units/kg/hr, 12.55 mls/hr Insulin Human Lispro (Insulin Lispro 100 Unit/Ml 3 Ml Vial) 0 unit SUBCUT QIDACHS [facility]; Protocol Last Admin: 09/10/22 22:02 Dose: Not Given Lidocaine (Lidocaine 4 % Patch Adh..Patch) 1 patch TRANSDERMA DAILY [facility]; Protocol Last Admin: 09/10/22 14:16 Dose: 1 patch Ondansetron HCl (Ondansetron Hcl 4 Mg/2 Ml Vial) 4 mg IVPUSH Q8H PRN PRN Reason: Nausea and Vomiting Pantoprazole Sodium (Pantoprazole Sodium 40 Mg/10 Ml Vial) 40 mg IVPUSH BID@0630,1630 [facility] Last Admin: 09/10/22 18:08 Dose: 40 mg Pharmacy Consult (Consult Rx Perform Med Rec) 1 each MISCELLANE ONCE PRN PRN Reason: Consult order Sodium Chloride (0.9 % Sodium Chloride Flush 3 Ml Syringe) 3 ml IVFLUSH QSHIFT [facility] Last Admin: 09/11/22 04:39 Dose: Not Given Trazodone HCl (Trazodone Hcl 25 Mg Halftab) 12.5 mg PO BEDTIME [facility] Last Admin: 09/10/22 22:51 Dose: 12.5 mg Home Medications Medication Instructions Recorded Confirmed Last Taken Type furosemide 80 mg tablet (Lasix) 80 mg PO BID 11/12/20 09/10/22 08/31/22 History metoprolol tartrate 50 mg tablet 50 mg PO BID 11/12/20 09/10/22 08/31/22 History (Lopressor) pregabalin 100 mg capsule (Lyrica) 100 mg PO TID 11/12/20 09/10/22 08/31/22 History acetaminophen 500 mg tablet 500 mg PO Q12H PRN Pain 11/23/21 09/10/22 Unknown History cholecalciferol (vitamin D3) 25 25 mcg PO DAILY 11/23/21 09/10/22 08/31/22 History mcg (1,000 unit) capsule (Vitamin D3) docusate sodium 100 mg capsule 100 mg PO BID 11/23/21 09/10/22 08/31/22 History ferrous sulfate 324 mg (65 mg 324 mg PO DAILY 11/23/21 09/10/22 08/31/22 History iron) tablet,delayed release oxycodone-acetaminophen 10 mg-325 1 tab PO Q12H PRN Pain 11/23/21 09/10/22 Unknown History mg tablet montelukast 10 mg tablet 10 mg PO BEDTIME 09/01/22 09/10/22 08/31/22 History potassium chloride 20 mEq 20 meq PO BID 09/01/22 09/10/22 08/31/22 History tablet,extended release(part/cryst) (Klor-Con M) prednisone 5 mg tablet 5 mg PO DAILY 09/01/22 09/10/22 08/31/22 History Physical Exam Vital Signs: Vital Signs: Last Vital Signs Temp 97.7 F 09/11/22 03:34 Pulse 94 09/11/22 03:34 Resp 20 09/11/22 03:34 BP 121/60 09/11/22 03:34 Pulse Ox 95 09/11/22 03:34 O2 Del Method Nasal Cannula 09/11/22 03:34 O2 Flow Rate 3 09/11/22 03:34 Oxygen Flow Rate 2 09/09/22 14:25 BMI result Body Mass Index 42.2 EXAM: GENERAL: The patient is obese VITAL SIGNS:see workflow HEENT: Nonicteric sclerae, PERRLA, EOMI. Oropharynx clear. Moist mucous membranes. Conjunctivae appear well perfused. No thyroid mass. CHEST: Chest wall is nontender. HEART: Regular rate and rhythm without murmurs. LUNGS: Clear to auscultation bilaterally. ABDOMEN: Soft, positive bowel sounds, nontender, no organomegaly.no flank tenderness SKIN: No rash, no excessive bruising, petechiae, or purpura. NEUROLOGIC: Cranial nerves II-XII intact without motor/sensory deficit. Blind psych-nml Extrem: General: Yes pedal edema Psych: Appearance: grossly normal Results Labs 09/10/22 20:43 09/10/22 20:43 Labs: Short CBC 09/10/22 09/10/22 09/10/22 Range/Units 08:41 12:13 20:43 WBC 9.8 (4.8-10.8) X10*3/uL Hgb 14.4 14.6 13.7 (12.0-16.0) g/dl Hct 45.4 46.8 44.1 (37.0-47.0) % Plt Count 168 (160-400) X10*3/uL BMP 09/10/22 09/10/22 08:37 20:43 Sodium 144 144 Potassium 3.9 D 3.2 L Chloride 106 106 Carbon Dioxide 28 27 BUN 19 H 18 H Creatinine 1.41 H 1.25 Calcium 10.[address] scan - chest: Attestation: I personally reviewed and interpreted this imaging study as follows: My impression: gallstones, consolidation, pl effusions, filling defect pulmonary vessles, coronary artery disease Assessment and Plan (1) Venous thromboembolism: Status: Acute Plan 1/ Acute PTE with concern for GI bleeding but no overt signs and HGB has been relatively stable PLAN: 1/ cont to monitor labs, HGB 2/ commence low dose PPI 3/ If overt GI bleeding whilst on AC then can consider EGD colon for eval but she would be high risk given her body habitus and co morbidities. Time Spent With Patient Time: Total time managing care of this patient today ____ minutes. Procedures Date of Service Date of Service: 09/12/22
[2022-09-11 06:18] LABS: Anion Gap 16 (12-20); Blood Urea Nitrogen 18 mg/dL (9-16); Calcium 9.3 mg/dL (8.4-10.2); Carbon Dioxide 29 mmol/L (22-29); Chloride 104 mmol/L (96-108); Creatinine Clr Calc Pharmacy 37.8; Estimated Glomerular Filt Rate 36; Glucose Random 98 mg/dL (60-115); Potassium 3.5 mmol/L (3.3-5.1); Sodium 145 mmol/L (135-145)
[2022-09-11 06:29] LABS: INTERNATIONAL NORM RATIO 1.4 (0.9-1.1); Prothrombin Time 16.3 SEC (10.0-13.1)
[2022-09-11 06:31] LABS: Hematocrit 45.9 % (37.0-47.0); Hemoglobin 14.1 g/dl (12.0-16.0); Mean Corpuscular HGB Conc 30.7 g/dl (31.0-35.0); Mean Corpuscular Hemoglobin 28.8 pg (27.0-33.0); Mean Corpuscular Volume 93.7 fL (80.0-98.0); Mean Platelet Volume 10.5 fL (9.4-12.3); Platelet Count 132 X10*3/uL (160-400); Red Cell Distribution Width 16.4 % (11.0-16.0); White Blood Count 7.4 X10*3/uL (4.8-10.8)
[2022-09-11 07:12] LABS: Partial Thromboplastin Time 41.7 SEC (26.0-36.4)
[2022-09-11 07:27] VITALS: BP 115/57; PULSE 80; RESP 20; TEMP 36.1; O2SAT 96
[2022-09-11 07:53] LABS: Hematocrit 45.6 % (37.0-47.0); Hemoglobin 14.2 g/dl (12.0-16.0); Mean Corpuscular HGB Conc 31.1 g/dl (31.0-35.0); Mean Corpuscular Hemoglobin 29.7 pg (27.0-33.0); Mean Corpuscular Volume 95.4 fL (80.0-98.0); Platelet Count 134 X10*3/uL (160-400); Red Blood Count 4.78 X10*6/uL (4.20-5.50); Red Cell Distribution Width 16.2 % (11.0-16.0); White Blood Count 7.8 X10*3/uL (4.8-10.8)
[2022-09-11] MEDS: Acetaminophen 325 MG TABLET 975 MG PO ×2 (08:08→20:35)
--- NOTE | 2022-09-11 08:47 | PC.NURSE ---
pt on heparin drip, discussed with pharmacist Ashwin nicolas additional PTThd and Stat lab drawn. result critically high. Dose adjusted per protocol. Pt has AC IV with frequent bending of the arm. Frequent reminders given and assisted to position for comfort with arm straight. This am PTT hd unfortunately was not collected and lab called to clarify lab was able to be done stat off the PT/INR tube. Low PTT adjustments made as per protocol. Pt with bruising on arms consistant with blood draw/IV's no other bleeding or hematoma's noted.
[2022-09-11] MEDS: Lidocaine 4 % Patch ADH..PATCH 1 PATCH TRANSDERMA (09:51)
[2022-09-11] MEDS: Aspirin 81 MG TAB.CHEW PO (09:52)
[2022-09-11] MEDS: 0.9 % Sodium Chloride Flush 3 ML SYRINGE IVFLUSH ×2 (09:53→15:32)
[2022-09-11] MEDS: Capsaicin 0.025% Cream 60 GM TUBE 1 APPL TOPICAL ×4 (09:53→20:37)
--- NOTE | 2022-09-11 11:33 | MHC.SL.SWA ---
Speech Pathologist Impression: Oropharyngeal Phase Dysphagia Risk of Aspiration Due to: History of Pneumonia Poor PO Intake Reduced Cognition Dysphasia Diet Status: Pt on clear liquid diet, when able to upgrade recommend puree solids (NDD1) and thin liquids Liquid Consistency and Strategies for Safe Swallow: Liquid Intake Recommendation: Thin Liquid Intake Strategies: Small Sips Solid Food Consistency: Dietary Recommendations: Pureed (NDD1) Oral Medication Intake: Crushed with Puree Please contact the pharmacy regarding appropriate crushable or liquid drug formulations that are available whenever modified delivery is recommended. Compensatory Strategies and Precautions to be Taken for Safe Swallow: Sitting Upright (90 deg) Small Bites and Sips Alternate Liquids/Solids Rate of Ingestion Change Supervision While Eating and Drinking for Safe Swallow: Total Assistance (1:1) Recommendation for Speech: Inpatient Speech Therapy Comment: Once pt is able to upgrade from clear liquid diet, recommend PUREE solids (NDD1) and THIN liquids. Recommend pills crushed in puree d/t RN reports of difficulty swallowing pills whole in puree. Pt requires 1-1 assist. Cue to take small sips. PC ANALYST to continue to follow. RN, MD, RD notified in person. Pt whiteboard updated. Clinical Administrative Coordinator Clinican/Clinical Fellow: No Supervisory Statement: I have reviewed and agree with the student/clinical fellow's documentation: No Speech Language Pathologist: Belkis Wells M.A., [facility]-PC ANALYST
[2022-09-11 11:37] VITALS: BMI 42.2
--- NOTE | 2022-09-11 11:41 | MHC.CLN ---
RE: CONSULT PT WITH INCREASED NUTRITION R/T PRESSURE INJURY DIET RX: C/L-APPROPRIATE WILL ADD ENSURE CLEAR TO PROMOTE WOUND HEALING WHEN DIET TO ADVANCE; RECOMMEND 1800DM 2GM NA R/T DM & CHF CAN SWITCH TO REGULAR ENSURE BID FOR WOUND HEALING MONITOR PO INTAKE CLOSELY SEE ALSO FULL CLINICAL NUTRITION ASSESSMENT
[2022-09-11 11:53] VITALS: BP 121/61; PULSE 75; RESP 20; TEMP 36.7; O2SAT 98
--- NOTE | 2022-09-11 11:55 | PM.PNCARD ---
Subjective Subjective Date of Service: 09/11/22 Interval history: Seen examined at bedside. She is saying she is feeling better. On supplemental oxygen. V/Q scan and CT chest have shown concern for pulmonary embolism and she is on anticoagulation currently. She has a large DVT involving the right lower extremity. Echocardiography was reviewed today showing EF of 30 35% with apical wall motion abnormality with differentials of LAD ischemia versus takotsubo. She has diffuse T-wave inversions on the EKG at this point. Physical Exam Vital Signs: Last Vital Signs Temp 98.1 F 09/11/22 11:53 Pulse 75 09/11/22 11:53 Resp 20 09/11/22 11:53 BP 121/61 09/11/22 11:53 Pulse Ox 98 09/11/22 11:53 O2 Del Method Nasal Cannula 09/11/22 11:53 O2 Flow Rate 3 09/11/22 11:53 Oxygen Flow Rate 2 09/09/22 14:25 BMI result Body Mass Index 42.2 GENERAL APPEARANCE: On supplemental oxygen. In no acute distress. NECK: no carotid bruit, no significant jugular venous distention. SKIN: no suspicious lesions, warm and dry. HEART: no murmurs, regular rate and rhythm. Left parasternal heave. LUNGS: Fine crackles at bases. ABDOMEN: soft, nontender. EXTREMITIES: + edema. PERIPHERAL PULSES: equal. NEUROLOGIC: No gross deficits, AAO X 3 Objective Labs and Meds 09/11/22 07:35 09/11/22 06:00 Lab results: Laboratory Results - last 24 hr 09/10/22 09/10/22 09/10/22 12:13 12:13 14:27 WBC 9.8 RBC 4.94 Hgb 14.6 Hct 46.8 MCV 94.7 MCH 29.6 MCHC 31.2 RDW 16.6 H Plt Count 168 MPV 11.2 Absolute Nucleated RBC 0.000 Nucleated RBC % (auto) 0.0 PT 15.9 H INR 1.4 H APTT aPTT Heparin Protocol 27.9 L D 37.1 L D Sodium Potassium Chloride Carbon Dioxide Anion Gap BUN Creatinine Estim Creat Clear Calc Estimated GFR POC Glucose Random Glucose Calcium Magnesium Blood Type Antibody Screen 09/10/22 09/10/22 09/10/22 14:27 15:17 20:30 WBC RBC Hgb Hct MCV MCH MCHC RDW Plt Count MPV Absolute Nucleated RBC Nucleated RBC % (auto) PT INR APTT aPTT Heparin Protocol Sodium Potassium Chloride Carbon Dioxide Anion Gap BUN Creatinine Estim Creat Clear Calc Estimated GFR POC Glucose 166 H 124 H Random Glucose Calcium Magnesium Blood Type B Positive Antibody Screen NEGATIVE 09/10/22 09/10/22 09/10/22 20:43 20:43 20:43 WBC RBC Hgb 13.7 Hct 44.1 MCV MCH MCHC RDW Plt Count MPV Absolute Nucleated RBC Nucleated RBC % (auto) PT INR APTT aPTT Heparin Protocol 94.2 H D Sodium 144 Potassium 3.2 L Chloride 106 Carbon Dioxide 27 Anion Gap 14 BUN 18 H Creatinine 1.25 Estim Creat Clear Calc 43.2 Estimated GFR 41 POC Glucose Random Glucose 107 Calcium 9.0 D Magnesium 1.6 Blood Type Antibody Screen 09/11/22 09/11/22 09/11/22 06:00 06:00 06:00 WBC 7.4 RBC 4.90 Hgb 14.1 Hct 45.9 MCV 93.7 MCH 28.8 MCHC 30.7 L RDW 16.4 H Plt Count 132 L MPV 10.5 Absolute Nucleated RBC 0.000 Nucleated RBC % (auto) 0.0 PT 16.3 H INR 1.4 H APTT 41.7 H D aPTT Heparin Protocol Sodium 145 Potassium 3.5 Chloride 104 Carbon Dioxide 29 Anion Gap 16 BUN 18 H Creatinine 1.40 Estim Creat Clear Calc 37.8 Estimated GFR 36 POC Glucose Random Glucose 98 Calcium 9.3 Magnesium Blood Type Antibody Screen 09/11/22 09/11/22 09/11/22 07:35 07:35 07:48 WBC 7.8 RBC 4.78 Hgb 14.2 Hct 45.6 MCV 95.4 MCH 29.7 MCHC 31.1 RDW 16.2 H Plt Count 134 L MPV 11.0 Absolute Nucleated RBC 0.000 Nucleated RBC % (auto) 0.0 PT INR APTT aPTT Heparin Protocol 34.7 L D Sodium Potassium Chloride Carbon Dioxide Anion Gap BUN Creatinine Estim Creat Clear Calc Estimated GFR POC Glucose 105 Random Glucose Calcium Magnesium Blood Type Antibody Screen Imaging Radiologist's impression: Impressions Pulmonary Perfusion Imaging 09/10/22 10:55 IMPRESSION: Multiple filling defects with high suspicion for PE. Chest CT 09/10/22 11:05 IMPRESSION: 1. Heterogeneous pulmonary artery attenuation suspicious for pulmonary emboli. Bilateral leg Doppler ultrasound could be helpful in this regard. 2. Enlarged pulmonary arteries consistent with pulmonary arterial hypertension. Recommend echocardiography. 3. Aortic valve disease. Recommend echocardiography. 4. Severe emphysema. 5. Right lower lobe consolidation suspicious for aspiration, pneumonia or hemorrhage. 6. Possible right lower lobe mass. Short interval follow-up CT is required in one month's time. 7. Severe coronary artery disease. 8. Borderline splenomegaly. 9. Cholelithiasis. 10. A 3 cm isthmic thyroid nodule. Recommend thyroid ultrasound. Fleischner guidelines were followed. Progress Note: A&P Assessment and plan (1) Venous thromboembolism: Status: Acute (2) New onset of congestive heart failure: Status: Acute (3) NSTEMI (non-ST elevated myocardial infarction): Status: Acute Plan 82-year-old female who recently was discharged from hospital after being treated for NSTEMI. She was medically managed. There was some concern for GI blood loss during the admission. She now presented with poor p.o. intake and weakness. She was also noticed to have a right lower extremity DVT and V/Q scan showed concern for pulmonary embolism. She has been on anticoagulation at this point with heparin drip. EKG is showing sinus tachycardia with left axis deviation, poor R-wave progression, anterolateral T-wave inversions with QTC of 499. ECHO showing apical wall motion abnormality with mild to moderate RV dilation but no dysfunction. LVEF 30 35%. She was noticed to be mildly overloaded on exam on admission and was given IV diuretics. She appears to be fairly euvolemic at this point. I think she can be changed to oral diuretics. Recommend 40 mg p.o. b.i.d.. Continue heparin drip for now and if hemoglobin stays stable then she can be started on Eliquis for anticoagulation for DVT/PE. She is supposed to be on a pureed diet based on speech evaluation. Overall quite deconditioned and frail and not a good candidate for any aggressive procedures. Overall I think she had takotsubo cardiomyopathy based on biomarkers, EKG and echocardiography. Given LV dysfunction would favor starting her on losartan 25 mg daily. If she tolerates that then beta-amarjit can be introduced with Toprol XL 25 mg daily by tomorrow. Thank you for allowing me to participate in the care of your patient. Please feel free to contact me if you have any questions. Time Spent With Patient Time: Total time managing care of this patient today ____ minutes. Progress Note: Quality Stroke Does the patient have a stroke diagnosis?: No Procedures Date of Service Date of Service: 09/11/22
--- NOTE | 2022-09-11 11:55 | PM.CNGS ---
History of Present Illness Consult details Consult date: 09/11/22 Reason for consult: other (dvt/pe) Narrative: Pleasant 82-year-old female with prior history of non STEMI and [place] was recently discharged from the hospital. She was found to be in general weak and there was question of bright red blood per rectum. She was subsequent brought in and worked up and then was found to have a right lower extremity DVT which was from the common femoral to the great saphenous vein. In addition there is a question of a pulmonary embolism. She was started on anticoagulation and the concern was the DVT along with the bleed be an issue for her. There was a question of IVC filter placement. Review of Systems Review of Systems: Yes all other systems are reviewed and are negative Constitutional: Constitutional: Reports no additional constitutional complaints ENT: Reports Normal hearing present Cardiovascular: Cardiovascular: Denies chest pain, Denies chest pain at rest, Denies chest pain with activity and Denies pedal edema Respiratory: Respiratory: Denies cough Gastrointestinal: Gastrointestinal: Denies abdominal pain Musculoskeletal: Musculoskeletal: Denies abnormal gait, Denies muscle cramps and Denies radiating pain into limb Integumentary/Breasts: Skin/Breast: Denies skin ulcer and Denies wounds Neurologic: Reports Normal hearing present and Denies abnormal gait Psychiatric: Psychiatric: Reports no additional psychiatric complaints PMFSH Past Medical History Medical History Arthritis of both knees Bilateral primary osteoarthritis of knee Chronic hypercapnic respiratory failure Chronic kidney disease COPD (chronic obstructive pulmonary disease) Diabetes Gout Iron deficiency NSTEMI (non-ST elevated myocardial infarction) Osteoarthritis of left knee Family History Family History Other Arthritis Surgical History Surgical History Hx of tubal ligation Social History Social History Household Members: Family Housing: Apartment Do you presently have visiting nurse or other home services: Yes Alcohol intake: never Patient Tobacco Use Status: Former Tobacco user Tobacco use type: Cigarette Second Hand Smoke Exposure: No Currently Displaying Signs/Symptoms of Drug Intoxication Withdrawal: No Have you been hit, kicked, punched, or otherwise hurt by someone within the past year? 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 Meds Allergies Allergy/AdvReac Type Severity Reaction Status Date / Time No Known Allergies Allergy Unknown Verified 09/09/22 14:40 Active Medications: Current Medications Acetaminophen (Acetaminophen 325 Mg Tablet) 975 mg PO Q8H [facility] Last Admin: 09/11/22 08:08 Dose: 975 mg Aspirin (Aspirin 81 Mg Tab.Chew) 81 mg PO DAILY [facility] Last Admin: 09/11/22 09:52 Dose: 81 mg Capsaicin (Capsaicin 0.025% Cream 60 Gm Tube) 1 appl TOPICAL QID [facility]; Protocol Last Admin: 09/11/22 09:53 Dose: 1 appl Dextrose (Dextrose 50 % 25 Gm/50 Ml Syringe) 25 gm IVPUSH Q15M PRN; Protocol PRN Reason: per Hypoglycemia Standing Ord. Docusate Sodium (Docusate Sodium 100 Mg Capsule) 100 mg PO DAILY PRN PRN Reason: Constipation Furosemide (Furosemide 40 Mg Tablet) 40 mg PO DAILY [facility]; Protocol Glucose (Glucose Gel 15 Gm Gel..Gram.) 15 gm PO Q15M PRN; Protocol PRN Reason: per Hypoglycemia Standing Ord. Heparin Sodium (Porcine) (Heparin Sodium,Porcine 5,000 Unit/Ml Vial) 4,600 unit 40 unit/kg (4600 unit) IVPUSH PROTOCOL BOLUS PRN; Protocol PRN Reason: 40 unit/kg - Heparin Protocol Last Admin: 09/11/22 09:52 Dose: 4,600 unit Heparin Sodium (Porcine) (Heparin Sodium,Porcine 5,000 Unit/Ml Vial) 9,200 unit 80 unit/kg (9200 unit) IVPUSH PROTOCOL BOLUS PRN; Protocol PRN Reason: 80 unit/kg - Heparin Protocol Heparin Sodium/Sodium Chloride (Heparin Sodium,Porcine/1/2ns) 25,000 unit in 250 mls @ 0 mls/hr IVCONT .Q0M [facility]; Protocol Last Admin: 09/11/22 09:49 Dose: 12.9 units/kg/hr, 14.85 mls/hr Insulin Human Lispro (Insulin Lispro 100 Unit/Ml 3 Ml Vial) 0 unit SUBCUT QIDACHS [facility]; Protocol Last Admin: 09/11/22 09:52 Dose: Not Given Lidocaine (Lidocaine 4 % Patch Adh..Patch) 1 patch TRANSDERMA DAILY [facility]; Protocol Last Admin: 09/11/22 09:51 Dose: 1 patch Ondansetron HCl (Ondansetron Hcl 4 Mg/2 Ml Vial) 4 mg IVPUSH Q8H PRN PRN Reason: Nausea and Vomiting Pantoprazole Sodium (Pantoprazole Sodium 40 Mg/10 Ml Vial) 40 mg IVPUSH BID@0630,1630 [facility] Last Admin: 09/11/22 08:09 Dose: 40 mg Pharmacy Consult (Consult Rx Perform Med Rec) 1 each MISCELLANE ONCE PRN PRN Reason: Consult order Sodium Chloride (0.9 % Sodium Chloride Flush 3 Ml Syringe) 3 ml IVFLUSH QSHIFT [facility] Last Admin: 09/11/22 09:53 Dose: 3 ml Trazodone HCl (Trazodone Hcl 25 Mg Halftab) 12.5 mg PO BEDTIME [facility] Last Admin: 09/10/22 22:51 Dose: 12.5 mg Home Medications Medication Instructions Recorded Confirmed Last Taken Type furosemide 80 mg tablet (Lasix) 80 mg PO BID 11/12/20 09/10/22 08/31/22 History metoprolol tartrate 50 mg tablet 50 mg PO BID 11/12/20 09/10/22 08/31/22 History (Lopressor) pregabalin 100 mg capsule (Lyrica) 100 mg PO TID 11/12/20 09/10/22 08/31/22 History acetaminophen 500 mg tablet 500 mg PO Q12H PRN Pain 11/23/21 09/10/22 Unknown History cholecalciferol (vitamin D3) 25 25 mcg PO DAILY 11/23/21 09/10/22 08/31/22 History mcg (1,000 unit) capsule (Vitamin D3) docusate sodium 100 mg capsule 100 mg PO BID 11/23/21 09/10/22 08/31/22 History ferrous sulfate 324 mg (65 mg 324 mg PO DAILY 11/23/21 09/10/22 08/31/22 History iron) tablet,delayed release oxycodone-acetaminophen 10 mg-325 1 tab PO Q12H PRN Pain 11/23/21 09/10/22 Unknown History mg tablet montelukast 10 mg tablet 10 mg PO BEDTIME 09/01/22 09/10/22 08/31/22 History potassium chloride 20 mEq 20 meq PO BID 09/01/22 09/10/22 08/31/22 History tablet,extended release(part/cryst) (Klor-Con M) prednisone 5 mg tablet 5 mg PO DAILY 09/01/22 09/10/22 08/31/22 History Physical Exam Vital Signs: Vital Signs: Last Vital Signs Temp 98.1 F 09/11/22 11:53 Pulse 75 09/11/22 11:53 Resp 20 09/11/22 11:53 BP 121/61 09/11/22 11:53 Pulse Ox 98 09/11/22 11:53 O2 Del Method Nasal Cannula 09/11/22 11:53 O2 Flow Rate 3 09/11/22 11:53 Oxygen Flow Rate 2 09/09/22 14:25 BMI result Body Mass Index 42.2 Const: General: cooperative, healthy appearing and comfortable Orientation/consciousness: oriented to person, oriented to place and oriented to time HEENT: Head: Yes normal to inspection Neck: Neck: Yes normal visual inspection Carotids: no bruits Chest: Chest palpation & inspection: normal inspection of the chest Resp: Effort & Inspection: normal respiratory effort and able to speak in complete sentences Auscultation: clear to auscultation bilaterally, no crackles, no rales, no rhonchi and no wheezes Cardio: Rate: regular rate Rhythm: regular rhythm Heart sounds: S1 normal heart sound present and S2 normal heart sound present Bruits: no carotid bruits Peripheral pulses: Peripheral pulses 2+ throughout GI: Inspection: Yes normal to inspection Skin: Wounds: no wounds Hair: normal Neuro: General: oriented to person, oriented to place and oriented to time Cranial nerves: Yes CN's II-XII intact bilaterally and Yes Normal hearing present Cognition (Neuro): normal cognition Motor exam (neuro): 5/5 motor strength present throughout Extrem: Other: venous exam: No significant superficial varicosities or spider telangiectasias, minimal edema General: No clubbing, No cyanosis and No edema Psych: Appearance: grossly normal Mental Status: mental status grossly normal Speech and movement: Normal speech and movement present Results Labs 09/11/22 07:35 09/11/22 06:00 Labs: Abnormal lab results 09/10/22 09/10/22 09/10/22 Range/Units 12:13 12:13 14:27 MCHC (31.0-35.0) g/dl RDW 16.6 H (11.0-16.0) % Plt Count (160-400) X10*3/uL PT 15.9 H (10.0-13.1) SEC INR 1.4 H (0.9-1.1) APTT (26.0-36.4) SEC aPTT Heparin Protocol 27.9 L D 37.1 L D (53-77.9) SEC Potassium (3.3-5.1) mmol/L BUN (9-16) mg/dL POC Glucose (60-115) mg/dL 09/10/22 09/10/22 09/10/22 Range/Units 15:17 20:30 20:43 MCHC (31.0-35.0) g/dl RDW (11.0-16.0) % Plt Count (160-400) X10*3/uL PT (10.0-13.1) SEC INR (0.9-1.1) APTT (26.0-36.4) SEC aPTT Heparin Protocol 94.2 H D (53-77.9) SEC Potassium (3.3-5.1) mmol/L BUN (9-16) mg/dL POC Glucose 166 H 124 H (60-115) mg/dL 09/10/22 09/11/22 09/11/22 Range/Units 20:43 06:00 06:00 MCHC 30.7 L (31.0-35.0) g/dl RDW 16.4 H (11.0-16.0) % Plt Count 132 L (160-400) X10*3/uL PT 16.3 H (10.0-13.1) SEC INR 1.4 H (0.9-1.1) APTT 41.7 H D (26.0-36.4) SEC aPTT Heparin Protocol (53-77.9) SEC Potassium 3.2 L (3.3-5.1) mmol/L BUN 18 H (9-16) mg/dL POC Glucose (60-115) mg/dL 09/11/22 09/11/22 09/11/22 Range/Units 06:00 07:35 07:35 MCHC (31.0-35.0) g/dl RDW 16.2 H (11.0-16.0) % Plt Count 134 L (160-400) X10*3/uL PT (10.0-13.1) SEC INR (0.9-1.1) APTT (26.0-36.4) SEC aPTT Heparin Protocol 34.7 L D (53-77.9) SEC Potassium (3.3-5.1) mmol/L BUN 18 H (9-16) mg/dL POC Glucose (60-115) mg/dL Short CBC 09/10/22 09/10/22 09/11/22 Range/Units 12:13 20:43 06:00 WBC 9.8 7.4 (4.8-10.8) X10*3/uL Hgb 14.6 13.7 14.1 (12.0-16.0) g/dl Hct 46.8 44.1 45.9 (37.0-47.0) % Plt Count 168 132 L (160-400) X10*3/uL 09/11/22 Range/Units 07:35 WBC 7.8 (4.8-10.8) X10*3/uL Hgb 14.2 (12.0-16.0) g/dl Hct 45.6 (37.0-47.0) % Plt Count 134 L (160-400) X10*3/uL BMP 09/10/22 09/11/22 20:43 06:00 Sodium 144 145 Potassium 3.2 L 3.5 Chloride 106 104 Carbon Dioxide 27 29 BUN 18 H 18 H Creatinine 1.25 1.40 Calcium 9.0 D 9.3 All other labs normal. Imaging Additional studies: Ultrasound and CT scan results were reviewed was positive for DVT and PE Assessment and Plan (1) Venous thromboembolism: Status: Acute Plan At the current time the patient does appear to be tolerating anticoagulation. There have been no reports of any bleeds. Would continue with formal anticoagulation. Would monitor her H&H as at the current time it is stable at 14.2. The patient will follow up with us on an as-needed basis. Should she developed a GI bleed once again would consider IVC filter placement in light her her multiple comorbidities. Once again at the current time there is no indication for filter placement and would continue with anticoagulation. We will follow with you on an as-needed basis. Thank you for allowing us to assist in her care. Time Spent With Patient Time: Total time managing care of this patient today ____ minutes. Procedures Date of Service Date of Service: 09/11/22
--- NOTE | 2022-09-11 12:27 | MHC.CM.PN ---
EMR REVIEWED AND PER MD ROUNDS, PT IS NOT MEDICALLY CLEARED FOR DC (IV HEPARIN, MONITORING LABS) [facility] UPDATED. CM WILL CONTINUE TO FOLLOW FOR DC NEEDS/PLAN.
[2022-09-11 15:09] VITALS: BP 116/58; PULSE 82; RESP 18; TEMP 36.7; O2SAT 98
--- NOTE | 2022-09-11 15:30 | HO.PM.IMPN ---
Subjective Subjective Date of Service: 09/11/22 Interval History: ?CHF, DVT Review of Systems sob seems slightly improving denies any chest pain or abd pain Physical Exam Vital Signs: Vital Signs: Last Vital Signs Temp 98.0 F 09/11/22 15:09 Pulse 82 09/11/22 15:09 Resp 18 09/11/22 15:09 BP 116/58 L 09/11/22 15:09 Pulse Ox 98 09/11/22 15:09 O2 Del Method Nasal Cannula 09/11/22 15:09 O2 Flow Rate 3 09/11/22 15:09 Oxygen Flow Rate 2 09/09/22 14:25 BMI result Body Mass Index 42.2 Appearance: Alert.? Oriented X3.?[place] speaking female, cvs: rrr, [id number]. res: clear to auscultation ,no rhonchii or wheezing abd: no rebound or guarding ,nt, bs present. ext pulses present , no cyanosis. neuro: axo3 , nonfocal. Objective Data Active Medications Acetaminophen (Acetaminophen 325 Mg Tablet) 975 mg PO Q8H [facility] Last Admin: 09/11/22 15:23 Dose: Not Given Documented By: ARLEEN Non-Admin Reason: Patient Refused Aspirin (Aspirin 81 Mg Tab.Chew) 81 mg PO DAILY [facility] Last Admin: 09/11/22 09:52 Dose: 81 mg Documented By: ARLEEN Capsaicin (Capsaicin 0.025% Cream 60 Gm Tube) 1 appl TOPICAL QID [facility]; Protocol Last Admin: 09/11/22 15:23 Dose: 1 appl Documented By: ARLEEN Dextrose (Dextrose 50 % 25 Gm/50 Ml Syringe) 25 gm IVPUSH Q15M PRN; Protocol PRN Reason: per Hypoglycemia Standing Ord. Docusate Sodium (Docusate Sodium 100 Mg Capsule) 100 mg PO DAILY PRN PRN Reason: Constipation Furosemide (Furosemide 40 Mg Tablet) 40 mg PO DAILY [facility]; Protocol Last Admin: 09/11/22 12:14 Dose: Not Given Documented By: ARLEEN Non-Admin Reason: Physician Held Med Glucose (Glucose Gel 15 Gm Gel..Gram.) 15 gm PO Q15M PRN; Protocol PRN Reason: per Hypoglycemia Standing Ord. Heparin Sodium (Porcine) (Heparin Sodium,Porcine 5,000 Unit/Ml Vial) 4,600 unit 40 unit/kg (4600 unit) IVPUSH PROTOCOL BOLUS PRN; Protocol PRN Reason: 40 unit/kg - Heparin Protocol Last Admin: 09/11/22 09:52 Dose: 4,600 unit Documented By: ARLEEN Heparin Sodium (Porcine) (Heparin Sodium,Porcine 5,000 Unit/Ml Vial) 9,200 unit 80 unit/kg (9200 unit) IVPUSH PROTOCOL BOLUS PRN; Protocol PRN Reason: 80 unit/kg - Heparin Protocol Heparin Sodium/Sodium Chloride (Heparin Sodium,Porcine/1/2ns) 25,000 unit in 250 mls @ 0 mls/hr IVCONT .Q0M [facility]; Protocol Last Titration: 09/11/22 15:19 Dose: 0 units/kg/hr, 0 mls/hr Documented By: ARLEEN Co-signed By: SWATI Insulin Human Lispro (Insulin Lispro 100 Unit/Ml 3 Ml Vial) 0 unit SUBCUT QIDACHS [facility]; Protocol Last Admin: 09/11/22 12:14 Dose: Not Given Documented By: ARLEEN Non-Admin Reason: No Insulin Coverage Lidocaine (Lidocaine 4 % Patch Adh..Patch) 1 patch TRANSDERMA DAILY [facility]; Protocol Last Admin: 09/11/22 09:51 Dose: 1 patch Documented By: ARLEEN Ondansetron HCl (Ondansetron Hcl 4 Mg/2 Ml Vial) 4 mg IVPUSH Q8H PRN PRN Reason: Nausea and Vomiting Pantoprazole Sodium (Pantoprazole Sodium 40 Mg/10 Ml Vial) 40 mg IVPUSH BID@0630,1630 [facility] Last Admin: 09/11/22 15:21 Dose: 40 mg Documented By: ARLEEN Pharmacy Consult (Consult Rx Perform Med Rec) 1 each MISCELLANE ONCE PRN PRN Reason: Consult order Sodium Chloride (0.9 % Sodium Chloride Flush 3 Ml Syringe) 3 ml IVFLUSH QSHIFT [facility] Last Admin: 09/11/22 09:53 Dose: 3 ml Documented By: ARLEEN Trazodone HCl (Trazodone Hcl 25 Mg Halftab) 12.5 mg PO BEDTIME [facility] Last Admin: 09/10/22 22:51 Dose: 12.5 mg Documented By: NORBERTO Labs 09/11/22 07:35 09/11/22 06:00 Labs: Laboratory Results - last 24 hr 09/10/22 09/10/22 09/10/22 15:17 20:30 20:43 MCV MCH MCHC RDW Plt Count MPV Absolute Nucleated RBC Nucleated RBC % (auto) PT INR APTT aPTT Heparin Protocol 94.2 H D Anion Gap Estim Creat Clear Calc Estimated GFR POC Glucose 166 H 124 H Random Glucose Calcium Magnesium C. difficile Tox B Gene 09/10/22 09/11/22 09/11/22 20:43 06:00 06:00 MCV 93.7 MCH 28.8 MCHC 30.7 L RDW 16.4 H Plt Count 132 L MPV 10.5 Absolute Nucleated RBC 0.000 Nucleated RBC % (auto) 0.0 PT 16.3 H INR 1.4 H APTT 41.7 H D aPTT Heparin Protocol Anion Gap 14 Estim Creat Clear Calc 43.2 Estimated GFR 41 POC Glucose Random Glucose 107 Calcium 9.0 D Magnesium 1.6 C. difficile Tox B Gene 09/11/22 09/11/22 09/11/22 06:00 07:35 07:35 MCV 95.4 MCH 29.7 MCHC 31.1 RDW 16.2 H Plt Count 134 L MPV 11.0 Absolute Nucleated RBC 0.000 Nucleated RBC % (auto) 0.0 PT INR APTT aPTT Heparin Protocol 34.7 L D Anion Gap 16 Estim Creat Clear Calc 37.8 Estimated GFR 36 POC Glucose Random Glucose 98 Calcium 9.3 Magnesium C. difficile Tox B Gene 09/11/22 09/11/22 09/11/22 07:48 11:51 12:18 MCV MCH MCHC RDW Plt Count MPV Absolute Nucleated RBC Nucleated RBC % (auto) PT INR APTT aPTT Heparin Protocol Anion Gap Estim Creat Clear Calc Estimated GFR POC Glucose 105 113 Random Glucose Calcium Magnesium C. difficile Tox B Gene NEGATIVE 09/11/22 14:18 MCV MCH MCHC RDW Plt Count MPV Absolute Nucleated RBC Nucleated RBC % (auto) PT INR APTT aPTT Heparin Protocol 111.1 H* D Anion Gap Estim Creat Clear Calc Estimated GFR POC Glucose Random Glucose Calcium Magnesium C. difficile Tox B Gene Assessment and Plan (1) Venous thromboembolism: Status: Acute (2) Diarrhea: Status: Acute (3) New onset of congestive heart failure: Status: Acute Plan 81-year-old female with past medical history of COPD/ILD, diabetes, hypertension, chronic hypoxemic hypercapnic respiratory failure, legally blind, history of CKD stage4, recent NSTEMI?admitted for new onset CHF with possible GI bleed and acute diarrhea. Acute hypoxemic respiratory failure-multifactorial New onset CHF-?unlcear etiology, pulmonary embolism, acute leg DVT new ?CXR with new right sided pleural effusion trops trend down from previous value elevated bnp. -Recent NSTEMI 09/01- conservative management -Echo 09/01 with normal LV systolic fx and diastolic fx for age. -Strict I&O,Daily weights,Appreciate cardiology input seen by cardiology- edema thought to be due to malnutrion , bnp elevated ,ddimer eleavted -?suspicion of pulm embolism. v/q scan-seems like pulm embolism chest ct pendin Added limited echo. d/w pulm-added? IV heparin, PT PTT monitoring Acute diarrhea with heme positive stool ?as per the patient's son-patient had question of black stool but no gross bleeding, patient is also on iron. -GI panel and C diff ordered.? Was recently treated with antibiotics for pneumonia -H/H stable, no anemia,no episode of hunter bleedin -follow CBC, BMP Discussed with GI-?? Unclear if any significant bleed because H&H is stable and patient is on iron which can cause black stools also.? Continue IV heparin. ?acute hypokalemia-likely secondary to GI losses repleted and resolved. follow BMP Hemoptysis: son says she did not have hemoptysis. continue to moniter while on heparindrip. recent? NSTEMI- trops trending down than before . -09/01 treated conservatively with IV heparin, asa, statin Recent pneumonia-completed 7 days abx. cxr without consolidation. dc abx CKD stage IV-renal function baseline. DM : hold dm meds fs with low sliding scale coverage . hx Swallowing problem modified diet-please see? last admission [facility]. had diarrahe itntially: c diff neg GIp panel pending DVT prophylaxis- SCPs DNR/DNI ongoing hospitilsation needs:dvt /possible pulm embolism -need Iv heparin ,also? Gi bleed: positive stool requiring IV diuresis, cardiac monitoring Above was discussed with the patient's son in detail length-they understand above management and in agreement with above plan. Time Spent With Patient Time: Total time managing care of this patient today ____ minutes. Quality Stroke Does the patient have a stroke diagnosis?: No VTE Prior VTE?: No VTE Risk Level:: Medical - moderate - high VTE Device Contraindication: Treatment Not Indicated VTE Drug Contraindication: N/A - Med Ordered
[2022-09-11 19:43] VITALS: BP 150/70; PULSE 89; RESP 18; TEMP 36.9; O2SAT 97
[2022-09-11] MEDS: traZODone HCL 25 MG HALFTAB 12.5 MG PO (20:35)
--- NOTE | 2022-09-11 21:02 | PC.NURSE ---
Assumed care at 07:00. Patient drowsy to alert/easily arousable. Communicated in Albanian, declined interpretter. Patient on bedrest today per MD. Incentive spirometry with about 750 ccs volume. Patient continued on 3 lPM n.c. Patient with incontinence of stool x2 today, loose dark stool, stool sample sent to lab, but only C.Diff was able to be checked volume stool inadequate for GI panel, MD aware, reordered GI panel. Voids via purewick. R buttock with 2 x stage 2s. Patient worked with speech today, needs to be supervised for meals, tolerated full liquid diet.
[2022-09-11 23:40] VITALS: BP 143/74; PULSE 87; RESP 18; TEMP 37; O2SAT 97
[2022-09-12] MEDS: 0.9 % Sodium Chloride Flush 3 ML SYRINGE IVFLUSH ×2 (00:17→20:47)
--- NOTE | 2022-09-12 00:49 | PC.NURSE ---
Care assumed @ 1900 on 09/11. Patient drowsy though appropriately arousable. A&Ox3, primarily Armenian speaking with plastic joint maker utilized. +palpable pulses, strong radial/weak pedal. +generalized edema. Heparin gtt infusing as ordered without signs of bleeding noted. No BM during care. Continues on 3L nc with spo2 maintained. Denies chest pain and sob. Breathing appears even and unlabored without distress. Tolerating full liquid diet as ordered. Voids via purewick cyu. Dressings in place to buttocks. Bed alarm on and safety measures in place. Handoff report given to oncoming RN @ [id number].
[2022-09-12 04:00] VITALS: BP 137/63; PULSE 92; RESP 20; TEMP 36.6; O2SAT 95
[2022-09-12] MEDS: Acetaminophen 325 MG TABLET 975 MG PO ×3 (06:30→20:42)
[2022-09-12 07:39] VITALS: BP 125/60; PULSE 80; RESP 20; TEMP 36.4; O2SAT 93
[2022-09-12] MEDS: Lidocaine 4 % Patch ADH..PATCH 1 PATCH TRANSDERMA (08:12)
[2022-09-12] MEDS: Aspirin 81 MG TAB.CHEW PO (08:13)
[2022-09-12] MEDS: Capsaicin 0.025% Cream 60 GM TUBE 1 APPL TOPICAL ×4 (08:13→20:47)
--- NOTE | 2022-09-12 10:59 | HO.PM.IMPN ---
Subjective Subjective Date of Service: 09/12/22 Interval History: f/u on resp failure d/t chf, pe presently comfortable, no sob Physical Exam Vital Signs: Vital Signs: Last Vital Signs Temp 97.5 F 09/12/22 07:39 Pulse 80 09/12/22 07:39 Resp 20 09/12/22 07:39 BP 125/60 09/12/22 07:39 Pulse Ox 93 09/12/22 07:39 O2 Del Method Nasal Cannula 09/12/22 07:39 O2 Flow Rate 3 09/12/22 07:39 Oxygen Flow Rate 2 09/09/22 14:25 BMI result Body Mass Index 42.2 Const: Other: General: AO X 3, no acute distress Resp: CTA bilateral CVS: S1,S2,RRR GI: +BS, NT, no distention Skin: No rash Neuro: motor grossly intact Psych: appropriate affect Objective Data Active Medications Acetaminophen (Acetaminophen 325 Mg Tablet) 975 mg PO Q8H [facility] Last Admin: 09/12/22 06:30 Dose: 975 mg Documented By: MARQUISE Aspirin (Aspirin 81 Mg Tab.Chew) 81 mg PO DAILY [facility] Last Admin: 09/12/22 08:13 Dose: 81 mg Documented By: MINA Capsaicin (Capsaicin 0.025% Cream 60 Gm Tube) 1 appl TOPICAL QID [facility]; Protocol Last Admin: 09/12/22 08:13 Dose: 1 appl Documented By: MINA Dextrose (Dextrose 50 % 25 Gm/50 Ml Syringe) 25 gm IVPUSH Q15M PRN; Protocol PRN Reason: per Hypoglycemia Standing Ord. Docusate Sodium (Docusate Sodium 100 Mg Capsule) 100 mg PO DAILY PRN PRN Reason: Constipation Furosemide (Furosemide 40 Mg Tablet) 40 mg PO DAILY [facility]; Protocol Last Admin: 09/12/22 08:13 Dose: 40 mg Documented By: MINA Glucose (Glucose Gel 15 Gm Gel..Gram.) 15 gm PO Q15M PRN; Protocol PRN Reason: per Hypoglycemia Standing Ord. Heparin Sodium (Porcine) (Heparin Sodium,Porcine 5,000 Unit/Ml Vial) 4,600 unit 40 unit/kg (4600 unit) IVPUSH PROTOCOL BOLUS PRN; Protocol PRN Reason: 40 unit/kg - Heparin Protocol Last Admin: 09/12/22 00:59 Dose: 4,600 unit Documented By: MARQUISE Heparin Sodium (Porcine) (Heparin Sodium,Porcine 5,000 Unit/Ml Vial) 9,200 unit 80 unit/kg (9200 unit) IVPUSH PROTOCOL BOLUS PRN; Protocol PRN Reason: 80 unit/kg - Heparin Protocol Heparin Sodium/Sodium Chloride (Heparin Sodium,Porcine/1/2ns) 25,000 unit in 250 mls @ 0 mls/hr IVCONT .Q0M [facility]; Protocol Last Admin: 09/12/22 10:21 Dose: 6.9 units/kg/hr, 7.94 mls/hr Documented By: MINA Co-signed By: AMAN Insulin Human Lispro (Insulin Lispro 100 Unit/Ml 3 Ml Vial) 0 unit SUBCUT QIDACHS [facility]; Protocol Last Admin: 09/12/22 08:06 Dose: Not Given Documented By: MINA Non-Admin Reason: See Note Lidocaine (Lidocaine 4 % Patch Adh..Patch) 1 patch TRANSDERMA DAILY [facility]; Protocol Last Admin: 09/12/22 08:12 Dose: 1 patch Documented By: MINA Ondansetron HCl (Ondansetron Hcl 4 Mg/2 Ml Vial) 4 mg IVPUSH Q8H PRN PRN Reason: Nausea and Vomiting Pantoprazole Sodium (Pantoprazole Sodium 40 Mg/10 Ml Vial) 40 mg IVPUSH BID@0630,1630 [facility] Last Admin: 09/12/22 06:30 Dose: 40 mg Documented By: MARQUISE Pharmacy Consult (Consult Rx Perform Med Rec) 1 each MISCELLANE ONCE PRN PRN Reason: Consult order Sodium Chloride (0.9 % Sodium Chloride Flush 3 Ml Syringe) 3 ml IVFLUSH QSHIFT [facility] Last Admin: 09/12/22 07:03 Dose: Not Given Documented By: MINA Non-Admin Reason: See Note Trazodone HCl (Trazodone Hcl 25 Mg Halftab) 12.5 mg PO BEDTIME [facility] Last Admin: 09/11/22 20:35 Dose: 12.5 mg Documented By: MISA Labs 09/11/22 07:35 09/11/22 06:00 Labs: Laboratory Results - last 24 hr 09/11/22 09/11/22 09/11/22 11:51 12:18 12:18 aPTT Heparin Protocol POC Glucose 113 Stl C. cayetanensis PCR Cancelled Stool Rotavirus A PCR Cancelled Stl Adenov F 40/41 PCR Cancelled Stool Astrovirus (PCR) Cancelled Stool Campylobacter PCR Cancelled Stool Cryptosporidium PCR Cancelled Stl Sh Tox Pr E STEC PCR Cancelled Stool E coli O157 PCR Cancelled Stl Enterotoxigenic E PCR Cancelled Stool EPEC (PCR) Cancelled Stool EAEC (PCR) Cancelled Stl E. histolytica PCR Cancelled Stool Giardia Lamblia PCR Cancelled Stl P. shigelloides PCR Cancelled Stool Salmonella PCR Cancelled Stool Sapovirus (PCR) Cancelled Stl Shigella/EIEC PCR Cancelled St Y.enterocolitica PCR Cancelled Stool Vibrio (PCR) Cancelled Stl Vibrio cholerae PCR Cancelled Stl Norovirus GI/GII PCR Cancelled C. difficile Tox B Gene NEGATIVE 09/11/22 09/11/22 09/11/22 14:18 16:01 16:22 aPTT Heparin Protocol 111.1 H* D 37.2 L D POC Glucose 137 H Stl C. cayetanensis PCR Stool Rotavirus A PCR Stl Adenov F 40/ PCR Stool Astrovirus (PCR) Stool Campylobacter PCR Stool Cryptosporidium PCR Stl Sh Tox Pr E STEC PCR Stool E coli O157 PCR Stl Enterotoxigenic E PCR Stool EPEC (PCR) Stool EAEC (PCR) Stl E. histolytica PCR Stool Giardia Lamblia PCR Stl P. shigelloides PCR Stool Salmonella PCR Stool Sapovirus (PCR) Stl Shigella/EIEC PCR St Y.enterocolitica PCR Stool Vibrio (PCR) Stl Vibrio cholerae PCR Stl Norovirus GI/GII PCR C. difficile Tox B Gene 09/11/22 09/11/22 09/12/22 19:50 23:34 07:23 aPTT Heparin Protocol 40.9 L 137.2 H* D POC Glucose 122 H Stl C. cayetanensis PCR Stool Rotavirus A PCR Stl Adenov F 40/41 PCR Stool Astrovirus (PCR) Stool Campylobacter PCR Stool Cryptosporidium PCR Stl Sh Tox Pr E STEC PCR Stool E coli O157 PCR Stl Enterotoxigenic E PCR Stool EPEC (PCR) Stool EAEC (PCR) Stl E. histolytica PCR Stool Giardia Lamblia PCR Stl P. shigelloides PCR Stool Salmonella PCR Stool Sapovirus (PCR) Stl Shigella/EIEC PCR St Y.enterocolitica PCR Stool Vibrio (PCR) Stl Vibrio cholerae PCR Stl Norovirus GI/GII PCR C. difficile Tox B Gene 09/12/22 09/12/22 07:59 09:21 aPTT Heparin Protocol 56.0 D POC Glucose 97 Stl C. cayetanensis PCR Stool Rotavirus A PCR Stl Adenov F 40/41 PCR Stool Astrovirus (PCR) Stool Campylobacter PCR Stool Cryptosporidium PCR Stl Sh Tox Pr E STEC PCR Stool E coli O157 PCR Stl Enterotoxigenic E PCR Stool EPEC (PCR) Stool EAEC (PCR) Stl E. histolytica PCR Stool Giardia Lamblia PCR Stl P. shigelloides PCR Stool Salmonella PCR Stool Sapovirus (PCR) Stl Shigella/EIEC PCR St Y.enterocolitica PCR Stool Vibrio (PCR) Stl Vibrio cholerae PCR Stl Norovirus GI/GII PCR C. difficile Tox B Gene Assessment and Plan (1) Venous thromboembolism: Status: Acute (2) Diarrhea: Status: Acute (3) New onset of congestive heart failure: Status: Acute Plan 81-year-old female with past medical history of COPD/ILD, diabetes, hypertension, chronic hypoxemic hypercapnic respiratory failure, legally blind, history of CKD stage4, recent NSTEMI?admitted for new onset CHF with possible GI bleed and acute diarrhea. DVT/PE on IV heparin, will transition to eliquis CHF--EF 30 tp -35..Clinically compensated, continue Lasix, start Losartan 25 and if tolearte add toprolol tomoorow as recommended by cardiolgy Hypokalemia--corrected and resolved Hemoptysis: son says she did not have hemoptysis. continue to moniter while on heparindrip. recent? NSTEMI--medical therapy Recent pneumonia-completed 7 days abx. cxr without consolidation. dc abx CKD stage IV-renal function baseline. DM : hold dm meds fs with low sliding scale coverage . hx Swallowing problem modified diet-please see? 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 had diarrahe itntially: c diff neg GIp panel pending DVT prophylaxis- SCPs DNR/DNI ongoing hospitilsation needs:dvt /possible pulm embolism -need Iv heparin ,also? Gi bleed: positive stool requiring IV diuresis, cardiac monitoring Time Spent With Patient Time: Total time managing care of this patient today ____ minutes. Quality Stroke Does the patient have a stroke diagnosis?: No VTE Prior VTE?: No VTE Risk Level:: Medical - moderate - high VTE Device Contraindication: Treatment Not Indicated VTE Drug Contraindication: N/A - Med Ordered
--- NOTE | 2022-09-12 11:24 | PM.PNCARD ---
Subjective Subjective Date of Service: 09/12/22 Interval history: Discussed using hydrotel operator. Denies chest pain. Mild SOB, but not clear. Review of Systems Review of Systems Yes all other systems are reviewed and are negative Constitutional: Reports as per HPI and Reports no additional constitutional complaints Eyes: Reports as per HPI and Denies no additional eye complaints Denies system reviewed and no additional complaints, except as documented and Reports as per HPI Cardiovascular: Reports as per HPI, Reports no additional cardiovascular complaints, Denies acrocyanosis, Denies cool extremities, Denies chest pain, Denies leg edema, Denies lightheadedness, Denies palpitations and Reports dyspnea Respiratory: Reports as per HPI, Denies no additional respiratory complaints and Reports dyspnea Gastrointestinal: Reports as per HPI and Denies no additional gastrointestinal complaints Genitourinary: Reports as per HPI Musculoskeletal: Reports no additional musculoskeletal complaints and Reports as per HPI Skin/Breast: Reports system reviewed and no additional complaints, except as docu Reports system reviewed and no additional complaints, except as documented and Reports as per HPI Psychiatric: Reports no additional psychiatric complaints and Reports as per HPI Endocrine: Reports no additional endocrine complaints, Reports as per HPI and Denies palpitations Hematologic/Lymphatic: Reports no additional hematologic/lymphatic complaints and Reports as per HPI Allergic/Immunologic: Reports no additional allergic/immunologic complaints and Reports as per HPI Physical Exam Vital Signs: Last Vital Signs Temp 97.5 F 09/12/22 07:39 Pulse 80 09/12/22 07:39 Resp 20 09/12/22 07:39 BP 125/60 09/12/22 07:39 Pulse Ox 93 09/12/22 07:39 O2 Del Method Nasal Cannula 09/12/22 07:39 O2 Flow Rate 3 09/12/22 07:39 Oxygen Flow Rate 2 09/09/22 14:25 BMI result Body Mass Index 42.2 Const General: comfortable and no acute distress Orientation/consciousness: patient oriented x3 HEENT Other: Unremarkable Head: Yes normal to inspection Neck Neck: Yes normal visual inspection Chest Chest palpation & inspection: normal inspection of the chest Resp Auscultation: clear to auscultation bilaterally Cardio Palpation: normal PMI Heart sounds: S1 normal heart sound present, S2 normal heart sound present, no gallops, no murmurs and no rubs GI Palpation (GI): Soft to palpation Back/Spine/Pelvis Other: unremarkable Skin General skin exam: no rashes or lesions noted Neuro General: patient oriented x3 Extrem General: Yes normal to inspection Psych Mental Status: mental status grossly normal Objective Labs and Meds 09/11/22 07:35 09/11/22 06:00 Lab results: Laboratory Results - last 24 hr 09/11/22 09/11/22 09/11/22 11:51 12:18 12:18 aPTT Heparin Protocol POC Glucose 113 Stl C. cayetanensis PCR Cancelled Stool Rotavirus A PCR Cancelled Stl Adenov F 40/41 PCR Cancelled Stool Astrovirus (PCR) Cancelled Stool Campylobacter PCR Cancelled Stool Cryptosporidium PCR Cancelled Stl Sh Tox Pr E STEC PCR Cancelled Stool E coli O157 PCR Cancelled Stl Enterotoxigenic E PCR Cancelled Stool EPEC (PCR) Cancelled Stool EAEC (PCR) Cancelled Stl E. histolytica PCR Cancelled Stool Giardia Lamblia PCR Cancelled Stl P. shigelloides PCR Cancelled Stool Salmonella PCR Cancelled Stool Sapovirus (PCR) Cancelled Stl Shigella/EIEC PCR Cancelled St Y.enterocolitica PCR Cancelled Stool Vibrio (PCR) Cancelled Stl Vibrio cholerae PCR Cancelled Stl Norovirus GI/GII PCR Cancelled C. difficile Tox B Gene NEGATIVE 09/11/22 09/11/22 09/11/22 14:18 16:01 16:22 aPTT Heparin Protocol 111.1 H* D 37.2 L D POC Glucose 137 H Stl C. cayetanensis PCR Stool Rotavirus A PCR Stl Adenov F 40/41 PCR Stool Astrovirus (PCR) Stool Campylobacter PCR Stool Cryptosporidium PCR Stl Sh Tox Pr E STEC PCR Stool E coli O157 PCR Stl Enterotoxigenic E PCR Stool EPEC (PCR) Stool EAEC (PCR) Stl E. histolytica PCR Stool Giardia Lamblia PCR Stl P. shigelloides PCR Stool Salmonella PCR Stool Sapovirus (PCR) Stl Shigella/EIEC PCR St Y.enterocolitica PCR Stool Vibrio (PCR) Stl Vibrio cholerae PCR Stl Norovirus GI/GII PCR C. difficile Tox B Gene 09/11/22 09/11/22 09/12/22 19:50 23:34 07:23 aPTT Heparin Protocol 40.9 L 137.2 H* D POC Glucose 122 H Stl C. cayetanensis PCR Stool Rotavirus A PCR Stl Adenov F 40/41 PCR Stool Astrovirus (PCR) Stool Campylobacter PCR Stool Cryptosporidium PCR Stl Sh Tox Pr E STEC PCR Stool E coli O157 PCR Stl Enterotoxigenic E PCR Stool EPEC (PCR) Stool EAEC (PCR) Stl E. histolytica PCR Stool Giardia Lamblia PCR Stl P. shigelloides PCR Stool Salmonella PCR Stool Sapovirus (PCR) Stl Shigella/EIEC PCR St Y.enterocolitica PCR Stool Vibrio (PCR) Stl Vibrio cholerae PCR Stl Norovirus GI/GII PCR C. difficile Tox B Gene 09/12/22 09/12/22 07:59 09:21 aPTT Heparin Protocol 56.0 D POC Glucose 97 Stl C. cayetanensis PCR Stool Rotavirus A PCR Stl Adenov F 40/41 PCR Stool Astrovirus (PCR) Stool Campylobacter PCR Stool Cryptosporidium PCR Stl Sh Tox Pr E STEC PCR Stool E coli O157 PCR Stl Enterotoxigenic E PCR Stool EPEC (PCR) Stool EAEC (PCR) Stl E. histolytica PCR Stool Giardia Lamblia PCR Stl P. shigelloides PCR Stool Salmonella PCR Stool Sapovirus (PCR) Stl Shigella/EIEC PCR St Y.enterocolitica PCR Stool Vibrio (PCR) Stl Vibrio cholerae PCR Stl Norovirus GI/GII PCR C. difficile Tox B Gene Progress Note: A&P Assessment and plan (1) NSTEMI (non-ST elevated myocardial infarction): Status: Acute (2) Acute CHF: Status: Acute (3) Venous thromboembolism: Status: Acute Plan In the recent echocardiogram, LVEF 30-35%. Wall motion abnormalities suggestive of either LAD ischemia or takotsubo. Per recent documentation, it appears that the NSTEMI is being medically managed which seems reasonable considering her age and comorbidities. Diuretics for symptom relief. Med Management as previously discussed including beta-blockers/ARB. Time Spent With Patient Time: Total time managing care of this patient today 45 minutes. This includes time spent in review of chart, laboratory data, imaging studies, review of telemetry, counseling patient, discussion with hospitalist, RN, documentation, coordination of care. Progress Note: Quality Stroke Does the patient have a stroke diagnosis?: No Procedures Date of Service Date of Service: 09/12/22
[2022-09-12 11:30] VITALS: BP 134/67; PULSE 80; RESP 20; TEMP 36.1; O2SAT 95
--- NOTE | 2022-09-12 12:49 | MHC.SL.DTX ---
Dysphagia Diet modifications: Last documented Solid diet consistencies: Full Liquid Diet Last documented Liquid consistency: Full Liquid Diet Last documented Medication Administration: Changes made to current diet?: Liquid Consistency and Strategies: Liquid Intake Recommendation: Thin Compensatory Strategies for Safe Swallow: Small Sips Compensatory Strategies for Safe Swallow(b): Sitting Upright (90 deg) Small Bites and Sips Alternate Liquids/Solids Rate of Ingestion Change Solid Food Consistency: Dietary Recommendations: Grnd/Mech Altered (NDD2) Additional Modifications to Solids: Recommend UPGRADE from NPO, START on PUREED (NDD1) diet and THIN liquids. RN this date reporting pt took Tylenol without difficulty. Recommend pills WHOLE or CRUSHED in PUREE per pt's tolerance. Pt requires total 1:1 assistance with tray set up and feeding d/t visual impairment. Ensure aspiration precautions. WASTE TREATMENT OPERATOR notified care team of recommendations (MD, RN, RD) via [employer] Message. Diet order updated by WASTE TREATMENT OPERATOR. Oral Medication Intake: Crushed with Puree Strategies and Precautions to be Taken for Safe Swallow: Sitting Upright (90 deg) Small Bites and Sips Alternate Liquids/Solids Rate of Ingestion Change Supervision While Eating and/Drinking: Total Assistance (1:1) Foods to Avoid: Mixed consistencies Swallowing Recommended Treatments: Level of Impact on: Daily activities: Interpersonal interactions: Education: Employment: Community: Prognosis for Improvement: Recommendation for Speech: Inpatient Speech Therapy Comment: Recommend Mech Altered (NDD2) Solids and Thin Liquids. Recommend pills crushed in puree d/t RN reports of difficulty swallowing pills whole in puree. Pt requires 1-1 assist. Cue to take small sips. WASTE TREATMENT OPERATOR to continue to follow. Frequency/Duration: Date Range for Service Req: Timeline to reassess: Additional Comments: Treatment: Pt seen with Family at bedside. Pt is drinking Thin Liquids via straw with no overt s/s of aspiration. Dtr available to interpret. Pt is asking for solid foods today. Pt tolerated Puree Solids with complete oral clearance and no overt s/s of aspiration. Pt administered Mech Altered Solids with mild delay in oral preparation, and mild residue cleared with a liquid wash and no overt s/s of aspiration. She tolerated Advanced Solid with moderate delay and mild residue cleared with a liquid wash with no overt s/s of aspiration. Pt is edentulous at baseline. Her Family informs she has dentures but never wears them to eat. Discussed the results of todays assessment. Not recommending return to baseline diet yet. WASTE TREATMENT OPERATOR recommending upgrade to [facility] Altered Solids (NDD2) and Thin Liquids when cleared for advancement by MD. Assessment: Staff Occupational Therapist Clinican/Clinical Fellow: No Supervisory Statement: I have reviewed and agree with the student/clinical fellow's documentation: N/A Speech Language Pathologist: Kamar Nieto M.A., [facility]-WASTE TREATMENT OPERATOR
[2022-09-12 15:46] VITALS: BP 126/60; PULSE 84; RESP 15; TEMP 36.2; O2SAT 99
[2022-09-12 19:42] VITALS: BP 133/67; PULSE 89; RESP 14; TEMP 36.4; O2SAT 95
[2022-09-12] MEDS: traZODone HCL 25 MG HALFTAB 12.5 MG PO (20:42)
[2022-09-13] VITALS (7 sets, daily range): BP systolic 113–157; BP diastolic 59–73; PULSE 73–96; RESP 18–20; TEMP 35.8–37.1; O2SAT 91–95
[2022-09-13] MEDS: ondansetron HCL 4 MG/2 ML VIAL IVPUSH (02:54)
[2022-09-13] MEDS: Lidocaine 4 % Patch ADH..PATCH 1 PATCH TRANSDERMA (09:00)
[2022-09-13] MEDS: Capsaicin 0.025% Cream 60 GM TUBE 1 APPL TOPICAL ×4 (09:03→22:22)
[2022-09-13] MEDS: Aspirin 81 MG TAB.CHEW PO (09:03)
--- NOTE | 2022-09-13 09:21 | PM.PNCARD ---
Subjective Subjective Date of Service: 09/13/22 Interval history: She states that she feels short of breath when lying down flat. No clear anginal-type symptoms. Review of Systems Review of Systems Yes all other systems are reviewed and are negative Constitutional: Reports as per HPI and Reports no additional constitutional complaints Eyes: Reports as per HPI and Denies no additional eye complaints Denies system reviewed and no additional complaints, except as documented and Reports as per HPI Cardiovascular: Reports as per HPI, Reports no additional cardiovascular complaints, Denies acrocyanosis, Denies cool extremities, Denies chest pain, Denies leg edema, Denies lightheadedness, Denies palpitations and Reports dyspnea Respiratory: Reports as per HPI, Denies no additional respiratory complaints and Reports dyspnea Gastrointestinal: Reports as per HPI and Denies no additional gastrointestinal complaints Genitourinary: Reports as per HPI Musculoskeletal: Reports no additional musculoskeletal complaints and Reports as per HPI Skin/Breast: Reports system reviewed and no additional complaints, except as docu Reports system reviewed and no additional complaints, except as documented and Reports as per HPI Psychiatric: Reports no additional psychiatric complaints and Reports as per HPI Endocrine: Reports no additional endocrine complaints, Reports as per HPI and Denies palpitations Hematologic/Lymphatic: Reports no additional hematologic/lymphatic complaints and Reports as per HPI Allergic/Immunologic: Reports no additional allergic/immunologic complaints and Reports as per HPI Physical Exam Vital Signs: Last Vital Signs Temp 97.3 F 09/13/22 07:29 Pulse 96 09/13/22 07:29 Resp 20 09/13/22 07:29 BP 129/69 09/13/22 07:29 Pulse Ox 92 09/13/22 07:29 O2 Del Method Nasal Cannula 09/13/22 07:29 O2 Flow Rate 2 09/13/22 07:29 Oxygen Flow Rate 2 09/09/22 14:25 BMI result Body Mass Index 42.2 Const General: comfortable and no acute distress Orientation/consciousness: patient oriented x3 HEENT Other: Unremarkable Head: Yes normal to inspection Neck Neck: Yes normal visual inspection Chest Chest palpation & inspection: normal inspection of the chest Resp Other: Few inspiratory crackles Cardio Palpation: normal PMI Heart sounds: S1 normal heart sound present, S2 normal heart sound present, no gallops, Murmur heart sound present systolic I/ and at the right sternal border and no rubs GI Palpation (GI): Soft to palpation Back/Spine/Pelvis Other: unremarkable Skin General skin exam: no rashes or lesions noted Neuro General: patient oriented x3 Extrem Other: 2+ edema General: Yes normal to inspection Psych Mental Status: mental status grossly normal Objective Labs and Meds 09/11/22 07:35 09/11/22 06:00 Lab results: Laboratory Results - last 24 hr 09/12/22 09/12/22 09/12/22 09:21 11:29 15:51 aPTT Heparin Protocol 56.0 D POC Glucose 105 113 09/12/22 09/12/22 09/12/22 16:18 19:47 23:36 aPTT Heparin Protocol 41.6 L D 91.8 H D POC Glucose 98 09/13/22 09/13/22 06:08 06:59 aPTT Heparin Protocol 51.4 L D POC Glucose 94 Progress Note: A&P Assessment and plan (1) NSTEMI (non-ST elevated myocardial infarction): Status: Acute (2) Acute CHF: Status: Acute (3) Venous thromboembolism: Status: Acute Plan In the recent echocardiogram, LVEF 30-35%. Wall motion abnormalities suggestive of either LAD ischemia or takotsubo. Per recent documentation, it appears that the NSTEMI is being medically managed which seems reasonable considering her age and comorbidities. Due to complaints of orthopnea, we can switch her back to IV diuretics from the day or so. Otherwise, start oral beta-blockers/ARB as in earlier notes. Discussed with hospitalist. Time Spent With Patient Time: Total time managing care of this patient today 45 minutes. This includes time spent in review of chart, laboratory data, imaging studies, review of telemetry, counseling patient, family, discussion with hospitalist, RN, documentation, coordination of care. Progress Note: Quality Stroke Does the patient have a stroke diagnosis?: No Procedures Date of Service Date of Service: 09/13/22
--- NOTE | 2022-09-13 10:54 | HO.PM.IMPN ---
Subjective Subjective Date of Service: 09/13/22 Interval History: f/u on resp failure d/t chf, pe resting cofortably, doesn't say much, no distress Physical Exam Vital Signs: Vital Signs: Last Vital Signs Temp 97.3 F 09/13/22 07:29 Pulse 96 09/13/22 07:29 Resp 20 09/13/22 07:29 BP 129/69 09/13/22 07:29 Pulse Ox 92 09/13/22 07:29 O2 Del Method Nasal Cannula 09/13/22 07:29 O2 Flow Rate 2 09/13/22 07:29 Oxygen Flow Rate 2 09/09/22 14:25 BMI result Body Mass Index 42.2 Const: Other: General:alert, no distress Resp: CTA bilateral CVS: S1,S2,RRR, 2+leg edema GI: +BS, NT, no distention Skin: No rash Neuro: motor grossly intact Psych: appropriate affect Objective Data Active Medications Acetaminophen (Acetaminophen 325 Mg Tablet) 975 mg PO Q8H [facility] Last Admin: 09/13/22 05:56 Dose: Not Given Documented By: NITZA Non-Admin Reason: Patient Refused Aspirin (Aspirin 81 Mg Tab.Chew) 81 mg PO DAILY [facility] Last Admin: 09/13/22 09:03 Dose: 81 mg Documented By: ROSENDO Capsaicin (Capsaicin 0.025% Cream 60 Gm Tube) 1 appl TOPICAL QID [facility]; Protocol Last Admin: 09/13/22 09:03 Dose: 1 appl Documented By: ROSENDO Dextrose (Dextrose 50 % 25 Gm/50 Ml Syringe) 25 gm IVPUSH Q15M PRN; Protocol PRN Reason: per Hypoglycemia Standing Ord. Docusate Sodium (Docusate Sodium 100 Mg Capsule) 100 mg PO DAILY PRN PRN Reason: Constipation Furosemide (Furosemide 40 Mg Tablet) 40 mg PO DAILY [facility]; Protocol Last Admin: 09/13/22 09:03 Dose: 40 mg Documented By: ROSENDO Glucose (Glucose Gel 15 Gm Gel..Gram.) 15 gm PO Q15M PRN; Protocol PRN Reason: per Hypoglycemia Standing Ord. Heparin Sodium (Porcine) (Heparin Sodium,Porcine 5,000 Unit/Ml Vial) 4,600 unit 40 unit/kg (4600 unit) IVPUSH PROTOCOL BOLUS PRN; Protocol PRN Reason: 40 unit/kg - Heparin Protocol Last Admin: 09/13/22 07:30 Dose: 4,600 unit Documented By: ROSENDO Heparin Sodium (Porcine) (Heparin Sodium,Porcine 5,000 Unit/Ml Vial) 9,200 unit 80 unit/kg (9200 unit) IVPUSH PROTOCOL BOLUS PRN; Protocol PRN Reason: 80 unit/kg - Heparin Protocol Heparin Sodium/Sodium Chloride (Heparin Sodium,Porcine/1/2ns) 25,000 unit in 250 mls @ 0 mls/hr IVCONT .Q0M [facility]; Protocol Last Admin: 09/13/22 09:01 Dose: 8.9 units/kg/hr, 10.24 mls/hr Documented By: ROSENDO Co-signed By: SWATI Insulin Human Lispro (Insulin Lispro 100 Unit/Ml 3 Ml Vial) 0 unit SUBCUT QIDACHS [facility]; Protocol Last Admin: 09/13/22 07:36 Dose: Not Given Documented By: ROSENDO Non-Admin Reason: No Insulin Coverage Lidocaine (Lidocaine 4 % Patch Adh..Patch) 1 patch TRANSDERMA DAILY [facility]; Protocol Last Admin: 09/13/22 09:00 Dose: 1 patch Documented By: ROSENDO Ondansetron HCl (Ondansetron Hcl 4 Mg/2 Ml Vial) 4 mg IVPUSH Q8H PRN PRN Reason: Nausea and Vomiting Last Admin: 09/13/22 02:54 Dose: 4 mg Documented By: NITZA Pharmacy Consult (Consult Rx Perform Med Rec) 1 each MISCELLANE ONCE PRN PRN Reason: Consult order Sodium Chloride (0.9 % Sodium Chloride Flush 3 Ml Syringe) 3 ml IVFLUSH QSHIFT [facility] Last Admin: 09/13/22 07:37 Dose: Not Given Documented By: ROSENDO Non-Admin Reason: IV Running Trazodone HCl (Trazodone Hcl 25 Mg Halftab) 12.5 mg PO BEDTIME [facility] Last Admin: 09/12/22 20:42 Dose: 12.5 mg Documented By: NITZA Labs 09/11/22 07:35 09/11/22 06:00 Labs: Laboratory Results - last 24 hr 09/12/22 09/12/22 09/12/22 11:29 15:51 16:18 aPTT Heparin Protocol 41.6 L D POC Glucose 105 113 09/12/22 09/12/22 09/13/22 19:47 23:36 06:08 aPTT Heparin Protocol 91.8 H D 51.4 L D POC Glucose 98 09/13/22 06:59 aPTT Heparin Protocol POC Glucose 94 Assessment and Plan (1) Venous thromboembolism: Status: Acute (2) Diarrhea: Status: Acute (3) New onset of congestive heart failure: Status: Acute Plan 81-year-old female with past medical history of COPD/ILD, diabetes, hypertension, chronic hypoxemic hypercapnic respiratory failure, legally blind, history of CKD stage4, recent NSTEMI?admitted for new onset CHF with possible GI bleed and acute diarrhea. DVT/PE on IV heparin, will transition to eliquis before dc CHF--EF 30 tp -35..Clinically compensated, continue Lasix IV today due to fluid overload, start Losartan 25 and if tolearte add metoprolol today Hypokalemia--corrected and resolved Hemoptysis: son says she did not have hemoptysis. continue to moniter while on heparindrip. recent? NSTEMI--medical therapy Recent pneumonia-completed 7 days abx. cxr without consolidation. dc abx CKD stage IV-renal function baseline. DM : hold dm meds fs with low sliding scale coverage . hx Swallowing problem modified diet-please see? last admission [employer]. had diarrahe itntially: c diff neg GIp panel pending DVT prophylaxis- SCPs DNR/DNI ongoing hospitilsation needs:dvt /possible pulm embolism -need Iv heparin ,also? Gi bleed: positive stool requiring IV diuresis, cardiac monitoring Discuss goals of care with family as overall prognosis is poor Time Spent With Patient Time: Total time managing care of this patient today ____ minutes. Quality Stroke Does the patient have a stroke diagnosis?: No VTE Prior VTE?: No VTE Risk Level:: Medical - moderate - high VTE Device Contraindication: Treatment Not Indicated VTE Drug Contraindication: N/A - Med Ordered
--- NOTE | 2022-09-13 11:42 | MHC.CM.PN ---
EMR REVIEWED, PT W/DVT PT REMAINS ON HEPARIN DRIP, CHF EXAC AND LIKELY LUNG CA, NO PLAN FOR D/C AT THIS TIME, CM WILL CONT TO FOLLOW D/C NEEDS.
[2022-09-13] MEDS: Acetaminophen 325 MG TABLET 975 MG PO ×2 (12:05→22:18)
[2022-09-13] MEDS: Metoprolol Tartrate 25 MG TABLET PO ×2 (12:05→22:17)
[2022-09-13] MEDS: Losartan Potassium 25 MG TABLET PO (12:09)
--- NOTE | 2022-09-13 13:12 | MHC.CLN ---
PT WITH INCREASED NUTRITION R/T PRESSURE INJURY DIET RX: GRD M/S-RECOMMEND 1800DM 2GM NA R/T DM & CHF IN ADDITION TO SURVEILLANCE DUAL RATE OFFICER RECOMMENDED CONSISTENCY RECOMMEND ADDING ENSURE MAX BID FOR WOUND HEALING MONITOR PO INTAKE CLOSELY
--- NOTE | 2022-09-13 15:19 | PC.NURSE ---
report received from overnight RN, medical front desk coordinator per MAY. No c/o pain. Family at bedside. Safety precautions in place, call diaz within reach. This RN reviewed all documentation / med administration of REGGIE Meade and approved before submission.
[2022-09-13] MEDS: 0.9 % Sodium Chloride Flush 3 ML SYRINGE IVFLUSH (16:12)
[2022-09-13] MEDS: traZODone HCL 25 MG HALFTAB 12.5 MG PO (22:17)
[2022-09-14 04:00] VITALS: BP 118/56; PULSE 97; RESP 18; TEMP 36.4; O2SAT 100
[2022-09-14] MEDS: Acetaminophen 325 MG TABLET 975 MG PO ×2 (05:14→15:11)
[2022-09-14 06:42] LABS: PTT Heparin Drip 59.2 SEC (53-77.9)
[2022-09-14 07:36] VITALS: BP 119/56; PULSE 78; RESP 20; TEMP 36.2; O2SAT 91
--- NOTE | 2022-09-14 08:13 | HO.PM.IMPN ---
Subjective Subjective Date of Service: 09/14/22 Interval History: f/u on resp failure d/t chf, pe lethargic, minimal interaction Physical Exam Vital Signs: Vital Signs: Last Vital Signs Temp 97.2 F 09/14/22 07:36 Pulse 78 09/14/22 07:36 Resp 20 09/14/22 07:36 BP 119/56 L 09/14/22 07:36 Pulse Ox 91 L 09/14/22 07:36 O2 Del Method Nasal Cannula 09/14/22 07:36 O2 Flow Rate 2 09/14/22 07:36 Oxygen Flow Rate 2 09/09/22 14:25 BMI result Body Mass Index 42.2 Const: Other: General:alert, no distress Resp: CTA bilateral CVS: S1,S2,RRR, 2+leg edema GI: +BS, NT, no distention Skin: No rash Neuro: motor grossly intact Psych: appropriate affect Objective Data Active Medications Acetaminophen (Acetaminophen 325 Mg Tablet) 975 mg PO Q8H [facility] Last Admin: 09/14/22 05:14 Dose: 975 mg Documented By: NITZA Aspirin (Aspirin 81 Mg Tab.Chew) 81 mg PO DAILY [facility] Last Admin: 09/13/22 09:03 Dose: 81 mg Documented By: ROSENDO Capsaicin (Capsaicin 0.025% Cream 60 Gm Tube) 1 appl TOPICAL QID [facility]; Protocol Last Admin: 09/13/22 22:22 Dose: 1 appl Documented By: NITZA Dextrose (Dextrose 50 % 25 Gm/50 Ml Syringe) 25 gm IVPUSH Q15M PRN; Protocol PRN Reason: per Hypoglycemia Standing Ord. Docusate Sodium (Docusate Sodium 100 Mg Capsule) 100 mg PO DAILY PRN PRN Reason: Constipation Furosemide (Furosemide 40 Mg Tablet) 40 mg PO DAILY [facility]; Protocol Last Admin: 09/13/22 09:03 Dose: 40 mg Documented By: ROSENDO Furosemide (Furosemide 40 Mg/4 Ml Vial) 40 mg IVPUSH DAILY [facility]; Protocol Last Admin: 09/13/22 12:04 Dose: 40 mg Documented By: RUDOLPH Glucose (Glucose Gel 15 Gm Gel..Gram.) 15 gm PO Q15M PRN; Protocol PRN Reason: per Hypoglycemia Standing Ord. Heparin Sodium (Porcine) (Heparin Sodium,Porcine 5,000 Unit/Ml Vial) 4,600 unit 40 unit/kg (4600 unit) IVPUSH PROTOCOL BOLUS PRN; Protocol PRN Reason: 40 unit/kg - Heparin Protocol Last Admin: 09/13/22 23:35 Dose: 4,600 unit Documented By: NITZA Heparin Sodium (Porcine) (Heparin Sodium,Porcine 5,000 Unit/Ml Vial) 9,200 unit 80 unit/kg (9200 unit) IVPUSH PROTOCOL BOLUS PRN; Protocol PRN Reason: 80 unit/kg - Heparin Protocol Heparin Sodium/Sodium Chloride (Heparin Sodium,Porcine/1/2ns) 25,000 unit in 250 mls @ 0 mls/hr IVCONT .Q0M [facility]; Protocol Last Titration: 09/13/22 23:36 Dose: 6.9 units/kg/hr, 7.94 mls/hr Documented By: NITZA Co-signed By: SUJATA Insulin Human Lispro (Insulin Lispro 100 Unit/Ml 3 Ml Vial) 0 unit SUBCUT QIDACHS [facility]; Protocol Last Admin: 09/14/22 07:29 Dose: Not Given Documented By: JOCELIN Non-Admin Reason: No Insulin Coverage Lidocaine (Lidocaine 4 % Patch Adh..Patch) 1 patch TRANSDERMA DAILY [facility]; Protocol Last Admin: 09/13/22 09:00 Dose: 1 patch Documented By: ROSENDO Losartan Potassium (Losartan Potassium 25 Mg Tablet) 25 mg PO DAILY [facility]; Protocol Last Admin: 09/13/22 12:09 Dose: 25 mg Documented By: RUDOLPH Metoprolol Tartrate (Metoprolol Tartrate 25 Mg Tablet) 25 mg PO BID [facility]; Protocol Last Admin: 09/13/22 22:17 Dose: 25 mg Documented By: NITZA Ondansetron HCl (Ondansetron Hcl 4 Mg/2 Ml Vial) 4 mg IVPUSH Q8H PRN PRN Reason: Nausea and Vomiting Last Admin: 09/13/22 02:54 Dose: 4 mg Documented By: NITZA Pharmacy Consult (Consult Rx Perform Med Rec) 1 each MISCELLANE ONCE PRN PRN Reason: Consult order Sodium Chloride (0.9 % Sodium Chloride Flush 3 Ml Syringe) 3 ml IVFLUSH QSHIFT [facility] Last Admin: 09/14/22 00:23 Dose: Not Given Documented By: NITZA Non-Admin Reason: Previously Administered Trazodone HCl (Trazodone Hcl 25 Mg Halftab) 12.5 mg PO BEDTIME [facility] Last Admin: 09/13/22 22:17 Dose: 12.5 mg Documented By: NITZA Comments: Labs 09/13/22 13:20 09/11/22 06:00 Labs: Laboratory Results - last 24 hr 09/13/22 09/13/22 09/13/22 11:05 13:20 13:20 MCV 92.9 MCH 29.3 MCHC 31.5 RDW 16.4 H Plt Count 120 L MPV 10.7 Absolute Nucleated RBC 0.000 Nucleated RBC % (auto) 0.0 aPTT Heparin Protocol 108.7 H* D POC Glucose 112 09/13/22 09/13/22 09/13/22 15:30 15:58 20:14 MCV MCH MCHC RDW Plt Count MPV Absolute Nucleated RBC Nucleated RBC % (auto) aPTT Heparin Protocol 38.6 L D POC Glucose 109 113 09/13/22 09/14/22 09/14/22 22:17 06:19 07:15 MCV MCH MCHC RDW Plt Count MPV Absolute Nucleated RBC Nucleated RBC % (auto) aPTT Heparin Protocol 37.5 L 59.2 D POC Glucose 95 Assessment and Plan (1) Venous thromboembolism: Status: Acute (2) Diarrhea: Status: Acute (3) New onset of congestive heart failure: Status: Acute Plan 81-year-old female with past medical history of COPD/ILD, diabetes, hypertension, chronic hypoxemic hypercapnic respiratory failure, legally blind, history of CKD stage4, recent NSTEMI?admitted for new onset CHF with possible GI bleed and acute diarrhea. DVT/PE on IV heparin, will transition to eliquis before dc CHF--EF 30 tp -35..Clinically compensated, continue Lasix IV today due to fluid overload, continue Losartan 25 and add metoprolol Hypokalemia--corrected and resolved Hemoptysis: son says she did not have hemoptysis. continue to moniter while on heparindrip. recent? NSTEMI--medical therapy Recent pneumonia-completed 7 days abx. cxr without consolidation. dc abx CKD stage IV-renal function baseline. DM : hold dm meds fs with low sliding scale coverage . hx Swallowing problem modified diet-please see? last admission [employer] evdarrion. had diarrahe itntially: c diff neg GIp panel pending DVT prophylaxis- SCPs DNR/DNI ongoing hospitilsation needs:dvt /possible pulm embolism -need Iv heparin ,also? Gi bleed: positive stool requiring IV diuresis, cardiac monitoring Discuss goals of care with family as overall prognosis is poor Time Spent With Patient Time: Total time managing care of this patient today ____ minutes. Quality Stroke Does the patient have a stroke diagnosis?: No VTE Prior VTE?: No VTE Risk Level:: Medical - moderate - high VTE Device Contraindication: Treatment Not Indicated VTE Drug Contraindication: N/A - Med Ordered
[2022-09-14] MEDS: Lidocaine 4 % Patch ADH..PATCH 1 PATCH TRANSDERMA (09:38)
[2022-09-14] MEDS: Metoprolol Tartrate 25 MG TABLET PO ×2 (09:39→20:46)
[2022-09-14] MEDS: Aspirin 81 MG TAB.CHEW PO (09:39)
[2022-09-14] MEDS: Losartan Potassium 25 MG TABLET PO (09:39)
[2022-09-14] MEDS: 0.9 % Sodium Chloride Flush 3 ML SYRINGE IVFLUSH ×2 (09:40→20:47)
[2022-09-14] MEDS: Capsaicin 0.025% Cream 60 GM TUBE 1 APPL TOPICAL ×3 (09:40→20:49)
--- NOTE | 2022-09-14 11:05 | MHC.CM.PN ---
PER MULTIDISCIPLINARY ROUNDS HOSPITALIST TO DISCUSS POSSIBLE HOSPICE FOR PT, PT IS CURRENTLY ACTIVE W/HVNA WHO HAD BEEN ASKING D/T FAMILY INQUIRING, PT WILL NEED BLS TRANSPORT AND CM WILL CONT TO FOLLOW.
[2022-09-14 11:43] VITALS: BP 133/65; PULSE 73; RESP 20; TEMP 36.4; O2SAT 98
--- NOTE | 2022-09-14 13:13 | MHC.SLORD ---
Speech Language Pathology Order Status: Attempted to see patient at lunch but arrived after completion of meal. Multiple family members were present in room, with daughter reporting that patient was eating well, but was averse to some textures given on lunch tray (ground hard carrots, ground turkey meatloaf with hard/dry pieces), but otherwise ate the meal. Daughter reports that ground texture is o.k. when it is preferred foods (e.g. chicken). Family reports patient is generally eating well, tolerating diet. FRUIT TRIMMER will continue to follow.
[2022-09-14 15:36] VITALS: BP 106/46; PULSE 73; RESP 18; TEMP 36.2; O2SAT 91
--- NOTE | 2022-09-14 19:13 | PC.NURSE ---
Per Dr. Mendiola's orders - heparin drip discontinued at 1900
[2022-09-14 19:29] VITALS: BP 107/54; PULSE 84; RESP 18; TEMP 36.9; O2SAT 95
[2022-09-14] MEDS: traZODone HCL 25 MG HALFTAB 12.5 MG PO (20:45)
[2022-09-14] MEDS: Apixaban 5 MG TABLET 10 MG PO (20:46)
[2022-09-14 23:27] VITALS: BP 111/56; PULSE 73; RESP 18; TEMP 36.9; O2SAT 100
[2022-09-15 03:39] VITALS: BP 135/79; PULSE 83; RESP 18; TEMP 36.4; O2SAT 98
[2022-09-15] MEDS: Acetaminophen 325 MG TABLET 975 MG PO ×3 (05:57→20:35)
[2022-09-15 06:23] LABS: Hematocrit 41.2 % (37.0-47.0); Hemoglobin 12.7 g/dl (12.0-16.0); Mean Corpuscular HGB Conc 30.8 g/dl (31.0-35.0); Mean Corpuscular Hemoglobin 28.9 pg (27.0-33.0); Mean Corpuscular Volume 93.8 fL (80.0-98.0); Mean Platelet Volume 10.8 fL (9.4-12.3); Red Blood Count 4.39 X10*6/uL (4.20-5.50); White Blood Count 5.4 X10*3/uL (4.8-10.8)
[2022-09-15 06:25] LABS: Platelet Count 99 X10*3/uL (160-400)
[2022-09-15 07:15] VITALS: BP 139/64; PULSE 71; RESP 18; TEMP 36.8; O2SAT 93
[2022-09-15] MEDS: Metoprolol Tartrate 25 MG TABLET PO ×2 (08:33→20:26)
[2022-09-15] MEDS: Aspirin 81 MG TAB.CHEW PO (08:33)
[2022-09-15] MEDS: Apixaban 5 MG TABLET 10 MG PO ×2 (08:33→20:29)
[2022-09-15] MEDS: Lidocaine 4 % Patch ADH..PATCH 1 PATCH TRANSDERMA (08:34)
[2022-09-15] MEDS: Losartan Potassium 25 MG TABLET PO (08:34)
[2022-09-15] MEDS: 0.9 % Sodium Chloride Flush 3 ML SYRINGE IVFLUSH ×2 (08:35→15:41)
[2022-09-15] MEDS: Capsaicin 0.025% Cream 60 GM TUBE 1 APPL TOPICAL ×4 (08:39→20:29)
[2022-09-15 08:54] LABS: Anion Gap 13 (12-20); Blood Urea Nitrogen 20 mg/dL (9-16); Calcium 9.4 mg/dL (8.4-10.2); Carbon Dioxide 31 mmol/L (22-29); Chloride 102 mmol/L (96-108); Creatinine Clr Calc Pharmacy 43.4; Estimated Glomerular Filt Rate 42; Glucose Random 115 mg/dL (60-115); Potassium 3.5 mmol/L (3.3-5.1); Sodium 142 mmol/L (135-145)
--- NOTE | 2022-09-15 09:33 | HO.PM.IMPN ---
Subjective Subjective Date of Service: 09/15/22 Interval History: f/u on resp failure d/t pe, dvt and chf she is more awake this morning, feeding herself and talking Physical Exam Vital Signs: Vital Signs: Last Vital Signs Temp 98.3 F 09/15/22 07:15 Pulse 71 09/15/22 07:15 Resp 18 09/15/22 07:15 BP 139/64 09/15/22 07:15 Pulse Ox 93 09/15/22 07:15 O2 Del Method Nasal Cannula 09/15/22 07:15 O2 Flow Rate 2 09/15/22 07:15 Oxygen Flow Rate 2 09/09/22 14:25 BMI result Body Mass Index 42.2 Const: Other: General:alert, no distress Resp: CTA bilateral CVS: S1,S2,RRR, 3+leg edema GI: +BS, NT, no distention Skin: No rash Neuro: motor grossly intact Psych: appropriate affect Objective Data Active Medications Acetaminophen (Acetaminophen 325 Mg Tablet) 975 mg PO Q8H [facility] Last Admin: 09/15/22 05:57 Dose: 975 mg Documented By: PATY Apixaban (Apixaban 5 Mg Tablet) 10 mg PO BID [facility] Stop: 09/21/22 09:01 Last Admin: 09/15/22 08:33 Dose: 10 mg Documented By: CAESAR Aspirin (Aspirin 81 Mg Tab.Chew) 81 mg PO DAILY [facility] Last Admin: 09/15/22 08:33 Dose: 81 mg Documented By: CAESAR Capsaicin (Capsaicin 0.025% Cream 60 Gm Tube) 1 appl TOPICAL QID [facility]; Protocol Last Admin: 09/15/22 08:39 Dose: 1 appl Documented By: CAESAR Dextrose (Dextrose 50 % 25 Gm/50 Ml Syringe) 25 gm IVPUSH Q15M PRN; Protocol PRN Reason: per Hypoglycemia Standing Ord. Docusate Sodium (Docusate Sodium 100 Mg Capsule) 100 mg PO DAILY PRN PRN Reason: Constipation Furosemide (Furosemide 40 Mg/4 Ml Vial) 40 mg IVPUSH DAILY [facility]; Protocol Last Admin: 09/15/22 08:34 Dose: 40 mg Documented By: CAESAR Glucose (Glucose Gel 15 Gm Gel..Gram.) 15 gm PO Q15M PRN; Protocol PRN Reason: per Hypoglycemia Standing Ord. Insulin Human Lispro (Insulin Lispro 100 Unit/Ml 3 Ml Vial) 0 unit SUBCUT QIDACHS [facility]; Protocol Last Admin: 09/15/22 07:58 Dose: Not Given Documented By: CAESAR Non-Admin Reason: No Insulin Coverage Lidocaine (Lidocaine 4 % Patch Adh..Patch) 1 patch TRANSDERMA DAILY [facility]; Protocol Last Admin: 09/15/22 08:34 Dose: 1 patch Documented By: CAESAR Losartan Potassium (Losartan Potassium 25 Mg Tablet) 25 mg PO DAILY [facility]; Protocol Last Admin: 09/15/22 08:34 Dose: 25 mg Documented By: CAESAR Metoprolol Tartrate (Metoprolol Tartrate 25 Mg Tablet) 25 mg PO BID [facility]; Protocol Last Admin: 09/15/22 08:33 Dose: 25 mg Documented By: CAESAR Ondansetron HCl (Ondansetron Hcl 4 Mg/2 Ml Vial) 4 mg IVPUSH Q8H PRN PRN Reason: Nausea and Vomiting Last Admin: 09/13/22 02:54 Dose: 4 mg Documented By: NITZA Pharmacy Consult (Consult Rx Perform Med Rec) 1 each MISCELLANE ONCE PRN PRN Reason: Consult order Sodium Chloride (0.9 % Sodium Chloride Flush 3 Ml Syringe) 3 ml IVFLUSH QSHIFT [facility] Last Admin: 09/15/22 08:35 Dose: 3 ml Documented By: CAESAR Trazodone HCl (Trazodone Hcl 25 Mg Halftab) 12.5 mg PO BEDTIME [facility] Last Admin: 09/14/22 20:45 Dose: 12.5 mg Documented By: PATY Labs 09/15/22 05:59 09/15/22 08:24 Labs: Laboratory Results - last 24 hr 09/14/22 09/14/22 09/14/22 11:09 12:30 16:22 MCV MCH MCHC RDW Plt Count MPV Absolute Nucleated RBC Nucleated RBC % (auto) aPTT Heparin Protocol 33.5 L D Anion Gap Estim Creat Clear Calc Estimated GFR POC Glucose 98 91 Random Glucose Calcium 09/14/22 09/15/22 09/15/22 20:39 05:59 07:16 MCV 93.8 MCH 28.9 MCHC 30.8 L RDW 16.0 Plt Count 99 L MPV 10.8 Absolute Nucleated RBC 0.000 Nucleated RBC % (auto) 0.0 aPTT Heparin Protocol Anion Gap Estim Creat Clear Calc Estimated GFR POC Glucose 98 90 Random Glucose Calcium 09/15/22 08:24 MCV MCH MCHC RDW Plt Count MPV Absolute Nucleated RBC Nucleated RBC % (auto) aPTT Heparin Protocol Anion Gap 13 Estim Creat Clear Calc 43.4 Estimated GFR 42 POC Glucose Random Glucose 115 Calcium 9.4 Assessment and Plan (1) Venous thromboembolism: Status: Acute (2) Diarrhea: Status: Acute (3) New onset of congestive heart failure: Status: Acute Plan 81-year-old female with past medical history of COPD/ILD, diabetes, hypertension, chronic hypoxemic hypercapnic respiratory failure, legally blind, history of CKD stage4, recent NSTEMI?admitted for new onset CHF with possible GI bleed and acute diarrhea. DVT/PE was on IV heparin for 5 days and [facility]henaged to [facility] 09/14, CHF--EF 30 tp -35.. showing sings of fluid overaload with much leg edema, continue Lasix IV , continue Losartan 25 and add metoprolol Hypokalemia--corrected and resolved Hemoptysis: son says she did not have hemoptysis. recent? NSTEMI--medical therapy Recent pneumonia-completed 7 days abx. cxr without consolidation. dc abx CKD stage IV-renal function baseline. DM : hold dm meds fs with low sliding scale coverage . hx Swallowing problem modified diet-please see? 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 had diarrahe itntially: c diff neg GIp panel pending DVT prophylaxis- SCPs DNR/DNI ongoing hospitilsation needs:dvt /possible pulm embolism -need Iv heparin ,also? Gi bleed: positive stool requiring IV diuresis, cardiac monitoring Discuss goals of care with family as overall prognosis is poor Time Spent With Patient Time: Total time managing care of this patient today ____ minutes. Quality Stroke Does the patient have a stroke diagnosis?: No VTE Prior VTE?: No VTE Risk Level:: Medical - moderate - high VTE Device Contraindication: Treatment Not Indicated VTE Drug Contraindication: N/A - Med Ordered
[2022-09-15 11:16] VITALS: BP 116/56; PULSE 79; RESP 18; TEMP 36.9; O2SAT 94
[2022-09-15 11:19] LABS: Glucose, Whole Blood 106 mg/dL (60-115)
--- NOTE | 2022-09-15 11:40 | MHC.CLN ---
F/U PT WITH INCREASED NUTRITION R/T PRESSURE INJURY DIET RX: GRD M/S 1800DM 2GM NA -APPROPRIATE PT RECEIVING ENSURE MAX BID FOR WOUND HEALING SUPP PROVIDES 300KCALS, 60G PROTEIN WITH 100% ACCEPTANCE MONITOR PO INTAKE CLOSELY
--- NOTE | 2022-09-15 12:28 | PM.PNCARD ---
Subjective Subjective Date of Service: 09/15/22 Interval history: Seen using translator interpreter. She still feels quite weak. When we were in the room, she was constantly coughing. Review of Systems Review of Systems Yes all other systems are reviewed and are negative Constitutional: Reports as per HPI and Reports no additional constitutional complaints Eyes: Reports as per HPI and Denies no additional eye complaints Denies system reviewed and no additional complaints, except as documented and Reports as per HPI Cardiovascular: Reports as per HPI, Reports no additional cardiovascular complaints, Denies acrocyanosis, Denies cool extremities, Denies chest pain, Reports leg edema, Denies lightheadedness, Denies palpitations and Reports dyspnea Respiratory: Reports as per HPI, Denies no additional respiratory complaints, Reports cough and Reports dyspnea Gastrointestinal: Reports as per HPI and Denies no additional gastrointestinal complaints Genitourinary: Reports as per HPI Musculoskeletal: Reports no additional musculoskeletal complaints and Reports as per HPI Skin/Breast: Reports system reviewed and no additional complaints, except as docu Reports system reviewed and no additional complaints, except as documented and Reports as per HPI Psychiatric: Reports no additional psychiatric complaints and Reports as per HPI Endocrine: Reports no additional endocrine complaints, Reports as per HPI and Denies palpitations Hematologic/Lymphatic: Reports no additional hematologic/lymphatic complaints and Reports as per HPI Allergic/Immunologic: Reports no additional allergic/immunologic complaints and Reports as per HPI Physical Exam Vital Signs: Last Vital Signs Temp 98.5 F 09/15/22 11:16 Pulse 79 09/15/22 11:16 Resp 18 09/15/22 11:16 BP 116/56 L 09/15/22 11:16 Pulse Ox 94 09/15/22 11:16 O2 Del Method Nasal Cannula 09/15/22 11:16 O2 Flow Rate 2 09/15/22 11:16 Oxygen Flow Rate 2 09/09/22 14:25 BMI result Body Mass Index 42.2 Const General: comfortable and no acute distress Orientation/consciousness: patient oriented x3 HEENT Other: Unremarkable Head: Yes normal to inspection Neck Neck: Yes normal visual inspection Chest Chest palpation & inspection: normal inspection of the chest Resp Other: Few inspiratory crackles Auscultation: clear to auscultation bilaterally Cardio Palpation: normal PMI Heart sounds: S1 normal heart sound present, S2 normal heart sound present, no gallops, Murmur heart sound present systolic I/ and at the right sternal border and no rubs GI Palpation (GI): Soft to palpation Back/Spine/Pelvis Other: unremarkable Skin General skin exam: no rashes or lesions noted Neuro General: patient oriented x3 Extrem Other: 2+ edema General: Yes normal to inspection Psych Mental Status: mental status grossly normal Objective Labs and Meds 09/15/22 05:59 09/15/22 08:24 Lab results: Laboratory Results - last 24 hr 09/14/22 09/14/22 09/14/22 12:30 16:22 20:39 WBC RBC Hgb Hct MCV MCH MCHC RDW Plt Count MPV Absolute Nucleated RBC Nucleated RBC % (auto) aPTT Heparin Protocol 33.5 L D Sodium Potassium Chloride Carbon Dioxide Anion Gap BUN Creatinine Estim Creat Clear Calc Estimated GFR POC Glucose 91 98 Random Glucose Calcium 09/15/22 09/15/22 09/15/22 05:59 07:16 08:24 WBC 5.4 RBC 4.39 Hgb 12.7 Hct 41.2 MCV 93.8 MCH 28.9 MCHC 30.8 L RDW 16.0 Plt Count 99 L MPV 10.8 Absolute Nucleated RBC 0.000 Nucleated RBC % (auto) 0.0 aPTT Heparin Protocol Sodium 142 Potassium 3.5 Chloride 102 Carbon Dioxide 31 H Anion Gap 13 BUN 20 H Creatinine 1.22 Estim Creat Clear Calc 43.4 Estimated GFR 42 POC Glucose 90 Random Glucose 115 Calcium 9.4 09/15/22 11:15 WBC RBC Hgb Hct MCV MCH MCHC RDW Plt Count MPV Absolute Nucleated RBC Nucleated RBC % (auto) aPTT Heparin Protocol Sodium Potassium Chloride Carbon Dioxide Anion Gap BUN Creatinine Estim Creat Clear Calc Estimated GFR POC Glucose 106 Random Glucose Calcium Progress Note: A&P Assessment and plan (1) NSTEMI (non-ST elevated myocardial infarction): Status: Acute (2) Acute CHF: Status: Acute (3) Venous thromboembolism: Status: Acute Plan In the recent echocardiogram, LVEF 30-35%. Wall motion abnormalities suggestive of either LAD ischemia or takotsubo. Per recent documentation, it appears that the NSTEMI is being medically managed which seems reasonable considering her age and comorbidities. She still looks volume overloaded with leg swelling. Hence remains on IV diuretics. Otherwise, also on beta-blockers as well as losartan. Anticoagulation for the pulmonary embolism. Overall, she is quite ill, frail and guarded prognosis. Discussed with Dr. Mendiola. Time Spent With Patient Time: Total time managing care of this patient today 45 minutes. This includes time spent in review of chart, laboratory data, imaging studies, review of telemetry, counseling patient, discussion with hospitalist, RN, documentation, coordination of care. Progress Note: Quality Stroke Does the patient have a stroke diagnosis?: No Procedures Date of Service Date of Service: 09/15/22
--- NOTE | 2022-09-15 13:12 | MHC.SLORD ---
Speech Language Pathology Order Status: KIER DRIER attempted to see pt this morning for dysphagia tx. Pt was unavailable, being changed by nursing staff. Pt has reportedly been tolerating ground/mech altered (NDD2) diet with thin garrett- mary YING, pt has been feeding herself.
--- NOTE | 2022-09-15 13:59 | MHC.CM.PN ---
EMR REVIEWED, PER CARDIOLOGY PT REMAINS FLUID OVERLOADED AND WILL CONT IV DIURETICS, NO PLAN FOR D/C AT THIS TIME, CM WILL CONT TO FOLLOW D/C NEEDS.
[2022-09-15 15:42] VITALS: BP 96/46; PULSE 70; RESP 20; TEMP 36.4; O2SAT 93
[2022-09-15 18:52] VITALS: BP 132/60; PULSE 74; RESP 16; TEMP 36.2; O2SAT 93
[2022-09-15] MEDS: traZODone HCL 25 MG HALFTAB 12.5 MG PO (20:27)
[2022-09-15 23:12] VITALS: BP 124/68; PULSE 68; RESP 18; TEMP 37.1; O2SAT 96
[2022-09-16] MEDS: 0.9 % Sodium Chloride Flush 3 ML SYRINGE IVFLUSH ×3 (00:22→20:39)
[2022-09-16 03:39] VITALS: BP 153/74; PULSE 89; RESP 18; TEMP 37.1; O2SAT 90
[2022-09-16 07:43] VITALS: BP 132/65; PULSE 76; RESP 18; TEMP 36.7; O2SAT 95
--- NOTE | 2022-09-16 09:20 | HO.PM.IMPN ---
Subjective Subjective Date of Service: 09/16/22 Interval History: f/u on resp failure d/t pe, dvt and chf alert, seems confused but no distress Physical Exam Vital Signs: Vital Signs: Last Vital Signs Temp 98.0 F 09/16/22 07:43 Pulse 76 09/16/22 07:43 Resp 18 09/16/22 07:43 BP 132/65 09/16/22 07:43 Pulse Ox 95 09/16/22 07:43 O2 Del Method Nasal Cannula 09/16/22 07:43 O2 Flow Rate 2.0 09/16/22 07:43 FiO2 93 09/15/22 15:42 Oxygen Flow Rate 2 09/09/22 14:25 BMI result Body Mass Index 42.2 Const: Other: General:alert, no distress Resp: CTA bilateral CVS: S1,S2,RRR, 3+leg edema GI: +BS, NT, no distention Skin: No rash Neuro: motor grossly intact Psych:flat Objective Data Active Medications Acetaminophen (Acetaminophen 325 Mg Tablet) 975 mg PO Q8H [facility] Last Admin: 09/16/22 06:38 Dose: Not Given Documented By: MARQUISE Non-Admin Reason: Patient Refused Apixaban (Apixaban 5 Mg Tablet) 10 mg PO BID [facility] Stop: 09/21/22 09:01 Last Admin: 09/15/22 20:29 Dose: 10 mg Documented By: LISANDRO Aspirin (Aspirin 81 Mg Tab.Chew) 81 mg PO DAILY [facility] Last Admin: 09/15/22 08:33 Dose: 81 mg Documented By: CAESAR Capsaicin (Capsaicin 0.025% Cream 60 Gm Tube) 1 appl TOPICAL QID [facility]; Protocol Last Admin: 09/15/22 20:29 Dose: 1 appl Documented By: LISANDRO Dextrose (Dextrose 50 % 25 Gm/50 Ml Syringe) 25 gm IVPUSH Q15M PRN; Protocol PRN Reason: per Hypoglycemia Standing Ord. Docusate Sodium (Docusate Sodium 100 Mg Capsule) 100 mg PO DAILY PRN PRN Reason: Constipation Furosemide (Furosemide 40 Mg/4 Ml Vial) 40 mg IVPUSH DAILY [facility]; Protocol Last Admin: 09/15/22 08:34 Dose: 40 mg Documented By: CAESAR Glucose (Glucose Gel 15 Gm Gel..Gram.) 15 gm PO Q15M PRN; Protocol PRN Reason: per Hypoglycemia Standing Ord. Insulin Human Lispro (Insulin Lispro 100 Unit/Ml 3 Ml Vial) 0 unit SUBCUT QIDACHS [facility]; Protocol Last Admin: 09/16/22 07:48 Dose: Not Given Documented By: IRVIN Non-Admin Reason: No Insulin Coverage Lidocaine (Lidocaine 4 % Patch Adh..Patch) 1 patch TRANSDERMA DAILY [facility]; Protocol Last Admin: 09/15/22 08:34 Dose: 1 patch Documented By: CAESAR Losartan Potassium (Losartan Potassium 25 Mg Tablet) 25 mg PO DAILY [facility]; Protocol Last Admin: 09/15/22 08:34 Dose: 25 mg Documented By: CAESAR Metoprolol Tartrate (Metoprolol Tartrate 25 Mg Tablet) 25 mg PO BID [facility]; Protocol Last Admin: 09/15/22 20:26 Dose: 25 mg Documented By: LISANDRO Ondansetron HCl (Ondansetron Hcl 4 Mg/2 Ml Vial) 4 mg IVPUSH Q8H PRN PRN Reason: Nausea and Vomiting Last Admin: 09/13/22 02:54 Dose: 4 mg Documented By: NITZA Pharmacy Consult (Consult Rx Perform Med Rec) 1 each MISCELLANE ONCE PRN PRN Reason: Consult order Sodium Chloride (0.9 % Sodium Chloride Flush 3 Ml Syringe) 3 ml IVFLUSH QSHIFT [facility] Last Admin: 09/16/22 00:22 Dose: 3 ml Documented By: MARQUISE Trazodone HCl (Trazodone Hcl 25 Mg Halftab) 12.5 mg PO BEDTIME [facility] Last Admin: 09/15/22 20:27 Dose: 12.5 mg Documented By: LISANDRO Labs 09/15/22 05:59 09/15/22 08:24 Labs: Laboratory Results - last 24 hr 09/15/22 09/15/22 09/15/22 11:15 16:21 19:33 POC Glucose 106 112 125 H 09/16/22 07:40 POC Glucose 101 Assessment and Plan (1) Venous thromboembolism: Status: Acute (2) Diarrhea: Status: Acute (3) New onset of congestive heart failure: Status: Acute Plan 81-year-old female with past medical history of COPD/ILD, diabetes, hypertension, chronic hypoxemic hypercapnic respiratory failure, legally blind, history of CKD stage4, recent NSTEMI?admitted for new onset CHF with possible GI bleed and acute diarrhea. DVT/PE was on IV heparin for 5 days and chenaged to Jesus 09/14, CHF--EF 30 tp -35.. showing sings of fluid overaload with much leg edema, continue Lasix IV , continue Losartan 25 and add metoprolol Hypokalemia--corrected and resolved Hemoptysis: son says she did not have hemoptysis. recent? NSTEMI--medical therapy Recent pneumonia-completed 7 days abx. cxr without consolidation. dc abx CKD stage IV-renal function baseline. DM : hold dm meds fs with low sliding scale coverage . hx Swallowing problem modified diet-please see? last admission [facility]. had diarrahe itntially: c diff neg GIp panel pending DVT prophylaxis- SCPs DNR/DNI ongoing hospitilsation needs:dvt /possible pulm embolism -need Iv heparin ,also? Gi bleed: positive stool requiring IV diuresis, cardiac monitoring Discuss goals of care with family as overall prognosis is poor Time Spent With Patient Time: Total time managing care of this patient today ____ minutes. Quality Stroke Does the patient have a stroke diagnosis?: No VTE Prior VTE?: No VTE Risk Level:: Medical - moderate - high VTE Device Contraindication: Treatment Not Indicated VTE Drug Contraindication: N/A - Med Ordered
[2022-09-16] MEDS: Lidocaine 4 % Patch ADH..PATCH 1 PATCH TRANSDERMA (09:21)
[2022-09-16] MEDS: Losartan Potassium 25 MG TABLET PO (09:23)
[2022-09-16] MEDS: Apixaban 5 MG TABLET 10 MG PO ×2 (09:23→20:39)
[2022-09-16] MEDS: Aspirin 81 MG TAB.CHEW PO (09:23)
[2022-09-16] MEDS: Metoprolol Tartrate 25 MG TABLET PO ×2 (09:23→20:39)
[2022-09-16] MEDS: Capsaicin 0.025% Cream 60 GM TUBE 1 APPL TOPICAL ×3 (09:36→20:40)
[2022-09-16 11:37] VITALS: BP 149/70; PULSE 66; RESP 18; TEMP 36.3; O2SAT 93
[2022-09-16] MEDS: Acetaminophen 325 MG TABLET 975 MG PO ×2 (13:59→22:18)
[2022-09-16 15:12] VITALS: BP 130/60; PULSE 70; RESP 15; TEMP 36.2; O2SAT 91
[2022-09-16 19:33] VITALS: BP 134/76; PULSE 73; RESP 15; TEMP 36.9; O2SAT 97
[2022-09-16] MEDS: traZODone HCL 25 MG HALFTAB 12.5 MG PO (20:39)
[2022-09-16 23:46] VITALS: BP 140/67; PULSE 72; RESP 20; TEMP 36.4; O2SAT 98
[2022-09-17 03:37] VITALS: BP 157/73; PULSE 74; RESP 20; TEMP 36.3; O2SAT 95
[2022-09-17] MEDS: Acetaminophen 325 MG TABLET 975 MG PO ×3 (05:27→21:08)
[2022-09-17 07:28] VITALS: BP 171/70; PULSE 75; RESP 18; TEMP 36.4; O2SAT 95
[2022-09-17] MEDS: Metoprolol Tartrate 25 MG TABLET PO ×2 (08:36→21:08)
[2022-09-17] MEDS: Aspirin 81 MG TAB.CHEW PO (08:36)
[2022-09-17] MEDS: Losartan Potassium 25 MG TABLET PO (08:36)
[2022-09-17] MEDS: Apixaban 5 MG TABLET 10 MG PO ×2 (08:37→21:08)
[2022-09-17] MEDS: 0.9 % Sodium Chloride Flush 3 ML SYRINGE IVFLUSH ×2 (08:37→21:18)
[2022-09-17] MEDS: Capsaicin 0.025% Cream 60 GM TUBE 1 APPL TOPICAL ×3 (08:42→21:07)
--- NOTE | 2022-09-17 09:57 | HO.PM.IMPN ---
Subjective Subjective Date of Service: 09/17/22 Interval History: f/u on resp failure d/t pe, dvt and chf alert, doing well no new issues Physical Exam Vital Signs: Vital Signs: Last Vital Signs Temp 97.6 F 09/17/22 07:28 Pulse 75 09/17/22 07:28 Resp 18 09/17/22 07:28 BP 171/70 H 09/17/22 07:28 Pulse Ox 95 09/17/22 07:28 O2 Del Method Nasal Cannula 09/17/22 07:28 O2 Flow Rate 2 09/17/22 07:28 FiO2 93 09/15/22 15:42 Oxygen Flow Rate 2 09/09/22 14:25 BMI result Body Mass Index 42.2 Const: Other: General:alert, no distress Resp: CTA bilateral CVS: S1,S2,RRR, 3+leg edema GI: +BS, NT, no distention Skin: No rash Neuro: motor grossly intact Psych:flat Objective Data Active Medications Acetaminophen (Acetaminophen 325 Mg Tablet) 975 mg PO Q8H [facility] Last Admin: 09/17/22 05:27 Dose: 975 mg Documented By: BAILEY Apixaban (Apixaban 5 Mg Tablet) 10 mg PO BID [facility] Stop: 09/21/22 09:01 Last Admin: 09/17/22 08:37 Dose: 10 mg Documented By: CAESAR Aspirin (Aspirin 81 Mg Tab.Chew) 81 mg PO DAILY [facility] Last Admin: 09/17/22 08:36 Dose: 81 mg Documented By: CAESAR Capsaicin (Capsaicin 0.025% Cream 60 Gm Tube) 1 appl TOPICAL QID [facility]; Protocol Last Admin: 09/17/22 08:42 Dose: 1 appl Documented By: CAESAR Dextrose (Dextrose 50 % 25 Gm/50 Ml Syringe) 25 gm IVPUSH Q15M PRN; Protocol PRN Reason: per Hypoglycemia Standing Ord. Docusate Sodium (Docusate Sodium 100 Mg Capsule) 100 mg PO DAILY PRN PRN Reason: Constipation Furosemide (Furosemide 40 Mg/4 Ml Vial) 40 mg IVPUSH DAILY [facility]; Protocol Last Admin: 09/17/22 08:37 Dose: 40 mg Documented By: CAESAR Glucose (Glucose Gel 15 Gm Gel..Gram.) 15 gm PO Q15M PRN; Protocol PRN Reason: per Hypoglycemia Standing Ord. Insulin Human Lispro (Insulin Lispro 100 Unit/Ml 3 Ml Vial) 0 unit SUBCUT QIDACHS [facility]; Protocol Last Admin: 09/17/22 08:32 Dose: Not Given Documented By: CAESAR Non-Admin Reason: No Insulin Coverage Lidocaine (Lidocaine 4 % Patch Adh..Patch) 1 patch TRANSDERMA DAILY [facility]; Protocol Last Admin: 09/16/22 09:21 Dose: 1 patch Documented By: IRVNI Losartan Potassium (Losartan Potassium 25 Mg Tablet) 25 mg PO DAILY [facility]; Protocol Last Admin: 09/17/22 08:36 Dose: 25 mg Documented By: CAESAR Metoprolol Tartrate (Metoprolol Tartrate 25 Mg Tablet) 25 mg PO BID [facility]; Protocol Last Admin: 09/17/22 08:36 Dose: 25 mg Documented By: CAESAR Ondansetron HCl (Ondansetron Hcl 4 Mg/2 Ml Vial) 4 mg IVPUSH Q8H PRN PRN Reason: Nausea and Vomiting Last Admin: 09/13/22 02:54 Dose: 4 mg Documented By: NITZA Pharmacy Consult (Consult Rx Perform Med Rec) 1 each MISCELLANE ONCE PRN PRN Reason: Consult order Sodium Chloride (0.9 % Sodium Chloride Flush 3 Ml Syringe) 3 ml IVFLUSH QSHIFT [facility] Last Admin: 09/17/22 08:37 Dose: 3 ml Documented By: CAESAR Trazodone HCl (Trazodone Hcl 25 Mg Halftab) 12.5 mg PO BEDTIME [facility] Last Admin: 09/16/22 20:39 Dose: 12.5 mg Documented By: BAILEY Labs 09/15/22 05:59 09/15/22 08:24 Labs: Laboratory Results - last 24 hr 09/16/22 09/16/22 09/16/22 11:20 15:15 19:36 POC Glucose 110 114 92 09/17/22 07:26 POC Glucose 100 Assessment and Plan (1) Venous thromboembolism: Status: Acute (2) Diarrhea: Status: Acute (3) New onset of congestive heart failure: Status: Acute Plan 81-year-old female with past medical history of COPD/ILD, diabetes, hypertension, chronic hypoxemic hypercapnic respiratory failure, legally blind, history of CKD stage4, recent NSTEMI?admitted for new onset CHF with possible GI bleed and acute diarrhea. DVT/PE was on IV heparin for 5 days and chenaged to Eliquis 09/14 (10 bid x 7 days, then 5 bid) CHF--EF 30 tp -35.. showing sings of fluid overaload with much leg edema, continue Lasix IV , continue Losartan 25 and add metoprolol --change to PO Lasix tomorrow Hypokalemia--corrected and resolved Hemoptysis: son says she did not have hemoptysis. recent? NSTEMI--medical therapy Recent pneumonia-completed 7 days abx. cxr without consolidation. dc abx CKD stage IV-renal function baseline. DM : hold dm meds fs with low sliding scale coverage . hx Swallowing problem modified diet-please see? last admission [facility]. had diarrahe itntially: c diff neg GIp panel pending DVT prophylaxis- SCPs DNR/DNI ongoing hospitilsation needs:dvt /possible pulm embolism -need Iv heparin ,also? Gi bleed: positive stool requiring IV diuresis, cardiac monitoring Discuss goals of care with family as overall prognosis is poor, DC in 24 to 48 hours Time Spent With Patient Time: Total time managing care of this patient today ____ minutes. Quality Stroke Does the patient have a stroke diagnosis?: No VTE Prior VTE?: No VTE Risk Level:: Medical - moderate - high VTE Device Contraindication: Treatment Not Indicated VTE Drug Contraindication: N/A - Med Ordered
[2022-09-17] MEDS: Lidocaine 4 % Patch ADH..PATCH 1 PATCH TRANSDERMA (10:10)
[2022-09-17 11:19] VITALS: BP 131/61; PULSE 65; RESP 18; TEMP 36.6; O2SAT 95
[2022-09-17 16:45] VITALS: BP 151/71; PULSE 69; RESP 15; TEMP 36.9; O2SAT 95
[2022-09-17 19:21] VITALS: BP 141/64; PULSE 70; RESP 14; TEMP 36.2; O2SAT 94
[2022-09-17] MEDS: traZODone HCL 25 MG HALFTAB 12.5 MG PO (21:08)
[2022-09-17 23:38] VITALS: BP 115/56; PULSE 67; RESP 20; TEMP 36.4; O2SAT 94
[2022-09-18 03:41] VITALS: BP 132/61; PULSE 63; RESP 18; TEMP 36.5; O2SAT 97
[2022-09-18 07:58] VITALS: BP 141/65; PULSE 70; RESP 20; TEMP 36.6; O2SAT 93
[2022-09-18] MEDS: Aspirin 81 MG TAB.CHEW PO (10:42)
[2022-09-18] MEDS: 0.9 % Sodium Chloride Flush 3 ML SYRINGE IVFLUSH ×3 (10:43→21:56)
[2022-09-18] MEDS: Capsaicin 0.025% Cream 60 GM TUBE 1 APPL TOPICAL ×4 (10:43→21:56)
[2022-09-18] MEDS: Metoprolol Tartrate 25 MG TABLET PO ×2 (10:43→21:56)
[2022-09-18] MEDS: Losartan Potassium 25 MG TABLET PO (10:43)
[2022-09-18] MEDS: Apixaban 5 MG TABLET 10 MG PO ×2 (10:43→21:55)
--- NOTE | 2022-09-18 11:06 | HO.PM.IMPN ---
Subjective Subjective Date of Service: 09/18/22 Interval History: f/u on resp failure d/t pe, dvt and chf alert, doing well no new issues Physical Exam Vital Signs: Vital Signs: Last Vital Signs Temp 97.9 F 09/18/22 07:58 Pulse 70 09/18/22 07:58 Resp 20 09/18/22 07:58 BP 141/65 H 09/18/22 07:58 Pulse Ox 93 09/18/22 07:58 O2 Del Method Nasal Cannula 09/18/22 07:58 O2 Flow Rate 2 09/18/22 07:58 FiO2 93 09/15/22 15:42 Oxygen Flow Rate 2 09/09/22 14:25 BMI result Body Mass Index 42.2 Const: Other: General:alert, no distress Resp: CTA bilateral CVS: S1,S2,RRR, 3+leg edema GI: +BS, NT, no distention Skin: No rash Neuro: motor grossly intact Psych:flat Objective Data Active Medications Acetaminophen (Acetaminophen 325 Mg Tablet) 975 mg PO Q8H [facility] Last Admin: 09/18/22 06:18 Dose: Not Given Documented By: JOSÉ MIGUEL Non-Admin Reason: Patient Refused Apixaban (Apixaban 5 Mg Tablet) 10 mg PO BID [facility] Stop: 09/21/22 09:01 Last Admin: 09/18/22 10:43 Dose: 10 mg Documented By: KATHE Aspirin (Aspirin 81 Mg Tab.Chew) 81 mg PO DAILY [facility] Last Admin: 09/18/22 10:42 Dose: 81 mg Documented By: KATHE Capsaicin (Capsaicin 0.025% Cream 60 Gm Tube) 1 appl TOPICAL QID [facility]; Protocol Last Admin: 09/18/22 10:43 Dose: 1 appl Documented By: KATHE Dextrose (Dextrose 50 % 25 Gm/50 Ml Syringe) 25 gm IVPUSH Q15M PRN; Protocol PRN Reason: per Hypoglycemia Standing Ord. Docusate Sodium (Docusate Sodium 100 Mg Capsule) 100 mg PO DAILY PRN PRN Reason: Constipation Glucose (Glucose Gel 15 Gm Gel..Gram.) 15 gm PO Q15M PRN; Protocol PRN Reason: per Hypoglycemia Standing Ord. Insulin Human Lispro (Insulin Lispro 100 Unit/Ml 3 Ml Vial) 0 unit SUBCUT QIDACHS [facility]; Protocol Last Admin: 09/18/22 08:28 Dose: Not Given Documented By: KATHE Non-Admin Reason: No Insulin Coverage Lidocaine (Lidocaine 4 % Patch Adh..Patch) 1 patch TRANSDERMA DAILY [facility]; Protocol Last Admin: 09/18/22 10:52 Dose: Not Given Documented By: KATHE Non-Admin Reason: Patient Refused Losartan Potassium (Losartan Potassium 25 Mg Tablet) 25 mg PO DAILY [facility]; Protocol Last Admin: 09/18/22 10:43 Dose: 25 mg Documented By: KATHE Metoprolol Tartrate (Metoprolol Tartrate 25 Mg Tablet) 25 mg PO BID [facility]; Protocol Last Admin: 09/18/22 10:43 Dose: 25 mg Documented By: KATHE Ondansetron HCl (Ondansetron Hcl 4 Mg/2 Ml Vial) 4 mg IVPUSH Q8H PRN PRN Reason: Nausea and Vomiting Last Admin: 09/13/22 02:54 Dose: 4 mg Documented By: NITZA Pharmacy Consult (Consult Rx Perform Med Rec) 1 each MISCELLANE ONCE PRN PRN Reason: Consult order Sodium Chloride (0.9 % Sodium Chloride Flush 3 Ml Syringe) 3 ml IVFLUSH QSHIFT [facility] Last Admin: 09/18/22 10:43 Dose: 3 ml Documented By: KATHE Trazodone HCl (Trazodone Hcl 25 Mg Halftab) 12.5 mg PO BEDTIME [facility] Last Admin: 09/17/22 21:08 Dose: 12.5 mg Documented By: JOSÉ MIGUEL Labs 09/15/22 05:59 09/15/22 08:24 Labs: Laboratory Results - last 24 hr 09/17/22 09/17/22 09/17/22 11:21 16:46 19:24 POC Glucose 131 H 113 111 09/18/22 07:50 POC Glucose 101 Assessment and Plan (1) Venous thromboembolism: Status: Acute (2) Diarrhea: Status: Acute (3) New onset of congestive heart failure: Status: Acute Plan 81-year-old female with past medical history of COPD/ILD, diabetes, hypertension, chronic hypoxemic hypercapnic respiratory failure, legally blind, history of CKD stage4, recent NSTEMI?admitted for new onset CHF with possible GI bleed and acute diarrhea. DVT/PE was on IV heparin for 5 days and chenaged to Eliquis 09/14 (10 bid x 7 days, then 5 bid) CHF--EF 30 tp -35.. showing sings of fluid overaload with much leg edema, continue Lasix IV , continue Losartan 25 and add metoprolol --change to PO Lasix tomorrow Hypokalemia--corrected and resolved ?Hemoptysis: son says she did not have hemoptysis. recent? NSTEMI--medical therapy Recent pneumonia-completed 7 days abx. cxr without consolidation. dc abx CKD stage IV-renal function baseline. DM : hold dm meds fs with low sliding scale coverage . hx Swallowing problem modified diet-please see? last admission [facility]. had diarrahe itntially: c diff neg GIp panel pending DVT prophylaxis- SCPs DNR/DNI ongoing hospitilsation needs:dvt /possible pulm embolism -need Iv heparin ,also? Gi bleed: positive stool requiring IV diuresis, cardiac monitoring Discuss goals of care with family as overall prognosis is poor, DC in 24 to 48 hours Time Spent With Patient Time: Total time managing care of this patient today ____ minutes. Quality Stroke Does the patient have a stroke diagnosis?: No VTE Prior VTE?: No VTE Risk Level:: Medical - moderate - high VTE Device Contraindication: Treatment Not Indicated VTE Drug Contraindication: N/A - Med Ordered
[2022-09-18 11:48] VITALS: BP 136/63; PULSE 71; RESP 20; TEMP 36.3; O2SAT 96
--- NOTE | 2022-09-18 12:23 | MHC.CLN ---
F/U PO INTAKE 75-100% DIET RX: GRD M/S 1800DM 2GM NA -APPROPRIATE PT RECEIVING ENSURE MAX BID FOR WOUND HEALING SUPP PROVIDES 300KCALS, 60G PROTEIN WITH 100% ACCEPTANCE CONTINUE TO MONITOR PO INTAKE CLOSELY
[2022-09-18] MEDS: Acetaminophen 325 MG TABLET 975 MG PO ×2 (14:18→21:55)
[2022-09-18 15:32] VITALS: BP 131/59; PULSE 68; RESP 20; TEMP 36.8; O2SAT 93
[2022-09-18 19:42] VITALS: BP 144/67; PULSE 70; RESP 14; TEMP 36.7; O2SAT 94
[2022-09-18 20:24] LABS: Glucose, Whole Blood 111 mg/dL (60-115)
[2022-09-18] MEDS: traZODone HCL 25 MG HALFTAB 12.5 MG PO (21:55)
[2022-09-18 23:22] VITALS: BP 136/61; PULSE 72; RESP 18; TEMP 36.6; O2SAT 97
[2022-09-19 03:40] VITALS: BP 144/65; PULSE 75; RESP 20; TEMP 36.4; O2SAT 94
[2022-09-19] MEDS: Acetaminophen 325 MG TABLET 975 MG PO ×3 (05:21→21:44)
[2022-09-19 07:10] VITALS: BP 139/63; PULSE 61; RESP 19; TEMP 36.2; O2SAT 97
[2022-09-19 07:17] LABS: Glucose, Whole Blood 95 mg/dL (60-115)
[2022-09-19] MEDS: Metoprolol Tartrate 25 MG TABLET PO ×2 (09:49→20:53)
[2022-09-19] MEDS: Losartan Potassium 25 MG TABLET PO (09:49)
[2022-09-19] MEDS: Apixaban 5 MG TABLET 10 MG PO ×2 (09:50→20:53)
[2022-09-19] MEDS: 0.9 % Sodium Chloride Flush 3 ML SYRINGE IVFLUSH ×3 (09:50→20:54)
[2022-09-19] MEDS: Capsaicin 0.025% Cream 60 GM TUBE 1 APPL TOPICAL ×4 (09:52→20:53)
[2022-09-19 10:36] LABS: Hematocrit 40.6 % (37.0-47.0); Hemoglobin 12.6 g/dl (12.0-16.0)
[2022-09-19 11:12] VITALS: BP 145/65; PULSE 68; RESP 20; TEMP 36.5; O2SAT 96
[2022-09-19 11:20] LABS: MANUAL DIFF FLAG NO
[2022-09-19 11:29] LABS: Basophils Percent Auto 0.8 % (0-2); Eosinophils Absolute Auto 0.1 X10*3/uL (0.0-0.4); Eosinophils Percent Auto 2.4 % (0-4); Imm Gran Abs Auto 0.02 X10*3/uL (0.00-0.03); Imm Gran Pct Auto 0.4 % (0.0-0.4); Lymphocytes Absolute Auto 0.7 X10*3/uL (1.2-4.9); Lymphocytes Percent Auto 14.4 % (20-40); Mean Corpuscular HGB Conc 31.2 g/dl (31.0-35.0); Mean Corpuscular Hemoglobin 29.1 pg (27.0-33.0); Mean Corpuscular Volume 93.3 fL (80.0-98.0); Mean Platelet Volume 10.7 fL (9.4-12.3); Monocytes Absolute Auto 0.5 X10*3/uL (0.1-1.2); Monocytes Percent Auto 9.7 % (2-11); Neutrophils Absolute Auto 3.6 x10*3/uL (2.0-8.3); Neutrophils Percent Auto 72.3 % (45-73); Red Blood Count 4.33 X10*6/uL (4.20-5.50); White Blood Count 4.9 X10*3/uL (4.8-10.8)
[2022-09-19 11:30] LABS: Platelet Count 99 X10*3/uL (160-400)
[2022-09-19 11:51] LABS: Glucose, Whole Blood 103 mg/dL (60-115)
--- NOTE | 2022-09-19 14:58 | MHC.SL.DTX ---
Dysphagia Diet modifications: Last documented Solid diet consistencies: Full Liquid Diet Last documented Liquid consistency: Full Liquid Diet Last documented Medication Administration: Changes made to current diet?: Liquid Consistency and Strategies: Liquid Intake Recommendation: Thin Compensatory Strategies for Safe Swallow: Small Sips Compensatory Strategies for Safe Swallow(b): Sitting Upright (90 deg) Small Bites and Sips Alternate Liquids/Solids Rate of Ingestion Change Solid Food Consistency: Dietary Recommendations: Chopped/Advanced (NDD3) Oral Medication Intake: Crushed with Puree Strategies and Precautions to be Taken for Safe Swallow: Sitting Upright (90 deg) Small Bites and Sips Alternate Liquids/Solids Rate of Ingestion Change Supervision While Eating and/Drinking: Intermittent Supervision Foods to Avoid: Mixed consistencies Swallowing Recommended Treatments: Compens. Strategy Educat. Level of Impact on: Daily activities: Interpersonal interactions: Education: Employment: Community: Prognosis for Improvement: Recommendation for Speech: Inpatient Speech Therapy Comment: Pt upgraded to Chopped/Advanced (NDD3) Solids on 09/19. Frequency/Duration: Date Range for Service Req: Timeline to reassess: Additional Comments: Treatment: Pt has been tolerating Ground/Mech Altered Solids. Per Dtr at bedside, she is getting sick of the texture. Today, she tolerated Thin Liquids self administered via straw with no overt s/s of aspiration. She tolerated Puree, Advanced, and Soft Solid ([employer] [place]) with adequate oral preparation and no overt s/s of aspiration. Her aspiration risk is low, however she will benefit from softer solids given her lack of dentures. 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
--- NOTE | 2022-09-19 15:26 | HO.PM.IMPN ---
Subjective Subjective Date of Service: 09/19/22 Interval History: chf Review of Systems f/u on resp failure d/t pe, dvt and chf alert, doing well no new issues Physical Exam Vital Signs: Vital Signs: Last Vital Signs Temp 97.7 F 09/19/22 11:12 Pulse 68 09/19/22 11:12 Resp 20 09/19/22 11:12 BP 145/65 H 09/19/22 11:12 Pulse Ox 96 09/19/22 11:12 O2 Del Method Nasal Cannula 09/19/22 11:12 O2 Flow Rate 2 09/19/22 11:12 FiO2 93 09/15/22 15:42 Oxygen Flow Rate 2 09/09/22 14:25 BMI result Body Mass Index 42.2 General:alert, no distress Resp:? CTA bilateral CVS: S1,S2,RRR, leg edema improving GI: +BS, NT, no distention Skin: No rash Neuro:? motor grossly intact Psych:flat Objective Data Active Medications Acetaminophen (Acetaminophen 325 Mg Tablet) 975 mg PO Q8H [facility] Last Admin: 09/19/22 05:21 Dose: 975 mg Documented By: JOSÉ MIGUEL Apixaban (Apixaban 5 Mg Tablet) 10 mg PO BID [facility] Stop: 09/21/22 09:01 Last Admin: 09/19/22 09:50 Dose: 10 mg Documented By: LAINE Capsaicin (Capsaicin 0.025% Cream 60 Gm Tube) 1 appl TOPICAL QID [facility]; Protocol Last Admin: 09/19/22 09:52 Dose: 1 appl Documented By: LAINE Dextrose (Dextrose 50 % 25 Gm/50 Ml Syringe) 25 gm IVPUSH Q15M PRN; Protocol PRN Reason: per Hypoglycemia Standing Ord. Docusate Sodium (Docusate Sodium 100 Mg Capsule) 100 mg PO DAILY PRN PRN Reason: Constipation Glucose (Glucose Gel 15 Gm Gel..Gram.) 15 gm PO Q15M PRN; Protocol PRN Reason: per Hypoglycemia Standing Ord. Insulin Human Lispro (Insulin Lispro 100 Unit/Ml 3 Ml Vial) 0 unit SUBCUT QIDACHS [facility]; Protocol Last Admin: 09/19/22 12:39 Dose: Not Given Documented By: LAINE Non-Admin Reason: No Insulin Coverage Lidocaine (Lidocaine 4 % Patch Adh..Patch) 1 patch TRANSDERMA DAILY [facility]; Protocol Last Admin: 09/19/22 09:50 Dose: Not Given Documented By: LAINE Non-Admin Reason: Patient Refused Losartan Potassium (Losartan Potassium 25 Mg Tablet) 25 mg PO DAILY [facility]; Protocol Last Admin: 09/19/22 09:49 Dose: 25 mg Documented By: LAINE Metoprolol Tartrate (Metoprolol Tartrate 25 Mg Tablet) 25 mg PO BID [facility]; Protocol Last Admin: 09/19/22 09:49 Dose: 25 mg Documented By: LAINE Ondansetron HCl (Ondansetron Hcl 4 Mg/2 Ml Vial) 4 mg IVPUSH Q8H PRN PRN Reason: Nausea and Vomiting Last Admin: 09/13/22 02:54 Dose: 4 mg Documented By: NITZA Pharmacy Consult (Consult Rx Perform Med Rec) 1 each MISCELLANE ONCE PRN PRN Reason: Consult order Sodium Chloride (0.9 % Sodium Chloride Flush 3 Ml Syringe) 3 ml IVFLUSH QSHIFT [facility] Last Admin: 09/19/22 09:50 Dose: 3 ml Documented By: LAINE Trazodone HCl (Trazodone Hcl 25 Mg Halftab) 12.5 mg PO BEDTIME [facility] Last Admin: 09/18/22 21:55 Dose: 12.5 mg Documented By: JOSÉ MIGUEL Labs 09/19/22 10:01 09/15/22 08:24 Labs: Laboratory Results - last 24 hr 09/18/22 09/18/22 09/19/22 16:04 19:45 07:13 MCV MCH MCHC RDW Plt Count MPV Immature Gran % (Auto) Neut % (Auto) Lymph % (Auto) [place] % (Auto) Eos % (Auto) Baso % (Auto) Lymph # (Auto) [place] # (Auto) Eos # (Auto) Baso # (Auto) Abs Immat Gran (auto) Absolute Neuts (auto) Absolute Nucleated RBC Nucleated RBC % (auto) POC Glucose 100 111 95 09/19/22 09/19/22 10:01 11:46 MCV 93.3 MCH 29.1 MCHC 31.2 RDW 16.0 Plt Count 99 L MPV 10.7 Immature Gran % (Auto) 0.4 Neut % (Auto) 72.3 Lymph % (Auto) 14.4 L [place] % (Auto) 9.7 Eos % (Auto) 2.4 Baso % (Auto) 0.8 Lymph # (Auto) 0.7 L [place] # (Auto) 0.5 Eos # (Auto) 0.1 Baso # (Auto) 0.0 Abs Immat Gran (auto) 0.02 Absolute Neuts (auto) 3.6 Absolute Nucleated RBC 0.000 Nucleated RBC % (auto) 0.0 POC Glucose 103 Assessment and Plan (1) Venous thromboembolism: Status: Acute (2) Diarrhea: Status: Acute (3) New onset of congestive heart failure: Status: Acute Plan 81-year-old female with past medical history of COPD/ILD, diabetes, hypertension, chronic hypoxemic hypercapnic respiratory failure, legally blind, history of CKD stage4, recent NSTEMI?admitted for new onset CHF with possible GI bleed and acute diarrhea. DVT/PE was on IV heparin for 5 days and chenaged to Eliquis 7/6 (10 bid x 7 days, then 5 bid) CHF--EF 30 tp -35.. showing sings of fluid overaload with much leg edema, continue Lasix IV , continue Losartan 25 and add metoprolol --change to PO Lasix tomorrow start po lasix Hypokalemia--corrected and resolved ?Hemoptysis: son says she did not have hemoptysis. recent? NSTEMI--medical therapy Recent pneumonia-completed antibiotics( noted from progress not documentation) intial ct chest -? right lung consolidation vs mass CKD stage IV-renal function baseline. DM : hold dm meds fs with low sliding scale coverage . 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 had diarrahe itntially: c diff neg GIp panel pending DVT prophylaxis- SCPs DNR/DNI ongoing hospitilsation needs:dvt /possible pulm embolism -started on AC ,also? Gi bleed: positive stool ,chf requiring IV diuresis, cardiac monitoring Discuss goals of care with family as overall prognosis is poor, DC in 24 to 48 hours Time Spent With Patient Time: Total time managing care of this patient today ____ minutes. Quality Stroke Does the patient have a stroke diagnosis?: No VTE Prior VTE?: No VTE Risk Level:: Medical - moderate - high VTE Device Contraindication: Treatment Not Indicated VTE Drug Contraindication: N/A - Med Ordered
[2022-09-19 15:45] VITALS: BP 122/45; PULSE 77; RESP 17; TEMP 36.4; O2SAT 95
[2022-09-19 17:01] LABS: Glucose, Whole Blood 150 mg/dL (60-115)
[2022-09-19 19:59] VITALS: BP 126/56; PULSE 70; RESP 18; TEMP 37.2; O2SAT 95
[2022-09-19 20:45] LABS: Glucose, Whole Blood 96 mg/dL (60-115)
[2022-09-19] MEDS: traZODone HCL 25 MG HALFTAB 12.5 MG PO (20:53)
[2022-09-19 23:26] VITALS: BP 146/66; PULSE 65; RESP 20; TEMP 36.1; O2SAT 96
[2022-09-20 03:34] VITALS: BP 129/60; PULSE 66; RESP 20; TEMP 36.1; O2SAT 97
[2022-09-20] MEDS: Acetaminophen 325 MG TABLET 975 MG PO (05:32)
[2022-09-20 07:35] VITALS: BP 132/63; PULSE 70; RESP 20; TEMP 36.6; O2SAT 98
[2022-09-20 07:45] LABS: Glucose, Whole Blood 98 mg/dL (60-115)
[2022-09-20] MEDS: Lidocaine 4 % Patch ADH..PATCH 1 PATCH TRANSDERMA (09:53)
[2022-09-20] MEDS: Losartan Potassium 25 MG TABLET PO (09:54)
[2022-09-20] MEDS: Metoprolol Tartrate 25 MG TABLET PO (09:54)
[2022-09-20] MEDS: Furosemide 20 MG TABLET PO (09:54)
[2022-09-20] MEDS: Apixaban 5 MG TABLET 10 MG PO (09:54)
[2022-09-20] MEDS: Capsaicin 0.025% Cream 60 GM TUBE 1 APPL TOPICAL (09:59)
[2022-09-20] MEDS: 0.9 % Sodium Chloride Flush 3 ML SYRINGE IVFLUSH (10:00)
[2022-09-20 11:02] VITALS: PULSE 69; PULSE 70; O2SAT 87; O2SAT 93
--- NOTE | 2022-09-20 11:18 | MHC.CM.PN ---
Addendum entered by Lisa Mullen RN 09/20/22 11:20: TRANSPORT SET UP FOR 3:30PM Original Note: IMM 09/20/22 DELIVERED TO SON/HCP MARITZA AT 10:22AM AND WILL BE LEFT AT BEDSIDE, [facility]ZA AGREEABLE TO DC PLAN FOR HOME TODAY W/RESUMP OF [facility] AND NEW PALLIATIVE CARE, [facility] FOR HOME O2 AND [facility]MA FOR TRANSPORT.
[2022-09-20 11:47] VITALS: BP 118/56; PULSE 64; RESP 20; TEMP 36.3; O2SAT 93
[2022-09-20 11:57] LABS: Glucose, Whole Blood 96 mg/dL (60-115)
--- NOTE | 2022-09-20 12:06 | PM.DS ---
DS: Providers Provider Date of Service: 09/20/22 Date of admission: 09/09/22 21:15 Date of discharge: 09/20/22 Primary care physician: Cecilia Hitchcock MD Consults: 09/09/22 21:15 Consult to Cardiology Routine Consulting Provider: [facility] Reason for consultation: new onset chf Has provider been notified: Yes 09/10/22 01:32 Consult to Gastroenterology Routine Consulting Provider: Emile Ramesh Reason for consultation: Black diarrhea, occult stool positive 09/10/22 09:24 Consult to Vascular Surgery Routine Consulting Provider: [facility] Reason for consultation: Dvt new ,hemoptysis, has possible GI bleed-IVC filter 09/10/22 10:16 Consult to Hematology / Oncology Routine Consulting Provider: [facility] Reason for consultation: fobt positive /?hemoptysis ,new dvt -need AC advise Has provider been notified: No Attending physician on discharge: Kate Sahu Discharging clinician: Kate Sahu DS: Diagnosis Discharge Diagnosis (1) Venous thromboembolism: Status: Acute (2) Diarrhea: Status: Acute (3) New onset of congestive heart failure: Status: Acute DS: Summary Hospital Course Hospital Course: 81-year-old female with past medical history of COPD/ILD, diabetes, hypertension, chronic hypoxemic hypercapnic respiratory failure, legally blind, history of CKD stage4, recent NSTEMI? presents the hospital with her two daughters complaining of decreased PO intake, generalized weakness, and dark stool/diarrhea. She was admitted from 09/01- with NSTEMI and pneumonia. She was treated conservatively with IV heparin but was not discharged on AC. She has not been taking her pills including ASA but has been taking the amoxicillin liquid that she was discharged on.? She states the anorexia was present during her hospitalization and has not improved but the multiple episodes of watery diarrhea daily are new.? Her daughters note bright red blood per rectum as well as dark black appealing stool.? She denies any fevers, chills, abdominal pain, nausea, vomiting.? She has been experiencing ongoing orthopnea and her daughters have noted increased work of breathing. She continues with cough with occassional blood tinged sputum. There has been edema in hands and legs that has increasing.? She did have echocardiogram performed in 09/01 which showed preserved LV systolic function with EF 60-65% and normal diastolic function. On arrival, patient has been tachycardic ranging 100-140 with EKG showing sinus rhythm and no ST or depressions.? She is afebrile but tachypneic to 26.? She is on 2 L supplemental O2 at baseline and is maintaining oximetry are 95%.? Creatinine baseline at 1.47, BUN 21.? Has a hypokalemia of 3.1, electrolytes otherwise within normal limits.? Stool occult blood is positive? .? Chest x-ray shows scattered medium and coarse pulmonary reticular opacities throughout the lungs possibly representing chronic parenchymal interstitial disease and there is also a small right pleural effusion but no focal pulmonary consolidation.? In the ED has been given 40 mEq potassium chloride orally and 10 mEq IV potassium. Hospital course: 86-year-old female with multiple comorbidities including chronic hypoxemic respiratory failure on home oxygen due to COPD/ILD-came to the hospital because shortness of breath-subsequent workup revealed patient has PE and also DVT(please see imaging studies below for further details)-patient was started on IV heparin-patient's h/h remain stable and subsequently switched to p.o. anticoagulation(Eliquis) in addition patient was found to have CHF exacerbation(possible systolic) her EF is around 30-35%- patient was seen by Cardiology received IV Lasix-diuresed well, shortness of breath seems to be improved significantly as well as the leg edema. Patient was transitioned back to her home dose Lasix upon discharge,inaddition metoprolol adjusted 25mg po bid and losaratan 25 mg po added . ? Gi occult blood positive - after family discussion if she did not had any gross bleeding,Gi seen the patient and recomended if any overt GI bleeding whilst on AC then can consider EGD colon for eval but she would be high risk given her body habitus and co morbidities.currently family defers further workup. And patient did not had any episode of gross bleeding in the hospital.In addition there was a question of hemoptysis initially but when checked with the family is unclear whether she had any hemoptysis. Patient was also treated for recent pneumonia as well as chest imaging also there is possible question of right-sided lung mass,conisder outpatient chest Ct in 1 month time . Considering multiple issues and comorbidity and patient is generalize frail condition family decided for palliative management for now they are leaning toward hospice which they will decide at home. Plan: Continue Eliquis 10 mg po bid until 09/21/2022, then switched to Eliquis 5 mg p.o. b.i.d.. metoprolol adjusted 25mg po bid and losaratan 25 mg po added Monitor renal function electrolytes while on Lasix. Monitor CBC, and any gross bleeding. Above management discussed with the family in detail length they understand and in agreement with above plan, time spent 50 minute. Time Spent with Patient Time attestation: Total time managing care of this patient today ____ minutes. Discharge coordination time: Greater than 30 minutes Quality: Safe Use of Opioids Does Pt have an Active Cancer Diagnosis on the Problem List?: No Quality: Stroke Does the patient have a stroke diagnosis?: No Physical Exam Vital Signs: Vital Signs: Last Vital Signs Temp 97.3 F 09/20/22 11:47 Pulse 64 09/20/22 11:47 Resp 20 09/20/22 11:47 BP 118/56 L 09/20/22 11:47 Pulse Ox 93 09/20/22 11:47 O2 Del Method Nasal Cannula 09/20/22 11:47 O2 Flow Rate 2 09/20/22 11:47 FiO2 93 09/15/22 15:42 Oxygen Flow Rate 2 09/09/22 14:25 BMI result Body Mass Index 42.2 General:alert, no distress,frail Resp:? CTA bilateral CVS: S1,S2,RRR, leg edema improving GI: +BS, NT, no distention Skin: No rash Neuro:? motor grossly intact Psych:flat DS: Data Data Completed and Pending Labs on day of discharge: Laboratory Results - last 24 hr 09/19/22 09/19/22 09/20/22 16:57 20:37 07:38 POC Glucose 150 H 96 98 09/20/22 11:49 POC Glucose 96 Imaging Chest x-ray: Radiologist's impression: ITS Impressions Chest X-Ray 09/09/22 20:10 IMPRESSION: 1. Scattered medium and coarse pulmonary reticular opacities throughout the lungs. Findings may represent chronic parenchymal interstitial disease. 2. Possible small right pleural effusion. 3. No focal pulmonary consolidation. Venous Duplex 09/10/22 08:45 IMPRESSION: Acute deep venous thrombosis of the right lower extremity with occlusive thrombus seen within the common femoral vein with extension into the proximal greater saphenous vein. No acute DVT demonstrated in the left lower extremity. This critical result was discussed with Dr. Sahu at 9:15 AM on September 10, 2022 and it was ascertained that the content and urgency of the report was understood at the time of direct communication. Pulmonary Perfusion Imaging 09/10/22 10:55 IMPRESSION: Multiple filling defects with high suspicion for PE. Chest CT 09/10/22 11:05 IMPRESSION: 1. Heterogeneous pulmonary artery attenuation suspicious for pulmonary emboli. Bilateral leg Doppler ultrasound could be helpful in this regard. 2. Enlarged pulmonary arteries consistent with pulmonary arterial hypertension. Recommend echocardiography. 3. Aortic valve disease. Recommend echocardiography. 4. Severe emphysema. 5. Right lower lobe consolidation suspicious for aspiration, pneumonia or hemorrhage. 6. Possible right lower lobe mass. Short interval follow-up CT is required in one month's time. 7. Severe coronary artery disease. 8. Borderline splenomegaly. 9. Cholelithiasis. 10. A 3 cm isthmic thyroid nodule. Recommend thyroid ultrasound. Fleischner guidelines were followed. Discharge Plan Discharge Anticipated Discharge Date/Time: 09/20/22 11:27 Patient Disposition: Home Health Service Discharge Diagnosis: resp failure d/t pe, dvt and chf Referrals: [facility] [Outside] - 1 Day (Resumption of care w/transition to Palliative Care) Cecilia Hitchcock MD [Primary Care Provider] - 1 Week Discharge Medications: New losartan 25 mg Tablet 25 mg PO DAILY Qty: 30 0RF Protocol: Hold for SBP< HOLD for SBP < : 90 apixaban 5 mg tablet 5 mg PO BID Qty: 34 0RF Rx Instructions: take apixiban 10mg (2 tabs ) by mouth until 09/21/22, then switch to apixiban 5 mg tab by mouth twice daily on 09/22/22. omeprazole 20 mg capsule,delayed release(DR/EC) 20 mg PO BID Qty: 60 0RF Continued allopurinol 100 mg tablet 150 mg PO DAILY Qty: 45 1RF prednisone 5 mg tablet 5 mg PO DAILY montelukast 10 mg tablet 10 mg PO BEDTIME potassium chloride [Klor-Con M20] 20 mEq tablet,ER particles/crystals 20 meq PO BID atorvastatin 40 mg tablet 40 mg PO BEDTIME Qty: 90 0RF ipratropium-albuterol 0.5 mg-3 mg(2.5 mg base)/3 mL Solution For Nebulization 3 ml inhalation RQ4H PRN (Reason: Wheezing) Qty: 60 0RF glipizide 5 mg Tablet 2.5 mg PO DAILY Qty: 30 0RF furosemide [Lasix] 80 mg tablet 80 mg PO BID pregabalin [Lyrica] 100 mg capsule 100 mg PO TID ferrous sulfate 324 mg (65 mg iron) tablet,delayed release (DR/EC) 324 mg PO DAILY oxycodone-acetaminophen 10-325 mg tablet 1 tab PO Q12H PRN (Reason: Pain) acetaminophen 500 mg tablet 500 mg PO Q12H PRN (Reason: Pain) cholecalciferol (vitamin D3) [Vitamin D3] 25 mcg (1,000 unit) capsule 25 mcg PO DAILY docusate sodium 100 mg capsule 100 mg PO BID Changed metoprolol tartrate [Lopressor] 50 mg tablet 25 mg PO BID Qty: 30 0RF Discontinued aspirin 81 mg Tablet,Delayed Release (Dr/Ec) 81 mg PO DAILY Qty: 90 0RF amoxicillin-pot clavulanate 400-57 mg/5 mL suspension for reconstitution 10 ml PO BID 7 Days Qty: 140 0RF Discharge Orders: Discharge Order (Routine); Ordered 09/20/22 Ordered By: Kate Sahu Diet: Advance to usual diet Activity on Discharge: As tolerated Stand Alone Forms: Patient Portal Discharge page Care Plan Goals: Patient was admitted for acute on chronic hypoxemic respiratory failure secondary to pulmonary embolism, CHF exacerbation: Patient was started on IV blood thinners and also given IV diuretics: Patient's breathing is improving-maintained now near her baseline. Patient was also treated for recent pneumonia as well as chest imaging also there is possible question of right-sided lung mass,almas outpatient chest Ct in 1 month time . In addition patient had question of hemoptysis ,? Gi occult blood positive - after family discussion if she did not had any gross bleeding,Gi seen the patient and recomended if any overt GI bleeding whilst on AC then can consider EGD colon for eval but she would be high risk given her body habitus and co morbidities.currently family defers further workup. And patient did not had any episode of gross bleeding in the hospital. Monitor CBC and BMP in a week. Continue home oxygen. Discussed with the family in detail currently family decided for palliative management ,they will decide possible hospice at home. Health Concerns: As above. Plan of Treatment: As above. Assessment: As above. Patient Instructions: Deep Vein Thrombosis (DC)
== END 2022-09-20 16:50 | disposition home health service (06) | DRG 280 ==
LOC: HO.ED 19:26 → HO.EDOVER 21:19 → HO.IMC 21:43
PROVIDERS: Internal Medicine; Admitting Provider Physician Assistant; Emergency Provider Emergency Medicine; PCP Internal Medicine; Visit Provider Internal Medicine
DX: I13.0 Hypertensive heart and chronic kidney disease with heart failure and stage 1 through stage 4 chronic kidney disease, or unspecified chronic kidney disease (principal); I26.99 Other pulmonary embolism without acute cor pulmonale; I21.4 Non-ST elevation (NSTEMI) myocardial infarction; I50.31 Acute diastolic (congestive) heart failure; J96.21 Acute and chronic respiratory failure with hypoxia; I22.2 Subsequent non-ST elevation (NSTEMI) myocardial infarction; I82.811 Embolism and thrombosis of superficial veins of right lower extremity; N18.4 Chronic kidney disease, stage 4 (severe); Z68.41 Body mass index [BMI] 40.0-44.9, adult; I82.411 Acute embolism and thrombosis of right femoral vein; K92.1 Melena; Z66 Do not resuscitate; E66.01 Morbid (severe) obesity due to excess calories; E11.22 Type 2 diabetes mellitus with diabetic chronic kidney disease; D50.9 Iron deficiency anemia, unspecified; D63.1 Anemia in chronic kidney disease; L89.312 Pressure ulcer of right buttock, stage 2; H54.8 Legal blindness, as defined in USA; Z99.81 Dependence on supplemental oxygen; J44.9 Chronic obstructive pulmonary disease, unspecified; E87.6 Hypokalemia; Z79.52 Long term (current) use of systemic steroids; Z79.84 Long term (current) use of oral hypoglycemic drugs; Z79.899 Other long term (current) drug therapy
CPT/HCPCS: 36415; 71045; 71250; 78580; 80048; 80053; 82272; 82947; 83735; 83880; 84484; 85014; 85018; 85025; 85027; 85379; 85610; 85730; 86850; 86900; 86901; 87493; 87507; 87635; 92526; 92610; 93005; 93308; 93970; 99285; A9540; J1643; J1940; J2405

== ENCOUNTER 2022-09-09 21:15 | Outpatient (BNV) | payer OTHER, SELFPAY | END 2022-09-17 16:40 | PROVIDERS: Admitting Provider Physician Assistant; Emergency Provider Emergency Medicine; PCP Internal Medicine; Visit Provider Internal Medicine Cardiovascular Disease | DX: I50.9 Heart failure, unspecified (principal) | CPT/HCPCS: 93010 ==

== ENCOUNTER → 2022-09-09 21:15 | Outpatient (BNV) | payer OTHER, SELFPAY | PROVIDERS: Admitting Provider Physician Assistant; Emergency Provider Emergency Medicine; PCP Internal Medicine; Visit Provider Physician Assistant | DX: I82.90 Acute embolism and thrombosis of unspecified vein (principal); R19.7 Diarrhea, unspecified; I50.9 Heart failure, unspecified | CPT/HCPCS: 99223; 99232; 99233; 99239 ==

== ENCOUNTER 2022-10-04 13:42 | Outpatient (REF) | payer OTHER, SELFPAY ==
[2022-10-04 13:48] LABS: MANUAL DIFF FLAG NO
[2022-10-04 13:52] LABS: Basophils Percent Auto 0.4 % (0-2); Eosinophils Absolute Auto 0.2 X10*3/uL (0.0-0.4); Eosinophils Percent Auto 2.3 % (0-4); Hematocrit 33.2 % (37.0-47.0); Hemoglobin 10.2 g/dl (12.0-16.0); Imm Gran Abs Auto 0.03 X10*3/uL (0.00-0.03); Imm Gran Pct Auto 0.3 % (0.0-0.4); Lymphocytes Absolute Auto 1.7 X10*3/uL (1.2-4.9); Lymphocytes Percent Auto 17.1 % (20-40); Mean Corpuscular HGB Conc 30.7 g/dl (31.0-35.0); Mean Corpuscular Hemoglobin 29.8 pg (27.0-33.0); Mean Corpuscular Volume 97.1 fL (80.0-98.0); Monocytes Absolute Auto 0.6 X10*3/uL (0.1-1.2); Monocytes Percent Auto 6.3 % (2-11); Neutrophils Absolute Auto 7.4 x10*3/uL (2.0-8.3); Neutrophils Percent Auto 73.6 % (45-73); Platelet Count 169 X10*3/uL (160-400); Red Blood Count 3.42 X10*6/uL (4.20-5.50); Red Cell Distribution Width 16.7 % (11.0-16.0); White Blood Count 10.1 X10*3/uL (4.8-10.8)
[2022-10-04 14:36] LABS: Anion Gap 13 (12-20); Blood Urea Nitrogen 34 mg/dL (9-16); Calcium 8.9 mg/dL (8.4-10.2); Carbon Dioxide 31 mmol/L (22-29); Chloride 102 mmol/L (96-108); Estimated Glomerular Filt Rate 21; Glucose Random 77 mg/dL (60-115); Potassium 4.4 mmol/L (3.3-5.1); Sodium 142 mmol/L (135-145)
[2022-10-04 14:37] LABS: B Type Natriuretic Peptide 62 pg/mL (<100)
== END 2022-10-04 13:43 | disposition home or self-care (01) ==
LOC: HO.HVNA 13:42
PROVIDERS: Visit Provider Internal Medicine
DX: K92.1 Melena (principal); I50.22 Chronic systolic (congestive) heart failure; E11.65 Type 2 diabetes mellitus with hyperglycemia
CPT/HCPCS: 36415; 80048; 83880; 85025

== ENCOUNTER 2022-10-11 12:12 | Outpatient (REF) | payer OTHER, SELFPAY ==
[2022-10-11 12:35] LABS: Appearance Urine Turbid; Color Urine Yellow; Glucose Urine UA Negative (Negative); Leukocyte Esterase Urine Large (3+) (Negative); Nitrite Urine Positive (Negative); PH 5.5 (5.0-9.0); Specific Gravity - Urine 1.015 (1.005-1.025); UMIC TRIGGER UA YES; Urine Blood Small (1+) (Negative); Urine Ketones Trace mg/dL (Negative); Urine Protein 30 (1+) mg/dL (Neg-Trace)
[2022-10-11 12:56] LABS: Bacteria Urine 4+ (None Seen); Hyaline Casts Urine 0-2 /LPF (0-2); RBC Urine 0-2 /HPF (0-2); Squamous Epithelial Cell Urine 0-2 /HPF (0-2); WBC Urine >50 /HPF (0-5)
== END 2022-10-11 12:13 | disposition home or self-care (01) ==
LOC: HO.HVNA 12:12
PROVIDERS: Visit Provider Internal Medicine
DX: N18.4 Chronic kidney disease, stage 4 (severe) (principal); R82.90 Unspecified abnormal findings in urine
CPT/HCPCS: 81001; 87086; 87088; 87186